=== PATIENT | male | born 1955 | race Caucasian/White ===

== ENCOUNTER 2018-04-11 09:48 | Emergency (ER) | payer MEDICAID, SELFPAY ==
[2018-04-11] VITALS (32 sets, daily range): BP systolic 102–137; BP diastolic 54–82; PULSE 55–74; RESP 10–32; TEMP 36.6; O2SAT 99–100
--- NOTE | 2018-04-11 10:14 | DI.RAD_ITS ---
SYMPTOM/DIAGNOSIS: PAIN RIGHT SHOULDER: Three views. There is an anterior dislocation of the right shoulder. There are well corticated osseous fragments seen superior to the acromioclavicular joint which appear old. There are osseous densities seen at the lateral aspect of the acromion. These are indeterminate and may represent acute fracture fragments. The soft tissues are unremarkable. IMPRESSION: Anterior dislocation of the right shoulder.
--- NOTE | 2018-04-11 10:15 | W.ED.GENAD ---
Discharge Plan Disposition Patient Disposition: HOME Condition: Improving Discharge Details Chief Complaint: Orthopedic Clinical Impression: Dislocation of right shoulder joint Primary Care Provider: Romelia Bravo ED Provider: Jayy La Home Meds and New Rx's Prescriptions: Continued clonazepam 2 mg tablet 2 mg PO TID PRNRF: 0 gabapentin 300 mg capsule 300 mg PO BID Qty: 60 RF: 1 meloxicam 15 mg tablet 15 mg PO DAILY Qty: 30 RF: 2 clomipramine 50 mg capsule 50 mg PO DAILY RF: 0 Discharge Instructions Instructions: Shoulder Dislocation (ED) Additional Instructions: Apply ice to reduce pain and swelling. May use Tylenol and/or ibuprofen if needed as well. Sling the arm until seen by orthopedics for follow-up. Return to the emergency department for any acute concern. Please call the orthopedic office at [phone] to schedule a follow-up appointment Discharge Data Discharge Date/Time-TO BE ENTERED AT DEPARTURE: 04/11/18 14:30 Medical Decision Making <Jayy La MD - Last Filed: 04/11/18 12:33> 62-year-old male who uses [place] crutches to aid in normal ambulation of long distances, was walking on ice, fell forward and had a hyperextension of his right humerus with resultant right shoulder pain. Denies any other injury. No loss of consciousness and no neck/back/chest/abdomen pain. No numbness or tingling. Arrives with unremarkable vital signs, exam reveals tenderness proximal humerus, loss of fullness of humeral head. Ice applied on patient given analgesia, referred for x-ray which reveals anterior humeral head dislocation. Patient agreed to a trial of reduction without sedation which was unsuccessful. He was consented for procedural sedation, propofol was administered by Dr. Contreras, and I reduce the shoulder with traction and external rotation. Post reduction exam unremarkable. Patient placed in sling. He is able to walk with single crutch, but will benefit from outpatient follow-up and physical therapy HPI <Jayy La MD - Last Filed: 04/11/18 12:33> General Mode of arrival: ambulatory. Date/Time Provider Initiated Documentation: 04/11/18 09:56. Limitations to Documentation: no limitations. Information obtained by: patient. History of Present Illness 62 year old M presents to the emergency department with the chief complaint of Right shoulder pain after fall, described as moderate, Quality is described as aching, and is localized to the right and upper extremity. Patient reports no radiation. Patient started experiencing this minute(s) and it has been constant. Cold therapy improves symptom(s), and Rest improves symptom(s), Movement worsens symptoms . Patient notes no other symptoms.; denies chest pain and headaches. Patient did receive the following treatments prior to arrival, none Related Data Home Medications Medication Instructions Recorded Confirmed meloxicam 15 mg tablet 15 mg PO DAILY #30 tab 02/21/18 04/11/18 clomipramine 50 mg capsule 50 mg PO DAILY tab-cap 04/01/18 04/11/18 clonazepam 2 mg tablet 2 mg PO TID PRN 04/01/18 04/11/18 gabapentin 300 mg capsule 300 mg PO BID #60 cap 04/01/18 04/11/18 Previous Rx's Medication Instructions Recorded meloxicam 15 mg tablet 15 mg PO DAILY #30 tab 02/21/18 gabapentin 300 mg capsule 300 mg PO BID #60 cap 04/01/18 Allergies Allergy/AdvReac Type Severity Reaction Status Date / Time fluoxetine HCl [From Prozac] AdvReac Severe Psychosis Unverified 04/11/18 10:11 General Stated Complaint: Orthopedic KATI: 3 Review of Systems <Jayy La MD - Last Filed: 04/11/18 12:33> Review of Systems 6 systems reviewed and otherwise negative PFSH <Jayy La MD - Last Filed: 04/11/18 12:33> Surgical History Appendectomy SPINAL SURGERY Family History Mother Personal history of malignant neoplasm Father No problems noted. Brother No problems noted. Son No problems noted. Daughter Depression Daughter No problems noted. Daughter Depression Social History Smoking/Tobacco Use Status: Never Exam <Jayy La MD - Last Filed: 04/11/18 12:33> Narrative Exam Narrative: GEN: awake, alert, oriented 3. Pleasant, well groomed, interactive. HEAD: Normocephalic, atraumatic ENT: Mucous membranes moist, oropharynx unremarkable, External ear exam unremarkable EYES: PERRL, EOMI NECK: Full ROM, no IGGY, no menigismus, no tenderness CHEST/RESP: Nontender, clear to auscultation bilateral, no wheeze/rhonchi/rales CARDIOVASCULAR: RRR, no murmur, rub sara. 2+ Rad pulse bilateral ABDOMEN: Soft, nontender, no mass. +Bowel sounds EXT: Motor intact in the rated 5 out of 5 bilaterally. Right upper extremity movement is limited by pain. There is tenderness of the humeral head, loss of fullness of humeral head proximally. 2+ radial pulse bilaterally. Sensation intact throughout including lateral deltoid Neuro: Grossly normal neurologic exam, conversant, interactive. Psych: Speech fluent, thoughts congruent, affect normal Course <Jayy La MD - Last Filed: 04/11/18 12:33> Vital Signs Temperature 36.6 C 04/11/18 10:06 Pulse 57 L 04/11/18 10:06 Respiratory Rate 18 04/11/18 10:06 Blood Pressure 137/70 04/11/18 10:06 Pulse Oximetry 99 04/11/18 10:06 Temperature 36.6 C 04/11/18 10:06 Temperature Source Temporal Artery Scan 04/11/18 10:06 Pulse 57 L 04/11/18 10:06 Respiratory Rate 18 04/11/18 10:06 Respiratory Effort Non-Labored 04/11/18 10:09 Blood Pressure 137/70 04/11/18 10:06 Blood Pressure Position Supine 04/11/18 10:06 Pulse Oximetry 99 04/11/18 10:06 Oxygen Delivery Method Room Air 04/11/18 10:06 Oxygen Flow Rate 0 04/11/18 10:06 Pain Level 10 04/11/18 10:06 Procedures <Jayy La MD - Last Filed: 04/11/18 12:33> Orthopedic Joint Reduction Joint #1: Time Out Performed: Yes Side: right Joint Reduction Location: shoulder Analgesia: procedural sedation Shoulder Technique Used (if applicable): external rotation Post-reduction neuro exam: intact Post-reduction vascular: intact Post Reduction X-Ray Obtained: Yes Post Reduction X-Ray Results: reduced Splint Applied: Yes Patient Tolerated Procedure: well <Po Contreras MD - Last Filed: 04/11/18 21:01> Procedural Sedation Indication: fracture/dislocation reduction Presedation Evaluation: ASA 2. Stable for procedural sedation. ASA Class: II Preparation: terra cotta mason applied, pulse oximeter, capnometry used, supplemental O2 applied and suction/airway equipment at bedside IV Propofol dose (mg): 100 Patient Tolerated Procedure: well and no complications Complications: none Additional Comments: Patient tolerated procedural sedation well.
[2018-04-11] MEDS: HYDROcodone 5/Acetaminophen 325 TAB PO (10:20)
--- NOTE | 2018-04-11 11:28 | DI.RAD_ITS ---
SYMPTOMS/DIAGNOSIS: S/P REDUCTION RIGHT SHOULDER POST REDUCTION: Two views. Comparison with examination from earlier in the day. There has been successful reduction of the right shoulder. On the frontal view the superior aspect of the glenohumeral joint and acromioclavicular joints were coned for view. There are again seen ossific densities adjacent to the lateral aspect of the acromion and superior to the acromioclavicular joint. These calcifications are indeterminate. The ones adjacent to the AC joint appear to represent old injury. IMPRESSION: Successful reduction of the right shoulder dislocation.
[2018-04-11] MEDS: Normal Saline 1,000 ML 30 ML IV (11:30)
[2018-04-11] MEDS: Propofol 200 MG/20 ML VIAL 80 MG IVP (11:40)
== END 2018-04-11 14:30 | disposition home or self-care (01) ==
PROVIDERS: Emergency Provider Emergency Medicine; PCP Family Medicine
DX: S43.011A Anterior subluxation of right humerus, initial encounter (principal); W00.0XXA Fall on same level due to ice and snow, initial encounter
CPT/HCPCS: 23650; 73030; 96374; L3650

== ENCOUNTER 2018-04-17 18:00 | Emergency (ER) | payer MEDICAID, SELFPAY ==
[2018-04-17] VITALS (15 sets, daily range): BP systolic 136–172; BP diastolic 74–93; PULSE 62–83; RESP 14–20; TEMP 37.1; O2SAT 96–100
--- NOTE | 2018-04-17 19:19 | W.ED.GENAD ---
Discharge Plan Disposition Patient Disposition: HOME Condition: Improving Discharge Details Chief Complaint: Orthopedic Clinical Impression: Anterior dislocation of right shoulder Primary Care Provider: Romelia Bravo ED Provider: Katya Hedrick Home Meds and New Rx's Prescriptions: Continued clonazepam 2 mg tablet 2 mg PO TID PRNRF: 0 gabapentin 300 mg capsule 300 mg PO BID Qty: 60 RF: 1 tamsulosin 0.4 mg capsule 0.8 mg PO DAILY Qty: 60 RF: 3 meloxicam 15 mg tablet 15 mg PO DAILY Qty: 30 RF: 2 clomipramine 50 mg capsule 50 mg PO DAILY RF: 0 Discharge Instructions Instructions: Shoulder Dislocation (ED) Additional Instructions: Keep arm in sling until evaluated by orthopedics. Please keep upcoming appointment with orthopedics. Rest and ice shoulder. Tylenol and/or Ibuprofen as needed for discomfort. If you develop new/worsening symptoms please seek care urgently once again. Referrals: Romelia Bravo MD [Primary Care Provider] - Medical Decision Making Patient is 62-year-old [id number] male presenting today with chief complaint of right shoulder pain. He was seen here on 04/11/2018 at which time he was diagnosed with an anterior shoulder dislocation which was reduced under sedation. He reports that he initially been feeling quite well. However, he tripped this evening while walking with his cane and fell breaking the cane. States it was not at the time of the fall that he injured himself but rather when he went to go pull himself up from the ground using the right hand. Had a sudden onset of pain. On exam, I am concerned for recurrent dislocation. Will repeat imaging and give oxycodone to help with discomfort. 2+ distal pulses. Endorses mild tingling but sensation intact. Reviewed XR, patient has recurrent dislocation. Discussed findings with the patient. He did not tolerate reduction without sedation well, will plan for sendation with reduction. Patient and I discussed risk/benefits as well as expected procedural steps. He voices understanding and wishes to proceed. Patient signed consent. Sedation was performed by Dr. Wolfe. Reduction was performed myself with external rotation. Patient tolerated procedure well. Patient placed in sling. Neurovascularly intact after reduction. Pain greatly improved. Postreduction film reviewed by radiologist: FINDINGS: There has been interval reduction of the right shoulder dislocation. The alignment of the right shoulder is normal. A Hill-Sachs deformity is present. IMPRESSION: Post reduction of the right shoulder as above. Discussed findings with the patient. Advised that he needs to remain in sling until upcoming appointment with orthopedics. Discussed risk of him dislocating again. Encouraged rest and ice. Tylenol/Ibuprofen for discomfort. He was kept in department until the affects of the medication had cleared, able to ambulate and dress himself. Advised that he should not wear sling while driving. We discussed new/worsening symptoms and when to seek care urgently once again. All of his questions and concerns were addressed, he is in agreement with this plan. HPI General Mode of arrival: ambulatory. Date/Time Provider Initiated Documentation: 04/17/18 19:18. Limitations to Documentation: no limitations. Information obtained by: patient. History of Present Illness 62 year old M presents to the emergency department with the chief complaint of right shoulder pain, described as severe, Quality is described as stabbing, and is localized to the right and upper extremity. Patient reports no radiation. Patient started experiencing this hour(s) (1) and it has been constant. Immobilization improves symptom(s), Movement worsens symptoms . Patient notes denies chest pain, cough, fever/chills, loss of appetite, nausea/vomiting, rash, shortness of breath and syncope. Patient did receive the following treatments prior to arrival, none Related Data Home Medications Medication Instructions Recorded Confirmed meloxicam 15 mg tablet 15 mg PO DAILY #30 tab 02/21/18 04/17/18 clomipramine 50 mg capsule 50 mg PO DAILY tab-cap 04/01/18 04/17/18 clonazepam 2 mg tablet 2 mg PO TID PRN 04/01/18 04/17/18 gabapentin 300 mg capsule 300 mg PO BID #60 cap 04/01/18 04/17/18 tamsulosin 0.4 mg capsule 0.8 mg PO DAILY #60 cap 04/12/18 04/17/18 Previous Rx's Medication Instructions Recorded meloxicam 15 mg tablet 15 mg PO DAILY #30 tab 02/21/18 gabapentin 300 mg capsule 300 mg PO BID #60 cap 04/01/18 tamsulosin 0.4 mg capsule 0.8 mg PO DAILY #60 cap 04/12/18 Allergies Allergy/AdvReac Type Severity Reaction Status Date / Time fluoxetine HCl [From Prozac] AdvReac Severe Psychosis Unverified 04/17/18 18:45 General Stated Complaint: Orthopedic KATI: 3 Review of Systems Constitutional Reports as per HPI, Denies chills, Denies fever(s), Denies headache(s) and Denies weakness ENT Denies headache(s) Cardiovascular Reports as per HPI Respiratory Reports as per HPI and Denies cough Musculoskeletal Reports as per HPI, Denies back pain, Reports deformity, Reports limited range of motion, Denies muscle cramps, Denies numbness, Denies radiating pain into limb and Reports tingling Integumentary/Breasts Reports as per HPI, Denies rash and Denies wounds Neurologic Denies headache(s), Denies numbness, Reports tingling and Denies weakness [facility] Surgical History Appendectomy SPINAL SURGERY Social History Smoking/Tobacco Use Status: Never Exam Const General: cooperative, healthy appearing, comfortable, no acute distress, well developed and well groomed Nutritional Appearance: average body habitus and well nourished Orientation: alert and awake Resp Effort & Inspection: normal respiratory effort, able to speak in complete sentences and no respiratory distress Auscultation: clear to auscultation bilaterally, no rales, no rhonchi and no wheezes Cardio Rate: regular rate Rhythm: regular rhythm Heart Sounds: S1 normal and S2 normal Back/Spine/Pelvis Cervical Spine: normal cervical lordosis, cervical ROM normal, No cervical muscular tenderness, No pain with cervical ROM, No cervical spinal tenderness and No step off deformity Skin General skin exam: no rashes or lesions noted Lesions: no lesions Rashes: no rashes Trauma: no lacerations or abrasions Neuro General: alert and awake Cognition: normal cognition Speech: speech normal Gait: normal gait Motor: muscle tone normal throughout Sensory Exam: no sensory deficits noted Extrem General: abnormal to inspection, abnormal ROM, normal capillary refill and no joint enlargement Right upper extremity: normal capillary refill, no joint enlargement and shoulder/upper arm Details: tenderness Location: over the biceps tendon, over the subacromial bursa and over the deltoid bursa, abnormal ROM Details: held in an abnormal fashion Details: in ADduction and deformity Location: of the shoulder joint Location: anteriorly; no swelling, ROM limited, no abrasions, no lacerations, no ecchymosis and no unusual warmth; abnormal to inspection and ROM limited Psych Appearance: grossly normal and well kempt Mental Status: mental status grossly normal Speech and Movement: speech and movement normal Procedures Orthopedic Joint Reduction right shoulder: Time Out Performed: Yes Joint Reduction Location: shoulder Analgesia: procedural sedation Shoulder Technique Used (if applicable): external rotation Post-reduction neuro exam: intact Post-reduction vascular: intact Post Reduction X-Ray Obtained: Yes Post Reduction X-Ray Results: reduced Splint Applied: Yes Patient Tolerated Procedure: well and no complications
--- NOTE | 2018-04-17 19:25 | DI.RAD_ITS ---
SYMPTOMS/DIAGNOSIS: CONCERN FOR RECURRENT DISLOCATION RIGHT SHOULDER: There is anterior dislocation of the humeral head with respect to the glenoid. The humeral head appears impacted on the anterior margin of the glenoid on the axillary view. There are underlying degenerative changes greatest of the AC joint. Calcification is seen adjacent to the tip of the acromion. Glenoid spurring is also seen. IMPRESSION: Anterior dislocation of the glenohumeral joint with impaction of the humeral head on the anterior glenoid. RIGHT SHOULDER POST REDUCTION: The previously noted anterior dislocation has been reduced. No axillary view was performed. A Hill-Sach deformity of the humeral head is seen. No glenoid fracture is visible. IMPRESSION: Satisfactory reduction of shoulder dislocation.
--- NOTE | 2018-04-17 19:29 | ED.GENADUL_ITS ---
Discharge Plan Disposition Patient Disposition: HOME Condition: Improving Discharge Details Chief Complaint: Orthopedic Clinical Impression: Anterior dislocation of right shoulder Primary Care Provider: Romelia Bravo ED Provider: Katya Hedrick Home Meds and New Rx's Prescriptions: Continued clonazepam 2 mg tablet 2 mg PO TID PRNRF: 0 gabapentin 300 mg capsule 300 mg PO BID Qty: 60 RF: 1 tamsulosin 0.4 mg capsule 0.8 mg PO DAILY Qty: 60 RF: 3 meloxicam 15 mg tablet 15 mg PO DAILY Qty: 30 RF: 2 clomipramine 50 mg capsule 50 mg PO DAILY RF: 0 Discharge Instructions Instructions: Shoulder Dislocation (ED) Additional Instructions: Keep arm in sling until evaluated by orthopedics. Please keep upcoming appointment with orthopedics. Rest and ice shoulder. Tylenol and/or Ibuprofen as needed for discomfort. If you develop new/worsening symptoms please seek care urgently once again. Referrals: Romelia Bravo MD [Primary Care Provider] - Medical Decision Making Patient is 62-year-old [id number] male presenting today with chief complaint of right shoulder pain. He was seen here on 04/11/2018 at which time he was diagnosed with an anterior shoulder dislocation which was reduced under sedation. He reports that he initially been feeling quite well. However, he tripped this evening while walking with his cane and fell breaking the cane. States it was not at the time of the fall that he injured himself but rather when he went to go pull himself up from the ground using the right hand. Had a sudden onset of pain. On exam, I am concerned for recurrent dislocation. Will repeat imaging and give oxycodone to help with discomfort. 2+ distal pulses. Endorses mild tingling but sensation intact. Reviewed XR, patient has recurrent dislocation. Discussed findings with the patient. He did not tolerate reduction without sedation well, will plan for sendation with reduction. Patient and I discussed risk/benefits as well as expe cted procedural steps. He voices understanding and wishes to proceed. Patient signed consent. Sedation was performed by Dr. Wolfe. Reduction was performed myself with external rotation. Patient tolerated procedure well. Patient placed in sling. Neurovascularly intact after reduction. Pain greatly improved. Postreduction film reviewed by radiologist: FINDINGS: There has been interval reduction of the right shoulder dislocation. The alignment of the right shoulder is normal. A Hill-Sachs deformity is present. IMPRESSION: Post reduction of the right shoulder as above. Discussed findings with the patient. Advised that he needs to remain in sling until upcoming appointment with orthopedics. Discussed risk of him dislocating again. Encouraged rest and ice. Tylenol/Ibuprofen for discomfort. He was kept in department until the affects of the medication had cleared, able to ambulate and dress himself. Advised that he should not wear sling while driving. We discussed new/worsening symptoms and when to seek care urgently once again. All of his questions and concerns were addressed, he is in agreement with this plan. HPI General Mode of arrival: ambulatory . Date/Time Provider Initiated Documentation: 04/17/18 19:18 . Limitations to Documentation: no limitations . Information obtained by: patient . History of Present Illness 62 year old M presents to the emergency department with the chief complaint of right shoulder pain, described as severe, Quality is described as stabbing, and is localized to the right and upper extremity. Patient reports no radiation. Patient started experiencing this hour(s) (1) and it has been constant. Immobilization improves symptom(s), Movement worsens symptoms . Patient notes denies chest pain, cough, fever/chills, loss of appetite, nausea/vomiting, rash, shortness of breath and syncope. Patient did receive the following treatments prior to arrival, none Related Data Home Medications Medication Instructions Recorded Confirmed meloxicam 15 mg tablet 15 mg PO DAILY #30 tab 02/21/18 04/17/18 clomipramine 50 mg capsule 50 mg PO DAILY tab-cap 04/01/18 04/17/18 clonazepam 2 mg tablet 2 mg PO TID PRN 04/01/18 04/17/18 gabapentin 300 mg capsule 300 mg PO BID #60 cap 04/01/18 04/17/18 tamsulosin 0.4 mg capsule 0.8 mg PO DAILY #60 cap 04/12/18 04/17/18 Previous Rx's Medication Instructions Recorded meloxicam 15 mg tablet 15 mg PO DAILY #30 tab 02/21/18 gabapentin 300 mg capsule 300 mg PO BID #60 cap 04/01/18 tamsulosin 0.4 mg capsule 0.8 mg PO DAILY #60 cap 04/12/18 Allergies Allergy/AdvReac Type Severity Reaction Status Date / Time fluoxetine HCl [From Prozac] AdvReac Severe Psychosis Unverified 04/17/18 18:45 General Stated Complaint: Orthopedic KATI: 3 Review of Systems Constitutional Reports as per HPI, Denies chills, Denies fever(s), Denies headache(s) and Denies weakness ENT Denies headache(s) Cardiovascular Reports as per HPI Respiratory Reports as per HPI and Denies cough Musculoskeletal Reports as per HPI, Denies back pain, Reports deformity, Reports limited range of motion, Denies muscle cramps, Denies numbness, Denies radiating pain into limb and Reports tingling Integumentary/Breasts Reports as per HPI, Denies rash and Denies wounds Neurologic Denies headache(s), Denies numbness, Reports tingling and Denies weakness [facility] Surgical History Appendectomy SPINAL SURGERY Social History Smoking/Tobacco Use Status: Never Exam Const General: cooperative, healthy appearing, comfortable, no acute distress, well developed and well groomed Nutritional Appearance: average body habitus and well nourished Orientation: alert and awake Resp Effort & Inspection: normal respiratory effort, able to speak in complete sentences and no respiratory distress Auscultation: clear to auscultation bilaterally, no rales, no rhonchi and no wheezes Cardio Rate: regular rate Rhythm: regular rhythm Heart Sounds: S1 normal and S2 normal Back/Spine/Pelvis Cervical Spine: normal cervical lordosis, cervical ROM normal, No cervical muscular tenderness, No pain with cervical ROM, No cervical spinal tenderness and No step off deformity Skin General skin exam: no rashes or lesions noted Lesions: no lesions Rashes: no rashes Trauma: no lacerations or abrasions Neuro General: alert and awake Cognition: normal cognition Speech: speech normal Gait: normal gait Motor: muscle tone normal throughout Sensory Exam: no sensory deficits noted Extrem General: abnormal to inspection, abnormal ROM, normal capillary refill and no joint enlargement Right upper extremity: normal capillary refill, no joint enlargement and shoulder/upper arm Details: tenderness Location: over the biceps tendon, over the subacromial bursa and over the deltoid bursa, abnormal ROM Details: held in an abnormal fashion Details: in ADduction and deformity Location: of the shoulder joint Location: anteriorly; no swelling, ROM limited, no abrasions, no lacerations, no ecchymosis and no unusual warmth; abnormal to inspection and ROM limited Psych Appearance: grossly normal and well kempt Mental Status: mental status grossly normal Speech and Movement: speech and movement normal Procedures Orthopedic Joint Reduction right shoulder: Time Out Performed: Yes Joint Reduction Location: shoulder Analgesia: procedural sedation Shoulder Technique Used (if applicable): external rotation Post-reduction neuro exam: intact Post-reduction vascular: intact Post Reduction X-Ray Obtained: Yes Post Reduction X-Ray Results: reduced Splint Applied: Yes Patient Tolerated Procedure: well and no complications
[2018-04-17] MEDS: fentaNYL 100 MCG/2 ML VIAL 50 MCG IVP (20:28)
--- NOTE | 2018-04-17 20:28 | DI.VRAD_ITS ---
EXAM: XR Right Shoulder Complete, 2 or More Views EXAM DATE/TIME: 04/17/2018 7:28 PM CLINICAL HISTORY: 62 years old, male; Injury or trauma; Initial encounter; Dislocation; Severity not specified; Humerus, proximal end; Right TECHNIQUE: XR Right shoulder complete 2 or more views. COMPARISON: CR XR shoulder RT comp post reduc 04/11/2018 11:56 AM FINDINGS: There is anterior subcoracoid dislocation of the right humerus. A Hill-Sachs deformity is present. The acromioclavicular joint is intact. IMPRESSION: Anterior dislocation of the right shoulder. Dictated and Authenticated by: Sunny Delacruz MD. Ordering:ANITA Aldana MD
[2018-04-17] MEDS: Normal Saline 1,000 ML 1000 ML IV (20:29)
[2018-04-17] MEDS: Propofol 200 MG/20 ML VIAL (20:40)
--- NOTE | 2018-04-17 21:24 | DI.VRAD_ITS ---
EXAM: XR Right Shoulder Complete, 2 or More Views EXAM DATE/TIME: 04/17/2018 8:48 PM CLINICAL HISTORY: 62 years old, male; Injury or trauma; Fall; Follow-up exam; Blunt trauma (contusions or hematomas; Shoulder; Right; Additional info: S/P reduction TECHNIQUE: XR Right shoulder complete 2 or more views. COMPARISON: CR XR shoulder RT complete 2+V 04/17/2018 7:40 PM FINDINGS: There has been interval reduction of the right shoulder dislocation. The alignment of the right shoulder is normal. A Hill-Sachs deformity is present. IMPRESSION: Post reduction of the right shoulder as above. Dictated and Authenticated by: Sunny Delacruz MD. Ordering:ANITA Adlana MD
== END 2018-04-17 22:09 | disposition home or self-care (01) ==
PROVIDERS: Emergency Provider Physician Assistant; PCP Family Medicine
DX: M24.411 Recurrent dislocation, right shoulder (principal); W19.XXXA Unspecified fall, initial encounter
CPT/HCPCS: 23655; 73030; 96361; 96374; 96375; 99284; 99282; J3010; L3650

== ENCOUNTER 2018-07-01 00:45 | Outpatient (CLI) | payer MEDICAID, SELFPAY ==
--- NOTE | 2018-07-01 07:44 | DI.US_ITS ---
SYMPTOMS/DIAGNOSIS: ABNL IMAGE OF RT KIDNEY ON LUMBAR MRI, R93.429 RENAL ULTRASOUND: This exam was performed to follow up abnormality seen in the right kidney. The kidneys are normal in size and show normal parenchymal thickness and echogenicity. A 1.3 x 1.6 cm cyst is demonstrated in the mid right kidney. No suspicious masses are seen. There is no evidence of hydronephrosis. The prevoid bladder volume measured 168 cc's. The patient was unable to void at the time of the exam. The prostate volume is measured at 30 cc's. IMPRESSION: Small right renal cyst is identified which may correspond to the MRI abnormality.
== END 2018-07-01 01:05 ==
PROVIDERS: PCP Family Medicine; Visit Provider Family Medicine
DX: N28.89 Other specified disorders of kidney and ureter (principal); N28.1 Cyst of kidney, acquired
CPT/HCPCS: 76770

== ENCOUNTER 2018-07-19 07:20 | Emergency (ER) | payer MEDICAID, SELFPAY ==
[2018-07-19] VITALS (37 sets, daily range): BP systolic 116–165; BP diastolic 62–88; PULSE 65–88; RESP 11–27; TEMP 36.7; O2SAT 76–100
[2018-07-19] MEDS: Lactated Ringers 1,000 ML 1000 ML IV (07:41)
[2018-07-19] MEDS: Ondansetron O.D.T. 4 MG TABEF PO (07:43)
[2018-07-19] MEDS: LORazepam 2 MG/ML VIAL 1 MG IVP (07:46)
[2018-07-19 08:06] LABS: Abs Immature Grans 0.06 k/cumm (0.0-0.09); Absolute Eosinophil Count 0.09 k/cumm (0.0-0.7); Absolute Lymphocyte Count 1.36 k/cumm (1.2-3.4); Basophils % 0.1; Eosinophils % 0.6; HCT 40.5 % (40.0-50.0); HGB 14.1 g/dL (13.5-17.5); Immature Grans % 0.4; Lymphocytes % 9.4; Mean Corp. HGB Concentration 34.8 g/dL (32.0-36.0); Mean Corpuscular Hemoglobin 31.7 pg (27.0-33.0); Mean Platelet Volume 10.3 fL (8.0-11.0); Monocytes % 9.1; Neutrophils % 80.4; Platelet Count 232 x1000/uL (130-400); RBC 4.45 m/cumm (4.50-6.00); RBC Distribution Width 13.7 % (11.8-14.1); White Blood Cell Count 14.43 k/cumm (4.4-10.8)
[2018-07-19 08:17] LABS: Absolute Basophil Count 0.01 k/cumm (0.0-0.2); Absolute Monocyte Count 1.31 k/cumm (0.11-0.7)
[2018-07-19 08:18] LABS: ALT 35 U/L (12-78); AST 34 U/L (15-37); Albumin 4.2 g/dL (3.4-5.0); Alkaline Phosphatase 120 U/L (46-116); Anion Gap 9.7 mmol/L (3-11); BUN 21 mg/dL (7-18); Bilirubin, Total 0.3 mg/dL (0.2-1.0); CO2 28.3 mmol/L (21.0-32.0); Calcium 9.2 mg/dL (8.5-10.1); Chloride 100 mmol/L (98-107); Glucose 141 mg/dL (70-100); Lipase 249 U/L (73-393); Magnesium 2.2 mg/dL (1.8-2.4); Sodium 138 mmol/L (136-145); Total Protein 7.9 g/dL (6.4-8.2)
[2018-07-19 08:22] LABS: Troponin I < 0.02 ng/mL (0.00-0.06)
[2018-07-19 08:34] LABS: ETHANOL BLOOD < 3.0 mg/dL (<3)
[2018-07-19] MEDS: Metoclopramide 10 MG/2 ML VIAL IVP (08:51)
[2018-07-19] MEDS: Mylanta Suspension 30 ML CUP PO (08:52)
[2018-07-19] MEDS: Ketorolac 15 MG/ML VIAL IVP (09:14)
--- NOTE | 2018-07-19 11:35 | ED.GENADUL_ITS ---
Discharge Plan Disposition Patient Disposition: HOME Condition: Improving Discharge Details Chief Complaint: ETOHWithdr Clinical Impression: Vomiting, Abdominal pain, acute, epigastric Primary Care Provider: Romelia Bravo ED Provider: Osman Bar Home Meds and New Rx's Prescriptions: New metoclopramide HCl [Reglan] 10 mg tablet 10 mg PO Q6H Qty: 10 RF: 0 famotidine [Heartburn Relief (famotidine)] 20 mg tablet 20 mg PO BID 28 Days Qty: 56 RF: 0 No Action gabapentin 600 mg tablet 600 mg PO BID Qty: 60 RF: 3 clonazepam 2 mg tablet 2 mg PO TID PRNRF: 0 tamsulosin 0.4 mg capsule 0.8 mg PO DAILY Qty: 60 RF: 3 meloxicam 15 mg tablet 15 mg PO DAILY Qty: 30 RF: 2 clomipramine 50 mg capsule 75 mg PO BID RF: 0 gabapentin 300 mg capsule 300 mg PO BID Qty: 60 RF: 0 Discharge Instructions Instructions: Abdominal Pain (ED) Additional Instructions: 1. Drink plenty of fluids. Add solid foods as tolerated. 2. Continue all medications as prescribed. 3. Acetaminophen 1000mg every 4 hours (up to 5 time a day) and/or ibuprofen 600mg every 6 hours as needed for fever or pain. 4. Reglan 10 mg every 6 hours as needed for nausea. 5. Pepcid 20 mg twice a day. Return to the Emergency Department (ED) if your condition worsens, does not improve as expected, or for ANY other concerns. Specifically, return if you have new or uncontrolled pain, worsening fever, difficulty breathing, vomiting, or are unable to drink fluids. Medical Decision Making 63-year-old with a history of chronic alcohol abuse and recurrent chronic upper abdominal pain. Patient endorses previous treatment in emergency department of hydromorphone for similar symptoms. Nontoxic in appearance with dry mucosa and epigastric tenderness. Patient had one episode of emesis after being witnessed to stick his hand in his oropharynx prior to emesis. Labs nondiagnostic. Clinically improved after receiving IV crystalloid, IV Reglan, and oral antacids. Also received IV ketorolac. On reevaluation, patient has improved but persistent epigastric pain. Discussed nondiagnostic laboratory findings including negative LFTs and a lipase. Discharged home with a plan for regular metoclopramide, oral antacids, and follow-up as needed. Given usual and customary return instructions prior to discharge. Medical Records Medical records reviewed: Yes I reviewed the patient's medical records. Lab Data Lab results reviewed: Yes I reviewed the patient's lab results. Lab results narrative: Lab Results 07/19/18 07/19/18 Range/Units 07:30 07:30 WBC 14.43 H (4.4-10.8) k/cumm RBC 4.45 L (4.50-6.00) m/cumm Hgb 14.1 (13.5-17.5) g/dL Hct 40.5 (40.0-50.0) % MCV 91.0 (80-95) fL MCH 31.7 (27.0-33.0) pg MCHC 34.8 (32.0-36.0) g/dL RDW 13.7 (11.8-14.1) % Plt Count 232 (130-400) x1000/uL MPV 10.3 (8.0-11.0) fL Immature Gran % 0.4 Neutrophils % 80.4 Lymphocytes % 9.4 Monocytes % 9.1 Eosinophils % 0.6 Basophils % 0.1 Absolute Neutrophils 11.60 H (1.2-6.7) k/cumm Absolute Lymphocytes 1.36 (1.2-3.4) k/cumm Absolute Monocytes 1.31 H (0.11-0.7) k/cumm Absolute Eosinophils 0.09 (0.0-0.7) k/cumm Absolute Basophils 0.01 (0.0-0.2) k/cumm Sodium 138 (136-145) mmol/L Potassium 4.0 (3.5-5.1) mmol/L Chloride 100 (98-107) mmol/L Carbon Dioxide 28.3 (21.0-32.0) mmol/L Anion Gap 9.7 (3-11) mmol/L BUN 21 H (7-18) mg/dL Creatinine 1.00 (0.70-1.30) mg/dL Estimated GFR/1.73 m2 >= 60.00 (mL/min/1.73m2) Glucose 141 H (70-100) mg/dL Calcium 9.2 (8.5-10.1) mg/dL Magnesium 2.2 (1.8-2.4) mg/dL Total Bilirubin 0.3 (0.2-1.0) mg/dL AST 34 (15-37) U/L ALT 35 (12-78) U/L Alkaline Phosphatase 120 H (46-116) U/L Troponin I < 0.02 (0.00-0.06) ng/mL Total Protein 7.9 (6.4-8.2) g/dL Albumin 4.2 (3.4-5.0) g/dL Lipase 249 (73-393) U/L Ethyl Alcohol < 3.0 (<3) mg/dL HPI 63-year-old gent with history of alcohol abuse and chronic recurrent abdominal pain who presents with recurrent nausea, emesis, abdominal pain which began yesterday evening at 2100. Casey drinks on a regular basis and has had no alcohol since 2100 because of recurrent emesis. He denies fever/chills, chest, dyspnea, palpitations, lower extremity pain or swelling. Denies bilious or bloody emesis. Had no has not no significant change in bowel habits, melena, hematochezia. Pain is in similar location and nature as previous episodes. Of note, patient notes that he has been treated with hydromorphone at other emergency departments for similar symptoms. General Date/Time Provider Initiated Documentation: 07/19/18 07:37 . Related Data Home Medications Medication Instructions Recorded Confirmed clonazepam 2 mg tablet 2 mg PO TID PRN 04/01/18 07/19/18 tamsulosin 0.4 mg capsule 0.8 mg PO DAILY #60 cap 04/12/18 07/19/18 meloxicam 15 mg tablet 15 mg PO DAILY #30 tab 06/04/18 07/19/18 clomipramine 50 mg capsule 75 mg PO BID tab-cap 06/19/18 07/19/18 gabapentin 600 mg tablet 600 mg PO BID #60 tab 06/19/18 07/19/18 gabapentin 300 mg capsule 300 mg PO BID #60 cap 07/12/18 07/19/18 famotidine [Heartburn Relief 20 mg PO BID 28 Days #56 tab 07/19/18 (famotidine)] metoclopramide HCl [Reglan] 10 mg PO Q6H #10 tab 07/19/18 Previous Rx's Medication Instructions Recorded tamsulosin 0.4 mg capsule 0.8 mg PO DAILY #60 cap 04/12/18 meloxicam 15 mg tablet 15 mg PO DAILY #30 tab 06/04/18 gabapentin 600 mg tablet 600 mg PO BID #60 tab 06/19/18 gabapentin 300 mg capsule 300 mg PO BID #60 cap 07/12/18 famotidine [Heartburn Relief 20 mg PO BID 28 Days #56 tab 07/19/18 (famotidine)] metoclopramide HCl [Reglan] 10 mg PO Q6H #10 tab 07/19/18 Allergies Allergy/AdvReac Type Severity Reaction Status Date / Time fluoxetine HCl [From Prozac] AdvReac Severe Psychosis Unverified 07/19/18 07:35 General Stated Complaint: ETOHWithdr KATI: 2 Review of Systems Review of Systems All systems are reviewed and are unremarkable except as noted in HPI and below: CONSTITUTIONAL: no fevers/chills, no weakness or change in appetite EYES: no change in vision HEENT: no throat pain or difficulty swallowing; no neck pain CARDIOVASCULAR: no chest pain, palpitations, leg swelling, or diaphoresis RESPIRATORY: no cough, dyspnea, wheezing GASTROINTESTINAL: Epigastric abdominal pain, nausea/emesis; no hematemesis, hematochezia, melena, BRBPR GENITOURINARY: no dysuria, flank pain, MUSCULOSKELETAL: no pack pain, myalgias, arthralgias INTEGUMENTARY: no rash, no wounds NEUROLOGIC: no headache, focal weakness, difficulty with speech, numbness PSYCHIATRIC: no confusion, no anxiety HEME: no easy bruising or bleeding ALLERGIC: no urticaria PFSH Surgical History Appendectomy SPINAL SURGERY Family History Mother Personal history of malignant neoplasm Father No problems noted. Brother No problems noted. Son No problems noted. Daughter Depression Daughter No problems noted. Daughter Depression Social History Smoking/Tobacco Use Status: Never Alcohol Intake: current Alcohol Intake frequency: 3 or more drinks per day Drug use: Daily Substance use type: marijuana Details: Drinks 8 twisted teas a day Exam Narrative Exam Narrative: Nursing note and vital signs have been reviewed and noted. GENERAL: alert, active, no acute distress, dry mucosa HEENT: atraumatic/normocephalic, PERRLA, EOMI, conjunctiva clear, external ears/canals normal, nasal mucosa normal NECK: supple, full range of motion, no mass, normal lymphadenopathy, no thyromegaly CARDIOVASCULAR: RRR, no murmurs, nl pulses, no edema PULMONARY: nl effort, no audible wheezing or stridor, nl breath sounds with no focal deficit. no chest wall tenderness ABDOMEN: soft, , non-distended, no mass, no organomegaly; epigastric tenderness which reproduces subjective pain. No rebound, guarding, or peritonitis. EXTREMITY: normal muscle tone, all joints with FROM, no deformity or tenderness SKIN: no exanthem appreciated NEURO: gross motor exam normal, normal stance and gait PSYCH: alert and oriented, Course Vital Signs Respiratory Rate 11 L 07/19/18 07:22 Pulse Oximetry 100 07/19/18 07:22 Temperature 98.1 F 07/19/18 07:28 Temperature Source Temporal Artery Scan 07/19/18 07:28 Pulse 78 07/19/18 10:30 Pulse 79 07/19/18 10:40 Respiratory Rate 18 07/19/18 10:40 Respiratory Effort Non-Labored 07/19/18 07:32 Blood Pressure 159/82 H 07/19/18 10:30 Blood Pressure Mean 101 07/19/18 10:30 Blood Pressure Position Supine 07/19/18 07:28 Pulse Oximetry 98 07/19/18 10:40 Oxygen Delivery Method Room Air 07/19/18 07:28 Oxygen Flow Rate 0 07/19/18 07:28 Pain Level 10 07/19/18 07:28 Lab/Test Results Lab/Test Results: Laboratory Tests Range/Units 07/19/18 07/19/18 07:30 07:30 WBC (4.4-10.8) k/cumm 14.43 H RBC (4.50-6.00) m/cumm 4.45 L Hgb (13.5-17.5) g/dL 14.1 Hct (40.0-50.0) % 40.5 MCV (80-95) fL 91.0 MCH (27.0-33.0) pg 31.7 MCHC (32.0-36.0) g/dL 34.8 RDW (11.8-14.1) % 13.7 Plt Count (130-400) x1000/uL 232 MPV (8.0-11.0) fL 10.3 Immature Gran % 0.4 Neutrophils % 80.4 Lymphocytes % 9.4 Monocytes % 9.1 Eosinophils % 0.6 Basophils % 0.1 Absolute Neutrophils (1.2-6.7) k/cumm 11.60 H Absolute Lymphocytes (1.2-3.4) k/cumm 1.36 Absolute Monocytes (0.11-0.7) k/cumm 1.31 H Absolute Eosinophils (0.0-0.7) k/cumm 0.09 Absolute Basophils (0.0-0.2) k/cumm 0.01 Sodium (136-145) mmol/L 138 Potassium (3.5-5.1) mmol/L 4.0 Chloride (98-107) mmol/L 100 Carbon Dioxide (21.0-32.0) mmol/L 28.3 Anion Gap (3-11) mmol/L 9.7 BUN (7-18) mg/dL 21 H Creatinine (0.70-1.30) mg/dL 1.00 Estimated GFR/1.73 m2 (mL/min/1.73m2) >= 60.00 Glucose (70-100) mg/dL 141 H Calcium (8.5-10.1) mg/dL 9.2 Magnesium (1.8-2.4) mg/dL 2.2 Total Bilirubin (0.2-1.0) mg/dL 0.3 AST (15-37) U/L 34 ALT (12-78) U/L 35 Alkaline Phosphatase (46-116) U/L 120 H Troponin I (0.00-0.06) ng/mL < 0.02 Total Protein (6.4-8.2) g/dL 7.9 Albumin (3.4-5.0) g/dL 4.2 Lipase (73-393) U/L 249 Ethyl Alcohol (<3) mg/dL < 3.0
--- NOTE | 2018-07-19 11:41 | PDOC.ERCMPRO ---
Care Management Progress Note 07/19-Casey needs transportation home. He normally drives. Came to the ED via ambulance. States he has no money to pay for a taxi. Called [facility] and spoke with Ladarius. Ladarius will send taxi to [facility] to transport Casey home. [facility] will bill the transport to [facility].
--- NOTE | 2018-07-19 11:43 | CMPROGNOTE_ITS ---
Care Management Progress Note 07/19-Casey needs transportation home. He normally drives. Came to the ED via ambulance. States he has no money to pay for a taxi. Called [facility] and spoke with Ladarius. Ladarius will send taxi to [facility] to transport Casey home. [facility] will bill the transport to [facility].
== END 2018-07-19 11:25 | disposition home or self-care (01) ==
PROVIDERS: Emergency Medicine; Emergency Provider Emergency Medicine; PCP Family Medicine
DX: R11.2 Nausea with vomiting, unspecified (principal); R10.13 Epigastric pain; F10.10 Alcohol abuse, uncomplicated
CPT/HCPCS: 36415; 80053; 83690; 96361; 96374; 96375; 99284; 80320; 83735; 84484; 85025; J1885; J2060; J2765

== ENCOUNTER 2018-08-22 03:45 | Emergency (ER) | payer MEDICAID, SELFPAY ==
[2018-08-22] VITALS (47 sets, daily range): BP systolic 102–169; BP diastolic 60–90; PULSE 63–84; RESP 12–26; TEMP 36.6; O2SAT 96–100
--- NOTE | 2018-08-22 03:54 | ED.GENADUL_ITS ---
Discharge Plan Disposition Patient Disposition: HOME Condition: Good Discharge Details Chief Complaint: Abd Prob Clinical Impression: Abdominal pain, epigastric, Alcohol abuse Primary Care Provider: Romelia Bravo ED Provider: Keshawn Sanders Huxley Diane and New Rx's Prescriptions: New lansoprazole 30 mg tablet,disintegrat, delay rel 30 mg PO DAILY Qty: 30 RF: 0 sucralfate [Carafate] 100 mg/mL suspension 10 ml PO QID Qty: 420 RF: 0 Continued tamsulosin 0.4 mg capsule 0.8 mg PO DAILY Qty: 60 RF: 3 gabapentin 300 mg capsule 300 mg PO TID Qty: 60 RF: 3 clonazepam 2 mg tablet 2 mg PO TID PRNRF: 0 meloxicam 15 mg tablet 15 mg PO DAILY Qty: 30 RF: 2 clomipramine 50 mg capsule 75 mg PO BID RF: 0 gabapentin 600 mg tablet 600 mg PO BID Qty: 60 RF: 3 Discharge Instructions Instructions: Abuse of Alcohol (ED), Epigastric Pain (ED) Additional Instructions: Avoid alcohol and caffeine in the future as both can aggravate stomach problems. Follow through with call or contact centre coach referral. Follow-up with primary care next week. Start new medications to try to help with the stomach pain you have. Return to ED for fever, vomiting, worsening pain, difficulty breathing, black stool, other concerns. Referrals: Romelia Bravo MD [Primary Care Provider] - Medical Decision Making Patient presents with upper abdominal pain which he has had previously. He is a chronic alcoholic. He is endorsing some vague chest discomfort with numbness in his upper arms. Currently has no chest pain. Not overly concerned that this is a cardiac presentation. It is more likely continued upper GI symptoms from his chronic alcohol use. His EKG is unchanged from previous. We will give him fluids, Phenergan, Pepcid. I will check laboratory studies. We will plan on a 3-hour troponin and repeat EKG given his vague complaint of chest pain. 5:00 - Patient states his pain is a little better. Still has some nausea. We will try some Zofran as well as Carafate at this point. Labs are looking okay. CBC is fine. Chemistries fine. Lipase normal. Troponin normal. Alcohol level less than 10. We will plan on repeat troponin and EKG and if remains normal we will plan discharge home and follow-up with PCP. 7:30 - Patient's second EKG remains unchanged from earlier. Second troponin is negative. Nausea is resolved. Still has some abdominal discomfort. Abdomen remains benign on exam. Will give GI cocktail. Will start PPI and Carafate at discharge. He has been seen by recovery coaches on his last visit to the ED. In reviewing his records from the office he is been referred to AA and offered services. I have discussed this with him as well. At this point he is requesting recovery coaches to see him. He wants to try to stop drinking. He can be discharged after being seen by recovery coaches. Medical Records Medical records reviewed: Yes I reviewed the patient's medical records. Lab Data Lab results reviewed: Yes I reviewed the patient's lab results. ECG Data Attestation: I personally reviewed and interpreted this ECG (s) as follows: Prior ECG tracings: available for review Interpretation: Sinus rhythm at a rate of 70. Normal axis and intervals. No acute ST changes. No change from previous dated July of this year. HPI General Mode of arrival: EMS . Date/Time Provider Initiated Documentation: 08/22/18 03:48 . Limitations to Documentation: no limitations . Information obtained by: patient, RN notes reviewed and old records reviewed . HPI Narrative: Patient presents to ED by EMS with complaints of upper abdominal pain which he has had previously. He has nausea but no vomiting. He is vague about whether he has had chest discomfort or not. He has had visits to the ED previously for upper abdominal pain. He is a chronic drinker and continues to drink. He took some antacids which originally made the pain better but then it came back worse. He had no more antacid so he came into the ED. Currently has no chest pain. Does state that he feels numbness in his upper arms. He has no radiation of abdominal pain. He has had no vomiting. He has had no fever. He has no shortness of breath. Related Data Home Medications Medication Instructions Recorded Confirmed clonazepam 2 mg tablet 2 mg PO TID PRN 04/01/18 08/22/18 meloxicam 15 mg tablet 15 mg PO DAILY #30 tab 06/04/18 08/22/18 clomipramine 50 mg capsule 75 mg PO BID tab-cap 06/19/18 08/22/18 tamsulosin 0.4 mg capsule 0.8 mg PO DAILY #60 cap 08/05/18 08/22/18 gabapentin 600 mg tablet 600 mg PO BID #60 tab 08/07/18 08/22/18 gabapentin 300 mg capsule 300 mg PO TID #60 cap 08/21/18 08/22/18 lansoprazole 30 mg PO DAILY #30 tab 08/22/18 sucralfate [Carafate] 10 ml PO QID #420 ml 08/22/18 Previous Rx's Medication Instructions Recorded meloxicam 15 mg tablet 15 mg PO DAILY #30 tab 06/04/18 tamsulosin 0.4 mg capsule 0.8 mg PO DAILY #60 cap 08/05/18 gabapentin 600 mg tablet 600 mg PO BID #60 tab 08/07/18 gabapentin 300 mg capsule 300 mg PO TID #60 cap 08/21/18 lansoprazole 30 mg PO DAILY #30 tab 08/22/18 sucralfate [Carafate] 10 ml PO QID #420 ml 08/22/18 Allergies Allergy/AdvReac Type Severity Reaction Status Date / Time fluoxetine HCl [From Prozac] AdvReac Severe Psychosis Verified 08/22/18 03:59 General KATI: 2 Review of Systems Review of Systems 01/20 Review of Systems completed and is negative except as stated above in HPI (Systems reviewed: Const, Eyes, ENT, Resp, CV, GI, , MSK, Skin, Neuro) PFSH Medical History Anxiety disorder (Chronic) Depression (Chronic) Gastroesophageal reflux disease (Chronic) Spinal stenosis of thoracic region (Chronic 05/07/16) OCD (obsessive compulsive disorder) (Chronic) Alcohol abuse (Chronic) Surgical History Appendectomy (Inactive) SPINAL SURGERY (Inactive) Social History Smoking/Tobacco Use Status: Never Alcohol Intake: current Alcohol Intake frequency: 3 or more drinks per day Drug use: Daily Substance use type: marijuana Details: Drinks 8 twisted teas a day Do you feel safe at home: Yes Do you feel safe in your relationship?: Yes Exam Narrative Exam Narrative: Vitals: Afebrile. Mildly hypertensive. Const: WDWN male in NAD. HEENT: NC/AT. Normal facial exam. Eyes: Normal conjunctiva and sclera. Neck: Supple. Trachea midline. Lungs: Normal respiratory effort. Lungs are clear. Cor: RRR without murmur/gallop. Good radial pulses. GI: Soft. NT/ND. No guarding or rebound. Neuro: A+O x 3. CN grossly in tact. Good strength and no focal deficit. Ext: No C/C/E. No deformity or tenderness. Skin: Warm and dry without rash.
[2018-08-22] MEDS: Lactated Ringers 1,000 ML 1000 ML IV (04:20)
[2018-08-22 04:21] LABS: Abs Immature Grans 0.03 k/cumm (0.0-0.09); Absolute Basophil Count 0.02 k/cumm (0.0-0.2); Absolute Eosinophil Count 0.03 k/cumm (0.0-0.7); Absolute Lymphocyte Count 1.36 k/cumm (1.2-3.4); Absolute Monocyte Count 0.75 k/cumm (0.11-0.7); Absolute Neutrophil Count 5.05 k/cumm (1.2-6.7); Basophils % 0.3; Eosinophils % 0.4; HCT 40.4 % (40.0-50.0); HGB 14.2 g/dL (13.5-17.5); Immature Grans % 0.4; Lymphocytes % 18.8; Mean Corp. HGB Concentration 35.1 g/dL (32.0-36.0); Mean Platelet Volume 9.8 fL (8.0-11.0); Monocytes % 10.4; Neutrophils % 69.7; Platelet Count 217 x1000/uL (130-400); RBC 4.44 m/cumm (4.50-6.00); RBC Distribution Width 13.6 % (11.8-14.1); White Blood Cell Count 7.24 k/cumm (4.4-10.8)
[2018-08-22] MEDS: FAMOTIDINE 20 MG/50 ML BAG 100 MG IVPB (04:21)
[2018-08-22 04:41] LABS: ETHANOL BLOOD 7.3 mg/dL (<3)
[2018-08-22 04:46] LABS: ALT 16 U/L (12-78); AST 20 U/L (15-37); Albumin 3.9 g/dL (3.4-5.0); Alkaline Phosphatase 144 U/L (46-116); BUN 8 mg/dL (7-18); Bilirubin, Total 0.5 mg/dL (0.2-1.0); CREATININE 1.04 mg/dL (0.70-1.30); Calcium 8.7 mg/dL (8.5-10.1); Chloride 101 mmol/L (98-107); Glucose 134 mg/dL (70-100); Lipase 169 U/L (73-393); Magnesium 1.9 mg/dL (1.8-2.4); Potassium 3.7 mmol/L (3.5-5.1); Sodium 142 mmol/L (136-145); Total Protein 7.3 g/dL (6.4-8.2); Troponin I < 0.02 ng/mL (0.00-0.06)
[2018-08-22] MEDS: Sucralfate 1 GM TAB PO (05:19)
[2018-08-22] MEDS: Ondansetron 4 MG/2 ML VIAL IVP (05:20)
[2018-08-22 07:19] LABS: Troponin I < 0.02 ng/mL (0.00-0.06)
== END 2018-08-22 09:20 | disposition home or self-care (01) ==
PROVIDERS: Emergency Provider Emergency Medicine; PCP Family Medicine
DX: R10.13 Epigastric pain (principal); R20.2 Paresthesia of skin; F10.10 Alcohol abuse, uncomplicated; R11.0 Nausea
CPT/HCPCS: 36415; 80053; 83690; 93005; 96361; 96365; 96367; 99285; 80320; 83735; 84484; 85025; 93010; J2405

== ENCOUNTER 2018-10-09 10:33 | Outpatient (CLI) | payer MEDICARE, MEDICAID, SELFPAY ==
[2018-10-09 12:42] LABS: HCT 48.6 % (40.0-50.0); HGB 16.3 g/dL (13.5-17.5); Mean Corp. HGB Concentration 33.5 g/dL (32.0-36.0); Mean Corpuscular Hemoglobin 30.6 pg (27.0-33.0); Mean Corpuscular Volume 91.4 fL (80-95); Mean Platelet Volume 9.6 fL (8.0-11.0); Platelet Count 283 x1000/uL (130-400); RBC 5.32 m/cumm (4.50-6.00); RBC Distribution Width 13.9 % (11.8-14.1); White Blood Cell Count 6.28 k/cumm (4.4-10.8)
[2018-10-09 13:09] LABS: ALT 19 U/L (12-78); AST 26 U/L (15-37); Alkaline Phosphatase 145 U/L (46-116); Anion Gap 9.2 mmol/L (3-11); BUN 4 mg/dL (7-18); Bilirubin, Total 0.6 mg/dL (0.2-1.0); CO2 27.8 mmol/L (21.0-32.0); CREATININE 1.07 mg/dL (0.70-1.30); Calcium 8.8 mg/dL (8.5-10.1); Chloride 104 mmol/L (98-107); GGT 58 U/L (15-85); Glucose 79 mg/dL (70-100); Potassium 5.3 mmol/L (3.5-5.1); Sodium 141 mmol/L (136-145); Total Protein 7.5 g/dL (6.4-8.2)
== END 2018-10-09 10:53 ==
PROVIDERS: PCP Family Medicine; Visit Provider Family Medicine
DX: F10.99 Alcohol use, unspecified with unspecified alcohol-induced disorder (principal); Z79.899 Other long term (current) drug therapy; R30.0 Dysuria
CPT/HCPCS: 36415; 80053; 85027; 87491; 87591; 82977

== ENCOUNTER 2019-06-06 13:23 | Outpatient (CLI) | payer MEDICARE, MEDICAID, SELFPAY ==
--- NOTE | 2019-06-06 12:30 | DI.US_ITS ---
EXAM: US LOWER EXTREMITY VENOUS RT CLINICAL HISTORY: edema leg rt, R60.0, ? dvt TECHNIQUE: Ultrasound performed using standard protocol. COMPARISON: No exams were available for comparison FINDINGS: Thrombus is visible in the common femoral vein extending through the superficial femoral vein throug h the popliteal vein to the mid posterior tibial veins. The saphenous vein also shows thrombus. The re is edema in the subcutaneous fat of the lower leg. No drainable collection is seen. IMPRESSION: Deep venous thrombosis extending from the common femoral vein through the mid posterior tibial veins. DATA REPOSITORY:
== END 2019-06-06 13:43 ==
PROVIDERS: PCP Family Medicine; Visit Provider Nurse Practitioner
DX: R60.0 Localized edema (principal); I82.411 Acute embolism and thrombosis of right femoral vein; I82.441 Acute embolism and thrombosis of right tibial vein
CPT/HCPCS: 93971

== ENCOUNTER 2019-08-04 21:54 | Emergency (ER) | payer MEDICARE, MEDICAID, SELFPAY ==
[2019-08-04 21:55] VITALS: BP 155/88; PULSE 68; RESP 20; TEMP 36.4; O2SAT 97
--- NOTE | 2019-08-04 22:00 | DI.RAD_ITS ---
EXAM: XR SHOULDER RT COMPLETE 2+V CLINICAL HISTORY: Fall, pain, hx of dislocation TECHNIQUE: COMPARISON: XR shoulder RT comp post reduc from 04/17/2018 FINDINGS: Four views were obtained. There is an anterior dislocation of the humeral head from the glenoid eloy a. There is an apparent Hill-Sachs deformity of the humeral head. The examination is suboptimal for positioning and there are are marked hypertrophic DJD degenerative changes of glenohumeral and acrom ioclavicular joints. IMPRESSION:
--- NOTE | 2019-08-04 22:00 | DI.RAD_ITS ---
EXAM: XR SHOULDER LT COMPLETE 2+V CLINICAL HISTORY: Comparison TECHNIQUE: COMPARISON: XR SHOULDER RT COMPLETE 2+V from 08/04/2019 FINDINGS: Two views were obtained. There are suture anchors in the humeral head consistent with prior rotator cuff repair. There are calcifications in the expected location of supraspinatus tendon. There may h ave been resection of the distal end of the clavicle. There is no evidence of an acute fracture or d islocation on this limited series. IMPRESSION:
--- NOTE | 2019-08-04 22:06 | W.ED.GENAD ---
Discharge Plan Disposition Patient Disposition: HOME Condition: Stable Discharge Details Chief Complaint: Trauma Clinical Impression: Anterior dislocation of right shoulder, Avulsion fracture Primary Care Provider: Romelia Bravo ED Provider: Shaun Wolfe Home Meds and New Rx's Prescriptions: Continued triamcinolone acetonide 0.1 % cream 1 applic TP BID Qty: 80 RF: 2 metronidazole 0.75 % cream 1 applic TP BID Qty: 45 RF: 5 apixaban 5 mg (74 tabs) tablets,dose pack See Rx Instructions PO PER PKG DIR Qty: 74 RF: 0 clonazepam 2 mg tablet 2 mg PO TID PRNRF: 0 gabapentin 800 mg tablet 800 - 1,200 mg PO TID Qty: 105 RF: 2 Discharge Instructions Instructions: Shoulder Dislocation (ED) Additional Instructions: call orthopedics tomorrow morning to arrange a follow up appointment you can take 1000mg tylenol every 6 hours for pain as needed Discharge Data Discharge Date/Time-TO BE ENTERED AT DEPARTURE: 08/05/19 01:00 Medical Decision Making <Ciarra Ortiz - Last Filed: 08/07/19 08:04> 64-year-old male positive EtOH presents status post fall via EMS. He states he was on the floor for approximately 2 hours sitting unable to get up. Denies hitting his head no LOC. He is complaining of right shoulder pain and is worried for dislocation due to a previous dislocation proximately 2 years ago. Discussed head CT with patient due to patient being on blood thinners although he is noncompliant. He is alert and oriented at this time no focal neuro deficits. He refuses head CT at this time discussed risks and benefits. At this time work-up ordered including bilateral shoulder x-rays left for comparison. Labs including CBC CMP EtOH level and PT and urine drug screen. Patient does have a right anterior humeral dislocation of the right humeral head and possibly a small avulsion fracture over the coracoid process. IMPRESSION: 1. Anterior glenohumeral dislocation. 2. Lucency along the medial base of the coracoid process raises the possibility of avulsion injury. CT of the right shoulder could be performed for further evaluation if of clinical concern. 3. Acromioclavicular arthropathy also evident. 2312: MD Wolfe at bedside for attempts to closed reduction with 100 mcg of fentanyl, patient tolerated with little bit of difficulty. Reduction was unsuccessful. We will prepare for conscious sedation to allow patient to become more relaxed. 2327: Patient consented for conscious sedation timeout performed. Dr. Wolfe was able to reduce shoulder. Postreduction x-ray ordered. Was a difficult reduction patient required 100 mg propofol. Tolerated well vital signs remained stable. 2339: X-ray at bedside for portable postreduction. Patient was placed in a sling. Care is to be handed off to Dr. Wolfe pending patient recovery from sedation. At this time he is on monitor and vital signs are stable he is hemodynamically stable at the time of this dictation. Expected disposition is to be discharged with follow-up with Ortho as needed as soon as patient is more awake able to tolerate p.o. Medical Records Medical records reviewed: Yes I reviewed the patient's medical records. Lab Data Lab results reviewed: Yes I reviewed the patient's lab results. <Shaun Wolfe MD - Last Filed: 08/05/19 00:29> patient is now able to get up and sit in a chair on his own. CAox4 with clear speech. He is stable for d/c. He does use crutches normally but states he is comfortable going home as he can use the left crutch fine and does this frequently (uses one crutch). He also states he has no concern getting from an rct car into his house and feels comfortable going home. Will d/c and have him f/u with orthopedics HPI <Ciarra Ortiz - Last Filed: 08/07/19 08:04> General Mode of arrival: EMS. Date/Time Provider Initiated Documentation: 08/04/19 22:06. Limitations to Documentation: altered mental status (Intoxicated) and physical limitation. Information obtained by: patient and EMS. HPI Narrative: 64-year-old male presents via EMS after a fall approximately 3 hours prior to arrival. Patient does admit to drinking 12 beers today usually uses forearm crutches due to some partial paraplegia and spinal stenosis. He states that he tripped landed on his right side and was unable to get up. He denies hitting his head or having loss of consciousness. He denies any neck or back pain. His only complaint is right shoulder pain. He states that he has dislocated his right shoulder 2 years ago. He rates his pain 10 out of 10 he is alert, obviously intoxicated slurring his words. But is pleasant, cooperative, and answering questions appropriately. Upon review of his medical records he is supposed to be on Eliquis for a DVT which he reports not being compliant with. He states he takes maybe 1 or 2 tablets every few days. Related Data Home Medications Medication Instructions Recorded Confirmed clonazepam 2 mg tablet 2 mg PO TID PRN 04/01/18 08/04/19 triamcinolone acetonide 0.1 % 1 applic TP BID #80 gm 04/16/19 08/04/19 topical cream apixaban 5 mg (74 tabs) tablets in See Rx Instructions PO PER PKG DIR 06/06/19 08/04/19 a dose pack #74 dose pk metronidazole 0.75 % topical cream 1 applic TP BID #45 gm 06/13/19 08/04/19 gabapentin 800 mg tablet 800 - 1,200 mg PO TID #105 tab 07/21/19 08/04/19 Previous Rx's Medication Instructions Recorded triamcinolone acetonide 0.1 % 1 applic TP BID #80 gm 04/16/19 topical cream apixaban 5 mg (74 tabs) tablets in See Rx Instructions PO PER PKG DIR 06/06/19 a dose pack #74 dose pk metronidazole 0.75 % topical cream 1 applic TP BID #45 gm 06/13/19 gabapentin 800 mg tablet 800 - 1,200 mg PO TID #105 tab 07/21/19 Allergies Allergy/AdvReac Type Severity Reaction Status Date / Time fluoxetine HCl [From Prozac] AdvReac Severe Psychosis Verified 08/04/19 22:03 General Stated Complaint: Trauma KATI: 3 Review of Systems <Ciarra Ortiz - Last Filed: 08/07/19 08:04> Narrative: Constitutional: Negative for weight loss, alert and oriented appears intoxicated, slurred speech,, disheveled normal body habitus, appears comfortable. HEENT: Denies headaches, blurry vision, nasal discharge, sore throat, trouble swallowing. Chest: Denies chest pain, palpitations, irregular rhythm, hypertension. Respiratory: Denies Shortness of breath, cough, hemoptysis. GI: Denies abdominal pain, nausea, vomiting, diarrhea, constipation. : Denies dysuria, hematuria, flank pain, rectal bleeding. Neuro: Denies dizziness, blurry vision, syncope, headache or facial numbness. Has intermittent tremors which are his baseline per EMS. He does have partial paraplegia uses forearm crutches daily due to spinal stenosis. Extremities: Complaining of right shoulder pain. Does have a history of dislocation 2 years ago. Hematologic: Denies easy bruising, intolerance to heat or cold, hair loss. PFSH <Ciarra Ortiz - Last Filed: 08/07/19 08:04> Medical History Alcohol abuse (Chronic) Alcohol related disorder (Acute) Anxiety disorder (Chronic) BPH (benign prostatic hyperplasia) (Chronic) Chronic low back pain (Acute) Depression (Chronic) DVT (deep venous thrombosis) (Chronic) Gastroesophageal reflux disease (Chronic) OCD (obsessive compulsive disorder) (Chronic) Spinal stenosis of thoracic region (Chronic 05/07/16) T9-T12 decompression sx: [facility] Surgical History Appendectomy (Inactive) SPINAL SURGERY (Inactive) THORACIC REGION Family History Mother Personal history of malignant neoplasm CERVICLE Father No problems noted. Brother No problems noted. Son No problems noted. Daughter Depression Daughter No problems noted. Daughter Depression Social History Smoking/Tobacco Use Status: Never Alcohol Intake: current Alcohol Intake frequency: 3 or more drinks per day Alcohol type: beer Drug use: Daily Substance use type: marijuana Details: pt states that he drank 12 coors light today Do you feel safe at home: Yes Do you feel safe in your relationship?: Yes Exam <Ciarra Ortiz - Last Filed: 08/07/19 08:04> Narrative Exam Narrative: Constitutional: Alert and oriented x3, intoxicated, slurring speech admits to 12 beers.. Disheveled appears stated age. Normal body habitus. Head: Normocephalic, no trauma. Eyes: Pupils PERRLA, sluggish bilaterally Red reflex noted, EOM's intact. Eyelids symmetrical without lesions, discharge, or swelling. ENT: Bilateral TM's WNL, External ear normal to inspection, no hemotympanum no mastoid TTP, swelling, or erythema, Nasal turbinates WNL, no septal hematoma, no nasal discharge. Normal dentition, Posterior pharynx WNL, no exudate. Chest: RRR, Normal S1, S2, distal pulses intact. Resp: Lungs clear to auscultation bilaterally, no wheezes, rales, or rhonchi. Musculoskeletal: No obvious deformity to his right shoulder. Distal radial pulses intact, his right hand is cool to touch. He is moving his arm up to the elbow. No tenderness noted to his elbow. Intermittent sporadic tremors which he states this is been baseline. Skin: No suspicious rashes or lesions. Capillary refill less than 2 sec. Neurologic: . Alert and oriented x 3. Slurred speech, no facial droop, alert.. Hematologic/Lymphatic: No ecchymosis, no lymphadenopathy. Neuro General: patient alert, patient awake, moves all extremities and unable to assess gait Cranial Nerves: tongue midline and hearing normal Speech: abnormal speech slurred Gait: gait assisted Method: crutches and other (History of spinal stenosis and partial paraplegia at baseline.) Motor: movement abnormality noted, tremor (Intermittent tremors to lower extremities and upper extremities) and no pronator drift noted Sensory Exam: no sensory deficits noted Course <Ciarra Angel - Last Filed: 08/07/19 08:04> Vital Signs Vital signs: Vital Signs Temperature 36.4 C L 08/04/19 21:55 Pulse 68 08/04/19 21:55 Respiratory Rate 08/04/19 21:55 Blood Pressure 155/88 H 08/04/19 21:55 Pulse Oximetry 97 08/04/19 21:55 Temperature 36.4 C L 08/04/19 21:55 Temperature Source Temporal Artery Scan 08/04/19 21:55 Pulse 68 08/04/19 21:55 Respiratory Rate 20 08/04/19 21:55 Blood Pressure 155/88 H 08/04/19 21:55 Blood Pressure Position Supine 08/04/19 21:55 Pulse Oximetry 97 08/04/19 21:55 Oxygen Delivery Method Room Air 08/04/19 21:55 Oxygen Flow Rate 0 08/04/19 21:55 <Shaun Wolfe MD - Last Filed: 08/05/19 00:29> Orthopedic Joint Reduction Joint #1: Time Out Performed: Yes Side: right Joint Reduction Location: shoulder Analgesia: procedural sedation Shoulder Technique Used (if applicable): traction/counter-traction and external rotation Post-reduction neuro exam: intact Post-reduction vascular: intact Post Reduction X-Ray Obtained: Yes Post Reduction X-Ray Results: reduced Splint Applied: Yes (sling) Patient Tolerated Procedure: well and no complications Procedural Sedation Indication: fracture/dislocation reduction Presedation Evaluation: patient clinically sober and caox4 with clear speech. He has capacity to give consent and consents to procedural sedation. HD stable. ASA Class: II Preparation: quality assurance monitor body applied, pulse oximeter, capnometry used and supplemental O2 applied IV Propofol dose (mg): 100 Patient Tolerated Procedure: well Complications: none Sign Out <Ciarra Ortiz - Last Filed: 08/07/19 08:04> Sign Out Data: Sign Out Comment: Pending patient recovery from sedation s/p closed reduction right shoulder. Last updated by Ciarra Ortiz at 08/04/19 23:41
[2019-08-04 22:15] LABS: Abs Immature Grans 0.09 k/cumm (0.0-0.09); Absolute Basophil Count 0.02 k/cumm (0.0-0.2); Absolute Lymphocyte Count 1.88 k/cumm (1.2-3.4); Basophils % 0.2; Eosinophils % 1.7; HCT 43.2 % (40.0-50.0); HGB 14.6 g/dL (13.5-17.5); Immature Grans % 0.8 %; Lymphocytes % 15.9; Mean Corp. HGB Concentration 33.8 g/dL (32.0-36.0); Mean Corpuscular Hemoglobin 31.3 pg (27.0-33.0); Mean Corpuscular Volume 92.5 fL (80-95); Mean Platelet Volume 9.2 fL (8.0-11.0); Monocytes % 6.8; Neutrophils % 74.6; Platelet Count 229 x1000/uL (130-400); RBC 4.67 m/cumm (4.50-6.00); RBC Distribution Width 14.9 % (11.8-14.1); White Blood Cell Count 11.85 k/cumm (4.4-10.8)
[2019-08-04 22:16] LABS: Absolute Monocyte Count 0.81 k/cumm (0.11-0.7); Absolute Neutrophil Count 8.84 k/cumm (1.2-6.7)
[2019-08-04 22:24] LABS: INR 1.1 (0.9-1.1); Prothrombin Time 10.8 sec (9.3-11.0)
[2019-08-04 22:29] LABS: ALT 29 U/L (16-63); AST 30 U/L (15-37); Albumin 4.1 g/dL (3.4-5.0); Alkaline Phosphatase 105 U/L (46-116); Anion Gap 11.4 mmol/L (3-11); BUN 13 mg/dL (7-18); Bilirubin, Total 0.3 mg/dL (0.2-1.0); CO2 26.6 mmol/L (21.0-32.0); CREATININE 1.05 mg/dL (0.70-1.30); Calcium 8.6 mg/dL (8.5-10.1); Chloride 97 mmol/L (98-107); ETHANOL BLOOD 154.2 mg/dL (<3); Glucose 107 mg/dL (74-106); Potassium 3.9 mmol/L (3.5-5.1); Sodium 135 mmol/L (136-145); Total Protein 8.8 g/dL (6.4-8.2)
--- NOTE | 2019-08-04 22:59 | DI.VRAD_ITS ---
PROCEDURE INFORMATION: Exam: XR Right Shoulder Exam date and time: 08/04/2019 10:32 PM Age: 64 years old Clinical indication: Pain and injury or trauma; Initial encounter; Shoulder; Right; Patient HX: Fall, pain, HX of dislocation TECHNIQUE: Imaging protocol: XR Right shoulder. Views: 2 or more views. COMPARISON: CR XR shoulder RT comp post reduc 04/17/2018 9:03 PM FINDINGS: Bones/joints: There is anterior dislocation of the right humeral head which is seen in contact with the anteromedial margin of the glenoid fossa and glenoid neck. Acromioclavicular arthropathy identified with osteophytes seen along joint space margins. Focal lucency along the medial base of the coracoid process on the 3rd and 4th images of this series raise the possibility of acute avulsion fracture. Soft tissues: Unremarkable. IMPRESSION: 1. Anterior glenohumeral dislocation. 2. Lucency along the medial base of the coracoid process raises the possibility of avulsion injury. CT of the right shoulder could be performed for further evaluation if of clinical concern. 3. Acromioclavicular arthropathy also evident. Dictated and Authenticated by: Prince Zheng MD. Ordering:JONELLE Lafleur MD
[2019-08-04] MEDS: fentaNYL 100 MCG/2 ML VIAL 50 MCG IVP ×2 (23:00)
--- NOTE | 2019-08-04 23:03 | DI.VRAD_ITS ---
PROCEDURE INFORMATION: Exam: XR Left Shoulder Exam date and time: 08/04/2019 10:40 PM Age: 64 years old Clinical indication: Screening exam; Prior surgery; Patient HX: Comparison views of L shoulder, done at time of R shoulder TECHNIQUE: Imaging protocol: XR Left shoulder. Views: 2 or more views. COMPARISON: CR LEFT SHOULDER COMPLETE 07/17/2013 12:20 PM FINDINGS: Bones/joints: Cortical irregularity along the superior margin of the greater tubercle could relate to tendinopathy. Fixation screw in place in the region of the proximal left humerus likely relates to prior rotator cuff repair. No acute fracture is identified. Soft tissues: Curvilinear calcific density projected along the superior margin of the left humeral head suggest underlying calcific tendinitis. IMPRESSION: Evidence of prior rotator cuff repair and underlying calcific tendinitis with no acute fracture seen. Dictated and Authenticated by: Prince Zheng MD. Ordering:JONELLE Lafleur MD
--- NOTE | 2019-08-04 23:15 | DI.RAD_ITS ---
EXAM: XR SHOULDER RT COMP POST REDUC CLINICAL HISTORY: post reduction COMPARISON: XR SHOULDER LT COMPLETE 2+V from 08/04/2019 FINDINGS: Two post reduction views were obtained and show reduction of previously noted glenohumeral dislocatio n. The glenoid is poorly visualized, glenoid injury could not be excluded on the basis of this exami nation. There appears to be close approximation of the humeral head to the acromion consistent with chronic or acute superior rotator cuff tear.
[2019-08-04] MEDS: Propofol 200 MG/20 ML VIAL 100 MG IVP (23:20)
[2019-08-04 23:34] VITALS: BP 116/71; PULSE 74; RESP 20; O2SAT 100
[2019-08-04 23:35] VITALS: PULSE 74; RESP 15; O2SAT 100
[2019-08-04 23:40] VITALS: PULSE 75; RESP 18; O2SAT 100
--- NOTE | 2019-08-04 23:43 | NUR.NOTE ---
pt was sedated per protocol after signed consent. he was on continuous monitoring and maintained Sa02 100% a sling was placed on the right arm after the procedure and port cxr obtained . he is eaisily arousable and reports that he feels much better Nursing Note:
[2019-08-04 23:46] VITALS: BP 126/73; PULSE 67; RESP 15; O2SAT 100
[2019-08-04 23:50] VITALS: PULSE 84; RESP 11; O2SAT 100
[2019-08-05] VITALS: PULSE 67; RESP 17; O2SAT 100
[2019-08-05 00:01] VITALS: BP 115/66; PULSE 66; RESP 16; O2SAT 100
[2019-08-05 00:10] VITALS: PULSE 67; RESP 15; O2SAT 100
--- NOTE | 2019-08-05 00:13 | NUR.NOTE ---
Nursing Note: Pt resting, reports pain 0/10. Alert and oriented. No c/o or requests at this time
[2019-08-05 00:16] VITALS: BP 114/65; PULSE 67; PULSE 68; RESP 16; O2SAT 99
[2019-08-05 00:20] VITALS: PULSE 67; RESP 16; O2SAT 100
--- NOTE | 2019-08-05 00:35 | DI.VRAD_ITS ---
PROCEDURE INFORMATION: Exam: XR Right Shoulder Exam date and time: 08/04/2019 11:34 PM Age: 64 years old Clinical indication: Injury or trauma; Fall; Follow-up exam; Dislocation; Severity not specified; Shoulder; Right; Injury date: 08/04/19; Injury details: Post reduction images TECHNIQUE: Imaging protocol: XR Right shoulder. Views: 2 or more views. COMPARISON: CR XR SHOULDER RT COMPLETE 2+V 08/04/2019 10:32 PM FINDINGS: Bones/joints: There has been closed reduction for the anterior dislocation of the right humeral head seen on comparison radiographs and the right humeral head is not concentrically located with respect to the glenoid fossa. Obliteration of the right subacromial interval could relate to underlying rotator cuff tendinopathy. Soft tissues: Unremarkable. IMPRESSION: Normal glenohumeral alignment following closed reduction for anterior humeral dislocation. Dictated and Authenticated by: Prince Zheng MD. Ordering:JONELLE Lafleur MD
[2019-08-05 00:55] VITALS: BP 114/65; PULSE 68; RESP 16; O2SAT 100
== END 2019-08-05 01:00 | disposition home or self-care (01) ==
LOC: ER 08-05 00:57
PROVIDERS: Registered Nurse Emergency; Emergency Provider Emergency Medicine; PCP Family Medicine
DX: S43.011A Anterior subluxation of right humerus, initial encounter (principal); S42.91XA Fracture of right shoulder girdle, part unspecified, initial encounter for closed fracture; W19.XXXA Unspecified fall, initial encounter
CPT/HCPCS: 23655; 73030; 80053; 80307; 96374; 96375; 80320; 85025; 85610; J2704; J3010; L3650

== ENCOUNTER → 2019-09-24 14:29 | Outpatient (BNVA) | payer MEDICARE, MEDICAID, SELFPAY | PROVIDERS: PCP Family Medicine; Referring Provider Family Medicine; Visit Provider Student in an Organized Health Care Education/Training Program | DX: R69 Illness, unspecified (principal) ==

== ENCOUNTER 2019-11-09 07:17 | Emergency (ER) | payer MEDICARE, MEDICAID, SELFPAY ==
[2019-11-09] VITALS (16 sets, daily range): BP systolic 102–140; BP diastolic 63–81; PULSE 52–73; RESP 12–20; TEMP 36.1; O2SAT 97–100
--- NOTE | 2019-11-09 07:30 | RT.EKG_ITS ---
APPROVED REPORT Exam: Resting ECG Patient Location: E HR:59 bpm ECG Measurements Heart Rate 59 AXIS MT 224 P -9 QRSd 95 QRS -4 QT 405 T 54 QTc 400 <Conclusion> Sinus bradycardia...rate< 60 Prolonged MT interval...MT >220, V-rate 50- 90 Low voltage, extremity leads...all extremity leads <0.5mV No STEMI
--- NOTE | 2019-11-09 07:36 | W.ED.GENAD ---
Discharge Plan Disposition Patient Disposition: HOME Condition: Improving Discharge Details Chief Complaint: Chest Pain Clinical Impression: Cough, Chest mass Primary Care Provider: Romelia Bravo ED Provider: Jayy La Home Meds and New Rx's Prescriptions: Continued triamcinolone acetonide 0.1 % cream 1 applic TP BID Qty: 80 RF: 2 metronidazole 0.75 % cream 1 applic TP BID Qty: 45 RF: 5 clonazepam 2 mg tablet 2 mg PO TID PRNRF: 0 gabapentin 800 mg tablet 1,600 mg PO BID Qty: 120 RF: 0 Discharge Instructions Instructions: Acute Cough (ED) Additional Instructions: Our care management team will arrange an outpatient follow-up for you in clinic to discuss further evaluation of your 2 cm right sided chest mass. Home to rest today. Small, frequent sips of fluid so that you maintain hydration. Return to the emergency department for any acute concerns. Medical Decision Making <Riley Sanchez DO - Last Filed: 11/09/19 07:41> 64-year-old male with a past medical history of anxiety, depression, OCD, BPH, presents today for evaluation of cough, fever, chills for the last 4 days. Patient states that he lives alone, and has not been out much from his house however he has had the symptoms gradually worsening over the last few days. He has been extremely fatigued, he feels short of breath, has associated chest tightness and a constant worsening nonproductive cough. He denies any headache but does admit to malaise. He denies any numbness tingling or weakness. He denies any hemoptysis or history of cardiac disease. He has no other complaints at this time. No other modifying factors. No recent travel. Physical exam is notably unremarkable, vital signs are very stable. Patient does not appear to be in any acute distress. No loss of taste or smell. Lung sounds clear. Patient does appear to be notably fatigued though. Differential includes coronavirus/COVID, versus pneumonia. With his chest tightness and shortness of breath differential also certainly does include cardiac etiology. Will perform cardiac work-up, screen for coronavirus, get a chest x-ray, monitor closely and reassess. Patient will be signed out to my colleague Dr. Jayy La for follow-up on labs, imaging and EKG. <Jayy La MD - Last Filed: 11/09/19 12:12> Received signout from Dr. Sanchez. Please see his note regarding details of initial presentation, exam, plan of care. Patient's d-dimer was elevated. CBC was unremarkable, chemistries reassuring but did note lactate 1.6. Patient was referred for CT scan of the chest was just noted a lobulated mass in the right middle lobe measuring approximately 2 x 2 x 2 cm. See formal report. 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 We will refer to PMD for urgent follow-up and probable referral for biopsy. COVID test is pending. As per above, no other noted lung findings. CT findings discussed with the patient. He is stable and wishes to return to home. He will follow-up in clinic for recheck and to discuss referral for further evaluation of his right chest mass. HPI <Riley Sanchez DO - Last Filed: 11/09/19 07:41> General Date/Time Provider Initiated Documentation: 11/09/19 07:26. HPI Narrative: 64-year-old male with a past medical history of anxiety, depression, OCD, BPH, presents today for evaluation of cough, fever, chills for the last 4 days. Patient states that he lives alone, and has not been out much from his house however he has had the symptoms gradually worsening over the last few days. He has been extremely fatigued, he feels short of breath, has associated chest tightness and a constant worsening nonproductive cough. He denies any headache but does admit to malaise. He denies any numbness tingling or weakness. He denies any hemoptysis or history of cardiac disease. He has no other complaints at this time. No other modifying factors. No recent travel. Related Data Home Medications Medication Instructions Recorded Confirmed clonazepam 2 mg tablet 2 mg PO TID PRN 04/01/18 11/09/19 triamcinolone acetonide 0.1 % 1 applic TP BID #80 gm 04/16/19 11/09/19 topical cream metronidazole 0.75 % topical cream 1 applic TP BID #45 gm 06/13/19 11/09/19 gabapentin 800 mg tablet 1,600 mg PO BID #120 tab 10/20/19 11/09/19 Previous Rx's Medication Instructions Recorded triamcinolone acetonide 0.1 % 1 applic TP BID #80 gm 04/16/19 topical cream metronidazole 0.75 % topical cream 1 applic TP BID #45 gm 06/13/19 gabapentin 800 mg tablet 1,600 mg PO BID #120 tab 10/20/19 Allergies Allergy/AdvReac Type Severity Reaction Status Date / Time fluoxetine HCl [From Prozac] AdvReac Severe Psychosis Verified 11/09/19 08:08 General Stated Complaint: Chest Pain KATI: 2 Review of Systems <Riley Sanchez DO - Last Filed: 11/09/19 07:41> All systems reviewed & are unremarkable except as noted in HPI and below PFSH <Riley Sanchez DO - Last Filed: 11/09/19 07:41> Medical History Alcohol abuse (Chronic) Alcohol related disorder (Acute) Anxiety disorder (Chronic) BPH (benign prostatic hyperplasia) (Chronic) Chronic low back pain (Acute) Depression (Chronic) DVT (deep venous thrombosis) (Chronic) Gastroesophageal reflux disease (Chronic) OCD (obsessive compulsive disorder) (Chronic) Spinal stenosis of thoracic region (Chronic 05/07/16) T9-T12 decompression sx: [facility] Surgical History Appendectomy (Inactive) SPINAL SURGERY (Inactive) THORACIC REGION Family History Mother Personal history of malignant neoplasm CERVICLE Father No problems noted. Brother No problems noted. Son No problems noted. Daughter Depression Daughter No problems noted. Daughter Depression Social History Smoking/Tobacco Use Status: Never Alcohol Intake: current Alcohol Intake frequency: 3 or more drinks per day Alcohol type: beer Drug use: Daily Substance use type: marijuana Details: pt states that he drank 12 coors light today Do you feel safe at home: Yes Do you feel safe in your relationship?: Yes Exam <Riley Sanchez DO - Last Filed: 11/09/19 07:41> Narrative Exam Narrative: 1.Const: Well-nourished, Well-developed, appearing stated age 2.Eyes: PERRL, no conjunctival injection, and symmetrical lids. 3.ENT: Atraumatic external nose and ears. Moist MM. Neck: Symmetric, trachea midline, No thyromegaly. Patient demonstrates good movement of cervical neck. There is no nuchal rigidity, no nuchal tenderness. Patient is able to flex the neck without any difficulty or significant pain. Negative Kernig's and Brudzinski sign. 4.CVS: +S1/S2, No murmurs or gallops. Peripheral pulses 2+ and equal in all extremities. Brisk capillary refill in all extremities. 5.RESP: Unlabored respiratory effort. Clear to auscultation bilaterally. No wheezes rales or rhonchi 6.GI: Soft, Nontender/Nondistended, No hepatosplenomegaly. No guarding or rebound. 7.MSK: Normocephalic/Atraumatic, Extremities w/o deformity or ttp No cyanosis or clubbing, Normal movement of all extremities 8.Skin: Warm, Dry. No rashes or lesions. 9.Neuro: netting weaver II-XII grossly intact. Sensation grossly intact, no focal neurologic deficits. 10.Psych: (AAO) x3. Appropriate mood and affect Course <Riley Sanchez, - Last Filed: 11/09/19 07:41> Vital Signs Vital signs: Vital Signs Temperature 36.1 C L 11/09/19 07:24 Pulse 67 11/09/19 07:24 Respiratory Rate 18 11/09/19 07:24 Blood Pressure 140/79 11/09/19 07:24 Pulse Oximetry 98 11/09/19 07:24 Temperature 36.1 C L 11/09/19 07:24 Temperature Source Temporal Artery Scan 11/09/19 07:24 Pulse 67 11/09/19 07:24 Respiratory Rate 18 11/09/19 07:24 Blood Pressure 140/79 11/09/19 07:24 Blood Pressure Position Sitting 11/09/19 07:24 Pulse Oximetry 98 11/09/19 07:24 Oxygen Delivery Method Room Air 11/09/19 07:24 Oxygen Flow Rate 0 11/09/19 07:24 Pain Level 0 11/09/19 07:24 Lab/Test Results Lab/Test Results: 11/09/19 07:33 Blood Blood Culture - Pending 11/09/19 07:33 Blood Blood Culture - Pending Sign Out <Riley Sanchez DO - Last Filed: 11/09/19 07:41> Sign Out Data: Sign Out Comment: Pending imaging and lab results, concern for coronavirus or cardiac etiology Last updated by Riley Sanchez DO at 11/09/19 07:49
[2019-11-09 08:10] LABS: Lactate 1.6 mmol/L (0.6-1.4)
[2019-11-09 08:16] LABS: Abs Immature Grans 0.02 10^3/uL (0.0-0.06); Absolute Basophil Count 0.02 10^3/uL (0.0-0.2); Absolute Eosinophil Count 0.28 10^3/uL (0.0-0.7); Absolute Lymphocyte Count 2.16 10^3/uL (1.2-3.4); Absolute Monocyte Count 0.66 10^3/uL (0.1-0.8); Absolute Neutrophil Count 3.17 10^3/uL (1.2-6.7); Basophils % 0.3; Eosinophils % 4.4; HCT 42.2 % (40.0-50.0); HGB 14.4 g/dL (13.5-17.5); Immature Grans % 0.3; Lymphocytes % 34.2; MCH 31.2 pg (27.0-33.0); MCHC 34.1 % (32.0-36.0); MCV 91.5 fL (80-95); MPV 10.1 fL (8.0-11.0); Monocytes % 10.5; Neutrophils % 50.3; Platelet Count 196 10^3/uL (130-400); RBC 4.61 10^6/uL (4.36-5.78); RDW 13.2 % (11.8-14.1); WBC 6.31 10^3/uL (4.4-10.8)
[2019-11-09] MEDS: Normal Saline 500 ML IV (08:19)
[2019-11-09] MEDS: Acetaminophen 500 MG TAB 1000 MG PO (08:19)
--- NOTE | 2019-11-09 08:45 | DI.RAD_ITS ---
EXAM: XR PORTABLE CHEST AP CLINICAL HISTORY: cough, concern for COVID TECHNIQUE: COMPARISON: CR XR shoulder RT comp post reduc from 04/17/[address] CHEST PE CTA from 11/09/2019 FINDINGS: Portable AP chest and CT angiography of the chest are interpreted in conjunction. CT a was performed with intravenous infusion of 85 cc of Omnipaque 350. Images obtained through the upper abdomen show unremarkable appearance of visualized portions liver, spleen, pancreas, adrenals, and kidneys. There is no gross mediastinal or hilar adenopathy. There i s a lobulated mass of the right middle lobe adjacent to the diaphragm measuring about 24 millimeters in greatest diameter, this is suspicious for malignancy. Additionally there is some vaguely nodular thickening of right major fissure, no gross mass identified elsewhere in either lung. No pleural eff usion. No focal consolidation. Tracheobronchial tree appears intact. The mass identified on CT is also visible on the AP chest radiograph, projected just above the diaphr agm on the right. No evidence of pulmonary embolic disease. Thoracic aorta is upper limits of normal in diameter at ab out 4 cm. Thorax sick aorta is not optimally opacified but no gross dissection is identified. IMPRESSION: No evidence of pulmonary embolic disease. No evidence of acute infection. Lobulated right middle lo be mass noted suspicious for malignancy. Tissue sampling recommended.
[2019-11-09 08:47] LABS: D-Dimer 1599 ng/mlFEU (<500)
[2019-11-09 08:49] LABS: ALT 25 U/L (16-63); AST 30 U/L (15-37); Albumin 3.9 g/dL (3.4-5.0); Alkaline Phosphatase 93 U/L (46-116); BUN 8 mg/dL (7-18); Bilirubin, Total 1.2 mg/dL (0.2-1.0); C-Reactive Protein 0.49 mg/dL (0.0-0.3); CREATININE 1.14 mg/dL (0.70-1.30); Calcium 8.7 mg/dL (8.5-10.1); Chloride 102 mmol/L (98-107); Glucose 106 mg/dL (74-106); LDH 182 U/L (85-227); Potassium 3.4 mmol/L (3.5-5.1); Sodium 138 mmol/L (136-145); Total Protein 7.8 g/dL (6.4-8.2); Troponin I < 0.05 ng/mL (<0.06)
--- NOTE | 2019-11-09 08:51 | DI.VRAD_ITS ---
Addendum created by Sandi Huerta MD on 11/09/2019 9:04:06 AM EDT THIS REPORT CONTAINS FINDINGS THAT MAY BE CRITICAL TO PATIENT CARE. The findings were verbally communicated via telephone conference with Dr. La at 9:03 AM EDT on 11/09/2019. The findings were acknowledged and understood. Initial report created on 11/09/2019 8:51:39 AM EDT PROCEDURE INFORMATION: Exam: XR Chest, 1 View Exam date and time: 11/09/2019 8:37 AM Age: 64 years old Clinical indication: Patient HX: Cough, concern for covid TECHNIQUE: Imaging protocol: XR of the chest Views: 1 view. COMPARISON: No relevant prior studies available. FINDINGS: Lungs: Opacity in the left base and right upper lobe may represent atelectasis or pneumonia. Lobulated 2 cm opacity in the right mid lung may represent a mass. Pleural space: Unremarkable. No pleural effusion. No pneumothorax. Heart/Mediastinum: Unremarkable. No cardiomegaly. Bones/joints: Unremarkable. Other findings: There may be air under the right hemidiaphragm. IMPRESSION: 1. Opacity in the left base and right upper lobe may represent atelectasis or pneumonia. 2. Lobulated 2 cm opacity in the right mid lung may represent a mass. 3. There may be air under the right hemidiaphragm. Dictated and Authenticated by: Sandi Huerta MD. Ordering:LEE Lin MD
[2019-11-09 09:14] LABS: Ferritin 133 ng/mL (26-388)
[2019-11-09 09:21] LABS: Procalcitonin < 0.1 ng/mL
[2019-11-09] MEDS: Normal Saline - Diluent 50 ML VIAL IV (09:39)
[2019-11-09] MEDS: Omnipaque 350 MG/ML 100 ML BTL IJ (09:40)
[2019-11-09] MEDS: Normal Saline Flush 10 ML SYR IVP (09:41)
--- NOTE | 2019-11-09 10:21 | DI.VRAD_ITS ---
Addendum created by Sandi Huerta MD on 11/09/2019 10:24:36 AM EDT THIS REPORT CONTAINS FINDINGS THAT MAY BE CRITICAL TO PATIENT CARE. The findings were verbally communicated via telephone conference with LEONARDO ALEJANDRO at 10:24 AM EDT on 11/09/2019. The findings were acknowledged and understood. Initial report created on 11/09/2019 10:21:41 AM EDT PROCEDURE INFORMATION: Exam: CT Angiography Chest With Contrast Exam date and time: 11/09/2019 9:19 AM Age: 64 years old Clinical indication: Patient HX: No HX of pe or dvt SOB and cough. No surgeries on high BP meds. TECHNIQUE: Imaging protocol: Computed tomographic angiography of the chest with intravenous contrast. 3D rendering: MIP and/or 3D reconstructed images were created by the technologist. Radiation optimization: All CT scans at this facility use at least one of these dose optimization techniques: automated exposure control; mA and/or kV adjustment per patient size (includes targeted exams where dose is matched to clinical indication); or iterative reconstruction. Contrast material: OMNIPAQUE 350; Contrast volume: 100 ml; Contrast route: INTRAVENOUS (IV); COMPARISON: XR PORTABLE CHEST AP 11/09/2019 8:30 AM FINDINGS: Pulmonary arteries: No evidence of pulmonary embolus to the segmental level. Aorta: No aneurysm of the ascending aorta. Ascending aorta measures 3.86 x 3.91 cm which is borderline in size. No dissection of the aorta. Lungs: Lobulated mass in the lobe the right middle lobe measures 2.1 by 1.7 by 1.9 cm. Rule out malignancy . Pleural space: Pleural based nodule along the right major fissure 16 mm. Series 6, image 282. Heart: Unremarkable. No cardiomegaly. No pericardial effusion. Lymph nodes: Unremarkable. No enlarged lymph nodes. Bones/joints: Unremarkable. No acute fracture. Soft tissues: Unremarkable. IMPRESSION: 1. Lobulated mass in the lobe the right middle lobe measures 2.1 by 1.7 by 1.9 cm. Rule out malignancy . 2. Pleural based nodule along the right major fissure 16 mm. Series 6, image 282. 3. No evidence of pulmonary embolus to the segmental level. 4. No aneurysm of the ascending aorta. Ascending aorta measures 3.86 x 3.91 cm which is borderline in size. 5. No dissection of the aorta. Dictated and Authenticated by: Sandi Huerta MD. Ordering:HORACE Hope MD
--- NOTE | 2019-11-09 11:45 | NUR.NOTE ---
Referral faxed to PCP [facility] Medical Dr Bravo.Nursing Note:
[2019-11-09 11:53] LABS: Troponin I < 0.05 ng/mL (<0.06)
[2019-11-10 12:02] LABS: Lyme Ab w Rflx to Lyme Confirm Negative (Negative)
[2019-11-11 09:57] LABS: SARS-CoV-2 RNA Undetected (Undetected); SARS-CoV-2 Specimen Source Nasopharynx
--- NOTE | 2019-11-11 14:53 | NUR.NOTE ---
notified that his covid test is negative.Nursing Note:
[2019-11-11 21:45] LABS: Anaplasma phagocytophilum Negative (Negative); B. miyamotoi PCR Negative (Negative); Babesia divergens/MO-1 Negative (Negative); Babesia duncani Negative (Negative); Babesia microti Negative (Negative); Ehrlichia chaffeensis Negative (Negative); Ehrlichia ewingii/canis Negative (Negative); Ehrlichia muris eauclairensis Negative (Negative)
== END 2019-11-09 12:39 | disposition home or self-care (01) ==
PROVIDERS: Student in an Organized Health Care Education/Training Program; Emergency Provider Emergency Medicine; PCP Family Medicine
DX: R91.8 Other nonspecific abnormal finding of lung field (principal); R05 Cough; R79.1 Abnormal coagulation profile; R53.83 Other fatigue; Z03.818 Encounter for observation for suspected exposure to other biological agents ruled out
CPT/HCPCS: 36415; 71275; 80053; 84145; 87040; 87798; 93005; 96360; 96361; 99285; U0003; 71045; 82728; 83605; 83615; 84484; 85025; 85379; 86140; 86618; 93010; J3490

== ENCOUNTER 2020-01-31 10:48 | Emergency (ER) | payer MEDICARE, MEDICAID, SELFPAY ==
[2020-01-31] VITALS (39 sets, daily range): BP systolic 91–114; BP diastolic 66–79; PULSE 66–105; RESP 11–20; TEMP 36.6; O2SAT 87–100
--- NOTE | 2020-01-31 10:43 | ED.GENADUL_ITS ---
Discharge Plan Disposition Patient Disposition: [facility] Condition: Critical Discharge Details Chief Complaint: Dizzy/Sync Clinical Impression: Pulmonary embolism Primary Care Provider: Romelia Bravo ED Provider: Katya Hedrick Home Meds and New Rx's Prescriptions: No Action triamcinolone acetonide 0.1 % cream 1 applic TP BID Qty: 80 RF: 2 metronidazole 0.75 % cream 1 applic TP BID Qty: 45 RF: 5 clonazepam 2 mg tablet 2 mg PO TID PRNRF: 0 gabapentin 800 mg tablet 1,600 mg PO BID Qty: 120 RF: 2 clomipramine 75 mg capsule 75 mg PO BID RF: 0 Discharge Data Discharge Date/Time-TO BE ENTERED AT DEPARTURE: 01/31/20 15:17 Medical Decision Making Patient is a 64-year-old male presents today with chief complaint of syncopal episode. Patient is brought in via EMS. He reports he was walking around [place] this morning when he became lightheaded and felt like he was going to pass out. He reports He then remembers is waking up on the ground with the right side of his head hurting and multiple people around him. This was unwitnessed and I do not have any descriptions of what occurred while patient was unconscious. He has not done this historically. Patient was seen here back in November and was diagnosed with a mass in the right lung, has not had subse quent follow-up for this. He denies any shortness of breath. No chest pain, palpitations. He states that he been feeling well until today. Patient does have a history of hemiparesis associated with previous back injury in 2016. Subsequently had back surgery with residual left hemiparesis. Patient does have a history of DVT. Stopped his apixaban in August of this year. On exam, patient has an abrasion and contusion to the right side of his head. Neuro exam, aside from notable weakness which patient reports is baseline on the left lower extremity, is otherwise normal. No other evidence of trauma. No midline neck, back pain. No chest or abdomen discomfort with palpation. Pelvis stable. Patient appears to be hemodynamically stable. Initially was 99% on 2 L. This was removed and patient is satting well on room air. EMS does report that he was at 90% when he first evaluated him. Images rhythm strip with question of atrial fibrillation. EKG was performed here showing frequent PACs. However, the baseline rhythm is difficult to interpret. Will repeat once patient is little bit more calm. Does to be a regularly irregular rhythm. Plan for CT of head and neck. We will also obtain baseline labs. Concern for potential PE, ACS or dysrhythmia. Also consider more benign sources of his syncope. Part of the vital lab. Troponin is elevated 0.08. D-dimer is elevated at 4646. Imaging reviewed by radiologist: FINDINGS: Lungs: Previous x-ray and CT showed a right middle lobe mass. This is faintly visible on today's radiograph overlying the right hemidiaphragm. The remaining lung polanco are clear. Pleural space: Unremarkable. No pleural effusion. No pneumothorax. Heart/Mediastinum: Unremarkable. No cardiomegaly. Bones/joints: Unremarkable. IMPRESSION: The previously identified 2 cm right middle lobe mass is faintly identified projecting on the right hemidiaphragm. No other acute abnormalities are seen. FINDINGS: Brain: Mild diffuse involutional changes in the brain without acute hemorrhage or acute territorial infarct. Cerebral ventricles: No ventriculomegaly. Bones/joints: Unremarkable. No acute fracture. Paranasal sinuses: Visualized sinuses are unremarkable. No fluid levels. Mastoid air cells: Visualized mastoid air cells are well aerated. Soft tissues: Unremarkable. Other findings: Partially empty sella. IMPRESSION: No acute intracranial abnormality. Chronic changes as above. FINDINGS: Vertebrae: Osteopenia and degenerative changes with a modest scoliosis. No acute fracture. No high-grade central stenosis. Foraminal encroachment at multiple levels, most pronounced on the right at C3-C4 and C6-C7 secondary to degenerative changes. Epidural space: No epidural fluid. Soft tissues: Unremarkable. Prevertebral Space: No prevertebral soft tissue swelling. Thyroid: Multiple subcentimeter low-density lesions in the thyroid are appreciated. Vasculature: Carotid vascular calcifications can be non emergently evaluated with ultrasound. Lungs: Modest apical pleural thickening in the included lungs. IMPRESSION: 1. Degenerative changes without acute fracture. 2. Thyroid lesions as above. No follow-up is recommended. CT for PE protocol ordered. We have contacted by the radiologist who advises that the patient has multiple bilateral PE this is due to right heart strain. We will begin the patient on heparin drip and give aspirin. He is currently hemodynamically stable to normal sinus rhythm. Consulted with Dr. George with the pulmonary embolism team at [facility]. He and I discussed presentation and history. He is in agreement with interventions completed thus far with ASA and heparin. He will accept the patient in transfer. The transfer center contacted his exam and advised that secondary to bed situation, they are unable to accept the patient. Contacted [facility] regarding potential transfer to their facility. Awaiting callback. Reevaluated the patient. He is now back in irregularly irregular rhythm. Repeat EKG was obtained. Patient does have a S1 every 3. No STEMI. Contintues to have pairs of narow complex, question PACs vs. block. Patient is now endorsing CP and lightheadedness when supine which is new. BP is now into the 90s systolic. Concern for more deterioration. Reached out to [facility] again, they are still unable to accept the patient. Consulted with physician at [facility], they advised I consult with MICU. Dr. Loza at [facility]. We discussed thrombolysis. He advised reduced dosing of tPA. He will accept the patient. Stop the heparin. Recommending giving 50mg tPA, 10mg bolus then 40mg over 4 hours. Advised if the patient begins to deteriorate more quickly, to give at a faster rate. Advised attaching to an epi infusion but holding off. If the patient starting having bradycardia or hypotension that we be prepared. Recommended transferring to their facility. Will consent the patient. Dr. Loza advises patient has 1-2% risk of intacranial hemorrhage. Patient I discussed risk/benefits of TPA at length. He is able to voice any questions and discussed the potential risk associated with this medication. He would like to move forward with treatment at this time. Patient is now on 2 L nasal cannula, dropped into the high 80s on room air. EMS and the red machine pecan picker patient. Will also have epi drip at bedside ready in case the patient becomes more hemodynamically unstable. Dr. Parkinson also advised that should the patient clinically deteriorate nebulize nitroglycerin would also be appropriate. HPI General Mode of arrival: EMS . Date/Time Provider Initiated Documentation: 01/31/20 10:56 . Limitations to Documentation: no limitations . Information obtained by: patient, EMS and RN notes reviewed . HPI Narrative: Patient is a pleasant 64 year old male presenting, brought in via EMS, with c/c of syncopal episode prior to arrival. He states that he was feeling lightheaded while walking around [employer]. Patient does walk with to stand since he has left-sided lower extremity hemiparesis associated with previous spinal injury 2017. This was unwitnessed event. Unclear if there is any seizure activity. No history of seizure activity. He is endorsing some head discomfort right now as he did strike the right side of his head. Abrasion was noted. Patient's not anticoagulated. He denies any visual changes. No new weakness has been noted by the patient. Denies any neck or back pain. Patient is collared per EMS protocols. They advised that he was initially hypoxic and placed on 2 L nasal cannula with good response. Patient is denying any chest pain, palpitation, shortness of breath. No recent travel. No fevers chills. Denies any cough. No GI upset. Related Data Home Medications Medication Instructions Recorded Confirmed clonazepam 2 mg tablet 2 mg PO TID PRN 04/01/18 01/31/20 triamcinolone acetonide 0.1 % 1 applic TP BID #80 gm 04/16/19 01/31/20 topical cream metronidazole 0.75 % topical cream 1 applic TP BID #45 gm 06/13/19 01/31/20 gabapentin 800 mg tablet 1,600 mg PO BID #120 tab 11/14/19 01/31/20 clomipramine 75 mg PO BID 01/31/20 01/31/20 Previous Rx's Medication Instructions Recorded triamcinolone acetonide 0.1 % 1 applic TP BID #80 gm 04/16/19 topical cream metronidazole 0.75 % topical cream 1 applic TP BID #45 gm 06/13/19 gabapentin 800 mg tablet 1,600 mg PO BID #120 tab 11/14/19 Allergies Allergy/AdvReac Type Severity Reaction Status Date / Time fluoxetine HCl [From Prozac] AdvReac Severe Psychosis Verified 01/31/20 11:57 General KATI: 2 Review of Systems Constitutional Constitutional: Reports as per HPI, Denies chills, Denies fatigue, Denies fever(s), Reports headache(s) and Reports weakness (baseline left lower extremity weakness) Eyes Eyes: Reports as per HPI, Denies blurry vision, Denies change in vision and Denies loss of vision ENT Ears, Nose, Mouth, and Throat: Denies abnormal hearing and Reports headache(s) Cardiovascular Cardiovascular: Reports as per HPI, Denies chest pain and Denies dyspnea Respiratory Respiratory: Reports as per HPI, Denies cough, Denies pain on inspiration, Denies pain with cough and Denies dyspnea Gastrointestinal Gastrointestinal: Reports as per HPI, Denies abdominal pain, Denies nausea and Denies vomiting Genitourinary Genitourinary: Reports as per HPI and Denies urinary incontinence Musculoskeletal Musculoskeletal: Reports as per HPI Integumentary/Breasts Skin/Breast: Reports as per HPI and Reports wounds (abrasion right side of head, this is the area of discomfort) Neurologic Neurologic: Reports as per HPI, Denies abnormal hearing, Denies abnormal movements, Denies abnormal speech, Reports headache(s), Denies lack of coordination, Denies localized weakness, Denies loss of vision, Denies seizure- like activity, Denies paresthesias and Reports weakness (baseline left lower extremity weakness) Endocrine Endocrine: Denies fatigue [facility] Medical History (Updated 02/02/20 @ 12:43 by SHANIQUA Holbrook) Alcohol abuse Alcohol related disorder Anxiety disorder BPH (benign prostatic hyperplasia) Chronic low back pain Depression DVT (deep venous thrombosis) Gastroesophageal reflux disease OCD (obsessive compulsive disorder) Spinal stenosis of thoracic region (05/07/16) T9-T12 decompression sx: [facility] Surgical History Appendectomy [facility] Family History Mother Personal history of malignant neoplasm CERVICLE Father No problems noted. Brother No problems noted. Son No problems noted. Daughter Depression Daughter No problems noted. Daughter Depression Social History Smoking/Tobacco Use Status: Never Alcohol Intake: current Alcohol Intake frequency: 3 or more drinks per day Alcohol type: beer Drug use: Daily Substance use type: marijuana Details: Patient states he last drank alcohol on Sun (01/28/20) and denies having any withdrawal issues when he is not drinking. Do you feel safe at home: Yes Do you feel safe in your relationship?: Yes Exam Const General: cooperative, healthy appearing, comfortable, no acute distress, well developed and well groomed Nutritional Appearance: average body habitus and well nourished Orientation: alert, awake and oriented x3 [facility] Head: no palpable skull fracture, abrasion (right sided abrasion as drawn below with swelling. No lac), no Ellis's sign, no occipital foramen tenderness, no palpable skull fracture and no raccoon eyes Head images: 1. area of abrasion. No palpable fracture, no active bleeding. Superficial. No hemotympanum Ears: hearing grossly normal bilaterally, external ears normal and TM's normal bilaterally General nose exam: external nose normal Face and sinus: normal facial exam Mouth: oral mucosae normal, lip normal and tongue normal Throat: posterior oropharynx normal Eyes General: appearance normal, both eyes and all related structures Visual Polanco: normal visual polanco by confrontation Alignment and Position: alignment normal Periorbital: periorbital findings normal Eyelids: eyelids normal Conjunctivae: conjunctivae normal Pupils: PERRL EOM: EOM intact bilaterally Neck Neck: normal visual inspection, limited ROM (collared, no assessed), no lymphadenopathy, trachea midline and supple Chest Chest: normal inspection of the chest, normal palpation of entire chest wall, no crepitus and no localized rib tenderness Resp Effort & Inspection: normal respiratory effort, able to speak in complete sentences and no respiratory distress Auscultation: clear to auscultation bilaterally, no rales, no rhonchi and no wheezes Cardio Rate: regular rate Rhythm: regular rhythm Heart Sounds: S1 normal and S2 normal GI Inspection: normal to inspection, no abdominal wall ecchymosis, no edema and non-distended Palpation: soft, no hepatosplenomegaly, not firm, no guarding, no pulsatile masses, not rigid and nontender Auscultation: normal bowel sounds Back/Spine/Pelvis Back: no CVA tenderness Cervical Spine: normal cervical lordosis and cervical ROM normal Thoracic/Lumbar Spine: thoracic and lumbar spine normal to inspection, thoraco- lumbar ROM normal, No thoraco-lumbar ROM limited, No thoraco-lumbar spasm and No thoracic spinal tenderness Pelvis: no pain with anterior-posterior compression and no pain with lateral c ompression Skin Trauma: abrasion (as above) Neuro General: patient alert, patient awake, patient oriented x3, gait normal, tone normal and moves all extremities Cranial Nerves: CN's II-XI intact bilaterally Cognition: normal cognition Speech: speech normal Gait: gait abnormal (did not assess) Motor: muscle tone normal throughout and strength not 5/5 throughout (4/5 LLE, chronic deformity noted ) Sensory Exam: no sensory deficits noted (no saddle paresthesias) Extrem General: normal to inspection (baseline for patient, curled left toes), full ROM, capillary refill normal, no pedal edema and no calf tenderness Psych Appearance: grossly normal and well kempt Mental Status: mental status grossly normal Speech and Movement: speech and movement normal
--- NOTE | 2020-01-31 10:45 | RT.EKG_ITS ---
APPROVED REPORT Exam: Resting ECG Patient Location: E HR:89 bpm ECG Measurements Heart Rate 89 AXIS TN 186 P -37 QRSd 114 QRS 24 QT 420 T 52 QTc 512 Conclusion Sinus rhythm...normal P axis, V-rate 60- 99 Supraventricular bigeminy...bigeminy string>4 w/ SV complexes Consider inferior infarct...Q >35mS in II III aVF Anterior infarct, old...Q >40mS, abnormal ST-T, V2-V5 Prolonged QT interval...QTc >500mS. Artifact. No STEMI. I have reviewed and interpreted ECG and agree with software generated interpretation.
--- NOTE | 2020-01-31 10:45 | DI.RAD_ITS ---
EXAM: XR CHEST 2V PA LATERAL CLINICAL HISTORY: syncope TECHNIQUE: COMPARISON: CR,XR XR PORTABLE CHEST AP from 11/09/2019 FINDINGS: AP and lateral views were obtained. Heart is not enlarged. Today's CT angiogram showed severe bilat eral pulmonary embolic disease. There was also a 2 cm right basilar lung mass suspicious for maligna ncy seen on CT, this is very faintly visualized on the radiograph. No pleural effusion seen. IMPRESSION: Faintly visualized right basilar pulmonary mass. Suspicious for malignancy. RADIATION DOSE DELIVERED: Total DLP
[2020-01-31 11:10] LABS: Abs Immature Grans 0.02 10^3/uL (0.0-0.06); Absolute Basophil Count 0.02 10^3/uL (0.0-0.2); Absolute Eosinophil Count 0.18 10^3/uL (0.0-0.7); Absolute Lymphocyte Count 1.52 10^3/uL (1.2-3.4); Absolute Neutrophil Count 6.47 10^3/uL (1.2-6.7); Basophils % 0.2; HGB 15.5 g/dL (13.5-17.5); Immature Grans % 0.2; Lymphocytes % 17.1; MCH 30.9 pg (27.0-33.0); MCHC 32.3 % (32.0-36.0); MCV 95.6 fL (80-95); MPV 9.1 fL (8.0-11.0); Monocytes % 7.9; Neutrophils % 72.6; Nucleated RBC 0 %; Platelet Count 188 10^3/uL (130-400); RBC 5.02 10^6/uL (4.36-5.78); RDW 14.1 % (11.8-14.1); RDW-SD 49.5 fL; WBC 8.91 10^3/uL (4.4-10.8)
[2020-01-31 11:26] LABS: INR 1.2 (0.9-1.1); PTT Activated 24.7 sec (21.0-31.4); Prothrombin Time 11.6 sec (9.3-11.0)
[2020-01-31] MEDS: Normal Saline 1,000 ML 150 ML IV (11:34)
[2020-01-31] MEDS: Normal Saline Flush 10 ML SYR IVP ×2 (11:34→12:35)
[2020-01-31 11:35] LABS: ALT 12 U/L (16-63); AST 19 U/L (15-37); Albumin 3.6 g/dL (3.4-5.0); Alkaline Phosphatase 129 U/L (46-116); Anion Gap 5.4 mmol/L (3-11); BUN 14 mg/dL (7-18); Bilirubin, Total 0.5 mg/dL (0.2-1.0); CO2 30.6 mmol/L (21.0-32.0); CREATININE 1.26 mg/dL (0.70-1.30); Calcium 8.7 mg/dL (8.5-10.1); Chloride 101 mmol/L (98-107); Estimated GFR 57.62 (mL/min/1.73m2); Glucose 128 mg/dL (74-106); Magnesium 2.3 mg/dL (1.8-2.4); Potassium 4.1 mmol/L (3.5-5.1); Sodium 137 mmol/L (136-145); TSH 1.86 uIU/mL (0.36-3.74); Total Protein 7.6 g/dL (6.4-8.2)
--- NOTE | 2020-01-31 11:45 | RT.EKG_ITS ---
APPROVED REPORT Exam: Resting ECG Patient Location: E HR:81 bpm ECG Measurements Heart Rate 81 AXIS UT 228 P 49 QRSd 104 QRS 67 QT 413 T 43 QTc 481 Conclusion Sinus rhythm...normal P axis, V-rate 60- 99 Prolonged UT interval...UT >220, V-rate 50- 90 Low voltage, extremity and precordial leads...extremity<0.5mV, precordial<1.0mV Consider inferior infarct...Q >35mS in II III aVF I have reviewed and interpreted ECG and agree with software generated interpretation.
[2020-01-31 11:46] LABS: Troponin I 0.08 ng/mL (<0.06)
[2020-01-31 11:53] LABS: D-Dimer 4646 ng/mlFEU (<500)
--- NOTE | 2020-01-31 12:20 | DI.VRAD_ITS ---
PROCEDURE INFORMATION: Exam: XR Chest, 2 Views Exam date and time: 01/31/2020 11:56 AM Age: 64 years old Clinical indication: Other: Syncope TECHNIQUE: Imaging protocol: XR of the chest Views: 2 views. COMPARISON: XR PORTABLE CHEST AP 11/09/2019 8:30 AM FINDINGS: Lungs: Previous x-ray and CT showed a right middle lobe mass. This is faintly visible on today's radiograph overlying the right hemidiaphragm. The remaining lung carvajal are clear. Pleural space: Unremarkable. No pleural effusion. No pneumothorax. Heart/Mediastinum: Unremarkable. No cardiomegaly. Bones/joints: Unremarkable. IMPRESSION: The previously identified 2 cm right middle lobe mass is faintly identified projecting on the right hemidiaphragm. No other acute abnormalities are seen. Dictated and Authenticated by: King Mendoza MD. Ordering:ANITA Aldana MD
--- NOTE | 2020-01-31 12:22 | DI.VRAD_ITS ---
PROCEDURE INFORMATION: Exam: CT Head Without Contrast Exam date and time: 01/31/2020 11:49 AM Age: 64 years old Clinical indication: Other: Unwitnessed fall TECHNIQUE: Imaging protocol: Computed tomography of the head without contrast. COMPARISON: No relevant prior studies available. FINDINGS: Brain: Mild diffuse involutional changes in the brain without acute hemorrhage or acute territorial infarct. Cerebral ventricles: No ventriculomegaly. Bones/joints: Unremarkable. No acute fracture. Paranasal sinuses: Visualized sinuses are unremarkable. No fluid levels. Mastoid air cells: Visualized mastoid air cells are well aerated. Soft tissues: Unremarkable. Other findings: Partially empty sella. IMPRESSION: No acute intracranial abnormality. Chronic changes as above. PROCEDURE INFORMATION: Exam: CT Cervical Spine Without Contrast Exam date and time: 01/31/2020 11:49 AM Age: 64 years old Clinical indication: Other: Unwitnessed fall TECHNIQUE: Imaging protocol: Computed tomography images of the cervical spine without contrast. COMPARISON: No relevant prior studies available. FINDINGS: Vertebrae: Osteopenia and degenerative changes with a modest scoliosis. No acute fracture. No high-grade central stenosis. Foraminal encroachment at multiple levels, most pronounced on the right at C3-C4 and C6-C7 secondary to degenerative changes. Epidural space: No epidural fluid. Soft tissues: Unremarkable. Prevertebral Space: No prevertebral soft tissue swelling. Thyroid: Multiple subcentimeter low-density lesions in the thyroid are appreciated. Vasculature: Carotid vascular calcifications can be non emergently evaluated with ultrasound. Lungs: Modest apical pleural thickening in the included lungs. IMPRESSION: 1. Degenerative changes without acute fracture. 2. Thyroid lesions as above. No follow-up is recommended. Dictated and Authenticated by: Trev Pang MD. Ordering:ANITA Aldana MD
[2020-01-31] MEDS: Omnipaque 350 MG/ML 100 ML BTL IJ (12:33)
[2020-01-31] MEDS: Normal Saline - Diluent 50 ML VIAL IV (12:34)
--- NOTE | 2020-01-31 12:35 | DI.CT_ITS ---
EXAM: CT CHEST PE CTA CLINICAL HISTORY: syncope, elevated d-dimer COMPARISON: CT CT CHEST PE CTA from 11/09/2019 FINDINGS: CT angiography of the chest was performed with a bolus infusion of 80 cc of Omnipaque 350. Images ob tained through the upper abdomen show unremarkable appearance of visualized portions of liver, spleen , adrenals, pancreas, and kidneys. Gallbladder and bile ducts are CT normal. There are large pulmonary emboli bilaterally which involve right and left main pulmonary arteries as well as lobar, segmental and subsegmental arteries bilaterally. There is evidence of right heart str ain with an enlarged right ventricle in comparison to the left ventricle. Tracheobronchial tree appe ars intact. Note is again made of a previously described, approximately 2 cm, in diameter ,right basilar, mildly spiculated lobulated lung mass highly suspicious for malignancy. A poorly defined nodule is also see n along the right major fissure also suspicious for malignancy. No focal consolidation identified el sewhere. No pleural effusion. No gross mediastinal adenopathy. No gross supraclavicular or axillar y adenopathy. IMPRESSION: Widespread pulmonary embolic disease as described above involving right and left main pulmonary arter ies and multiple lobar, segmental and subsegmental vessels. There is evidence of right heart strain. Right basilar intrapulmonary mass, approximately 2 cm in diameter, highly suspicious for malignancy, with associated suspected satellite nodule or fissural lymph node. RADIATION DOSE DELIVERED: 464.4mGy.cm Total DLP
--- NOTE | 2020-01-31 12:45 | DI.CT_ITS ---
EXAM: CT HEAD CERVICAL SPINE WO COMPARISON: No exams were available for comparison FINDINGS: CT examination of the cervical spine was performed without contrast administration. There are modera te degenerative changes of the cervical spine. There is no evidence of acute cervical spine fracture or dislocation. Tracheolaryngeal structures appear intact. No cervical mass or adenopathy. Intervert ebral disc spaces are well maintained. Noncontrast cranial CT was performed. Ventricular system is normal in appearance. No evidence of acut e intracranial hemorrhage, mass effect, or midline shift. No calvarial fracture. The orbital and temp oral bone structures appear intact. IMPRESSION: No evidence of acute cervical spine injury. No evidence of acute intracranial injury. RADIATION DOSE DELIVERED: 1,422.36mGy.cm Total DLP 1,422.36mGy.cm Total DLP DATA REPOSITORY: All CT scans at this facility are submitted to the National Radiology Data Registry (NRDR) Dose Index Registry (DIR) with the [employer] (ACR). RADIATION OPTIMIZATION: All CT scans at this facility use at least one of these dose optimization te chniques: automated exposure control; mA and/or kV adjustment per patient size (includes targeted exa ms where dose is matched to clinical indication); or iterative reconstruction.
--- NOTE | 2020-01-31 13:00 | DI.VRAD_ITS ---
PROCEDURE INFORMATION: Exam: CT Angiography Chest With Contrast Exam date and time: 01/31/2020 12:19 PM Age: 64 years old Clinical indication: Other: Syncope, elevated d-dimer TECHNIQUE: Imaging protocol: Computed tomographic angiography of the chest with intravenous contrast. 3D rendering (Not supervised by radiologist): MIP and/or 3D reconstructed images were created by the technologist. Radiation optimization: All CT scans at this facility use at least one of these dose optimization techniques: automated exposure control; mA and/or kV adjustment per patient size (includes targeted exams where dose is matched to clinical indication); or iterative reconstruction. Contrast material: OMNIPAQUE 350; Contrast volume: 79 ml; Contrast route: INTRAVENOUS (IV); COMPARISON: CT CHEST PE CTA 11/09/2019 9:40 AM FINDINGS: Pulmonary arteries: There are bilateral pulmonary emboli with large filling defects throughout both lungs. Aorta: Unremarkable. No aortic aneurysm. No aortic dissection. Lungs: There is dependent atelectasis in the lung bases. Again noted is the lobulated 2 cm mass in the right middle lobe that is highly suspicious for a primary malignancy. Pleural space: The pleural base nodule measuring about 16 mm in diameter is seen along the right major fissure which was also present on old study. Heart: There is right ventricular dilatation. The RV/LV ratio equals 1.7 which indicates right heart strain. Lymph nodes: Unremarkable. No enlarged lymph nodes. Bones/joints: Unremarkable. No acute fracture. Soft tissues: Unremarkable. IMPRESSION: 1. Multiple large bilateral pulmonary emboli. 2. Dilated right ventricle with RV/LV ratio equal 1.7 indicating right heart strain and decompensation. 3. Right pulmonary nodule suspicious for malignancy. 4. THIS REPORT CONTAINS FINDINGS THAT MAY BE CRITICAL TO PATIENT CARE. The findings were verbally communicated via telephone conference with Dr. Marino at 12:58 PM EDT on 01/31/2020. The findings were acknowledged and understood. Dictated and Authenticated by: iKng Mendoza MD. Ordering:ANITA Aldana MD
[2020-01-31] MEDS: Aspirin 81 MG CHEW 324 MG CH (13:10)
[2020-01-31] MEDS: Ondansetron 4 MG/2 ML VIAL IVP (13:41)
--- NOTE | 2020-01-31 14:00 | RT.EKG_ITS ---
APPROVED REPORT Exam: Resting ECG Patient Location: E HR:91 bpm ECG Measurements Heart Rate 91 AXIS MA 213 P 52 QRSd 100 QRS 76 QT 393 T 55 QTc 484 Conclusion Sinus rhythm...normal P axis, V-rate 60- 99 Atrial premature complexes...SV complexes w/ short R-R intvls Borderline prolonged MA interval...MA >207, V-rate 91-120 Low voltage, extremity and precordial leads...extremity<0.5mV, precordial<1.0mV Consider anterior infarct...Q >30mS in V2-V5. I have reviewed and interpreted ECG and agree with software generated interpretation.
[2020-01-31 14:25] LABS: Troponin I 1.01 ng/mL (<0.06)
[2020-01-31 14:38] LABS: Bilirubin Negative (Negative); Blood Negative (Negative); Clarity Clear (Clear); Glucose Negative (Negative); Ketones Negative (Negative); Leukocyte Esterase Negative (Negative); Nitrite Negative (Negative); Urobilinogen 0.2 EU/dL (Up TO 0.2)
[2020-01-31 14:48] LABS: Bacteria Negative HPF (Negative); C & S Indicated? No; Casts Negative LPF (Negative); Crystals Negative HPF (Negative); Epithelial Cells Rare HPF (Negative); Mucus Negative (Negative); RBC Negative HPF (0-2); WBC 0-2 HPF (0-5)
== END 2020-01-31 15:17 ==
LOC: ER 11:58
PROVIDERS: Emergency Provider Physician Assistant; PCP Family Medicine
DX: I26.94 Multiple subsegmental thrombotic pulmonary emboli without acute cor pulmonale (principal); S00.01XA Abrasion of scalp, initial encounter; W19.XXXA Unspecified fall, initial encounter; R07.9 Chest pain, unspecified; R09.02 Hypoxemia; Z86.718 Personal history of other venous thrombosis and embolism
CPT/HCPCS: 36415; 36416; 71275; 80053; 82962; 93005; 96361; 96365; 96366; 96375; 96376; 99285; 70450; 71046; 72125; 81003; 81015; 83735; 84443; 84484; 85025; 85379; 85610; 85730; 93010; J2405; J2997; J3490

== ENCOUNTER 2020-02-22 23:26 | Emergency (ER) | payer MEDICARE, MEDICAID, SELFPAY ==
[2020-02-22 23:26] VITALS: BP 146/90; PULSE 81; RESP 18; TEMP 36.6; O2SAT 99
[2020-02-22 23:28] VITALS: BP 146/90; PULSE 79; PULSE 82; RESP 14; O2SAT 100
[2020-02-22 23:29] VITALS: PULSE 81; RESP 12; O2SAT 100
--- NOTE | 2020-02-22 23:30 | RT.EKG_ITS ---
APPROVED REPORT Exam: Resting ECG Patient Location: E HR:73 bpm ECG Measurements Heart Rate 73 AXIS OK 204 P 131 QRSd 99 QRS 108 QT 394 T 91 QTc 435 Conclusion Right and left arm electrode reversal, interpretation assumes no reversal Sinus rhythm...normal P axis, V-rate 60- 99 Right axis deviation...QRS axis ( 91,269) Low voltage, extremity and precordial leads...extremity<0.5mV, precordial<1.0mV Nonspecific T abnormalities, lateral leads...T <-0.10mV, I aVL V5 V6
[2020-02-22 23:31] VITALS: PULSE 89; RESP 20; O2SAT 99
--- NOTE | 2020-02-22 23:35 | W.ED.GENAD ---
Discharge Plan Disposition Patient Disposition: HOME Condition: Stable Discharge Details Clinical Impression: Abdominal pain, Gastroesophageal reflux disease, Chest pain Primary Care Provider: Romelia Bravo ED Provider: Shaun Wolfe Home Meds and New Rx's Prescriptions: New omeprazole 20 mg tablet,delayed release (DR/EC) 20 mg PO DAILY Qty: 30 RF: 0 ondansetron 4 mg tablet,disintegrating 4 mg PO Q8H PRN (Reason: nausea and vomiting) Qty: 30 RF: 0 Continued metronidazole 0.75 % cream 1 applic TP BID Qty: 45 RF: 5 clonazepam 2 mg tablet 2 mg PO TID PRNRF: 0 apixaban 5 mg tablet 5 mg PO BID RF: 0 gabapentin 800 mg tablet 1,600 mg PO BID Qty: 120 RF: 2 clomipramine 75 mg capsule 75 mg PO BID RF: 0 Discharge Instructions Instructions: Gastroesophageal Reflux Disease (ED) Additional Instructions: your blood work and cat scan did not show any concerning findings. your symptoms are likely due to acid reflux follow up with your primary care provider and discuss continuing the omeprazole if you feel more ill, have severe worsening pain or difficulty breathing return to the emergency department Medical Decision Making 64 yo male with hx of PE diagnosed last month treated with tpa and heparin and transferred to [facility] and d/c'd on betty, gerd, who comes in with abdominal pain since this morning and worsening throughout the night and feels it radiates up to the neck. Denies fevers, chills, dyspnea. Localizes the pain to the epigastric region and is tender to palpation throughout the upper abdomen without guarding or rebound and no lower abdominal tenderness. Speaking in ful sentences, clear lungs, no leg swelling. Could be gerd but concered he has reproducible tenderness, concern for possible pancreatitis vs sbo vs cholecystitis and given the radiation to the chest could be dissection. Will obtain labs and CTA and monitor. pt remains hd stable, mild epigastric tenderness. Labs thus far unremarkable, awaiting CT. CT shows no acute findings, has lung mass he is going to be seeing [facility] for. He feels improved and has no abdominal tenderness on exam. Given reassuring exam and workup feel this is likely gastritis and can be d/c'd on ppi and f/u with pcp, return precautions given. pt was observed in the ED for many hours as he had no ride and we could not find him. He was still having epigastric pain and had no guarding or reboud tenderness and noted some nausea without vomit. No distention on abdominal exam. He requested pain medicine and I advised opiates would not be advised if he wasn't willing to stay in the hospital which I offered to him as he was still having some abdominal discomfort but he declined as he wants to go home and has capacity to make his own decisions. Still attempting to find him a ride, will continue to monitor. pt feels much better after zofran and has no tenderness, has a ride and is agreeable to d/c with f/u with pcp and return precautions again stressed Differential Diagnosis Differential Diagnosis: gerd, pancreatitis, dissection Medical Records Medical records reviewed: Yes I reviewed the patient's medical records. Imaging Data Radiologic Study: Attestation: I personally reviewed and interpreted this imaging study as follows: Imaging: CT Scan Radiologist's impression: IMPRESSION: 1. No pulmonary artery embolism demonstrated. 2. No aortic aneurysm or dissection. 3. 2 cm lobulated nodule right lung, stable from November 2019. Follow-up surveillance CT recommended in 6-9 months. No aortic aneurysm or dissection. 2. Enlarged prostate. Lab Data Lab results reviewed: Yes I reviewed the patient's lab results. ECG Data Attestation: I personally reviewed and interpreted this ECG (s) as follows: Prior ECG tracings: not available for review Interpretation: sinus rhythm, rate of 73, pr 204, qtc 435, no st elevation or significant depressions HPI General Mode of arrival: EMS. Date/Time Provider Initiated Documentation: 02/22/20 23:27. Limitations to Documentation: no limitations. Information obtained by: patient. History of Present Illness 64 year old M presents to the emergency department with the chief complaint of abdominal pain, described as moderate, Patient started experiencing this hour(s) (12) and it has been constant. No relieving factors improve symptom(s), No exacerbating factors reported . Patient notes chest pain. Patient did receive the following treatments prior to arrival, none Related Data Home Medications Medication Instructions Recorded Confirmed clonazepam 2 mg tablet 2 mg PO TID PRN 04/01/18 02/10/20 metronidazole 0.75 % topical cream 1 applic TP BID #45 gm 06/13/19 02/10/20 gabapentin 800 mg tablet 1,600 mg PO BID #120 tab 11/14/19 02/10/20 clomipramine 75 mg PO BID 01/31/20 02/10/20 apixaban 5 mg tablet 5 mg PO BID 02/10/20 02/10/20 omeprazole 20 mg PO DAILY #30 tab 02/23/20 ondansetron 4 mg PO Q8H PRN #30 tab 02/23/20 Previous Rx's Medication Instructions Recorded metronidazole 0.75 % topical cream 1 applic TP BID #45 gm 06/13/19 gabapentin 800 mg tablet 1,600 mg PO BID #120 tab 11/14/19 omeprazole 20 mg PO DAILY #30 tab 02/23/20 ondansetron 4 mg PO Q8H PRN #30 tab 02/23/20 Allergies Allergy/AdvReac Type Severity Reaction Status Date / Time fluoxetine HCl [From Prozac] AdvReac Severe Psychosis Verified 02/10/20 10:06 General Stated Complaint: Abd Prob KATI: 3 Review of Systems All systems reviewed & are unremarkable except as noted in HPI and below Constitutional Constitutional: Denies chills, Denies fever(s) and Denies weakness Eyes Eyes: Denies loss of vision ENT Ears, Nose, Mouth, and Throat: Denies change in voice Cardiovascular Cardiovascular: Denies dyspnea Respiratory Respiratory: Denies cough and Denies dyspnea Gastrointestinal Gastrointestinal: Denies nausea and Denies vomiting Genitourinary Genitourinary: Denies dysuria Musculoskeletal Musculoskeletal: Denies joint swelling Integumentary/Breasts Skin/Breast: Denies rash Neurologic Neurologic: Denies loss of vision and Denies weakness [facility] Medical History (Updated 02/23/20 @ 01:04 by Shaun Wolfe MD) Alcohol abuse Alcohol related disorder Anxiety disorder BPH (benign prostatic hyperplasia) Chronic low back pain Depression DVT (deep venous thrombosis) Gastroesophageal reflux disease OCD (obsessive compulsive disorder) Spinal stenosis of thoracic region (05/07/16) -2017 T9-T12 decompression sx: [facility] Surgical History Appendectomy [facility] Family History Mother Personal history of malignant neoplasm CERVICLE Father No problems noted. Brother No problems noted. Son No problems noted. Daughter Depression Daughter No problems noted. Daughter Depression Social History Smoking/Tobacco Use Status: Never Smoking risk assessment performed?: Yes Alcohol Intake: current Alcohol Intake frequency: 3 or more drinks per day Alcohol type: beer Drug use: Daily Substance use type: marijuana Details: Patient states he last drank alcohol on Wed (01/28/20) and denies having any withdrawal issues when he is not drinking. Do you feel safe at home: Yes Do you feel safe in your relationship?: Yes Exam Const General: no acute distress Orientation: alert HENMT Head: normal to inspection Ears: external ears normal General nose exam: external nose normal Mouth: moist mucous membranes Eyes General: appearance normal, both eyes and all related structures Neck Neck: normal visual inspection Resp Effort & Inspection: normal respiratory effort and able to speak in complete sentences Cardio Rate: regular rate GI Palpation: soft Skin General skin exam: no rashes or lesions noted Neuro General: patient alert and patient oriented x3 Extrem General: normal to inspection Psych Mental Status: mental status grossly normal Course Vital Signs Vital signs: Vital Signs Temperature 36.6 C 02/22/20 23:26 Pulse 81 02/22/20 23:26 Respiratory Rate 18 02/22/20 23:26 Blood Pressure 146/90 H 02/22/20 23:26 Pulse Oximetry 99 02/22/20 23:26 Temperature 36.6 C 02/22/20 23:26 Temperature Source Temporal Artery Scan 02/22/20 23:26 Pulse 79 02/22/20 23:28 Pulse 89 02/22/20 23:31 Respiratory Rate 20 02/22/20 23:31 Respiratory Effort 02/22/20 23:29 Blood Pressure 146/90 H 02/22/20 23:28 Blood Pressure Mean 103 02/22/20 23:28 Pulse Oximetry 99 02/22/20 23:31 Oxygen Delivery Method Room Air 02/22/20 23:26 Oxygen Flow Rate 0 02/22/20 23:26 Pain Level 10 02/22/20 23:26
[2020-02-22 23:40] VITALS: PULSE 81; RESP 16; O2SAT 99
[2020-02-22 23:41] LABS: Lactate 1.3 mmol/L (0.6-1.4)
[2020-02-22 23:43] LABS: Abs Immature Grans 0.03 10^3/uL (0.0-0.06); Absolute Basophil Count 0.02 10^3/uL (0.0-0.2); Absolute Eosinophil Count 0.05 10^3/uL (0.0-0.7); Absolute Lymphocyte Count 0.83 10^3/uL (1.2-3.4); Basophils % 0.2; Eosinophils % 0.4; HCT 43.9 % (40.0-50.0); HGB 14.2 g/dL (13.5-17.5); Immature Grans % 0.2; Lymphocytes % 6.8; MCH 31.8 pg (27.0-33.0); MCHC 32.3 % (32.0-36.0); MCV 98.4 fL (80-95); Monocytes % 5.1; Neutrophils % 87.3; Nucleated RBC 0 %; Platelet Count 352 10^3/uL (130-400); RBC 4.46 10^6/uL (4.36-5.78); RDW 15.6 % (11.8-14.1); RDW-SD 56.8 fL; WBC 12.27 10^3/uL (4.4-10.8)
[2020-02-22 23:46] LABS: Absolute Monocyte Count 0.63 10^3/uL (0.1-0.8); Absolute Neutrophil Count 10.71 10^3/uL (1.2-6.7)
[2020-02-22] MEDS: Ondansetron 4 MG/2 ML VIAL IVP (23:47)
--- NOTE | 2020-02-22 23:55 | DI.CT_ITS ---
EXAM: CT THORAX ABD/PEL CTA CLINICAL HISTORY: abdominal and chest pain. TECHNIQUE: Imaging Protocol: Axial CT angiography was performed with multi-slice acquisition and m ulti-planar and/or 3D reconstructions. CONTRAST MATERIAL: Intravenous: Omnipaque 350 Contrast volume:100 mL Oral: No COMPARISON: CR XR shoulder RT comp post reduc from 04/17/[address] CHEST PE CTA from 11/09/[address] CHEST PE CTA from 01/31/[address] CHEST PE CTA from 01/31/2020 FINDINGS: CHEST: Pulmonary Arteries: No evidence of filling defect to suggest pulmonary emboli. Tracheobronchial tree: Patent where visualized. Mediastinum and Jo: No dominant adenopathy or fluid collection. Pulmonary parenchyma: No focal consolidation. There has been no significant change in size of 2 cm r ight basilar mass. No architectural distortion. Unchanged pleural thickening in the right middle lob e. Basilar atelectasis. Pleura: No effusion or pneumothorax. Heart: The heart is not dilated. No coronary artery calcifications are seen. No pericardial effusion. Aorta: Thoracic aorta non-dilated. No evidence of dissection. Bones: Degenerative changes. Soft tissues: Unremarkable. ABDOMEN AND PELVIS: Abdomen: Celiac axis/mesenteric arteries: No evidence of occlusion or significant stenosis. Renal Arteries: No evidence of occlusion or significant stenosis. There is a single renal artery per fusing each kidney. Aorta: No evidence of occlusion or significant stenosis. No aneurysm or dissection. Pelvis: Iliac Arteries: No evidence of occlusion or significant stenosis. Mild atherosclerosis. Common Femoral Arteries: No evidence of occlusion or significant stenosis. Mild atherosclerosis. ABDOMEN: Liver: Normal density. No measurable mass. Portal, Superior Mesenteric, and Splenic Veins: Unremarkable. Gallbladder and Biliary Tract: No radiodense calculus or dilation. Pancreas: Normal density, no abnormal calcifications or inflammatory process. Spleen: Normal. Adrenals: No masses seen. Kidneys: Normal size, contour and axis. No radiodense stones or obstructive uropathy. Simple right re nal cysts. Note is made of a retroaortic left renal vein. Bowel: No obstruction or bowel wall thickening. No evidence of acute appendicitis. Peritoneal Cavity: No ascites, collection or mesenteric inflammatory response. Lymph Nodes: Within normal limits. Bones: Degenerative changes in the lumbar spine. Soft Tissues: Small fat containing umbilical hernia. PELVIS: Bladder: Symmetric distention, no gross wall thickening. Reproductive Organs: Mildly enlarged prostate. Lymph Nodes: Within normal limits. Bones: Degenerative changes in the spine. IMPRESSION: 1. No evidence of pulmonary embolism, thoracic aortic dissection or aneurysm. 2. Stable 2 cm pulmonary nodule. 3. No evidence of abdominal aneurysm or dissection. 4. No acute abdominal or pelvic process. RADIATION DOSE DELIVERED: 1,258.19mGy.cm Total DLP DATA REPOSITORY: All CT scans at this facility are submitted to the National Radiology Data Registry (NRDR) Dose Index Registry (DIR) with the [employer] (ACR). RADIATION OPTIMIZATION: All CT scans at this facility use at least one of these dose optimization te chniques: automated exposure control; mA and/or kV adjustment per patient size (includes targeted exa ms where dose is matched to clinical indication); or iterative reconstruction.
[2020-02-23] VITALS (35 sets, daily range): BP systolic 124–163; BP diastolic 72–91; PULSE 68–86; RESP 10–29; TEMP 36.6; O2SAT 90–100
[2020-02-23 00:03] LABS: ALT 15 U/L (16-63); AST 17 U/L (15-37); Albumin 4.1 g/dL (3.4-5.0); Alkaline Phosphatase 121 U/L (46-116); Anion Gap 11.1 mmol/L (3-11); BUN 10 mg/dL (7-18); Bilirubin, Total 0.9 mg/dL (0.2-1.0); CO2 25.9 mmol/L (21.0-32.0); CREATININE 1.19 mg/dL (0.70-1.30); Chloride 103 mmol/L (98-107); ETHANOL BLOOD 3.5 mg/dL (<3); Glucose 157 mg/dL (74-106); Magnesium 2.3 mg/dL (1.8-2.4); Potassium 4.1 mmol/L (3.5-5.1); Sodium 140 mmol/L (136-145); Total Protein 8.5 g/dL (6.4-8.2)
[2020-02-23 00:08] LABS: Troponin I < 0.05 ng/mL (<0.06)
[2020-02-23 00:16] LABS: Bilirubin, Direct 0.33 mg/dL (0.00-0.20); Lipase 124 U/L (73-393)
[2020-02-23] MEDS: Omnipaque 350 MG/ML 100 ML BTL IJ (00:16)
[2020-02-23 00:18] LABS: INR 1.1 (0.9-1.1); PTT Activated 22.3 sec (21.0-27.5); Prothrombin Time 11.3 sec (9.3-11.0)
[2020-02-23] MEDS: HYDROmorphone 2 MG/ML VIAL 1 MG IVP (00:22)
--- NOTE | 2020-02-23 00:55 | DI.VRAD_ITS ---
PROCEDURE INFORMATION: Exam: CT Angiography Chest With Contrast Exam date and time: 02/22/2020 12:05 AM Age: 64 years old Clinical indication: Chest pain; Type not specified; Abdominal pain; Generalized; Prior surgery; Surgery date: 6+ months; Surgery type: Appendectomy; Patient HX: Chest and abd pain, HX off pe TECHNIQUE: Imaging protocol: Computed tomographic angiography of the chest with intravenous contrast. 3D rendering (Not supervised by radiologist): MIP and/or 3D reconstructed images were created by the technologist. Radiation optimization: All CT scans at this facility use at least one of these dose optimization techniques: automated exposure control; mA and/or kV adjustment per patient size (includes targeted exams where dose is matched to clinical indication); or iterative reconstruction. Contrast material: OMNIPAQUE 350; Contrast volume: 100 ml; Contrast route: INTRAVENOUS (IV); COMPARISON: CT CHEST PE CTA 01/31/2020 12:34 PM, CT examination of chest from November 09 2019 FINDINGS: Pulmonary arteries: Main pulmonary artery normal in caliber. No pulmonary artery filling defects. Aorta: Thoracic aorta normal in caliber. No aortic dissection. Lungs: Dependent subsegmental atelectasis. No dense parenchymal consolidation. 2 cm lobulated nodule inferolaterally in right middle lobe and focal area of pleural thickening or less likely nodule in right middle lobe along oblique fissure are stable. Pleural space: No pleural effusion. No pneumothorax. Heart: Heart normal in size. No pericardial effusion. Lymph nodes: No adenopathy. Bones/joints: The spine demonstrates mild degenerative changes at multiple levels. Soft tissues: Unremarkable. IMPRESSION: 1. No pulmonary artery embolism demonstrated. 2. No aortic aneurysm or dissection. 3. 2 cm lobulated nodule right lung, stable from November 2019. Follow-up surveillance CT recommended in 6-9 months. PROCEDURE INFORMATION: Exam: CT Angiography Abdomen and Pelvis With Contrast Exam date and time: 02/22/2020 12:05 AM Age: 64 years old Clinical indication: Chest pain; Type not specified; Abdominal pain; Generalized; Prior surgery; Surgery date: 6+ months; Surgery type: Appendectomy; Patient HX: Chest and abd pain, HX off pe TECHNIQUE: Imaging protocol: Computed tomographic angiography of the abdomen and pelvis with intravenous contrast material. 3D rendering (Not supervised by radiologist): MIP and/or 3D reconstructed images were created by the technologist. Radiation optimization: All CT scans at this facility use at least one of these dose optimization techniques: automated exposure control; mA and/or kV adjustment per patient size (includes targeted exams where dose is matched to clinical indication); or iterative reconstruction. Contrast material: OMNIPAQUE 350; Contrast volume: 100 ml; Contrast route: INTRAVENOUS (IV); COMPARISON: CT CHEST PE CTA 01/31/2020 12:34 PM FINDINGS: Aorta: No aortic aneurysm or dissection. Celiac trunk and mesenteric arteries: No occlusion or significant stenosis. Renal arteries: No occlusion or significant stenosis. Right iliac arteries: No occlusion or significant stenosis. Left iliac arteries: No occlusion or significant stenosis. Liver: Liver normal in size. No mass. Gallbladder and bile ducts: No calcified gallstones or gallbladder wall thickening. No biliary ductal dilatation. Pancreas: Pancreas appears normal. No ductal dilatation. Spleen: No splenomegaly. Adrenals: Normal adrenal glands. Kidneys and ureters: Homogeneous enhancement of renal cortex. 2 cm simple cyst right kidney. No radiopaque renal or ureteric calculi. No hydronephrosis. Stomach and bowel: Gastric distension. No dilated loops of small bowel or colonic dilatation. Appendix: Prior appendectomy. Intraperitoneal space: No free intraperitoneal gas. No ascites. Lymph nodes: No adenopathy. Urinary bladder: Urinary bladder appears normal. Reproductive: Enlarged prostate. Bones/joints: The spine demonstrates mild degenerative changes at multiple levels. Soft tissues: There is an uncomplicated fat-containing umbilical hernia. IMPRESSION: 1. No aortic aneurysm or dissection. 2. Enlarged prostate. Dictated and Authenticated by: Finn Watkins MD. Ordering:LETA Dunn MD
[2020-02-23] MEDS: Ondansetron O.D.T. 4 MG TABEF PO (04:52)
== END 2020-02-23 06:30 | disposition home or self-care (01) ==
LOC: ER 02-23 01:20
PROVIDERS: Emergency Provider Emergency Medicine; PCP Family Medicine
DX: K21.9 Gastro-esophageal reflux disease without esophagitis (principal); R07.89 Other chest pain; R10.13 Epigastric pain
CPT/HCPCS: 36415; 71275; 74177; 80053; 83690; 93005; 96374; 96375; 99285; 80320; 82248; 83605; 83735; 84484; 85025; 85610; 85730; 93010; J2405; J3490

== ENCOUNTER 2020-09-02 13:31 | Emergency (ER) | payer MEDICARE, MEDICAID, SELFPAY ==
[2020-09-02 13:44] VITALS: BP 127/77; PULSE 65; TEMP 36.4; O2SAT 96
--- NOTE | 2020-09-02 13:45 | DI.US_ITS ---
Exam(s) US EXTREMITY VENOUS BI EXAM: US EXTREMITY VENOUS BI CLINICAL HISTORY: Bilateral leg pain, Hx of DVT TECHNIQUE: Grayscale, color, and doppler imaging of the deep venous system of both lower extremities was performed. COMPARISON: US US LOWER EXTREMITY VENOUS RT from 06/06/2019 FINDINGS: This is a positive study for concerning DVT in the right lower extremity. There is extensive DVT involving continuously the right common femoral vein, entire length of the ips ilateral femoral vein (as well as the profundus femoral vein), and also extending into the popliteal vein. Thrombus length is approximately 37 cm. In addition, there is significant thrombosis in the i psilateral greater saphenous vein, approximately 15 cm in length proximal-to mid thigh level. Visual ized ipsilateral posterior tibial vein is patent in the calf. Opposite-left lower extremity is negative for DVT. IMPRESSION: 1. Positive study for extensive DVT in the right lower extremity extending from common femoral vein down to and including the popliteal vein and there is also clot within the ipsilateral greater saphen ous vein. This patient is at significant risk for pulmonary embolus. 2. No evidence of DVT in the opposite-left leg 3. Incidentally noted is a Mukherjee cyst in the left popliteal fossa measuring approximately 4 cm in le ngth. DATA REPOSITORY:
--- NOTE | 2020-09-02 13:49 | W.ED.GENAD ---
Discharge Plan Disposition Patient Disposition: HOME Condition: Stable Discharge Details Clinical Impression: DVT (deep venous thrombosis) Primary Care Provider: Romelia Bravo ED Provider: Vito Grajeda Home Meds and New Rx's Prescriptions: Continued metronidazole 0.75 % cream 1 applic TP BID Qty: 45 RF: 5 clonazepam 2 mg tablet 2 mg PO TID PRNRF: 0 gabapentin 800 mg tablet 1,600 mg PO BID Qty: 120 RF: 6 omeprazole 20 mg tablet,delayed release (DR/EC) 20 mg PO DAILY PRN Qty: 90 RF: 2 apixaban 5 mg tablet 5 mg PO BID Qty: 60 RF: 3 citalopram [Celexa] 20 mg tablet 20 mg PO DAILY RF: 0 Discharge Instructions Instructions: Deep Vein Thrombosis (ED) Additional Instructions: Ultrasound reveals DVT. I spoke with both vascular surgery and hematology-oncology at [facility]. Their recommendation is discharged from our ER, we will place you on your apixaban 10 mg twice a day for the next 7 days and after 7 days you will go back to your 5 mg twice a day. I have placed you on our care management team list to help expedite outpatient primary care follow-up. I will also talk with your primary care provider regarding your chronic back and leg issues, referral to a spinal specialist at [facility] is likely going to be helpful. Please watch for new or worsening symptoms and return to the ER for any concerns Discharge Data Discharge Date/Time-TO BE ENTERED AT DEPARTURE: 09/02/20 20:08 Medical Decision Making <Ciarra Ortiz - Last Filed: 09/03/20 16:57> 65-year-old male presents to the ER with chief complaint of bilateral lower extremity tenderness and burning 10 out of 10 pain when standing. Does have a past medical history of thoracic spinal surgery with chronic paresthesias to his bilateral lower extremities. Patient had recently been off the Eliquis for approximately 1 week and restarted on Sunday. He states that this pain has been ongoing for the last 2 months but has recently worsened. He was seen by his PCP approximately 1 week ago for this complaint and was referred for physical therapy which she begins on the . He does take gabapentin proximately 1600 mg daily. On initial exam of note does have slight discoloration of his bilateral lower feet, dorsal pedal pulses intact with palpation, cap refill approximately 3 seconds feet are warm to touch. He does have intact sensation to his soles of his feet. Other past medical history includes OCD, GERD, PE, DVT, depression, BPH, anxiety, alcohol related disorder and alcohol abuse. At this time bilateral lower extremity venous Dopplers ordered to rule out DVT. Patient is not complaining of chest pain shortness of breath is not tachycardic to my suspicion for PE is low. FINDINGS: This is a positive study for concerning DVT in the right lower extremity. There is extensive DVT involving continuously the right common femoral vein, entire length of the ipsilateral femoral vein (as well as the profundus femoral vein), and also extending into the popliteal vein. Thrombus length is approximately 37 cm. In addition, there is significant thrombosis in the ipsilateral greater saphenous vein, approximately 15 cm in length proximal-to mid thigh level. Visualized ipsilateral posterior tibial vein is patent in the calf. Opposite-left lower extremity is negative for DVT. IMPRESSION: 1. Positive study for extensive DVT in the right lower extremity extending from common femoral vein down to and including the popliteal vein and there is also clot within the ipsilateral greater saphenous vein. This patient is at significant risk for pulmonary embolus. 2. No evidence of DVT in the opposite-left leg 3. Incidentally noted is a Mukherjee cyst in the left popliteal fossa measuring approximately 4 cm in length. Care is to be handed off to oncoming provider SHANIQUA Aguirre pending consult with vascular at [facility] versus admission. Lab orders placed for routine coagulation studies, EKG and troponin. <SHANIQUA Guzman - Last Filed: 09/02/20 20:05> I assumed care of this 65-year-old gentleman from my colleague MAVIS Ortiz, please see her initial HPI and examination. In short, patient has extensive right-sided lower extremity DVT. Laboratory values have been ordered and once resulted will consult with vascular at [facility]. Personally examined the patient. He reports that he does have baseline bilateral lower leg neuropathy and does use an baking assistant device for ambulation. He reports that he has been having worsening neuropathy but denies any acute change of numbness, tingling, weakness. No recent trauma. He denies any chest pain or shortness of breath whatsoever. He did miss 7 days of his apixaban the last week. Patient has normal capillary refill and bilateral dorsalis pedal pulses. Patient has no additional questions or concerns at this time EKG performed at 1640, please see official report by Dr. La. Sinus bradycardia, ventricular rate of 50. Prolonged IA interval. Laboratory values are unremarkable for any obvious emergent process. PT of 11.4 INR 1.1 APTT 22.8. Call placed to vascular at [facility]. I spoke with Dr. Marin at 1919 who does not feel as though the patient is a surgical candidate, does not meet criteria for IVC. Patient was off of his apixaban for a full week. Is at baseline neuro, vascular, tendon status. Recommends consultation with hematology. I discussed the case at 1925 with hematology-oncology, Dr. Mcniel. Both vascular and hematology are aware of the extensive right-sided DVT. Dr. Mcneil believes the patient can be safely discharged. Given the patient was off of his anticoagulation for 1 week we will treat this as a new DVT and initiate a 7-day loading dose of apixaban 10 mg twice daily. Patient will be given a 10 mg dose here in the ER. I will also place him on the care management list to help expedite outpatient care given his history of DVT, anticoagulation, and now acute DVT. He reports to me that he has plenty of his prescription at home and there is no concern that he will again run out. Patient agreeable to this plan, has no additional questions or concerns. He has remained hemodynamically stable under my care. He is able to ambulate steadily using his device. HPI <Ciarracontreras Sifuenteston - Last Filed: 09/03/20 16:57> General Mode of arrival: ambulatory. Date/Time Provider Initiated Documentation: 09/02/20 13:37. Limitations to Documentation: no limitations. Information obtained by: patient and RN notes reviewed. HPI Narrative: 65-year-old male presents to the ER with chief complaint of bilateral lower extremity tenderness and burning 10 out of 10 pain when standing. Does have a past medical history of thoracic spinal surgery with chronic paresthesias to his bilateral lower extremities. Patient had recently been off the Eliquis for approximately 1 week and restarted on Sunday. He states that this pain has been ongoing for the last 2 months but has recently worsened. He was seen by his PCP approximately 1 week ago for this complaint and was referred for physical therapy which she begins on the . He does take gabapentin proximately 1600 mg daily. On initial exam of note does have slight discoloration of his bilateral lower feet, dorsal pedal pulses intact with palpation, cap refill approximately 3 seconds feet are warm to touch. He does have intact sensation to his soles of his feet. Other past medical history includes OCD, GERD, PE, DVT, depression, BPH, anxiety, alcohol related disorder and alcohol abuse. Related Data Home Medications Medication Instructions Recorded Confirmed clonazepam 2 mg tablet 2 mg PO TID PRN 04/01/18 09/02/20 metronidazole 0.75 % topical cream 1 applic TP BID #45 gm 06/13/19 09/02/20 apixaban 5 mg tablet 5 mg PO BID #60 tab 03/23/20 09/02/20 gabapentin 800 mg tablet 1,600 mg PO BID #120 tab 07/26/20 09/02/20 omeprazole 20 mg tablet,delayed 20 mg PO DAILY PRN #90 tab 07/26/20 09/02/20 release citalopram [Celexa] 20 mg PO DAILY 09/02/20 09/02/20 Previous Rx's Medication Instructions Recorded metronidazole 0.75 % topical cream 1 applic TP BID #45 gm 06/13/19 apixaban 5 mg tablet 5 mg PO BID #60 tab 03/23/20 gabapentin 800 mg tablet 1,600 mg PO BID #120 tab 07/26/20 omeprazole 20 mg tablet,delayed 20 mg PO DAILY PRN #90 tab 07/26/20 release Allergies Allergy/AdvReac Type Severity Reaction Status Date / Time fluoxetine HCl [From Prozac] AdvReac Severe Psychosis Verified 09/02/20 13:49 General Stated Complaint: Orthopedic KATI: 3 Review of Systems <Ciarra Ortiz - Last Filed: 09/03/20 16:57> All systems reviewed & are unremarkable except as noted in HPI and below Cardiovascular Cardiovascular: Denies chest pain, Denies chest pain at rest, Reports claudication, Denies radiating jaw, neck or arm pain, Denies dyspnea and Denies dyspnea on exertion Respiratory Respiratory: Denies cough, Denies dyspnea, Denies dyspnea on exertion, Denies stridor and Denies wheezing Musculoskeletal Musculoskeletal: Reports as per HPI, Reports back pain, Reports numbness, Reports radiating pain into limb and Reports stiffness Comments: Bilateral lower extremity feet discoloration which seems to improve intermittently. Neurologic Neurologic: Reports numbness Allergic/Immunologic Allergic/Immunologic: Denies wheezing PFSH <Ciarra Ortiz - Last Filed: 09/03/20 16:57> Medical History (Updated 09/02/20 @ 20:03 by SHANIQUA Guzman) Alcohol abuse Alcohol related disorder Anxiety disorder BPH (benign prostatic hyperplasia) Chronic low back pain Depression DVT (deep venous thrombosis) Gastroesophageal reflux disease OCD (obsessive compulsive disorder) Spinal stenosis of thoracic region (05/07/16) T9-T12 decompression sx: [facility] Surgical History Appendectomy [facility] Family History Mother Personal history of malignant neoplasm CERVICLE Father No problems noted. Brother No problems noted. Son No problems noted. Daughter Depression Daughter No problems noted. Daughter Depression Social History Smoking/Tobacco Use Status: Never Smoking risk assessment performed?: Yes Alcohol Intake: former Drug use: Never Substance use type: does not use Details: Patient states he last drank alcohol on Sun (01/28/20) and denies having any withdrawal issues when he is not drinking. Do you feel safe at home: Yes Do you feel safe in your relationship?: Yes Exam <Ciarra Ortiz - Last Filed: 09/03/20 16:57> Const General: cooperative, no acute distress, well developed, well groomed and frail appearing Nutritional Appearance: average body habitus Orientation: alert, awake, oriented x3 and other (Slow to respond) Limitations: physical limitations Resp Effort & Inspection: normal respiratory effort, able to speak in complete sentences, no audible wheezes and not labored Auscultation: clear to auscultation bilaterally Cardio Rhythm: regular rhythm Heart Sounds: S1 normal and S2 normal Back/Spine/Pelvis Thoracic/Lumbar Spine: surgical scar(s) present (Midline thoracic, tenderness mid lumbar, no crepitus, no stepoff) and No kyphosis Extrem General: abnormal gait (Shuffling gait, Uses a cane) Right lower extremity: lower leg and foot Details: normal capillary refill (Cap refill 3 sec) and ecchymosis (Foot ppeas Eccymotic,Dosal pedal pulses intact) Left lower extremity: lower leg and foot (Left foot ecchymosis, worse on right) Course <Ciarra Ortiz - Last Filed: 09/03/20 16:57> Vital Signs Vital signs: Vital Signs Temperature 36.4 C L 09/02/20 13:44 Pulse 65 09/02/20 13:44 Blood Pressure 127/77 09/02/20 13:44 Pulse Oximetry 96 09/02/20 13:44 Temperature 36.4 C L 09/02/20 13:44 Pulse 65 09/02/20 13:44 Respiratory Effort Non-Labored 09/02/20 13:47 Blood Pressure 127/77 09/02/20 13:44 Blood Pressure Position Sitting 09/02/20 13:44 Pulse Oximetry 96 09/02/20 13:44 Oxygen Delivery Method Room Air 09/02/20 13:44 Oxygen Flow Rate 0 09/02/20 13:44 Pain Level 10 09/02/20 13:44 Sign Out <Ciarra Ortiz - Last Filed: 09/03/20 16:57> Sign Out Data: Sign Out Comment: Pending labs, and Vascular Consult with [facility], Extensive DVT RLE, Worsening pain, Discolored feet. Off Eliquis x 1 week, restarted 2 days ago. Last updated by Ciarra Ortiz at 09/02/20 16:49
[2020-09-02] MEDS: Lidocaine 5% Patch 1 PATCH TP (15:13)
--- NOTE | 2020-09-02 16:15 | RT.EKG_ITS ---
APPROVED REPORT Exam: Resting ECG Reason for Exam: HX of coagulopathy, DVT, R/O Abnormality Patient Location: E HR:50 bpm ECG Measurements Heart Rate 50 AXIS ME 245 P 13 QRSd 97 QRS 5 QT 435 T 58 QTc 395 Conclusion Sinus bradycardia...rate< 60 Prolonged ME interval...ME >220, V-rate 50- 90 Low voltage, extremity leads...all extremity leads <0.5mV. No STEMI. I have reviewed and interpreted ECG and agree with software generated interpretation.
[2020-09-02 17:02] LABS: Abs Immature Grans 0.01 10^3/uL (0.0-0.06); Absolute Basophil Count 0.03 10^3/uL (0.0-0.2); Absolute Eosinophil Count 0.13 10^3/uL (0.0-0.7); Absolute Lymphocyte Count 1.89 10^3/uL (1.2-3.4); Absolute Monocyte Count 0.62 10^3/uL (0.1-0.8); Absolute Neutrophil Count 5.43 10^3/uL (1.2-6.7); Basophils % 0.4; Eosinophils % 1.6; HCT 42.3 % (40.0-50.0); HGB 14.3 g/dL (13.5-17.5); Immature Grans % 0.1; Lymphocytes % 23.3; MCHC 33.8 % (32.0-36.0); MCV 88.7 fL (80-95); MPV 10.1 fL (8.0-11.0); Monocytes % 7.6; Nucleated RBC 0 %; Platelet Count 223 10^3/uL (130-400); RBC 4.77 10^6/uL (4.36-5.78); RDW 13.5 % (11.8-14.1); WBC 8.11 10^3/uL (4.4-10.8)
[2020-09-02 17:26] LABS: INR 1.1 (0.9-1.1); PTT Activated 22.8 sec (21.0-27.5); Prothrombin Time 11.4 sec (9.3-11.0)
[2020-09-02 17:32] LABS: ALT 26 U/L (16-63); AST 23 U/L (15-37); Albumin 4.1 g/dL (3.4-5.0); Alkaline Phosphatase 119 U/L (46-116); Anion Gap 5.3 mmol/L (3-11); BUN 14 mg/dL (7-18); Bilirubin, Total 0.7 mg/dL (0.2-1.0); CO2 31.7 mmol/L (21.0-32.0); Calcium 9.2 mg/dL (8.5-10.1); Chloride 103 mmol/L (98-107); Glucose 99 mg/dL (74-106); Potassium 4.2 mmol/L (3.5-5.1); Sodium 140 mmol/L (136-145)
[2020-09-02 17:47] LABS: Troponin I < 0.05 ng/mL (<0.06)
[2020-09-02 18:47] VITALS: BP 93/66; PULSE 52; RESP 16; TEMP 36.3; O2SAT 98
[2020-09-02] MEDS: Apixaban 5 MG TAB 10 MG PO (19:35)
--- NOTE | 2020-09-02 19:42 | NUR.NOTE ---
Referral faxed to [facility] to follow up for a large dvt 09/04/20. If he can't get into the office requested they touch base with him via phone call.Nursing Note:
[2020-09-02 19:44] VITALS: BP 114/67; PULSE 60; RESP 20; TEMP 36.2; O2SAT 98
== END 2020-09-02 20:08 | disposition home or self-care (01) ==
PROVIDERS: Registered Nurse Emergency; Emergency Provider Physician Assistant; PCP Family Medicine
DX: I82.411 Acute embolism and thrombosis of right femoral vein (principal); I82.431 Acute embolism and thrombosis of right popliteal vein; I82.4Y1 Acute embolism and thrombosis of unspecified deep veins of right proximal lower extremity; Z86.718 Personal history of other venous thrombosis and embolism
CPT/HCPCS: 36415; 80053; 93005; 99284; 84484; 85025; 85610; 85730; 93010; 93970; 99283

== ENCOUNTER 2020-09-07 13:23 | Outpatient (CLI) | payer MEDICARE, MEDICAID, SELFPAY ==
--- NOTE | 2020-09-07 08:00 | DI.US_ITS ---
Exam(s) US LOWER EXTREMITY VENOUS RT EXAM: US LOWER EXTREMITY VENOUS RT CLINICAL HISTORY: right lower extremtity DVT, LEG EDEMA RT, R60.0, I82.409 TECHNIQUE: Ultrasound performed using standard protocol. COMPARISON: US US EXTREMITY VENOUS BI from 09/02/2020 FINDINGS: Duplex venous ultrasound of the right lower extremity was performed and is compared with prior study of September 02, which showed deep venous thrombosis from the common femoral vein to the popliteal vein a nd additional thrombus occupying the greater saphenous vein from proximal to distal.. Findings are u nchanged on today's examination. IMPRESSION: No change in right DVT as described above. DATA REPOSITORY:
== END 2020-09-07 13:43 ==
PROVIDERS: PCP Family Medicine; Visit Provider Nurse Practitioner Family
DX: R22.41 Localized swelling, mass and lump, right lower limb (principal); R60.0 Localized edema; I82.411 Acute embolism and thrombosis of right femoral vein; I82.431 Acute embolism and thrombosis of right popliteal vein
CPT/HCPCS: 93971

== ENCOUNTER 2020-09-24 12:40 | Emergency (ER) | payer MEDICARE, MEDICAID, SELFPAY ==
[2020-09-24 12:42] VITALS: BP 139/95; PULSE 58; RESP 18; TEMP 36.5; O2SAT 98
--- NOTE | 2020-09-24 13:00 | DI.RAD_ITS ---
Exam(s) XR WRIST RT COMPLETE EXAM: XR WRIST RT COMPLETE CLINICAL HISTORY: fall pain to right wrist. TECHNIQUE: 2D digital imaging was performed. COMPARISON: No exams were available for comparison FINDINGS: BONES: There is an osseous fragment on the dorsum of the wrist which can be seen with a triquetral fr acture. There does appear to be associated soft tissue swelling. Please correlate with patient's si te of pain. No bony destructive lesion is seen. JOINTS: The carpal bones are normally aligned. Degenerative changes are seen at the wrist particularl y at the 1st CMC joint. SOFT TISSUE: Normal. IMPRESSION: Findings suspicious for triquetral fracture. Please correlate with patient's site of pain. DATA REPOSITORY: RADIATION DOSE DELIVERED:
--- NOTE | 2020-09-24 13:00 | DI.CT_ITS ---
Exam(s) CT HEAD WO EXAM: CT HEAD WO CLINICAL HISTORY: fall on eliquis. TECHNIQUE: Imaging Protocol: Axial computed tomography images with coronal and sagittal reformatted images were created and reviewed COMPARISON: CT CT HEAD CERVICAL SPINE WO from 01/31/2020 FINDINGS: Ventricles and Extra axial spaces: Normal in size and morphology for the patient's age. Hemorrhage: None. Cerebral parenchyma: Normal. No evidence of an acute territorial infarct. Midline shift: None. Brainstem/Cerebellum: Normal. Calvarium: Normal. Visualized Paranasal sinuses/Mastoids: Clear. Soft Tissues: Unremarkable. IMPRESSION: 1. No acute intracranial process. 2. Results of this exam have been verbally communicated with provider. RADIATION DOSE DELIVERED: 885.1mGy.cm Total DLP DATA REPOSITORY: All CT scans at this facility are submitted to the National Radiology Data Registry (NRDR) Dose Index Registry (DIR) with the [employer] (ACR). RADIATION OPTIMIZATION: All CT scans at this facility use at least one of these dose optimization te chniques: automated exposure control; mA and/or kV adjustment per patient size (includes targeted exa ms where dose is matched to clinical indication); or iterative reconstruction.
--- NOTE | 2020-09-24 15:28 | ED.GENADUL_ITS ---
Discharge Plan Disposition Patient Disposition: HOME Condition: Stable Discharge Details Clinical Impression: Fracture of triquetral bone of wrist Primary Care Provider: Romelia Bravo ED Provider: Hermelinda Whitten Home Meds and New Rx's Prescriptions: New oxycodone 5 mg tablet 2.5 mg PO BID PRNQty: 1 RF: 0 No Action metronidazole 0.75 % cream 1 applic TP BID Qty: 45 RF: 5 apixaban 5 mg tablet 5 mg PO BID Qty: 60 RF: 3 clonazepam 2 mg tablet 2 mg PO TID PRNRF: 0 gabapentin 800 mg tablet 1,600 mg PO BID Qty: 120 RF: 6 omeprazole 20 mg tablet,delayed release (DR/EC) 20 mg PO DAILY PRN Qty: 90 RF: 2 citalopram [Celexa] 20 mg tablet 35 mg PO DAILY RF: 0 Discharge Instructions Additional Instructions: Take Tylenol as needed for pain, you may take 650 mg every 4 hours, do not exceed 4 g in 24 hours I have supplied you with 1 dose of oxycodone for this evening, this medication will make you unsteady and I am concerned regarding giving you additional doses with your medical history use great caution with ambulation Please follow-up with orthopedic on Sunday Referrals: Zi Goodman MD [ [facility] STAFF PHYSICIAN] - Discharge Data Discharge Date/Time-TO BE ENTERED AT DEPARTURE: 09/24/20 16:[address] scan of head does not show acute pathology triquetral fracture noted to right wrist Patient placed in wrist splint PT was consulted and patient use of crutches to ambulate and they have assessed the patient and feels as though he will be stable for discharge with crutches, unfortunately do not have a platform walker available but PT that patient should be stable enough with the crutches that he has, patient felt comfortable with discharge home, care management is involved for follow-up regarding this patient patient was placed on orthopedic follow-up with CT brain does not show acute pathology per radiology interpretation X-ray right shows triquetral fracture Manic like manic HPI General Mode of arrival: ambulatory . Date/Time Provider Initiated Documentation: 09/24/20 13:10 . Limitations to Documentation: no limitations . Information obtained by: patient . HPI Narrative: This 65-year-old gentleman with history of DVT on Eliquis, chronic leg edema, obsessive-compulsive disorder, presents with report of right wrist pain status post fall last evening. Patient states the fall was mechanical in nature. He turned quickly and lost his balance which is not unusual for him. He landed on his right wrist and has pain to this area. He denies any head injury known to him. Patient denies any additional complaints at this time. He states he was able to ambulate after the event occurred but did go to sleep. This morning he came in secondary to persistent right wrist pain. He denies headache, neck pain, strength or sensation change, or any additional complaints at this time. Related Data Home Medications Medication Instructions Recorded Confirmed clonazepam 2 mg tablet 2 mg PO TID PRN 04/01/18 09/24/20 metronidazole 0.75 % topical cream 1 applic TP BID #45 gm 06/13/19 09/24/20 gabapentin 800 mg tablet 1,600 mg PO BID #120 tab 07/26/20 09/24/20 omeprazole 20 mg tablet,delayed 20 mg PO DAILY PRN #90 tab 07/26/20 09/24/20 release citalopram [Celexa] 35 mg PO DAILY 09/02/20 09/24/20 apixaban 5 mg tablet 5 mg PO BID #60 tab 09/04/20 09/24/20 oxycodone 2.5 mg PO BID PRN #1 tab 09/24/20 Previous Rx's Medication Instructions Recorded metronidazole 0.75 % topical cream 1 applic TP BID #45 gm 06/13/19 gabapentin 800 mg tablet 1,600 mg PO BID #120 tab 07/26/20 omeprazole 20 mg tablet,delayed 20 mg PO DAILY PRN #90 tab 07/26/20 release apixaban 5 mg tablet 5 mg PO BID #60 tab 09/04/20 oxycodone 2.5 mg PO BID PRN #1 tab 09/24/20 Allergies Allergy/AdvReac Type Severity Reaction Status Date / Time fluoxetine HCl [From Prozac] AdvReac Severe Psychosis Verified 09/04/20 10:54 General Stated Complaint: Orthopedic KATI: 3 Review of Systems Narrative: review of systems obtained x7 aside from where indicated in HPI [facility] Medical History (Updated 09/24/20 @ 15:37 by SHANIQUA Zuleta) Alcohol abuse Alcohol related disorder Anxiety disorder BPH (benign prostatic hyperplasia) Chronic low back pain Depression DVT (deep venous thrombosis) Gastroesophageal reflux disease OCD (obsessive compulsive disorder) Spinal stenosis of thoracic region (05/07/16) T9-T12 decompression sx: [facility] Surgical History Appendectomy SP[facility]ORAC[facility] Family History Mother Personal history of malignant neoplasm CERVICLE Father No problems noted. Brother No problems noted. Son No problems noted. Daughter Depression Daughter No problems noted. Daughter Depression Social History Smoking/Tobacco Use Status: Never Smoking risk assessment performed?: Yes Alcohol Intake: former Drug use: Never Substance use type: does not use Details: Patient states he last drank alcohol on Sun (01/28/20) and denies having any withdrawal issues when he is not drinking. Do you feel safe at home: Yes Do you feel safe in your relationship?: Yes Exam Const Orientation: alert and oriented x3 HENMT Head: normal to inspection Other: No hemotympanum Eyes Pupils: PERRL Neck Other: No midline tenderness Resp Effort & Inspection: normal respiratory effort Auscultation: clear to auscultation bilaterally Cardio Rate: regular rate Rhythm: regular rhythm Back/Spine/Pelvis Back: no CVA tenderness Other: No midline tenderness to cervical, thoracic, or lumbar spine Skin General skin exam: no rashes or lesions noted Neuro General: patient alert, patient oriented x3 and CN's II-XI intact bilaterally Other: GCS 15 Extrem Other: Right wrist with deformity noted, tenderness, no tenderness to right elbow, right shoulder, right hip Neurovascularly intact Course Vital Signs Vital signs: Vital Signs Temperature 36.5 C 09/24/20 12:42 Pulse 58 L 09/24/20 12:42 Respiratory Rate 09/24/20 12:42 Blood Pressure 139/95 H 09/24/20 12:42 Pulse Oximetry 98 09/24/20 12:42 Temperature 36.5 C 09/24/20 12:42 Pulse 58 L 09/24/20 12:42 Respiratory Rate 09/24/20 12:42 Blood Pressure 139/95 H 09/24/20 12:42 Pulse Oximetry 98 09/24/20 12:42 Oxygen Delivery Method Room Air 09/24/20 12:42 Oxygen Flow Rate 0 09/24/20 12:42 Pain Level 10 09/24/20 12:42
--- NOTE | 2020-09-24 15:33 | IN_ITS ---
PT Notes Visit Reasons: fall right hand injury ASSISTIVE DEVICE ASSESSMENT Requesting service: Recommendation for appropriate assistive device. Subjective: August is status post right wrist fracture from fall, today. Patient reports he generally ambulates with Loftstrand crutch in his right hand, which is his stronger side. Ambulating with L[place]strand crutch on the left is possible, but he does admit he will be unsteady, his baseline is already quite unsteady. He usually uses 2 Lofstrand crutches when walking long distance for physical exercise. Objective: Functional transfer: Sit to stand, stand to sit with supervision, Loftstrand crutch left hand. Gait: Ataxic, left hand touch left hand, requires CG x1 x 50 ft. Change of di rection unsteady, requiring contact-guard. Assessment: This is a 65-year-old male with ataxic gait secondary to thoracic lesion history. He primarily ambulates utilizing Loftstrand crutch in the right hand, which he is currently unable to do due to wrist fracture status on right. He demonstrates unsteady gait with Lofstrand crutch in the left, requiring a contact-guard. I am familiar with this patient from past treatment, and his gait does appear at baseline, as well as his fall risk and ataxia. I do think that a hemiwalker on the left would be more appropriate for safety with gait, considering unavailable right upper extremity is generally his crutch side. Platform walker would ultimately be the best option, but this device is not available to the hospital at this time. Plan: Patient should be discharged with hemiwalker for left upper extremity. If this is unavailable quad cane for left upper extremity is the next best option.
== END 2020-09-24 16:45 | disposition home or self-care (01) ==
PROVIDERS: Emergency Provider Physician Assistant; PCP Family Medicine
DX: S62.111A Displaced fracture of triquetrum [cuneiform] bone, right wrist, initial encounter for closed fracture (principal); W18.30XA Fall on same level, unspecified, initial encounter
CPT/HCPCS: 29125; 99284; 70450; 73110; 99283

== ENCOUNTER → 2020-10-07 12:40 | Outpatient (BNVA) | payer MEDICARE, MEDICAID, SELFPAY | PROVIDERS: PCP Family Medicine; Referring Provider Family Medicine; Visit Provider Physician Assistant Surgical | DX: S62.113A Displaced fracture of triquetrum [cuneiform] bone, unspecified wrist, initial encounter for closed fracture (principal); W19.XXXA Unspecified fall, initial encounter | CPT/HCPCS: 99213 ==

== ENCOUNTER 2021-01-19 13:55 | Observation (INO) | payer MEDICARE, MEDICAID, SELFPAY ==
[2021-01-19 14:05] VITALS: BP 136/87; PULSE 74; TEMP 36.5; O2SAT 97
--- NOTE | 2021-01-19 14:42 | W.ED.GENAD ---
Discharge Plan Disposition Patient Disposition: [facility] INPATIENT Condition: Stable Discharge Details Clinical Impression: Major depression, Suicidal ideation Admit Date/Time: 01/20/21 18:13 Admit Provider: Trev Angelo Attending Provider: Trev Angelo Primary Care Provider: Romelia Bravo ED Provider: Rossana Marino Discharge Data Discharge Date/Time-TO BE ENTERED AT DEPARTURE: 01/20/21 20:04 Medical Decision Making <Ciarra Ortiz - Last Filed: 01/20/21 20:12> 65-year-old male presents to the ER with chief complaint of suicidal ideation. Patient was seen by his PCP prior to arrival and was referred here. He states that he has been feeling suicidal for the last couple weeks with a plan to drink poison from [employer] (a local [employer] supply store). He has a past medical history of OCD, chronic depression, anxiety, history of overdose, DVT and was seen recently for a wrist fracture. He uses arm crutches for some chronic low back pain. He denies doing anything to harm himself for the last 24 to 48 hours. He does take apixaban and clonazepam on a daily basis. Mental health evaluation medical clearance rule out ordered, sitter at bedside, patient dressed on paper scrubs in line of sight of nurses station. Patient is calm and cooperative at this time. Care is to be handed off to oncoming provider SHANIQUA Alba pending mental health evaluation and disposition. Patient was hemodynamically stable, cooperative at the time of this dictation. <SHANIQUA Holbrook - Last Filed: 01/21/21 13:25> Care transition myself from Manuela Ortiz NP. Please see her initial note regarding history, presentation and exam. In brief, patient is a pleasant 55-year-old gentleman presents today with chief complaint of suicidal ideation. Plan to commit suicide with poison ingestion. At the time I assumed care, mental health evaluation pending. Patient was evaluated by mental health, they feel that patient does require inpatient admission. Patient is willing to stay voluntarily for this. Mental health is sending referral to local psychiatric care facilities. Patient is change his mind, would like to be discharged home. Will consult again with mental health. Mental health again evaluated the patient. Patient is willing to stay voluntarily for psychiatric care placement for his suicidality. Patient is having increased pain in his legs. He has not had his gabapentin that he typically takes for this. We will give him his typical dosing. Patient also appears quite anxious, patient agreeable to anxiolytic. We will give 1 mg of Ativan to help with his anxiety. Patient again changed his mind, reevaluated by mental health. Patient willing to stay voluntarily. Mental health advises patient continues to endorse suicidality and that if he was to be discharged home, he would likely move forward with suicide plan. At the end of my shift, care transition to Dr. Sanchez with voluntary placement pending. <Rossana Marino DO - Last Filed: 01/22/21 11:24> 0800 --no acute events overnight. 1200 --patient evaluated by mental health through Zoom. Patient remains cooperative and voluntary. Still seeking placement. Likely no beds available today. 1800 --bed available on the floor for admission while awaiting placement. Case discussed with hospitalist who accepts patient for admission. Medical Records Medical records reviewed: Yes I reviewed the patient's medical records. HPI <Ciarra Ortiz - Last Filed: 01/20/21 20:12> General Mode of arrival: ambulatory. Date/Time Provider Initiated Documentation: 01/19/21 14:03. Limitations to Documentation: no limitations. Information obtained by: patient, RN notes reviewed and old records reviewed. HPI Narrative: 65-year-old male presents to the ER with chief complaint of suicidal ideation. Patient was seen by his PCP prior to arrival and was referred here. He states that he has been feeling suicidal for the last couple weeks with a plan to drink poison from [employer] (a local [employer]). He has a past medical history of OCD, chronic depression, anxiety, history of overdose, DVT and was seen recently for a wrist fracture. He uses arm crutches for some chronic low back pain. He denies doing anything to harm himself for the last 24 to 48 hours. He does take apixaban and clonazepam on a daily basis. Related Data Home Medications Medication Instructions Recorded Confirmed clonazepam 2 mg tablet 2 mg PO TID PRN 04/01/18 01/20/21 omeprazole 20 mg tablet,delayed 20 mg PO DAILY PRN #90 tab 07/26/20 01/20/21 release gabapentin 800 mg tablet 1,600 mg PO BID #135 tab 11/22/20 01/20/21 apixaban 5 mg tablet 5 mg PO BID #60 tab 01/04/21 01/20/21 Previous Rx's Medication Instructions Recorded omeprazole 20 mg tablet,delayed 20 mg PO DAILY PRN #90 tab 07/26/20 release gabapentin 800 mg tablet 1,600 mg PO BID #135 tab 11/22/20 apixaban 5 mg tablet 5 mg PO BID #60 tab 01/04/21 Allergies Allergy/AdvReac Type Severity Reaction Status Date / Time fluoxetine HCl [From Prozac] AdvReac Severe Psychosis Verified 01/19/21 11:51 General Stated Complaint: PsychEval KATI: 2 Review of Systems <Ciarra Ortiz - Last Filed: 01/20/21 20:12> All systems reviewed & are unremarkable except as noted in HPI and below Constitutional Constitutional: Reports as per HPI and Reports headache(s) ENT Ears, Nose, Mouth, and Throat: Reports headache(s) Neurologic Neurologic: Denies confusion and Reports headache(s) Psychiatric Psychiatric: Reports change in appetite, Denies confusion, Reports depression, Denies auditory hallucinations, Reports hopelessness, Reports anhedonia, Denies visual hallucinations, Denies homicidal ideation and Reports suicidal ideation PFS <Ciarra Ortiz - Last Filed: 01/20/21 20:12> Medical History (Updated 01/22/21 @ 11:24 by Rossana Marino DO) Alcohol abuse Alcohol related disorder Anxiety disorder BPH (benign prostatic hyperplasia) Chronic low back pain Depression DVT (deep venous thrombosis) Gastroesophageal reflux disease OCD (obsessive compulsive disorder) Spinal stenosis of thoracic region (05/07/16) T9-T12 decompression sx: [facility] Surgical History Appendectomy SPINAL SURGERY THORACIC REGION Family History Mother Personal history of malignant neoplasm CERVICLE Father No problems noted. Brother No problems noted. Son No problems noted. Daughter Depression Daughter No problems noted. Daughter Depression Social History Smoking/Tobacco Use Status: Never Smoking risk assessment performed?: Yes Alcohol Intake: former Drug use: Never Substance use type: does not use Details: Patient states he last drank alcohol on Sun (01/28/20) and denies having any withdrawal issues when he is not drinking. Do you feel safe at home: Yes Do you feel safe in your relationship?: Yes Exam <Ciarra Ortiz - Last Filed: 01/20/21 20:12> Narrative Exam Narrative: Constitutional: Alert and oriented x3. Appears stated age. Normal body habitus. Head: Normocephalic, no trauma. Eyes: Pupils PERRLA, Red reflex noted, EOM's intact. Eyelids symmetrical without lesions, discharge, or swelling. ENT: Bilateral TM's WNL, External ear normal to inspection, no mastoid TTP, swelling, or erythema, Nasal turbinates WNL, no nasal discharge. Normal dentition, Posterior pharynx WNL, no exudate. Chest: RRR, Normal S1, S2, distal pulses intact. Resp: Lungs clear to auscultation bilaterally, no wheezes, rales, or rhonchi. Musculoskeletal: 5/5 strength to all four extremities. Skin: No suspicious rashes or lesions. Capillary refill less than 2 sec. Neurologic: Cranial nerves II-XII intact. Alert and oriented x 3. DTR's intact. Hematologic/Lymphatic: No ecchymosis, no lymphadenopathy. Psychiatric: See below Psych Speech and Movement: slowed movement Mood: labile mood Affect: blunted Attitude: cooperative, guarded and avoids eye contact Thought Process: normal Thought Content: suicidality Insight: limited Judgment: limited Course <Ciarra Ortiz - Last Filed: 01/20/21 20:12> Vital Signs Vital signs: Vital Signs Temperature 36.5 C 01/19/21 14:05 Pulse 74 01/19/21 14:05 Blood Pressure 136/87 01/19/21 14:05 Pulse Oximetry 97 01/19/21 14:05 Temperature 36.5 C 01/19/21 14:05 Temperature Source Temporal Artery Scan 01/19/21 14:05 Pulse 74 01/19/21 14:05 Respiratory Effort 01/19/21 14:29 Blood Pressure 136/87 01/19/21 14:05 Blood Pressure Position Sitting 01/19/21 14:05 Pulse Oximetry 97 01/19/21 14:05 Oxygen Delivery Method Room Air 01/19/21 14:05 Oxygen Flow Rate 0 01/19/21 14:05 Pain Level 10 01/19/21 14:05 Sign Out <Ciarra Ortiz - Last Filed: 01/20/21 20:12> Sign Out Data: Sign Out Comment: Pending MH evaluation Last updated by Ciarra Ortiz at 01/19/21 15:57 Sign Out Comment: Care transitioned to Dr. Sanchez with voluntary psychiatric admission pending. Last updated by Katya Hedrick PA at 01/19/21 23:30 Sign Out Comment: Voluntary psychiatric admission, depression, awaiting placement options and mental health reassessment. Last updated by Riley Sanchez DO at 01/20/21 07:24
[2021-01-19 15:05] LABS: Abs Immature Grans 0.02 10^3/uL (0.0-0.06); Absolute Basophil Count 0.03 10^3/uL (0.0-0.2); Absolute Eosinophil Count 0.22 10^3/uL (0.0-0.7); Absolute Lymphocyte Count 1.93 10^3/uL (1.2-3.4); Absolute Neutrophil Count 7.34 10^3/uL (1.2-6.7); Basophils % 0.3; Eosinophils % 2.1; HCT 41.4 % (40.0-50.0); HGB 14.1 g/dL (13.5-17.5); Immature Grans % 0.2; Lymphocytes % 18.8; MCH 31.2 pg (27.0-33.0); MCHC 34.1 % (32.0-36.0); MCV 91.6 fL (80-95); MPV 9.9 fL (8.0-11.0); Monocytes % 6.8; Neutrophils % 71.8; Nucleated RBC 0 %; Platelet Count 220 10^3/uL (130-400); RBC 4.52 10^6/uL (4.36-5.78); RDW 13.3 % (11.8-14.1); RDW-SD 45.2 fL; WBC 10.24 10^3/uL (4.4-10.8)
[2021-01-19 15:25] LABS: Salicylate < 2.8 mg/dL (<2.8)
[2021-01-19 15:33] LABS: Acetaminophen < 2 ug/mL (10-30)
[2021-01-19 15:34] LABS: ALT 31 U/L (16-63); AST 29 U/L (15-37); Alkaline Phosphatase 119 U/L (46-116); BUN 9 mg/dL (7-18); Bilirubin, Total 0.6 mg/dL (0.2-1.0); CREATININE 1.1 mg/dL (0.70-1.30); Calcium 9.5 mg/dL (8.5-10.1); Chloride 106 mmol/L (98-107); Glucose 120 mg/dL (74-106); Potassium 3.9 mmol/L (3.5-5.1); Sodium 142 mmol/L (136-145); TSH (W/Ref FT4) 0.79 uIU/mL (0.36-3.74)
[2021-01-19 15:38] LABS: INR 1.1 (0.9-1.1)
[2021-01-19 15:48] LABS: ETHANOL BLOOD < 3.0 mg/dL (<3)
--- NOTE | 2021-01-19 17:38 | PDOC.MHCN ---
Date of service: 01/19/21 Time of Service: 16:00 Mental Health Crisis Note Presenting Issue How did you arrive at the ED and why did you come: The patient was referred to [facility] emergency department by Dr. Bravo of [facility] with chief complaint of increased suicidal ideation over the past 2 weeks with plan to end his life via drinking poison obtained from local hardware store. Patient presented voluntarily via private transport. Per Dr. Bravo, the patient stopped taking his prescribed Effexor due to lack of emotional responsivity. Precipitating Factors Patient presents lying down on hospital bed with unremarkable appearance. Fully alert and oriented to time, person, place and global circumstance. No reported memory concerns. Behavior is cooperative but subdued, selectively responsive, and appears to close his eyes and dose off several times requiring verbal prompts to redirect. Speech is unpressured, clear, flat tone, delayed latency of response. Poor appetite and sleep. He reports mood as Well I'm in the hospital for a reason. with guarded and flat effect. No apparent delusions, hallucinations, or other indicators of psychotic thought process. No loose associations, thought process is logical and goal-oriented around wanting help for presenting concerns. Patient endorses current SI, states that he has been experiencing worsening mood / depression for the past 2 weeks, and reports ceasing prescribed Effexor 2 months ago due to feelings of emotional flatness. No other medication issues reported. Patient endorses plan of obtaining poising at local hardware shop and consuming it with intention to . On intent, he states I wouldn't have come here if I planned on carrying it out. He declines to comment on any precipitating factors. Patient is agreeable to in-patient referral at this time. At approximately 4:46p, [facility] paged to request additional telehealth consult as patient stated he wished to leave. This clinician completed request. Patient presentation is unchanged. On reason for wishing to discharge, Patient stated, I guess talking with someone on a television screen about why I recently wanted to commit suicide. It's ridiculous. Your standards need to change. This clinician attempted to verify intent to carry about verbalized plan - patient reported, I can't answer that. The patient requested information on the referral process and this information was provided. This clinician communicated to patient that referral to an in-patient facility is a reasonable course of action to ensure his medications can be adjusted and mood stabilized. After discussing the referral process and validating patient's concerns, the patient agreed to remain at [facility] and await placement. Patient has stipulated that he is only interested in referrals sent to [facility] and [facility] at this time. No other concerns noted. Disposition BEHAVIOR: [place] EYE CONTACT: Poor MOOD: Well I'm in the hospital for a reason. AFFECT: Guarded / flat APPETITE: Poor SLEEP(trouble falling/staying asleep: Dysregulated Plan The patient will remain at [facility] on voluntary status pending transfer to in-patient psychiatric setting for medication adjustment and mood stabilization. The patient will be assessed daily by [facility] until placement is secured. If presentation improves, including decrease in suicidal ideation, discharge back to the community on a safety plan can be considered. Due to the patient's disclosure of plan to end his life and communicating wanting to leave prior to secondary consult, an EE may be indicated [facility] and attending medical provider. Information has been forwarded to emergency clinician Cricket Isabel to conduct faxing of necessary documents. Signature Clinician's Name/Title: Titus Davidson, [facility] ES clinician / [facility]
[2021-01-19 17:50] LABS: Source Nasal/Nares
[2021-01-19 18:41] LABS: COVID-19 PCR Negative (Negative)
--- NOTE | 2021-01-19 18:45 | NUR.NOTE ---
pt seen in bed reading a book, tylenol PO given for pain, all needs met, sitter in place, will continue to monitor and maintain safety
[2021-01-19] MEDS: LORazepam 1 MG TAB PO (20:21)
[2021-01-19 21:51] LABS: Bilirubin Negative (Negative); Blood Negative (Negative); Clarity Clear (Clear); Glucose Negative (Negative); Ketones Trace mg/dL (Negative); Leukocyte Esterase Negative (Negative); Nitrite Negative (Negative); Urobilinogen 0.2 EU/dL (Up TO 0.2)
[2021-01-19] MEDS: Gabapentin 300 MG CAP 1600 MG PO (21:59)
[2021-01-19] MEDS: Apixaban 5 MG TAB PO (21:59)
[2021-01-19 22:12] LABS: *AMPHETAMINES SCREEN URINE Negative (Negative); *BARBITURATES SCREEN URINE Negative (Negative); *BENZODIAZEPINES SCREEN URINE Negative (Negative); Cannabinoids THC Negative (Negative); Cocaine Screen,Urine Negative (Negative); METHADONE URINE SCREEN Negative (Negative); OPIATES URINE SCREEN Negative (Negative)
[2021-01-19 22:13] LABS: Tricyclic Antidepressants Negative (Negative)
--- NOTE | 2021-01-19 23:44 | NUR.NOTE ---
pt observed in bed sleeping, no signs of distress, one to one sitter in place, will continue to monitor and maintain safety
--- NOTE | 2021-01-20 08:06 | NUR.NOTE ---
Nursing Note: 01/20/21 patient refusing to eat was offered
[2021-01-20] MEDS: Apixaban 5 MG TAB PO ×2 (08:52→21:29)
[2021-01-20] MEDS: clonazePAM 1 MG TAB 2 MG PO ×3 (08:52→21:29)
[2021-01-20] MEDS: Gabapentin 800 MG TAB 1600 MG PO ×2 (08:52→21:29)
--- NOTE | 2021-01-20 17:13 | PDOC.MHCN_ITS ---
Date of service: 01/20/21 Time of Service: 14:00 Mental Health Crisis Note Presenting Issue How did you arrive at the ED and why did you come: Client is currently at [facility] due to concerns of SI with intent and stated plan of ingesting poison. Precipitating Factors Client denied SI/HI during this assessment. However, client presented as not engaging and guarded and not truthful to this advertising copywriter. Disposition BEHAVIOR: Client presented as guarded and not engaging. Client also presented with poor insight in regards to above stated concerns as well as safety. Client also presented with poor thought content and poor judgment. EYE CONTACT: Client maintained minimal eye contact MOOD: Client presented with depressed and gloomy mood. AFFECT: Client presented with flat affect congruent with mood. APPETITE: Client reported poor appetite but stated his appetite has always been that way SLEEP(trouble falling/staying asleep: Client reported no sleep disturbances at this time. Plan Client is still agreeable to voluntary treatment and will remain at [facility] till he is placed. Referrals have been sent to [facility], , [facility] and [facility] and they are all pending review as well as bed availability at this time. Please contact [facility] if and when client decides to leave before placement or against medical advice. Client will be reassessed daily till he is placed or till an appropriate safety plan can be made based on his presentation. Alternatives to hospital izations were not discussed due to client's current presentation. Signature Clinician's Name/Title: Jeanie Isabel / Emergency Services Clinician, [facility].
[2021-01-20 18:46] VITALS: BP 109/64; PULSE 57; RESP 15; TEMP 36.8; O2SAT 97
[2021-01-20 20:10] VITALS: BP 115/74; PULSE 78; RESP 18; TEMP 36.3; O2SAT 98
--- NOTE | 2021-01-20 20:11 | W.PM.HP.N ---
Date of service: 01/20/21 Time of Service: 20:11 Assessment and Plan Assessment and plan (1) DVT (deep venous thrombosis): Status: Chronic Assessment and plan: Cont apixiban (2) Alcohol related disorder: Status: Acute Assessment and plan: No recent abuse. (3) Depression: Status: Chronic Assessment and plan: Cont clonazepam Mental health following with plans to transfer to inpatient psychiatric facility d/t suicidial ideations / depression and anxiety (4) Anxiety disorder: Status: Chronic Assessment and plan: See above (5) Spinal stenosis of thoracic region: Status: Chronic Assessment and plan: Long standing. Cont gabapentin. Crutches for ambulation. History of Present Illness Narrative: 65-year-old male presents to the ED on 01/19/21 with chief complaint of suicidal ideation. He had been seen by his PCP prior to arrival and was referred to the ED. He stated that he has been feeling suicidal for the last couple weeks with a plan to drink poison from [employer] (a local hardware supply store). He has a past medical history of OCD, chronic depression, anxiety, history of overdose, DVT and was seen recently for a wrist fracture. He uses arm crutches for some chronic low back pain. He denies doing anything to harm himself for the last 24 to 48 hours. During his time holding in the ED he has been cooperative. Mental health has evaluated him and recommended transfer to mental health facility for further care. The patient was agreeable to this though he did waiver at one point in time and wanted to go home. Vital signs have been stable. Lab unremarkable. Review of Systems All systems reviewed & are unremarkable except as noted in HPI and below [facility] Medical History Alcohol abuse Alcohol related disorder Anxiety disorder BPH (benign prostatic hyperplasia) Chronic low back pain Depression DVT (deep venous thrombosis) Gastroesophageal reflux disease OCD (obsessive compulsive disorder) Spinal stenosis of thoracic region (05/07/16) -2017 T9-T12 decompression sx: [facility] Surgical History Appendectomy SPINAL SURGERY THORACIC REGION Family History Mother Personal history of malignant neoplasm CERVICLE Father No problems noted. Brother No problems noted. Son No problems noted. Daughter Depression Daughter No problems noted. Daughter Depression Social History Smoking/Tobacco Use Status: Never Smoking risk assessment performed?: Yes Alcohol Intake: former Drug use: Never Substance use type: does not use Details: Patient states he last drank alcohol on Sun (01/28/20) and denies having any withdrawal issues when he is not drinking. Do you feel safe at home: Yes Do you feel safe in your relationship?: Yes Meds Allergies and Home Medications Allergies Allergy/AdvReac Type Severity Reaction Status Date / Time fluoxetine HCl [From Prozac] AdvReac Severe Psychosis Verified 01/19/21 11:51 Home Medications Medication Instructions Recorded Confirmed Type clonazepam 2 mg tablet 2 mg PO TID PRN 04/01/18 01/20/21 History omeprazole 20 mg tablet,delayed 20 mg PO DAILY PRN #90 tab 07/26/20 01/20/21 Rx release gabapentin 800 mg tablet 1,600 mg PO BID #135 tab 11/22/20 01/20/21 Rx apixaban 5 mg tablet 5 mg PO BID #60 tab 01/04/21 01/20/21 Rx Exam Const General: cooperative and no acute distress Nutritional Appearance: average body habitus Orientation: alert and oriented x3 Eyes General: appearance normal, both eyes and all related structures Sclera: sclerae normal Resp Effort & Inspection: normal respiratory effort Auscultation: clear to auscultation bilaterally Cardio Rate: regular rate Rhythm: regular rhythm Heart Sounds: S1 normal and S2 normal GI Palpation: soft and nontender Auscultation: normal bowel sounds Skin General skin exam: no rashes or lesions noted Neuro General: moves all extremities Cranial Nerves: facial strength normal Speech: speech normal Extrem General: no pedal edema and no calf tenderness Psych Appearance: grossly normal Mental Status: mental status grossly normal Speech and Movement: speech and movement normal Affect: blunted Results Labs Result diagrams: 01/19/21 14:56 01/19/21 14:56 Labs: Laboratory Results - last 24 hr 01/19/21 01/19/21 21:35 21:35 Urine Color Yellow Urine Clarity Clear Urine pH 7.0 Ur Specific [place] 1.020 Urine Protein Negative Urine Ketones Trace H Urine Blood Negative Urine Nitrite Negative Urine Bilirubin Negative Urine Urobilinogen 0.2 Ur Leukocyte Esterase Negative Urine Glucose Negative Urine Opiates Screen Negative Urine Methadone Screen Negative Ur Barbiturates Screen Negative Ur Tricyclics Screen Negative Ur Amphetamines Screen Negative U Benzodiazepines Scrn Negative Urine Cocaine Screen Negative Ur THC Screen Negative Last Vital Signs Temp 36.8 C 01/20/21 18:46 Pulse 57 L 01/20/21 18:46 Resp 15 01/20/21 18:46 BP 109/64 01/20/21 18:46 Pulse Ox 97 01/20/21 18:46
[2021-01-20 20:15] VITALS: BP 115/74; PULSE 78; RESP 18; TEMP 36.7; O2SAT 98
[2021-01-21] MEDS: Gabapentin 800 MG TAB 1600 MG PO (08:49)
[2021-01-21] MEDS: Apixaban 5 MG TAB PO (08:49)
[2021-01-21] MEDS: clonazePAM 1 MG TAB 2 MG PO ×2 (08:50→14:23)
[2021-01-21 09:09] VITALS: BP 131/84; PULSE 60; RESP 16; TEMP 35.9; O2SAT 98
--- NOTE | 2021-01-21 10:24 | CMSP_ITS ---
- If Service Date Differs Date of service: 01/21/21 Time of Service: 10:24 Care Management Safety Plan Status: Voluntary - Reason for Wait Reason for Wait: Inpatient Admission VOLUNTARY FOR INPATIENT PSYCHIATRIC STABILIZATION. Patient is appropriate in all interactions since arriving at [facility]; Pt has demonstrated appropriate coping and communication skills, has articulated his or her needs and concerns and is fully engaged during staff interactions. Safety plan has been established with patient, and care team, to adhere to patient goals, identify restrictions based on behavioral status, address nutr ition, and determine allowed personal belongings, tools for hygiene and personal care. Determine level of activity including ambulation, level of supervision, visitors, and determine privileges based on behaviors and level of engagement by pt. SAFETY PLAN: 1. Will remain on suicide precautions. In Paper Clothes 2. Will remain in room under direct supervision of one-on-one staff at all times provided by CPSO; ALEXIS, CLERICAL DENTIST ASSISTANT framing mill supervisor. 3. May have paper cups, plates, finger foods as well as a cardboard spoon with which to eat meals. 4. Follow [facility] Management of the Admitted Behavioral Health Patient policy. 5. Comfort bath system or Shower available, at RN discretion. 6. Personal belongings at RN discretion. 7. Visitors-No visitors at this time 8. Activities: soft cart items, coloring book, crayons, TV with remote, other items at RN discretion. 9. Bathroom privileges without limitation. 10. Phone: May speak to legal [place], [facility] staff 11. Due to VOLUNTARY status, if patient wishes to leave [facility], staff will contact [facility] Crisis Screener ([phone]) and On-Call Concert Promoter ([phone]) as soon as possible. In the event of elopement, notify [facility] Police ([phone]). Patient is currently voluntarily at [facility] and seeking inpatient admission when a bed becomes available. [facility] Frontline Auto Battery Builder will continue seeking placement. Please contact the Bicycle Service Technician Concert Promoter ([phone]) and [facility] Auto Battery Builder ([phone]) for any needed changes in the Safety Plan. Safety plan has been provided to interdepartmental care team.
--- NOTE | 2021-01-21 10:24 | PDOC.CMSAFE ---
- If Service Date Differs Date of service: 01/21/21 Time of Service: 10:24 Care Management Safety Plan Status: Voluntary - Reason for Wait Reason for Wait: Inpatient Admission VOLUNTARY FOR INPATIENT PSYCHIATRIC STABILIZATION. Patient is appropriate in all interactions since arriving at [facility]; Pt has demonstrated appropriate coping and communication skills, has articulated his or her needs and concerns and is fully engaged during staff interactions. Safety plan has been established with patient, and care team, to adhere to patient goals, identify restrictions based on behavioral status, address nutrition, and determine allowed personal belongings, tools for hygiene and personal care. Determine level of activity including ambulation, level of supervision, visitors, and determine privileges based on behaviors and level of engagement by pt. SAFETY PLAN: 1. Will remain on suicide precautions. In Paper Clothes 2. Will remain in room under direct supervision of one-on-one staff at all times provided by CPSO; ALEXIS, CUSTOMER SERVICE MANAGER header setup operator. 3. May have paper cups, plates, finger foods as well as a cardboard spoon with which to eat meals. 4. Follow [facility] Management of the Admitted Behavioral Health Patient policy. 5. Comfort bath system or Shower available, at RN discretion. 6. Personal belongings at RN discretion. 7. Visitors-No visitors at this time 8. Activities: soft cart items, coloring book, crayons, TV with remote, other items at RN discretion. 9. Bathroom privileges without limitation. 10. Phone: May speak to legal [place], [facility] staff 11. Due to VOLUNTARY status, if patient wishes to leave [facility], staff will contact [facility] Crisis Screener ([phone]) and On-Call Manager Intel ([phone]) as soon as possible. In the event of elopement, notify [facility] Police ([phone]). Patient is currently voluntarily at [facility] and seeking inpatient admission when a bed becomes available. [facility] Frontline Powder And Primer Canning Leader will continue seeking placement. Please contact the Travel Sales Consultant Manager [employer] ([phone]) and [facility] Powder And Primer Canning Leader ([phone]) for any needed changes in the Safety Plan. Safety plan has been provided to interdepartmental care team.
--- NOTE | 2021-01-21 10:28 | PDOC.CMPRO ---
- If Service Date Differs Date of service: 01/21/21 Time of Service: 10:28 Care Management Progress Note S/O: Casey presented to the ED after seeing his PCP, who recommended that he be assessed for his suicidal ideation. He reported a plan to go to the local hardware store and purchase poison, which he would ingest. August was sitting up in his bed when CM met with him. MACHELLE coordinated a zoom meeting with VERNON Padron. August reported that he is not feeling any SI/HI today, and is feeling much better. He reported that he went to his PCP office and saw a woman who looked like his ex , but she was put together. He stated that he now recognizes that the woman he saw was not her, only a manifestation of what he hoped she would be. 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 He reported that he has two AA meetings near his home to go to this weekend, as well as confucianism, where he finds a lot of support. After discussing the options with VERNON Padron, he agreed to remain at [facility] until the afternoon, to determine if a bed in a psychiatric facility will be available, but that he does feel safe to return home today, and is happy to have VERNON check in on him. Later, MACHELLE coordinated another call with VERNON, at which point he was able to make a contract for safety in the community. He was discharged home, and drove himself home in his own car. He did express a grievance with MACHELLE regarding the conversations that the CPSO's (there were two in the [address] at that time) were having, as he felt that they were inappropriate. MACHELLE called Risk Management to report the grievance. A: Casey is a 65 year old male admitted to [facility] on 01/20/21 with major depression, SI. P: Csaey will return home today with a contract for safety that he agreed upon with VERNON Padron. He reported no SI/HI, and stated that he feels safe at home. He will go to his scheduled AA meetings and confucianism, both places in the community where he feels supported. He will drive himself home in his own private vehicle. He will follow up with his PCP and discharge plan of care.
--- NOTE | 2021-01-21 14:39 | DSE_ITS ---
Date of service: 01/21/21 Time of Service: 14:40 DS: Diagnosis Discharge Diagnosis (1) Alcohol related disorder: Status: Acute (2) Depression: Status: Chronic (3) Anxiety disorder: Status: Chronic (4) Spinal stenosis of thoracic region: Status: Chronic Discharge Plan Disposition Patient Disposition: HOME Condition: Stable Discharge Details Reason For Visit: Major Depression, Suicidal Admit Date/Time: 01/20/21 18:13 Admit Provider: Trev Angelo Attending Provider: Trev Angelo Primary Care Provider: Romelia Bravo Hospital Course Hospital Course: this is a 65 year old male who presented to the ED with c/o suicidal ideation, plan to drink poison. he is cleared medically in the ED and screened by mental health with plan to stay here on a voluntary psychiatric hold. He has remained medically stable and now is denying suicidal ideation. mental health evaluated and feel he is safe for discharge to home. plan is for discharge to home with no services. he will f/u with mental health outpatient as planned. discharge discussed with Dr Dahl [place] Meds and New Rx's Prescriptions: Continued gabapentin 800 mg tablet 1,600 mg PO BID Qty: 135 RF: 3 apixaban 5 mg tablet 5 mg PO BID Qty: 60 RF: 3 clonazepam 2 mg tablet 2 mg PO TID PRNRF: 0 omeprazole 20 mg tablet,delayed release (DR/EC) 20 mg PO DAILY PRN Qty: 90 RF: 2 Discharge Instructions Instructions: Depression (DC) Stand Alone Forms: Nursing Discharge Form Referrals: Romelia Bravo MD [Primary Care Provider] - 01/28/21 9:20 am Activity:: Activity as Tolerated Equipment/Supplies:: No Equipment Needed Diet:: As Tolerated Discharge Orders Discharge Orders: Discharge Order (Routine); Ordered 01/21/21 Ordered By: Monica Andres Discharge Data Discharge Date/Time-TO BE ENTERED AT DEPARTURE: 01/21/21 15:57 DS: Summary Time Spent with Patient providing and/or coordinating discharge services: Less than 30 minutes Status at Discharge Functional status at discharge: independent ambulation Overall status at discharge: patient is progressing back to baseline Mental Status: mental status grossly normal Speech and Movement: speech and movement normal Mood: congruent mood Affect: blunted Exam Const General: cooperative and no acute distress Nutritional Appearance: average body habitus Orientation: alert, awake and oriented x3 HENMT Head: normal to inspection, normocephalic and atraumatic Mouth: oral mucosae normal Resp Effort & Inspection: normal respiratory effort Cardio Rate: regular rate Rhythm: regular rhythm Psych Appearance: grossly normal Mental Status: mental status grossly normal Speech and Movement: speech and movement normal Mood: congruent mood and other (depressed) Affect: blunted Attitude: cooperative Thought Content: suicidality Insight: fair Judgment: fair DS: Data Vitals/I&O Vitals and I&O: Vital Signs Temperature 35.9 C L 01/21/21 09:09 Temperature Source Tympanic 01/21/21 09:09 Pulse 60 01/21/21 09:09 Pulse Rhythm Regular 01/21/21 02:00 Respiratory Rate 16 01/21/21 09:09 Respiratory Effort Non-Labored 01/21/21 02:00 Respiratory Depth Normal 01/21/21 02:00 Respiratory Pattern Normal 01/21/21 02:00 Blood Pressure 131/84 01/21/21 09:09 Blood Pressure Position Sitting 01/19/21 14:05 Pulse Oximetry 98 01/21/21 09:09 Oxygen Delivery Method Room Air 01/21/21 09:09 Oxygen Flow Rate 0 01/21/21 09:09 Pain Level 0 01/21/21 09:09 Intake & Output 01/20/21 01/21/21 01/21/21 23:59 11:59 23:59 Intake Total 450 / 730 Balance 450 / 730 Weight 86.6 kg Intake: Oral 450 / 730 Other: Urine Appearance Clear Clear Voiding Methods Toilet Toilet Data Completed and Pending Labs on day of discharge: Labs from last 24 hours 01/21/21 05:35 Sodium Pending Potassium Pending Chloride Pending Carbon Dioxide Pending Anion Gap Pending BUN Pending Creatinine Pending Estimated GFR/1.73 m2 Pending Glucose Pending Calcium Pending [facility] Medical History Alcohol abuse Alcohol related disorder Anxiety disorder BPH (benign prostatic hyperplasia) Chronic low back pain Depression DVT (deep venous thrombosis) Gastroesophageal reflux disease OCD (obsessive compulsive disorder) Spinal stenosis of thoracic region (05/07/16) T9-T12 decompression sx: [facility] Surgical History Appendectomy SPINAL SURGERY THORACIC REGION Family History Mother Personal history of malignant neoplasm CERVICLE Father No problems noted. Brother No problems noted. Son No problems noted. Daughter Depression Daughter No problems noted. Daughter Depression Social History Smoking/Tobacco Use Status: Never Smoking risk assessment performed?: Yes Alcohol Intake: former Drug use: Never Substance use type: does not use Details: Patient states he last drank alcohol on Sun (01/28/20) and denies having any withdrawal issues when he is not drinking. Do you feel safe at home: Yes Do you feel safe in your relationship?: Yes
--- NOTE | 2021-01-21 15:09 | W.INMHPGNOTE ---
Date of service: 01/21/21 Time of Service: 10:35 Mental Health Crisis Note Presenting Issue How did you arrive at the ED and why did you come: Patient status is currently voluntary and he is seen today for a planned follow-up assessment via telehealth. Per CM report, the patient has showered, taken are of oral needs, and has been pleasant to staff without any reported incidents. Precipitating Factors The patient is seen via telehealth on [facility] medical surge unit. He is fully alert and oriented to time, person, place and situation with no reported memory deficits. He is behaviorally appropriate, pleasant, and engages freely with good eye contact throughout assessment process. Speech is unpressured, clearly articulated, no latency of response and normal/flat tone. He reports, I feel fine. I do feel confined, though. with euthymic affect. No delusional or psychotic thought content apparent. Patient is more elaborative today and willingly discusses encounter at PCP office that prompted admission to [facility]. He reports encountering a woman in the lobby of his doctor's appointment on Sunday that looked remarkably like his ex- which triggered a response based on report of unresolved emotional issues culminating from the divorce. He states, The woman in the waiting room looked just like her. But it wasn't her. That interaction overwhelmed me. I've spent a lot of time trying to get over my divorce and seeing this woman just triggered me. Patient also reports struggling with the absence of his counselor Jacob Gallagher, who he reports as being on vacation for the remainder of January. He denies current SI/HI/SIB, intent or plan and states, I was just felt triggered. 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 The patient has politely requested to discharge and reports feeling safe to do so, however remains amenable to voluntary placement based on referral updates. Disposition BEHAVIOR: Appropriate EYE CONTACT: Good MOOD: I feel fine. I am feeling confined, though. AFFECT: Euthymic APPETITE: Poor SLEEP(trouble falling/staying asleep: Poor Plan Contact list - updated patient and [facility] CM. [facility] - Under review; no anticipated openings until next week. [facility] - Under review; currently at capacity. [facility] - Unable to accept referrals at this time due to positive COVID cases. [facility], [facility], [facility], [facility] - At capacity; not accepting referrals at this time. In agreement with [facility] attending medical provider, the patient will discharge home on a safety plan. Patient presentation today is improved in terms of engagement and SI and he is able to identify and explain trigger for presenting concerns. He appears forward-thinking and plans to attend upcoming AA meetings over the weekend and is agreeable to safety check-in contact throughout the weekend on the following schedule: (Fri) 10.15- 6:00p (Sat) 10.16 - 9:00a (Sun) 10.17 - 9:00a The patient has been offered the opportunity to stay at [facility] over the weekend to potentially await placement at [facility], however he has declined and continues to report feeling safe to discharge home at this time. The patient will utilize coping skills and supports and contact the crisis line for additional support as needed. If thoughts of self-harm return and/or symptoms rise to the level of emergent, the patient has agreed dial 911. Signature Clinician's Name/Title: VERNON Ram clinician / HP
--- NOTE | 2021-01-21 15:24 | NUR.NOTE ---
Nursing note: verbal handoff given to SENDY Gutierrez.
== END 2021-01-21 15:57 | disposition home or self-care (01) ==
LOC: ER 01-20 08:06 → MS 01-20 20:00
PROVIDERS: Physician Assistant; Registered Nurse Emergency; Admitting Provider Family Medicine; Emergency Provider Physician Assistant; PCP Family Medicine; Visit Provider Family Medicine
DX: F32.A Depression, unspecified (principal); R45.851 Suicidal ideations; F41.9 Anxiety disorder, unspecified; Z86.718 Personal history of other venous thrombosis and embolism; F42.9 Obsessive-compulsive disorder, unspecified; N40.0 Benign prostatic hyperplasia without lower urinary tract symptoms; G89.29 Other chronic pain; M54.50 Low back pain, unspecified; K21.9 Gastro-esophageal reflux disease without esophagitis; M48.04 Spinal stenosis, thoracic region; F10.19 Alcohol abuse with unspecified alcohol-induced disorder
CPT/HCPCS: 36415; 80048; 80053; 80307; 87635; 99285; 80320; 80329; 81003; 84443; 85025; 85610; 99217; 99219; 99284; G0378

== ENCOUNTER 2021-08-03 11:06 | Outpatient (CLI) | payer MEDICARE, MEDICAID, SELFPAY ==
[2021-08-03 13:34] LABS: Cholesterol 133 mg/dL (<200); HDL Cholesterol 92 mg/dL (40-60); Vitamin B12 476 pg/mL (193-986)
[2021-08-03 13:39] LABS: Folate > 20.0 ng/mL (8.6-20.0); Triglyceride < 25 mg/dL (<150)
[2021-08-03 13:50] LABS: LDL CHOLESTEROL 28 mg/dL (<100)
[2021-08-03 22:51] LABS: PSA, Screening 2.1 ng/mL (<=4.5)
[2021-08-04 05:56] LABS: Vitamin D 25 Total 29.1 ng/mL (30-100)
[2021-08-04 09:45] LABS: Hepatitis C Ab w Rflx HCV PCR Negative (Negative)
== END 2021-08-03 11:07 | disposition home or self-care (01) ==
LOC: LOS 11:06
PROVIDERS: Family Medicine; PCP Nurse Practitioner Family; Visit Provider Nurse Practitioner Family
DX: N52.9 Male erectile dysfunction, unspecified (principal); R79.89 Other specified abnormal findings of blood chemistry; N40.0 Benign prostatic hyperplasia without lower urinary tract symptoms; Z11.59 Encounter for screening for other viral diseases; F10.20 Alcohol dependence, uncomplicated; E55.0 Rickets, active; Z12.5 Encounter for screening for malignant neoplasm of prostate
CPT/HCPCS: 36415; 80061; 82306; 83721; 84153; 86803; 82607; 82746

== ENCOUNTER 2021-09-02 19:22 | Outpatient (CLI) | payer MEDICARE, MEDICAID, SELFPAY ==
[2021-09-02 17:56] LABS: D-Dimer 789 ng/mlFEU (<500)
== END 2021-09-02 19:23 | disposition home or self-care (01) ==
LOC: LBO 19:23
PROVIDERS: PCP Nurse Practitioner Family; Visit Provider Nurse Practitioner Family
DX: M79.604 Pain in right leg (principal); M79.605 Pain in left leg; Z79.899 Other long term (current) drug therapy; Z86.718 Personal history of other venous thrombosis and embolism
CPT/HCPCS: 36415; 85379

== ENCOUNTER → 2021-09-08 01:13 | Outpatient (CLI) | payer MEDICARE, MEDICAID, SELFPAY ==
--- NOTE | 2021-09-08 07:16 | DI.US_ITS ---
Exam(s) US EXTREMITY VENOUS BI EXAM: US EXTREMITY VENOUS BI CLINICAL HISTORY: right leg pain,swelling,M79.604,DVT,I82.409,LT LEG PAIN,SWELLING,M79.662 TECHNIQUE: Grayscale, color, and doppler imaging of the deep venous system of both lower extremities was performed. COMPARISON: US US LOWER EXTREMITY VENOUS RT from 09/07/2020 FINDINGS: There is no evidence of DVT in the left leg. However, there are again noted significant intraluminal findings on the opposite-right side. There i s intraluminal thrombus extending for a length of 42 cm from the proximal right femoral vein in the u pper thigh to the level of the popliteal vein. The ipsilateral profunda femoris vein is also thrombo sed. There is also thrombophlebitis of the ipsilateral right greater saphenous vein proximal and mid level for distance of approximately 20 cm. These findings were previously present and exhibit minimal change from 09/07/2020, 1 year ago. There does not appear to be prominent extension into the calf veins. IMPRESSION: 1. Persistent extensive DVT in the right lower extremity at and above the level of the knee/poplitea l vein, as described above. Also again noted is long length involvement of the ipsilateral greater s aphenous vein in the thigh. There is an element of chronicity here. 2. No evidence of DVT nor superficial phlebitis in the opposite-left lower extremity. DATA REPOSITORY:
== END ==
PROVIDERS: PCP Nurse Practitioner Family; Visit Provider Nurse Practitioner Family
DX: I82.401 Acute embolism and thrombosis of unspecified deep veins of right lower extremity (principal); M79.605 Pain in left leg; R22.42 Localized swelling, mass and lump, left lower limb
CPT/HCPCS: 93970

== ENCOUNTER → 2021-09-26 12:10 | Outpatient (CLI) | payer MEDICARE, MEDICAID, SELFPAY ==
--- NOTE | 2021-09-26 18:15 | DI.RAD_ITS ---
Exam(s) XR FOOT RT COMPLETE EXAM: XR FOOT RT COMPLETE CLINICAL HISTORY: foot pain, 5th toe base. r/o osteo. TECHNIQUE: 2D digital imaging was performed. Three views. COMPARISON: No exams were available for comparison FINDINGS: BONES: Small enthesophyte Achilles insertion on calcaneus. No acute fracture is present. No bony julien tructive lesion is seen. JOINTS: No dislocation present. Mild degenerative changes. SOFT TISSUE: Swelling adjacent to 5th MTP joint. Small linear density in the area of swelling which may represent a foreign body. No abnormal gas collection. IMPRESSION: Soft tissue swelling lateral to the 5th MTP joint and small foreign body. No evidence of bony erosio n. DATA REPOSITORY: RADIATION DOSE DELIVERED:
--- NOTE | 2021-09-26 19:58 | DI.VRAD_ITS ---
PROCEDURE INFORMATION: Exam: XR Right Foot Exam date and time: 09/26/2021 7:18 PM Age: 66 years old Clinical indication: Right; Patient HX: Foot pain, base of 5th toe, R/O osteo TECHNIQUE: Imaging protocol: Radiologic exam of the Right foot. Views: 3 or more views. COMPARISON: US EXTREMITY VENOUS BI 09/08/2021 10:33 AM FINDINGS: Bones/joints: Negative for fracture. Negative for bony erosion or destructive change. Normal tarsometatarsal alignment. Mild hallux valgus. Mild narrowing at the 1st metatarsophalangeal joint. Soft tissues: Moderate soft tissue swelling noted at the lateral forefoot, adjacent to the 5th metatarsophalangeal joint. A small linear calcification or foreign body is observed, 3.5 mm in length and 4 mm deep to the skin surface in the oblique projection. There is no soft tissue air. IMPRESSION: 1. No radiographic evidence of osteomyelitis. 2. Soft tissue swelling and possible foreign body adjacent to the 5th metatarsophalangeal joint. Dictated and Authenticated by: Shaun Samuel MD. Ordering:BRENDA Odom MD
== END ==
PROVIDERS: PCP Nurse Practitioner Family; Visit Provider Physician Assistant
DX: M79.671 Pain in right foot (principal); M79.89 Other specified soft tissue disorders; M79.5 Residual foreign body in soft tissue
CPT/HCPCS: 73630

== ENCOUNTER → 2021-10-05 08:15 | Outpatient (BNVA) | payer MEDICARE, MEDICAID, SELFPAY | PROVIDERS: PCP Nurse Practitioner Family; Referring Provider Nurse Practitioner Family; Visit Provider Physical Therapy Assistant | DX: M79.5 Residual foreign body in soft tissue (principal); M79.89 Other specified soft tissue disorders | CPT/HCPCS: 10120; 99214 ==

== ENCOUNTER → 2021-10-13 01:19 | Outpatient (CLI) | payer MEDICARE, MEDICAID, SELFPAY ==
--- NOTE | 2021-10-13 11:30 | DI.RAD_ITS ---
Exam(s) XR FOOT LT COMPLETE EXAM: XR FOOT LT COMPLETE CLINICAL HISTORY: Left foot swelling, fb removed. R/o another fb,m79.89. TECHNIQUE: 2D digital imaging was performed. COMPARISON: CR,XR XR FOOT RT COMPLETE from 09/26/2021 FINDINGS: 3 views No evidence of fracture nor diastasis of the Lisfranc joint. No degenerative changes evident in the great toe metatarsophalangeal joint. Some soft tissue swelling is noted lateral to the head of the 5 th metatarsal. There is also some calcification in the soft tissues at this level. However, there d oes not appear to be an avulsion fracture off of the head of the 5th metatarsal and no osteomyelitis at this level. IMPRESSION: No fractures. DATA REPOSITORY: RADIATION DOSE DELIVERED:
== END ==
PROVIDERS: PCP Nurse Practitioner Family; Visit Provider Physical Therapy Assistant
DX: M79.672 Pain in left foot (principal); M79.89 Other specified soft tissue disorders
CPT/HCPCS: 73630

== ENCOUNTER 2021-11-28 11:57 | Emergency (ER) | payer MEDICARE, MEDICAID, SELFPAY ==
[2021-11-28 12:10] VITALS: BP 100/79; PULSE 77; RESP 16; TEMP 37.2; O2SAT 98
[2021-11-28 13:45] VITALS: BP 109/67; PULSE 62; O2SAT 98
[2021-11-28 13:57] VITALS: RESP 16
--- NOTE | 2021-11-28 13:57 | ED.GENADUL_ITS ---
Discharge Plan Disposition Patient Disposition: HOME Condition: Stable Discharge Details Clinical Impression: Neurologic gait dysfunction, Chronic pain of both lower extremities Primary Care Provider: Rui Perez ED Provider: Katya Hedrick Home Meds and New Rx's Prescriptions: Continued apixaban 5 mg tablet 5 mg PO BID Qty: 60 3RF bupropion HCl 300 mg tablet extended release 24 hr 300 mg PO QAM Label Comments: states he takes 450mg due to being in severe depression Rx Instructions: RX by psychiatrist clonazepam 2 mg tablet 2 mg PO DAILY PRN (Reason: anxiety) gabapentin 800 mg tablet 1,600 mg PO BID Qty: 120 3RF Discharge Instructions Additional Instructions: As we discussed, I do not see an emergent cause of your recurrent leg pain and weakness. However, I would like for you to have prompt evaluation as we discussed, particular MRI to look for potential source within your central nervous system. I have also asked that your primary care to evaluate you within the next week regarding your acute on chronic lower extremity symptoms. If you have fever/chills, incontinence, increased pain or other new/worsening symptoms please seek care urgently once again Referrals: Rui Peerz, [facility] [employer] [Primary Care Provider] - Discharge Data Discharge Date/Time-TO BE ENTERED AT DEPARTURE: 11/28/21 16:32 Medical Decision Making Patient is a 66 year old male presenting today for acute on chronic BLE weakness. He states that this episode started last . Describes burning pain in his feet and weakness below his knees bilaterally, L>R. He denies any systemic symptoms. Denies fevers, chills, malaise. No recent trauma. Denies back pain. States that he has had this intermittently with episodes lasting for hours to days with spontaneous resolution. He denies any inciting events. States this has been intermittent for years but has been becoming progressively worse. States that in 2017 he had thoracic surgery for nerve impingement associated with osteophytes. Does not directly correlate with his surgery. States that in 2018, he began having weaknes that lead to him use cane to help with ambulation. Over the years, he has had need to use crutches or even wheelchair. However, these will resolve and he is able to ambulate with more ease spontaneously. He notes that when he is having these issues, he has erythema in his bilateral feet. Describes numbness and burning pain. On exam, patient appears nontoxic. He has a well-healed midline surgical incision consistent with history of spinal surgery. No midline tenderness or paraspinal tenderness. He has no saddle paresthesias. However, sharp sensation is diminished in the left lower extremity from just below the knee to the ankle with sensation seeming intact in the foot. Sensation intact in the right side. Babinski normal, able to flex and extend against resistance at both the hip, knee and ankle. 2+ distal pulses and intact capillary refill. No edema or swelling. No palpable cords or edema. Intact rectal sensation and rectal tone. I reviewed the patient's medical records. He has been tested for tick and Lyme disorders. I do not see that he has had evaluation for potential autoimmune. I did consider potential and masses being the cause, particularly as the patient reports that his symptoms seem to subside, in the cooler months. He has no evidence of cauda equina, acute traumatic source. With the waxing and waning of his symptoms as well as abnormal dermatologic distribution, I feel there is something more unusual such as autoimmune or rheumatologic causes associated symptoms. Is able to Dr. Victor about the patient. We did discuss getting an MRI, particularly as MS is on the differential. However, we are unable to get this at this time. With his abnormal distribution, the radiologist and I felt that he would likely need a full APPLICATIONS PROCESSOR evaluation rather than just more localized imaging such as the thoracic spine. Patient also reports that he is unable to tolerate a closed MRI and will need open MRI imaging. As assessment waxing waning for several years, this would likely be an exacerbation of a chronic lesion rather than an acute new lesion that would warrant emergent treatment. Having completed an outpatient would be appropriate at this time. I did discuss this with the patient at length And he is very comfortable going home in his current condition if he has been dealing with this for such a long period of time. He is agreeable to undergoing MRI as an outpatient and can neutering other autoimmune or rheumatologic sources in addition to his upcoming neurologic appointment. I have asked her care management to reach out to primary care tomorrow to ensure that the MRI is ordered, the primary care office is currently having computer issues and is unable to do this today. Patient was given strict return precautions. All his questions and concerns were addressed and he is in agreement with this plan. HPI General Mode of arrival: ambulatory . Date/Time Provider Initiated Documentation: 11/28/21 13:56 . Limitations to Documentation: no limitations . Information obtained by: patient, RN notes reviewed and old records reviewed . History of Present Illness 66 year old M presents to the emergency department with the chief complaint of recurrent BLE weakness, described as moderate and similar to prior episodes, with intensity rated at 7. Quality is described as other (weakness and discomfort), and is localized to the left, right and lower extremity. Patient extremity. Patient started experiencing this year(s) and it has been intermittent. No relieving factors improve symptom(s), No exacerbating factors reported . Patient notes weakness (BLE); denies chest pain, cough, diaphoresis, fever/chills, headaches, loss of appetite, nausea/vomiting, rash, shortness of breath and syncope. Patient did receive the following treatments prior to arrival, none Related Data Home Medications Medication Instructions Recorded Confirmed apixaban 5 mg tablet 5 mg PO BID #60 tabs 01/04/21 11/28/21 bupropion HCl 300 mg 24 hr tablet, 300 mg PO QAM 04/29/21 11/28/21 extended release clonazepam 2 mg tablet 2 mg PO DAILY PRN anxiety 04/29/21 11/28/21 gabapentin 800 mg tablet 1,600 mg PO BID #120 tabs 10/03/21 11/28/21 Previous Rx's Medication Instructions Recorded apixaban 5 mg tablet 5 mg PO BID #60 tabs 01/04/21 gabapentin 800 mg tablet 1,600 mg PO BID #120 tabs 10/03/21 Allergies Allergy/AdvReac Type Severity Reaction Status Date / Time fluoxetine HCl [From Prozac] AdvReac Severe Psychosis Verified 11/28/21 13:55 General Stated Complaint: GenMedical KATI: 3 Review of Systems Constitutional Constitutional: Reports as per HPI, Denies chills, Denies fever(s), Denies frequent falls and Denies headache(s) ENT Ears, Nose, Mouth, and Throat: Denies headache(s) Cardiovascular Cardiovascular: Denies chest pain, Denies dyspnea and Denies dyspnea on exertion Respiratory Respiratory: Denies cough, Denies dyspnea and Denies dyspnea on exertion Gastrointestinal Gastrointestinal: Denies abdominal pain, Denies change in bowel habits and Denies fecal incontinence Genitourinary Genitourinary: Reports as per HPI, Denies urinary hesitancy and Denies urinary incontinence Musculoskeletal Musculoskeletal: Reports as per HPI, Reports back pain and Reports stiffness Integumentary/Breasts Skin/Breast: Reports as per HPI and Denies rash Neurologic Neurologic: Reports as per HPI, Denies frequent falls and Denies headache(s) PFSH All Active Problems (Updated 11/28/21 @ 16:19 by SHANIQUA Holbrook) Swelling of left foot (Acute) Foreign body (FB) in soft tissue (Acute) Neurologic gait dysfunction (Acute) Chronic pain of both lower extremities (Acute) Thoracic myelopathy (Acute) DVT (deep venous thrombosis) (Chronic) Lesion of right external auditory canal (Acute) Alcohol related disorder (Acute) Depression (Chronic) Obsessive-compulsive disorder, unspecified (Acute 05/07/16) followed by psychiatry [facility] Anxiety disorder (Chronic) Spinal stenosis of thoracic region (Chronic 05/07/16) T9-T12 decompression sx: [facility] Medical History Acetaminophen overdose Alcohol abuse BPH (benign prostatic hyperplasia) Fracture of triquetral bone of wrist Male erectile dysfunction, unspecified (04/15/15) Urology eval. [facility]/ borderline PSA value: f/up April 2016 Salicylate overdose (05/13/13) In attempt to kill oneself. Surgical History Appendectomy History of appendectomy [facility] Family History Mother Personal history of malignant neoplasm CERVICLE Father No problems noted. Brother No problems noted. Son No problems noted. Daughter Depression Daughter No problems noted. Daughter Depression Social History Smoking/Tobacco Use Status: Former Tobacco Use Smoking risk assessment performed?: Yes Alcohol Intake: former Drug use: Occasionally Substance use type: marijuana Details: Pt reports has been sober from ETOH for 2 weeks now, states he binges and then stops. 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 Do you feel safe at home: Yes Do you feel safe in your relationship?: Yes Exam Const General: cooperative, comfortable, no acute distress, well developed, well groomed and ill appearing chronically Nutritional Appearance: average body habitus and well nourished Orientation: alert and awake Eyes General: appearance normal, both eyes and all related structures Neck Neck: normal visual inspection, full ROM, no lymphadenopathy and no meningeal signs Resp Effort & Inspection: normal respiratory effort and able to speak in complete sentences Auscultation: clear to auscultation bilaterally, no rales, no rhonchi and no wheezes Cardio Rate: regular rate Rhythm: regular rhythm Heart Sounds: S1 normal and S2 normal Back/Spine/Pelvis Back: no CVA tenderness Thoracic/Lumbar Spine: thoracic and lumbar spine normal to inspection (well healed surgical incision), No paraspinal tenderness, No thoraco-lumbar spasm, No thoracic spinal tenderness and No lumbar spinal tenderness Pelvis: no pain with anterior-posterior compression and no pain with lateral compression Sacroiliac joints: bilaterally nontender Skin General skin exam: no rashes or lesions noted Neuro General: patient alert and patient awake Cognition: normal cognition Speech: speech normal Gait: gait assisted Motor: muscle tone normal throughout, strength 5/5 throughout, no movement abnormalities noted and no fasciculations Sensory Exam: lower extremity (RLE intact, sharp sensation is diminished on the LLE from knee to ankle ) and other (no saddle paresthesia, sensation in LLE otherwise intact (sparing above)) DTR's: Rt Patellar: 2+, Lt Patellar: 2+, Rt Ankle: 2+ and Lt Ankle: 2+ Extrem General: normal to inspection, full ROM, capillary refill normal, no joint enlargement, no pedal edema, no calf tenderness and other (2+ distal pulses) Psych Appearance: grossly normal and well kempt Mental Status: mental status grossly normal Speech and Movement: speech and movement normal Course Vital Signs Vital signs: Vital Signs Temperature 37.2 C 11/28/21 12:10 Pulse 77 11/28/21 12:10 Respiratory Rate 16 11/28/21 12:10 Blood Pressure 100/79 11/28/21 12:10 Pulse Oximetry 98 11/28/21 12:10 Temperature 37.2 C 11/28/21 12:10 Temperature Source Skin 11/28/21 12:10 Pulse 77 11/28/21 12:10 Respiratory Rate 16 11/28/21 12:10 Blood Pressure 100/79 11/28/21 12:10 Blood Pressure Position Sitting 11/28/21 12:10 Pulse Oximetry 98 11/28/21 12:10 Oxygen Delivery Method Room Air 11/28/21 12:10 Oxygen Flow Rate 0 11/28/21 12:10 Pain Level 7 11/28/21 12:10
[2021-11-28 14:00] VITALS: BP 116/66; PULSE 60; O2SAT 97
[2021-11-28 15:32] VITALS: BP 107/63; PULSE 53; TEMP 36.5; O2SAT 100
== END 2021-11-28 16:32 | disposition home or self-care (01) ==
PROVIDERS: Emergency Provider Physician Assistant; PCP Nurse Practitioner Family
DX: M79.661 Pain in right lower leg (principal); M79.662 Pain in left lower leg; G89.29 Other chronic pain; R26.89 Other abnormalities of gait and mobility; Z87.891 Personal history of nicotine dependence
CPT/HCPCS: 99281; 99282

== ENCOUNTER → 2022-07-06 13:26 | Outpatient (BNVA) | payer MEDICARE, MEDICAID, SELFPAY | PROVIDERS: PCP Nurse Practitioner Family; Referring Provider Nurse Practitioner Family; Visit Provider Physical Therapy Assistant | DX: M79.5 Residual foreign body in soft tissue (principal); M79.89 Other specified soft tissue disorders | CPT/HCPCS: 99214 ==

== ENCOUNTER 2022-07-11 01:21 | Outpatient (CLI) | payer MEDICARE, MEDICAID, SELFPAY ==
--- NOTE | 2022-07-11 07:15 | DI.RAD_ITS ---
Exam(s) XR FOOT RT COMPLETE EXAM: XR FOOT RT COMPLETE CLINICAL HISTORY: Concern for retained Foreign body, m79.5. TECHNIQUE: 2D digital imaging was performed. Three views. COMPARISON: CR,XR XR FOOT RT COMPLETE from 09/26/2021 CR XR FOOT LT COMPLETE from 10/13/2021 FINDINGS: BONES: No acute fracture is present. No bony destructive lesion is seen. JOINTS: No dislocation present. SOFT TISSUE: Swelling around 5th metatarsal head. Small skin ulcer. Previously noted small linear f oreign body in the same region is not seen currently seen.. IMPRESSION: Soft tissue swelling adjacent to 5th metatarsal. Foreign body no longer visible. DATA REPOSITORY: RADIATION DOSE DELIVERED:
== END 2022-07-11 01:41 ==
LOC: DI 01:21
PROVIDERS: PCP Nurse Practitioner Family; Visit Provider Physical Therapy Assistant
DX: M79.5 Residual foreign body in soft tissue (principal); M79.89 Other specified soft tissue disorders
CPT/HCPCS: 73630

== ENCOUNTER 2022-07-27 02:28 | Outpatient (CLI) | payer MEDICARE, MEDICAID, SELFPAY ==
--- NOTE | 2022-07-27 | DI.CT_ITS ---
Exam(s) CT THORACIC SPINE WO EXAM: CT THORACIC SPINE WO CLINICAL HISTORY: PREOP SURGICAL PLANNING,? CALCIFICATION OR DISC HERNIATION,IMAGE PAST L1 TO. TECHNIQUE: Imaging Protocol: Axial computed tomography images with coronal and sagittal reformatted images were created and reviewed. CONTRAST MATERIAL: Noncontrast COMPARISON: CT CT THORAX ABD/PEL CTA from 02/23/2020 FINDINGS: Bones: No compression fractures. Prior surgery at the T10 and T11 levels with laminectomies and patricia riki of the spinous processes. Degenerative disc changes at these levels with endplate osteophytes pr ojecting posteriorly into the canal. Associated calcifications seen posterior to the T11 vertebral b torrey. Narrowing of the central canal is present at these levels. Calcifications also seen posterior to the T12 vertebral body. Degenerative disc changes with osteophytes project posteriorly at T12-L1. Degenerative disc changes with endplate osteophytes projecting posterior also seen at L1-2 and L2-3 . Bilateral neural foraminal narrowing is noted from T 10 11 through L2-3. Incidental anomalies of the right 1st and 2nd ribs. Mild upper thoracic scoliosis. Soft tissues: The soft tissues of the chest are unremarkable. Heart size is normal. The minimal sandra nary artery calcifications. The lungs are clear. Large quantity of stool noted. IMPRESSION: Postsurgical changes at T10 and T11. Degenerative disc changes with endplate osteophytes projecting posteriorly into the central canal from T10-11 through L2-3, causing central canal stenosis and neura l foraminal narrowing. Calcification noted posterior to the vertebral bodies at T 11 and T12. RADIATION DOSE DELIVERED: 883.85mGy.cm Total DLP DATA REPOSITORY: All CT scans at this facility are submitted to the National Radiology Data Registry (NRDR) Dose Index Registry (DIR) with the [employer] (A[employer]). RADIATION OPTIMIZATION: All CT scans at this facility use at least one of these dose optimization te chniques: automated exposure control; mA and/or kV adjustment per patient size (includes targeted exa ms where dose is matched to clinical indication); or iterative reconstruction.
== END 2022-07-27 02:48 ==
PROVIDERS: PCP Nurse Practitioner Family; Visit Provider Neurological Surgery
DX: M51.84 Other intervertebral disc disorders, thoracic region (principal)
CPT/HCPCS: 72128

== ENCOUNTER 2022-09-10 12:52 | Observation (INO) | payer MEDICARE, MEDICAID, SELFPAY ==
[2022-09-10 12:53] VITALS: BP 108/60; PULSE 90; RESP 14; TEMP 36.9; O2SAT 98
--- NOTE | 2022-09-10 13:00 | DI.CT_ITS ---
Exam(s) CT THORACIC LUMBAR SPINE WO EXAM: CT THORACIC LUMBAR SPINE WO CLINICAL HISTORY: trauma. TECHNIQUE: Imaging Protocol: Axial computed tomography images with coronal and sagittal reformatted images were created and reviewed. COMPARISON: CT CT THORAX ABD/PEL CTA from 02/23/[address] THORACIC SPINE WO from 07/27/2022 FINDINGS: The patient has undergone posterior spinal surgery from T9 through L1. Postsurgical changes are seen in the soft tissues with edema and air present. Skin tatiana are seen in the midline of the back. Bones: No fractures or dislocations are seen. The alignment of the spine is normal including the cerv icothoracic junction and the thoracolumbar junction. Degenerative changes are present throughout the thoracic and lumbar spine. Findings include disc space narrowing and endplate osteophytes. Facet a rthropathy is seen in the lower lumbar spine. Soft tissues: There is a calcified granuloma in the left upper lobe. Multifocal opacities are seen i n the right upper lobe and right lower lobe suspicious for pneumonia. The visualized left lung is cl ear. No large disk herniations are identified. IMPRESSION: 1. No acute fracture or subluxation in the thoracic or lumbar spine. 2. Interval recent postoperative changes seen in the thoracic and lumbar spine with interval posterio r fusion from T9 through L1. Skin tatiana are still present. 3. Multilevel degenerative changes in the thoracic and lumbar spine. 4. Airspace opacities in the right upper and right lower lobe suspicious for pneumonia. RADIATION DOSE DELIVERED: 1,255.32mGy.cm Total DLP DATA REPOSITORY: All CT scans at this facility are submitted to the National Radiology Data Registry (NRDR) Dose Index Registry (DIR) with the [employer] (ACR). RADIATION OPTIMIZATION: All CT scans at this facility use at least one of these dose optimization te chniques: automated exposure control; mA and/or kV adjustment per patient size (includes targeted exa ms where dose is matched to clinical indication); or iterative reconstruction.
--- NOTE | 2022-09-10 13:00 | DI.CT_ITS ---
Exam(s) CT HEAD CERVICAL SPINE WO EXAM: CT HEAD CERVICAL SPINE WO CLINICAL HISTORY: trauma. TECHNIQUE: Imaging Protocol: Axial computed tomography images with coronal and sagittal reformatted images were created and reviewed COMPARISON: CT CT HEAD WO from 09/24/2020 FINDINGS: CT Head: Ventricles and Extra axial spaces: Normal in size and morphology for the patient's age. Hemorrhage: None. Cerebral parenchyma: No acute territorial infarct. There is a normal strong-white matter differentiati on. Midline shift: None. Brainstem/Cerebellum: Normal. Calvarium: Normal. Visualized Paranasal sinuses/Mastoids: Clear. Soft Tissues: There is soft tissue swelling overlying the left frontal bone. CT Cervical Spine: Bones: No acute fracture or subluxation. There are degenerative changes throughout the cervical spine . The findings do result in multilevel central spinal canal and neural foraminal stenosis. Soft Tissues: Unremarkable. Lung Apices: There is a calcified granuloma in the left upper lobe. IMPRESSION: 1. No acute intracranial process. 2. No acute fracture or subluxation in the cervical spine. 3. There is mild soft tissue swelling overlying the left frontal bone. RADIATION DOSE DELIVERED: 1,671.85mGy.cm Total DLP DATA REPOSITORY: All CT scans at this facility are submitted to the National Radiology Data Registry (NRDR) Dose Index Registry (DIR) with the [employer] (ACR). RADIATION OPTIMIZATION: All CT scans at this facility use at least one of these dose optimization te chniques: automated exposure control; mA and/or kV adjustment per patient size (includes targeted exa ms where dose is matched to clinical indication); or iterative reconstruction.
--- NOTE | 2022-09-10 13:10 | DI.RAD_ITS ---
Exam(s) XR CHEST 1V IN DI DEPT EXAM: XR CHEST 1V IN DI DEPT CLINICAL HISTORY: trauma TECHNIQUE: 2D digital imaging was performed of the chest. One image was obtained. An AP view was ob tained. COMPARISON: CR,XR XR CHEST 2V PA LATERAL from 01/31/2020 FINDINGS: MEDIASTINUM: Normal. HEART: Normal. PULMONARY VASCULATURE: Normal. LUNGS: Question of a nodular density just above the diaphragm in the mid right lung base. The left l terrell appears clear. PLEURAL SPACE: No pleural effusion or pneumothorax. BONE:Within normal limits for the patient's age. Since the prior examination the patient has undergon e small spinal so surgery with rods in the lower thoracic spine. Midline skin tatiana are present. OTHER FINDINGS:Normal. IMPRESSION: 1. Nodule or infiltrate in the right lung base. Please refer to the CT scan of the spine performed t he same day. 2. Interval thoracic spine surgery. DATA REPOSITORY: RADIATION DOSE DELIVERED:
--- NOTE | 2022-09-10 13:10 | DI.RAD_ITS ---
Exam(s) XR SHOULDER LT COMPLETE 2+V EXAM: XR SHOULDER LT COMPLETE 2+V CLINICAL HISTORY: trauma. TECHNIQUE: 2D digital imaging was performed of the left shoulder. Four images were obtained. AP, G rashey, Y-view and axillary views were obtained. COMPARISON: CR,XR XR SHOULDER LT COMPLETE 2+V from 08/04/2019 FINDINGS: BONES: No acute fracture is present. No bony destructive lesion is seen. There is an orthopedic ancho r in the humeral head. JOINTS: No dislocation present. Degenerative changes are seen at the glenohumeral joint. SOFT TISSUE: Soft tissue calcifications are again seen adjacent to the humeral head suggesting calcif ic tendinitis. IMPRESSION: No acute fracture or dislocation. DATA REPOSITORY: RADIATION DOSE DELIVERED:
--- NOTE | 2022-09-10 13:10 | DI.RAD_ITS ---
Exam(s) XR SHOULDER RT COMPLETE 2+V EXAM: XR SHOULDER RT COMPLETE 2+V CLINICAL HISTORY: trauma. TECHNIQUE: 2D digital imaging was performed of the right shoulder. Four images were obtained. AP, Grashey, Y-view and axillary views were obtained. COMPARISON: CR,XR XR SHOULDER RT COMPLETE 2+V from 08/04/2019 FINDINGS: BONES: No acute fracture is present. No bony destructive lesion is seen. The humeral head appears sup eriorly located relative to the glenoid which can be seen with chronic rotator cuff tear. JOINTS: No dislocation present. There are degenerative changes seen at both the glenohumeral and acro mioclavicular joint characterized by joint space narrowing and bony hypertrophy. SOFT TISSUE: Thoracic spinal rods are incompletely imaged. Skin tatiana are seen in the midline of t he chest. IMPRESSION: No acute fracture or dislocation. DATA REPOSITORY: RADIATION DOSE DELIVERED:
--- NOTE | 2022-09-10 13:14 | ED.GENADUL_ITS ---
Discharge Plan Disposition Patient Disposition: Admit to [facility] Condition: Good Discharge Details Chief Complaint: Fall/Non TraumaCriteria Clinical Impression: Back pain, Fall, Weakness, Physical deconditioning, Recent major surgery Primary Care Provider: Rui Perez ED Provider: Blane Wolfe Home Meds and New Rx's Prescriptions: No Action clonazepam 2 mg tablet 2 mg PO DAILY PRN (Reason: anxiety) bupropion HCl 300 mg tablet extended release 24 hr 450 mg PO QAM Patient Comments: states he takes 450mg due to being in severe depression Rx Instructions: RX by psychiatrist aripiprazole [Abilify] 5 mg tablet 5 mg PO DAILY Qty: 1 0RF Rx Instructions: RX'd at [facility] apixaban 5 mg tablet 5 mg PO BID Qty: 60 3RF gabapentin 800 mg tablet 1,600 mg PO BID Qty: 120 3RF methylphenidate HCl 20 mg tablet 30 mg PO DAILY MDD 20 Qty: 1 0RF Rx Instructions: [facility] This is a 67-year-old gentleman history of DVT previous DVT on Eliquis, alcohol use disorder in remission, depression/OCD on Abilify, recent back surgery at [facility] on 09/01/2022 with?T10-T11 transpedicular discectomy, T12-L1 laminectomy, T9-L1 posterior instrumentation and discharged yesterday from [facility] is now presenting after fall. Gives a good story for mechanical fall. Likely secondary to the weakness he has been experiencing for some time. Doubt medical cause of the patient's fall but will check a CBC to look for anemia and will check broad labs look for electrolyte or metabolic derangements given his recent long hospitalization. Doubt other causes of the patient's fall. He has multiple complaints from the fall. Recent back surgery and has worsening thoracic and lumbar spine pain. Could have just exacerbated the chronic pain there from the surgery but cannot rule out fracture so we will get CT thoracic and lumbar spine to evaluate for fracture. Fell and is on blood thinners and, although he does not think he hit his head, we will get CT head and cervical spine. Pain with range of motion of the shoulders and suspect rotator cuff sprains but will get plain films to evaluate for fracture. No chest pain or shortness of breath or signs of thoracic trauma but will get plain film chest to screen for thoracic trauma. Will provide some analgesia while awaiting initial testing and reevaluate. Medical Records Medical records reviewed: Yes I reviewed the patient's medical records. Imaging Data Radiologic Study: Attestation: I personally reviewed and interpreted this imaging study as follows: Imaging: CT Scan (head and cervical spine) Radiologist's impression: Unremarkable Radiologic Study #2: Attestation: I personally reviewed and interpreted this imaging study as follows: Imaging: CT Scan (ct thoracic and lumbar spine) Radiologist's impression: IMPRESSION: 1. No acute fracture or subluxation in the thoracic or lumbar spine.? 2. Interval recent postoperative changes seen in the thoracic and lumbar spine with interval posterior fusion from T9 through L1.? Skin tatiana are still present. 3. Multilevel degenerative changes in the thoracic and lumbar spine. 4. Airspace opacities in the right upper and right lower lobe suspicious for pneumonia. Radiologic Study #3: Imaging: X-Ray (chest) Radiologist's impression: IMPRESSION: 1. Nodule or infiltrate in the right lung base.? Please refer to the CT scan of the spine performed the same day. 2. Interval thoracic spine surgery.? Radiologic Study #4: Attestation: I personally reviewed and interpreted this imaging study as follows: Imaging: X-Ray (bilateral shoulders) Radiologist's impression: IMPRESSION: No acute fracture or dislocation.? Lab Data Lab results reviewed: Yes I reviewed the patient's lab results. Labs: Labs grossly unremarkable HPI General Date/Time Provider Initiated Documentation: 09/10/22 12:57 . Limitations to Documentation: no limitations . Information obtained by: patient . HPI Narrative: This is a 67-year-old gentleman history of DVT previous DVT on Eliquis, alcohol use disorder in remission, depression/OCD on Abilify, recent back surgery at [facility] on 09/01/2022 with?T10-T11 transpedicular discectomy, T12-L1 laminectomy, T9-L1 posterior instrumentation and discharged yesterday from [facility] is now presenting after fall. Says he has been feeling very weak since his surgery. He has lower extremity weakness consistent since before his surgery and even after his surgery just a week or so ago. He was discharged yesterday to his home and uses a walker to get around. Says he was using his walker in the kitchen and reaching for some coffee when he fell and landed on his right side. Now complaining of bilateral shoulder pain and back pain. Denies any hit head or loss of consciousness. Denies any symptoms before the fall. No bowel or bladder incontinence or retention. No saddle anesthesia. He is reporting bilateral lower extremity numbness and tingling which he says has been there since before his surgery and has been persistent even since the surgery. He has left greater than right bilateral lower extremity weakness that he says has been there since before the surgery and has been persistent. He says this is why uses a walker. No fevers or chills. Says he was unable to get anyone to milk pickup driver any of his pain medications that were sent for him so he has not taken anything for pain. He denies any other complaints. No other preceding symptoms and said he did not have dizziness/lightheadedness, chest pain, shortness of breath, or syncope. Related Data Home Medications Medication Instructions Recorded Confirmed clonazepam 2 mg tablet 2 mg PO DAILY PRN anxiety 04/29/21 09/10/22 apixaban 5 mg tablet 5 mg PO BID #60 tabs 05/26/22 09/10/22 aripiprazole 5 mg tablet (Abilify) 5 mg PO DAILY #1 tab 05/26/22 09/10/22 bupropion HCl 300 mg 24 hr tablet, 450 mg PO QAM 05/26/22 09/10/22 extended release gabapentin 800 mg tablet 1,600 mg PO BID #120 tabs 05/26/22 09/10/22 methylphenidate HCl 20 mg tablet 30 mg PO DAILY #1 tab 08/24/22 09/10/22 Previous Rx's Medication Instructions Recorded apixaban 5 mg tablet 5 mg PO BID #60 tabs 05/26/22 aripiprazole 5 mg tablet (Abilify) 5 mg PO DAILY #1 tab 05/26/22 gabapentin 800 mg tablet 1,600 mg PO BID #120 tabs 05/26/22 methylphenidate HCl 20 mg tablet 30 mg PO DAILY #1 tab 08/24/22 Allergies Allergy/AdvReac Type Severity Reaction Status Date / Time fluoxetine HCl [From Prozac] AdvReac Severe Psychosis Verified 09/10/22 12:57 General Stated Complaint: Fall/Non TraumaCriteria KATI: 3 Review of Systems Constitutional Constitutional: Denies chills, Denies fever(s), Denies headache(s) and Reports weakness Eyes Eyes: Denies change in vision ENT Ears, Nose, Mouth, and Throat: Denies headache(s) and Denies odynophagia Cardiovascular Cardiovascular: Denies chest pain and Denies dyspnea Respiratory Respiratory: Denies dyspnea Gastrointestinal Gastrointestinal: Denies abdominal pain, Denies diarrhea, Denies nausea, Denies odynophagia and Denies vomiting Genitourinary Genitourinary: Denies dysuria Musculoskeletal Musculoskeletal: Reports back pain, Denies myalgias, Reports numbness, Reports tingling and Reports other (bilateral shoulder pain. ) Comments: lower extremity numbness tingling and weakness that he says has not worsened since before surgery and after leaving the hospital. Integumentary/Breasts Skin/Breast: Denies changing lesions Neurologic Neurologic: Denies behavioral changes, Denies headache(s), Reports numbness, Reports tingling and Reports weakness Psychiatric Psychiatric: Denies behavioral changes Endocrine Endocrine: Denies heat intolerance Hematologic/Lymphatic Hematologic/Lymphatic: Denies lymphadenopathy PFSH All Active Problems (Updated 09/10/22 @ 17:20 by Blane Wolfe MD) Back pain (Acute) Fall (Acute) Weakness (Acute) Physical deconditioning (Acute) Recent major surgery (Acute) BPH (benign prostatic hyperplasia) (Chronic) Chronic anticoagulation (Acute) Swelling of left foot (Acute) Foreign body (FB) in soft tissue (Acute) In plantar area of right foot. Neurologic gait dysfunction (Chronic) Chronic pain of both lower extremities (Acute) Thoracic myelopathy (Acute) DVT (deep venous thrombosis) (Chronic) Lesion of right external auditory canal (Acute) Alcohol related disorder (Acute) Does not drink. Quit about 2020 Depression (Chronic) Obsessive-compulsive disorder, unspecified (Acute 05/07/16) followed by psychiatry [facility] Anxiety disorder (Chronic) Spinal stenosis of thoracic region (Chronic 05/07/16) -2017 T9-T12 decompression sx: [facility] Medical History Acetaminophen overdose Alcohol abuse Fracture of triquetral bone of wrist Male erectile dysfunction, unspecified (04/15/15) Urology eval. [employer] [facility] [place]/ borderline PSA value: f/up April 2016 Salicylate overdose (05/13/13) In attempt to kill oneself. Surgical History Appendectomy History of appendectomy [facility]AC[facility] Family History Mother Personal history of malignant neoplasm CERVICLE Father No problems noted. Brother No problems noted. Son No problems noted. Daughter Depression Daughter No problems noted. Daughter Depression Social History Smoking/Tobacco Use Status: Never Second Hand Exposure: Yes Smoking risk assessment performed?: Yes Alcohol Intake: former Drug use: Rarely Substance use type: painkillers Details: Pt reports has been sober from ETOH for 2 weeks now, states he binges and then stops. 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 Pets and animals: No Sexually active: No Do you think of yourself as: straight/heterosexual Current gender identity: male What is your relationship status?: How often do you talk on the phone with friends or family?: decline to answer How often do you get together with friends or relatives?: never How often do you attend rastafari or bahai services?: decline to answer Do you belong to any clubs or organized social groups?: no Panel score (0-1 are the most socially isolated patients): 0 What type of physical activity do you participate in: walking Special cruzito needs: No Seatbelt use: never Helmet use: No Drive intox or ride w/intox tow driver: No Do you feel safe at home: No (feels should be in rehab) Do you feel safe in your relationship?: Yes Exam Const General: cooperative Nutritional Appearance: average body habitus Orientation: alert, awake and oriented x3 HENMT Head: normal to inspection, normocephalic and atraumatic Ears: external ears normal Mouth: moist mucous membranes Eyes Pupils: PERRL EOM: EOM intact bilaterally and No nystagmus Neck Neck: full ROM, trachea midline, supple, nontender and no tracheal deviation Chest Chest: normal inspection of the chest, normal palpation of entire chest wall and no localized rib tenderness Resp Auscultation: clear to auscultation bilaterally Cardio Rate: regular rate Rhythm: regular rhythm GI Inspection: normal to inspection Palpation: soft, no guarding, not rigid and nontender Back/Spine/Pelvis Back: No no CVA tenderness Other: Well-healing surgical scars on the back. Tender throughout the thoracic and lumbar spine but no deformities or step-offs noted. Otherwise unremarkable spinal exam. Skin General skin exam: no rashes or lesions noted Neuro General: patient alert, patient awake and patient oriented x3 Cranial Nerves: CN's II-XI intact bilaterally, PERRL and no nystagmus Cognition: normal cognition Motor: muscle tone normal throughout and strength 5/5 throughout Sensory Exam: no sensory deficits noted Extrem General: normal to inspection Other: Tenderness to bilateral shoulders with pain with range of motion but no obvious deformities. No other signs of trauma to the bilateral upper extremities. Full range of motion of all other joints of the upper extremities and sensation and motor intact in the bilateral upper extremities with palpable radial and ulnar pulses bilaterally. 4-5 strength in bilateral lower extremities with hip flexion and knee extension. He says this is baseline for him. Sensation is intact but he is reporting numbness and tingling in the legs but he can still feel me touching his foot and legs. No other signs of trauma to the lower extremities and no tenderness. 2+ DP and PT pulses. Sensation and motor otherw ise intact in bilateral lower extremities. Course Reevaluation(s) Time: 17:16 Reevaluation: CT imaging and x-rays were all unremarkable. He had significant weakness and felt he could not walk. I reached out to [facility] neurosurgery and spoke to Dr. Jeane Mabry. She spoke to the patient directly over the phone. She thinks he is deconditioned from the surgery. He had elected to go home despite them recommending he go to subacute rehab. Patient now does want subacute rehab. I spoke to our child caregiver private home who recommended dialysis neurosurgery to admit at [facility]. [facility] refused the transfer and admission at this time. They recommended I admit here. Spoke to Kathy Dahl who agreed to admit the patient for [facility] level care. Will need physical therapy evaluation in the morning and disposition to likely rehab or [facility]. Patient is agreeab le to staying for this. Incidentally on the imaging there was concern for possible infiltrate or pneumonia. He has no cough or fever or hypoxemia so I do not think this represents pneumonia at this time. We will not administer antibiotics at this time. Consultations Consultation #1: Jeane Justice [facility] recommending no additional testing or transfer and is recommending admission here. Consultation #2: Spoke to Dr. Kathy Dahl who agreed to accept the patient here for [facility] level/rehab level care pending physical therapy and care management further evaluation and disposition. Vital Signs Vital signs: Vital Signs Temperature 36.9 C 09/10/22 12:53 Pulse 90 09/10/22 12:53 Respiratory Rate 14 09/10/22 12:53 Blood Pressure 108/60 09/10/22 12:53 Pulse Oximetry 98 09/10/22 12:53 Temperature 36.9 C 09/10/22 12:53 Temperature Source Oral 09/10/22 12:53 Pulse 90 09/10/22 12:53 Respiratory Rate 14 09/10/22 12:53 Respiratory Effort Normal, Non-Labored 09/10/22 12:59 Blood Pressure 108/60 09/10/22 12:53 Blood Pressure Position Supine 09/10/22 12:53 Pulse Oximetry 98 09/10/22 12:53 Oxygen Delivery Method Room Air 09/10/22 12:53 Oxygen Flow Rate 0 09/10/22 12:53 Pain Level 10 09/10/22 12:53
[2022-09-10 13:20] LABS: Abs Immature Grans 0.06 10^3/uL (0.0-0.06); Absolute Basophil Count 0.03 10^3/uL (0.0-0.2); Absolute Monocyte Count 1.07 10^3/uL (0.1-0.8); Basophils % 0.2; Eosinophils % 0.6; HCT 31.3 % (40.0-50.0); HGB 10.4 g/dL (13.5-17.5); Immature Grans % 0.4; Lymphocytes % 6.4; MCH 31.3 pg (27.0-33.0); MCHC 33.2 % (32.0-36.0); MCV 94 fL (80-95); MPV 9.1 fL (8.0-11.0); Monocytes % 7.6; Neutrophils % 84.8; Platelet Count 281 10^3/uL (130-400); RBC 3.32 10^6/uL (4.36-5.78); RDW 13.7 % (11.8-14.1); RDW-SD 47.1 fL; WBC 14.12 10^3/uL (4.4-10.8)
[2022-09-10] MEDS: oxyCODONE 5 MG TAB PO ×2 (13:23→21:11)
[2022-09-10 13:24] LABS: Absolute Eosinophil Count 0.08 10^3/uL (0.0-0.7); Absolute Neutrophil Count 11.97 10^3/uL (1.2-6.7)
[2022-09-10 13:35] LABS: ALT 55 U/L (16-63); AST 47 U/L (15-37); Albumin 3.3 g/dL (3.4-5.0); Alkaline Phosphatase 82 U/L (46-116); Anion Gap 8.8 mmol/L (3-11); BUN 18 mg/dL (7-18); Bilirubin, Total 0.7 mg/dL (0.2-1.0); CO2 29.2 mmol/L (21.0-32.0); Chloride 103 mmol/L (98-107); Estimated GFR 82.49 (mL/min/1.73m2); Glucose 85 mg/dL (74-106); Potassium 3.8 mmol/L (3.5-5.1); Sodium 141 mmol/L (136-145); Total Protein 7.3 g/dL (6.4-8.2)
--- NOTE | 2022-09-10 14:30 | DI.VRAD_ITS ---
PROCEDURE INFORMATION: Exam: CT Head Without Contrast Exam date and time: 09/10/2022 1:39 PM Age: 67 years old Clinical indication: Other: Falltrauma; Other: Fall, trauma TECHNIQUE: Imaging protocol: Computed tomography of the head without contrast. Radiation optimization: All CT scans at this facility use at least one of these dose optimization techniques: automated exposure control; mA and/or kV adjustment per patient size (includes targeted exams where dose is matched to clinical indication); or iterative reconstruction. COMPARISON: CT HEAD WO 09/24/2020 1:38 PM FINDINGS: Brain: Normal. No hemorrhage. Unremarkable white matter. No mass effect. Cerebral ventricles: No ventriculomegaly. Paranasal sinuses: Visualized sinuses are unremarkable. No fluid levels. Mastoid air cells: Visualized mastoid air cells are well aerated. Auditory system: Bilateral external auditory canal exostosis consisting of cortical bone and periosteum, located deeply within the external auditory canal and causing stenosis. Dental: There is odontogenic disease with periapical lucency in the right anterior maxillary alveolar ridge surrounding the right lateral incisor and right canine maxillary teeth. Bones/joints: No acute fracture. Soft tissues: There is small scalp hematoma overlying left anterior frontal bone. IMPRESSION: No acute intracranial abnormalities. PROCEDURE INFORMATION: Exam: CT Cervical Spine Without Contrast Exam date and time: 09/10/2022 1:39 PM Age: 67 years old Clinical indication: Other: Falltrauma; Other: Fall, trauma TECHNIQUE: Imaging protocol: Computed tomography of the cervical spine without contrast. Radiation optimization: All CT scans at this facility use at least one of these dose optimization techniques: automated exposure control; mA and/or kV adjustment per patient size (includes targeted exams where dose is matched to clinical indication); or iterative reconstruction. COMPARISON: CT HEAD CERVICAL SPINE WO 01/31/2020 11:46 AM FINDINGS: Bones/joints: There is no acute fracture or subluxation. Craniocervical junction is normal. There is normal alignment. Vertebral body heights are maintained. C2-C3: Mild osteophyte disc complex asymmetric to the left to severe. No spinal canal stenosis Mild to moderate left neural foraminal stenosis due to uncovertebral osteophyte. C3-C4: Osteophyte disc complex with moderate spinal canal stenosis. Moderate bilateral neural foraminal stenosis due to uncovertebral osteophyte and facet arthropathy. C4-C5: Osteophyte disc complex with moderate spinal canal stenosis. Uncovertebral osteophytes and facet hypertrophic changes cause moderate to severe bilateral neural foraminal stenosis. C5-C6: Osteophyte disc complex with mild to moderate spinal canal stenosis. Severe right neural foraminal stenosis due to uncovertebral osteophyte and facet hypertrophy. There is moderate to severe left neural foraminal stenosis due to uncovertebral osteophyte and mild left facet hypertrophic changes. C6-C7: Osteophyte disc complex with moderate spinal canal stenosis. Uncovertebral osteophytes cause severe left neural foraminal stenosis. There is mild right neural foraminal stenosis. Disc degenerative change with mild to moderate loss of disc height at C6-C7. C7-T1: No significant disc bulge or herniation. No severe spinal canal stenosis. No significant neural foraminal narrowing. Thyroid: There is focus calcification in the right lobe of the thyroid gland. Lungs: There is a 5 mm nodular density in the right apical upper lobe (458 series 10). There is pleuroparenchymal thickening in the bilateral apical lungs. There is calcified granuloma in the left apical lung. Soft tissues: Unremarkable. IMPRESSION: 1. No acute fracture or subluxation. 2. Disc degenerative changes and spondylosis. Dictated and Authenticated by: Karri Bocanegra MD. Ordering:ROBINSON Arguelles MD
--- NOTE | 2022-09-10 14:35 | DI.VRAD_ITS ---
PROCEDURE INFORMATION: Exam: CT Thoracic Spine Without Contrast Exam date and time: 09/10/2022 1:52 PM Age: 67 years old Clinical indication: Other: Fall, trauma, back pain TECHNIQUE: Imaging protocol: Computed tomography of the thoracic spine without contrast. COMPARISON: CT THORACIC SPINE WO 07/27/2022 10:08 AM FINDINGS: Bones/joints: Alignment is not significantly changed when compared with the patient's prior exam. As seen on the patient's prior examination, the patient has had prior laminectomy at T10-T11. New when compared with the patient's prior examination is posterior fusion and bilateral pedicle screw placement at T9,T10, T12, L1. Vertical connecting rods are noted. There is no evidence of hardware fracture or failure. The hardware appears intact. Also new when compared with the patient's prior examination is lucency involving the pedicles at T11 which may be related to recent, attempted pedicle screw placement and removal. Postoperative air is noted. There is also new air, likely extradural in location inferior to the left pedicle of T10. There is postsurgical change/bony defect involving the posterior endplates at T10-T11 . Evaluation is limited on CT examination but there is apparent residual narrowing of the canal at the T10-T11 disc space. There has been apparent interval foramina on a me and enlargement of the left neural foramen. There is persistent right foraminal stenosis at T10-T11. There is no evidence of an acute fracture in the thoracic spine. There is no decrease of vertebral body height. There is no new bony abnormality aside from the postoperative changes described above. Soft tissues: The exam was not specifically tailored to evaluate the lungs. There are however new patchy nodular airspace opacities in the right lower lobe. Findings likely represent pneumonia. No other new airspace consolidation identified. Subcutaneous edema, surgical tatiana are noted from recent surgery. No other significant soft tissue abnormality identified. IMPRESSION: 1. Postoperative changes in the thoracic spine, interval posterior fusion T9 through L1, apparent discectomy, left foraminotomy T10-T11. Lucency within the pedicles at T11 may be related to screw placement and removal. 2. Aside from postoperative changes as described , no new or acute bony findings 3. New patchy airspace opacities in the right lower lobe likely representing pneumonia 4. Evaluation is limited on CT but there is apparent residual narrowing of the canal at the T10-T11 disc space. If further evaluation is indicated, MR correlation might be useful PROCEDURE INFORMATION: Exam: CT Lumbar Spine Without Contrast Exam date and time: 09/10/2022 1:52 PM Age: 67 years old Clinical indication: Other: Fall, trauma, back pain TECHNIQUE: Imaging protocol: Computed tomography of the lumbar spine without contrast. COMPARISON: CT THORACIC SPINE WO 07/27/2022 10:08 AM comparison is made to abdomen and pelvic CT which is from 2019. FINDINGS: Bones/joints: Alignment is unchanged. Bony mineralization is within normal limits. As described above there are new pedicle screws noted in the lower thoracic spine also at L1. There is no evidence of an acute fracture in the lumbar spine. There is no decrease of vertebral body height. There is no acute or destructive bony abnormality. There is disc space narrowing in the lumbar spine most prominent at L4-L5, L5-S1. There are bulges spondylitic changes of the endplates, facet arthropathy. Inter spinous degenerative changes are noted. There is residual narrowing of the canal/stenosis at the level of the disc spaces. Degenerative changes also lead to foraminal stenosis which appears most prominent at L5-S1 right greater than left and likely affects the exiting 5th nerve roots. Soft tissues: The exam was not tailored to evaluate the retroperitoneal or paravertebral soft tissues. There is some subcutaneous edema noted dependently. No other new or acute findings identified. IMPRESSION: 1. Interval thoracolumbar fusion as described. No acute findings identified. 2. Lumbar spondylosis, degenerative disc disease with residual multilevel the spinal and foraminal stenosis. Dictated and Authenticated by: Samantha Tai MD. Ordering:ROBINSON Arguelles MD
--- NOTE | 2022-09-10 14:37 | DI.VRAD_ITS ---
PROCEDURE INFORMATION: Exam: XR Right Shoulder Exam date and time: 09/10/2022 2:02 PM Age: 67 years old Clinical indication: Other: Trauma, fall, pain TECHNIQUE: Imaging protocol: Radiologic exam of the right shoulder. Views: 2 or more views. COMPARISON: CR XR SHOULDER RT COMP POST REDUC 08/04/2019 11:30 PM FINDINGS: Bones/joints: Right humeral head is high-riding suggestive of chronic rotator cuff tear. Degenerative changes are seen at the glenohumeral articulation and at the right AC joint. There is no acute fracture or dislocation. Scapula, right upper ribs appear intact. Patient has had recent posterior thoracic fusion. Lungs: There are some nonspecific patchy airspace opacities in the right lung, also seen on CT and suspicious for pneumonia. Soft tissues: Soft tissues are unremarkable IMPRESSION: DJD. No acute fracture identified. Dictated and Authenticated by: Samantha Tai MD. Ordering:ROBINSON Arguelles MD
--- NOTE | 2022-09-10 14:39 | DI.VRAD_ITS ---
PROCEDURE INFORMATION: Exam: XR Chest Exam date and time: 09/10/2022 2:22 PM Age: 67 years old Clinical indication: Other: Trauma, fall, pain TECHNIQUE: Imaging protocol: Radiologic exam of the chest. Views: 1 view. COMPARISON: CR XR CHEST 2V PA LATERAL 01/31/2020 11:[address] dictated separately FINDINGS: Lungs: Ill-defined patchy airspace opacities right lower lobe better seen on CT suspicious for pneumonia Pleural spaces: Pleural effusion, pneumothorax is not seen Heart/Mediastinum: Heart, mediastinum are unchanged Bones/joints: Interval thoracolumbar fusion as described on CT examination. No acute bony abnormality identified. Degenerative changes in the shoulders. Prior left rotator cuff repair. IMPRESSION: Ill-defined patchy airspace opacities right lower lobe better seen on CT suspicious for pneumonia. Dictated and Authenticated by: Samantha Tai MD. Ordering:ROBINSON Arguelles MD
--- NOTE | 2022-09-10 14:41 | DI.VRAD_ITS ---
PROCEDURE INFORMATION: Exam: XR Left Shoulder Exam date and time: 09/10/2022 2:05 PM Age: 67 years old Clinical indication: Other: Trauma, fall, pain TECHNIQUE: Imaging protocol: Radiologic exam of the left shoulder. Views: 2 or more views. COMPARISON: CR XR SHOULDER LT COMPLETE 2+V 08/04/2019 10:40 PM FINDINGS: Bones/joints: Degenerative changes are seen at the glenohumeral articulation. The humeral head is high-riding suggestive of chronic rotator cuff tear. Patient has had prior left rotator cuff repair. Calcifications superior to the humeral head may be related to calcific tendinitis. There is degenerative change in the AC joint with mild widening. Scapula, upper ribs are intact. Soft tissues: Soft tissues are unremarkable IMPRESSION: Degenerative changes. No acute findings by plain film exam. Dictated and Authenticated by: Samantha Tai MD. Ordering:ROBINSON Arguelles MD
--- NOTE | 2022-09-10 16:38 | HPE_ITS ---
Date of service: 09/10/22 Time of Service: 16:38 Assessment and Plan Assessment and plan (1) Neurologic gait dysfunction: Status: Chronic Assessment and plan: with fall today, no serious injury. chronic, exacerbated by recent back surgery and hospitalization. physical therapy consult/discharge planning yesterday with recommendations for inpatient skilled rehab was declined by patient. patient will be observed here until safe discharge plan made as he can not be safely discharged to home. will place PT consult, maintain fall precautions, continue recommended pain management. walker at all times for gait safety and stability. care management consultation discussed with DR Dahl History of Present Illness History of Present Illness Chief Complaint: weakness Narrative: patient presented to ED for evaluation after mechanical fall at home today. He was discharged from [facility] [place] after back surgery. physical therapy made recommendations for ongoing inpatient skilled rehabilitation which patient declined. His work up in the ED shows no acute injury from his fall. He was given oxycodone 5 mg oral for pain management. of note, he hadn't picked up his oxycodone prescription from the pharmacy yet. his case, exam and imaging was discussed with neurosurgery at [facility] and exam consistent with hospitalization and discharge exam yesterday. There are no further imaging or workup recommendations at this time, he should keep routine outpatient follow up as previously arranged. patient now acknowledging and verbalizing he doesn't feel safe to discharge to home, hospitalist services contacted for lack of a safe discharge plan. He has been accepted and is being observed here for discharge planning. Review of Systems All systems reviewed & are unremarkable except as noted in HPI and below PFSH All Active Problems (Updated 09/11/22 @ 11:31 by Monica Andres NP) Discharge planning issues (Acute) Back pain (Acute) Fall (Acute) Weakness (Acute) Physical deconditioning (Acute) Recent major surgery (Acute) BPH (benign prostatic hyperplasia) (Chronic) Chronic anticoagulation (Acute) Swelling of left foot (Acute) Foreign body (FB) in soft tissue (Acute) In plantar area of right foot. Neurologic gait dysfunction (Chronic) Chronic pain of both lower extremities (Acute) Thoracic myelopathy (Acute) DVT (deep venous thrombosis) (Chronic) Lesion of right external auditory canal (Acute) Alcohol related disorder (Acute) Does not drink. Quit about 2020 Depression (Chronic) Obsessive-compulsive disorder, unspecified (Chronic 05/07/16) followed by psychiatry [facility] Anxiety disorder (Chronic) Spinal stenosis of thoracic region (Chronic 05/07/16) T9-T12 decompression sx: [facility] Medical History Acetaminophen overdose Alcohol abuse Fracture of triquetral bone of wrist Male erectile dysfunction, unspecified (04/15/15) Urology eval. [facility] [place]/ borderline PSA value: f/up April 2016 Salicylate overdose (05/13/13) In attempt to kill oneself. Surgical History Appendectomy History of appendectomy [facility] Family History Mother Personal history of malignant neoplasm CERVICLE Father No problems noted. Brother No problems noted. Son No problems noted. Daughter Depression Daughter No problems noted. Daughter Depression Social History Smoking/Tobacco Use Status: Never Second Hand Exposure: Yes Smoking risk assessment performed?: Yes Alcohol Intake: former Drug use: Rarely Substance use type: painkillers Details: Pt reports has been sober from ETOH for 2 weeks now, states he binges and then stops. 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 Pets and animals: No Sexually active: No Do you think of yourself as: straight/heterosexual Current gender identity: male What is your relationship status?: How often do you talk on the phone with friends or family?: decline to answer How often do you get together with friends or relatives?: never How often do you attend faith or faith services?: decline to answer Do you belong to any clubs or organized social groups?: no Panel score (0-1 are the most socially isolated patients): 0 What type of physical activity do you participate in: walking Special cruzito needs: No Seatbelt use: never Helmet use: No Drive intox or ride w/intox 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: No Do you feel safe at home: No (feels should be in rehab) Do you feel safe in your relationship?: Yes Meds Allergies and Home Medications Allergies Allergy/AdvReac Type Severity Reaction Status Date / Time fluoxetine HCl [From Prozac] AdvReac Severe Psychosis Verified 09/10/22 12:57 Home Medications Medication Instructions Recorded Confirmed Type clonazepam 2 mg tablet 2 mg PO DIRECTED 04/29/21 09/11/22 History apixaban 5 mg tablet 5 mg PO BID #60 tabs 05/26/22 09/10/22 Rx bupropion HCl 300 mg 24 hr tablet, 450 mg PO QAM 05/26/22 09/10/22 History extended release gabapentin 800 mg tablet 1,600 mg PO BID #120 tabs 05/26/22 09/10/22 Rx methylphenidate HCl 20 mg tablet 30 mg PO DAILY #1 tab 08/24/22 09/10/22 Rx aripiprazole 2 mg tablet 2 mg PO DAILY 09/11/22 09/11/22 History aripiprazole 5 mg tablet 5 mg PO DAILY 09/11/22 09/11/22 History acetaminophen 325 mg tablet 650 mg PO QID #0 tabs 09/12/22 Rx lidocaine 5 % topical patch 2 patch topical Q24H #15 ea 09/12/22 Rx oxycodone 5 mg tablet 5 - 10 mg PO Q6H PRN PRN #12 tabs 09/12/22 Rx polyethylene glycol 3350 17 gram 17 g PO BID #0 ea 09/12/22 Rx oral powder packet tramadol 50 mg tablet 50 mg PO Q6H PRN PRN #10 tabs 09/12/22 Rx Exam Const General: cooperative Nutritional Appearance: average body habitus Orientation: alert, awake and oriented x3 HENOK Head: normal to inspection, normocephalic and atraumatic Mouth: moist mucous membranes Eyes EOM: EOM intact bilaterally Neck Neck: full ROM and nontender Chest Chest: normal inspection of the chest Resp Auscultation: clear to auscultation bilaterally Cardio Rate: regular rate Rhythm: regular rhythm GI Inspection: normal to inspection Palpation: soft, no guarding and nontender Back/Spine/Pelvis Back: No no CVA tenderness Other: Well-healing surgical scars on the back. Tender throughout the thoracic and lumbar spine but no deformities or step-offs noted. Otherwise unremarkable spinal exam. Skin General skin exam: no rashes or lesions noted Neuro General: patient alert, patient awake and patient oriented x3 Cranial Nerves: PERRL Cognition: normal cognition Psych Mental Status: mental status grossly normal Speech and Movement: speech and movement normal Mood: congruent mood Affect: normal affect Results Labs 09/11/22 08:35 09/12/22 06:38 Labs: Laboratory Results - last 24 hr 09/10/22 09/10/22 12:55 12:55 WBC 14.12 H RBC 3.32 L Hgb 10.4 L Hct 31.3 L MCV 94 MCH 31.3 MCHC 33.2 RDW 13.7 Plt Count 281 MPV 9.1 Immature Gran % 0.4 Neutrophils % 84.8 Lymphocytes % 6.4 Monocytes % 7.6 Eosinophils % 0.6 Basophils % 0.2 Nucleated RBC % 0.0 Absolute Neutrophils 11.97 H Absolute Lymphocytes 0.90 L Absolute Monocytes 1.07 H Absolute Eosinophils 0.08 Absolute Basophils 0.03 Sodium 141 Potassium 3.8 Chloride 103 Carbon Dioxide 29.2 Anion Gap 8.8 BUN 18 Creatinine 1.0 Est GFR (CKD-EPI 2020) 82.49 Glucose 85 Calcium 9.0 Total Bilirubin 0.7 AST 47 H ALT 55 Alkaline Phosphatase 82 Total Protein 7.3 Albumin 3.3 L Last Vital Signs Temp 36.9 C 09/10/22 12:53 Pulse 90 09/10/22 12:53 Resp 14 09/10/22 12:53 BP 108/60 09/10/22 12:53 Pulse Ox 98 09/10/22 12:53 Time Spent Time spent with Patient: 40-54 minutes Time was spent: preparing to see the patient(eg.review tests), obtaining and/or reviewing separately otained hiistory, referring, communicating with other health field care advocate and care coordination
[2022-09-10 17:29] VITALS: BP 102/61; PULSE 81; RESP 18; TEMP 37; O2SAT 98
[2022-09-10 17:40] VITALS: BP 102/61; PULSE 81; RESP 18; TEMP 37; O2SAT 98
[2022-09-11] MEDS: Normal Saline Flush 10 ML SYR IVP (00:48)
[2022-09-11] MEDS: oxyCODONE 5 MG TAB PO ×3 (00:54→18:36)
[2022-09-11 08:00] VITALS: O2SAT 96
[2022-09-11 08:11] VITALS: BP 108/65; PULSE 71; RESP 16; TEMP 36.7; O2SAT 98
[2022-09-11] MEDS: Methylphenidate 10 MG TAB 30 MG PO (08:35)
[2022-09-11] MEDS: buPROPion-XL 150 MG TABCR 450 MG PO (08:35)
[2022-09-11] MEDS: clonazePAM 1 MG TAB 2 MG PO (08:35)
[2022-09-11] MEDS: Apixaban 5 MG TAB PO ×2 (08:35→20:12)
[2022-09-11] MEDS: Polyethylene Glycol 3350 17 GM PACKET PO ×2 (08:36→20:13)
[2022-09-11 08:46] LABS: Abs Immature Grans 0.04 10^3/uL (0.0-0.06); Absolute Basophil Count 0.03 10^3/uL (0.0-0.2); Absolute Eosinophil Count 0.23 10^3/uL (0.0-0.7); Absolute Lymphocyte Count 1.89 10^3/uL (1.2-3.4); Absolute Monocyte Count 1.03 10^3/uL (0.1-0.8); Absolute Neutrophil Count 6.28 10^3/uL (1.2-6.7); Basophils % 0.3; Eosinophils % 2.4; HCT 28.9 % (40.0-50.0); HGB 9.6 g/dL (13.5-17.5); Immature Grans % 0.4; Lymphocytes % 19.9; MCH 31.4 pg (27.0-33.0); MCHC 33.2 % (32.0-36.0); MCV 94 fL (80-95); MPV 9.1 fL (8.0-11.0); Monocytes % 10.8; Neutrophils % 66.2; Platelet Count 290 10^3/uL (130-400); RBC 3.06 10^6/uL (4.36-5.78); RDW 13.5 % (11.8-14.1); RDW-SD 47.2 fL
[2022-09-11] MEDS: Gabapentin 800 MG TAB 1600 MG PO ×2 (08:54→20:13)
[2022-09-11 09:04] LABS: Anion Gap 6.4 mmol/L (3-11); BUN 21 mg/dL (7-18); C-Reactive Protein 13.07 mg/dL (0.0-0.3); CO2 29.6 mmol/L (21.0-32.0); Calcium 8.7 mg/dL (8.5-10.1); Chloride 102 mmol/L (98-107); Creatine Kinase 728 U/L (39-308); Estimated GFR 82.49 (mL/min/1.73m2); Glucose 81 mg/dL (74-106); Magnesium 2.2 mg/dL (1.8-2.4); Sodium 138 mmol/L (136-145)
[2022-09-11 09:21] LABS: Procalcitonin < 0.1 ng/mL
--- NOTE | 2022-09-11 11:20 | PGE_ITS ---
Date of Service Date of service: 09/11/22 Time of Service: 11:20 Assessment and Plan Assessment and plan (1) Neurologic gait dysfunction: Status: Chronic Assessment and plan: with fall today, no serious injury. chronic, exacerbated by recent back surgery and hospitalization. physical therapy consult/discharge planning yesterday with recommendations for inpatient skilled rehab was declined by patient. patient will be observed here until safe discharge plan made as he can not be safely discharged to home. will place PT consult, maintain fall precautions, continue recommended pain management. walker at all times for gait safety and stability. care management consultation (2) BPH (benign prostatic hyperplasia): Status: Chronic (3) Obsessive-compulsive disorder, unspecified: Status: Chronic Assessment and plan: stable, will continue home medications (4) Discharge planning issues: Status: Acute Assessment and plan: discussed with DR Dahl Subjective Subjective Patient reports: no new complaints, tolerating liquids well, tolerating a regular diet and afebrile Exam Const General: cooperative Nutritional Appearance: average body habitus Orientation: alert, awake and oriented x3 HENMT Head: normal to inspection, normocephalic and atraumatic Ears: external ears normal Mouth: moist mucous membranes Eyes EOM: EOM intact bilaterally Neck Neck: full ROM and nontender Chest Chest: normal inspection of the chest Resp Auscultation: clear to auscultation bilaterally Cardio Rate: regular rate Rhythm: regular rhythm GI Inspection: normal to inspection Palpation: soft, no guarding and nontender Back/Spine/Pelvis Back: No no CVA tenderness Other: Well-healing surgical scars on the back. Tender throughout the thoracic and lumbar spine but no deformities or step-offs noted. Otherwise unremarkable spinal exam. Skin General skin exam: no rashes or lesions noted Neuro General: patient alert, patient awake and patient oriented x3 Cranial Nerves: CN's II-XI intact bilaterally and PERRL Cognition: normal cognition Psych Mental Status: mental status grossly normal Speech and Movement: speech and movement normal Mood: congruent mood Affect: normal affect Objective Last Vital Signs Temp 36.7 C 09/11/22 08:11 Pulse 71 09/11/22 08:11 Resp 16 09/11/22 08:11 BP 108/65 09/11/22 08:11 Pulse Ox 98 09/11/22 08:11 Laboratory Results - last 24 hr 09/10/22 09/10/22 09/11/22 12:55 12:55 08:35 WBC 14.12 H RBC 3.32 L Hgb 10.4 L Hct 31.3 L MCV 94 MCH 31.3 MCHC 33.2 RDW 13.7 Plt Count 281 MPV 9.1 Immature Gran % 0.4 Neutrophils % 84.8 Lymphocytes % 6.4 Monocytes % 7.6 Eosinophils % 0.6 Basophils % 0.2 Nucleated RBC % 0.0 Absolute Neutrophils 11.97 H Absolute Lymphocytes 0.90 L Absolute Monocytes 1.07 H Absolute Eosinophils 0.08 Absolute Basophils 0.03 Sodium 141 138 Potassium 3.8 4.0 Chloride 103 102 Carbon Dioxide 29.2 29.6 Anion Gap 8.8 6.4 BUN 18 21 H Creatinine 1.0 1.0 Est GFR (CKD-EPI 2020) 82.49 82.49 Glucose 85 81 Calcium 9.0 8.7 Magnesium 2.2 Total Bilirubin 0.7 AST 47 H ALT 55 Alkaline Phosphatase 82 Creatine Kinase 728 H C-Reactive Protein 13.07 H Total Protein 7.3 Albumin 3.3 L Procalcitonin 09/11/22 09/11/22 08:35 08:35 WBC 9.50 RBC 3.06 L Hgb 9.6 L Hct 28.9 L MCV 94 MCH 31.4 MCHC 33.2 RDW 13.5 Plt Count 290 MPV 9.1 Immature Gran % 0.4 Neutrophils % 66.2 Lymphocytes % 19.9 Monocytes % 10.8 Eosinophils % 2.4 Basophils % 0.3 Nucleated RBC % 0.0 Absolute Neutrophils 6.28 Absolute Lymphocytes 1.89 Absolute Monocytes 1.03 H Absolute Eosinophils 0.23 Absolute Basophils 0.03 Sodium Potassium Chloride Carbon Dioxide Anion Gap BUN Creatinine Est GFR (CKD-EPI 2020) Glucose Calcium Magnesium Total Bilirubin AST ALT Alkaline Phosphatase Creatine Kinase C-Reactive Protein Total Protein Albumin Procalcitonin < 0.1 Time Spent with Patient Time Spent with Patient: 35-49 minutes Time was spent: preparing to see the patient(eg.review tests), ordering medicati ons,tests, procedures, referring, communicating with other health insurance healthcare consultant and care coordination
--- NOTE | 2022-09-11 13:01 | IN_ITS ---
Date of service: 09/11/22 Time of Service: 10:02 PT Notes Visit Reasons: Bilateral Lower Extremity Weakness Physical Therapy Inpatient Initial Evaluation Date: 09/11/2022 Referring Doctor: Monica Andres NP PT Orders: PT CONSULT: Eval/Treat Precautions: Fall. Standard. Activity as tolerated. Patient Profile/Admitting Diagnosis: Casey is a 67-year-old male S/P T10-T11 transpedicular discectomy, T12-L1 laminectomy, and T9-L1 posterior instrumentation on 09/01/[address] [facility] He also recently had T9-T12 decompression on 05/2017 at [facility] admitted to the ED on 09/10/2022 due to a fall, worsening upper and low back pain, and increasing difficulty with walking. PMHX: All Active Problems?(Updated 09/10/22 @ 16:50 by Monica Andres NP) BPH (benign prostatic hyperplasia) (Chronic) Chronic anticoagulation (Acute) Swelling of left foot (Acute) Foreign body (FB) in soft tissue (Acute) In plantar area of right foot. Neurologic gait dysfunction (Chronic) Chronic pain of both lower extremities (Acute) Thoracic myelopathy (Acute) DVT (deep venous thrombosis) (Chronic) Lesion of right external auditory canal (Acute) Alcohol related disorder (Acute) Does not drink.? Quit about 2020 Depression (Chronic) Obsessive-compulsive disorder, unspecified (Acute 05/07/16) followed by psychiatry [facility] Anxiety disorder (Chronic) Spinal stenosis of thoracic region (Chronic 05/07/16) -2017 T9-T12 decompression sx: [facility] Medical History? Acetaminophen overdose Alcohol abuse Fracture of triquetral bone of wrist Male erectile dysfunction, unspecified (04/15/15) Urology eval. [employer] [facility] [place]/ borderline PSA value: f/up April 2016 Salicylate overdose (05/13/13) In attempt to kill oneself. Surgical History? Appendectomy History of appendectomy [facility] Social History/Home Situation: Lives alone in an apartment. uses a front-wheeled walker to mobilize inside his apartment. States that he will be getting meals on wheels when he goes home. Equipment Owned/DME: FWW Subjective: Casey stresses that he he did not refuse to go to an acute rehab while at [facility]. While there, he was told that nobody would take him and so instead of waiting at the hospital, he just decided to go home with HH PT/OT. He has had good experience in a SNF before when he had his first back surgery so he is okay with going to one for short-term rehab. Report 7/10 pain in the back with mobilization. He verbalizes that the walker he was using at home tipped on one side and that made him lose his balance. He was going to have HH PT come in to work with him before the fall. Objective: General Observation: Seated on bedside chair. 37 tatiana noted on back. Incision intact. Mental Status: Alert and oriented as to person, place, time, and purpose. Able to pay attention, focus, and respond appropriately. Pain: 7/10 in back with ambulation Vital Signs: Closely monitored by nursing staff ROM: Right Upper Extremity: Shoulder Flexion limited to about 90 degrees due to pain. Shoulder abduction limited to about 90 degrees due to pain. Elbow flexion WFL. Wrist flexion WFL. Functional opening and closing of hand WFL. Left Upper Extremity: Shoulder Flexion limited to about 90 degrees due to pain. Shoulder abduction limited to about 90 degrees due to pain. Elbow flexion WFL. Wrist flexion WFL. Functional opening and closing of hand WFL. Right Lower Extremity: Hip flexion lacks the last 25% of AROM due to weakness. Hip abduction lacks the last 25% of AROM due to weakness. Knee flexion WFL -30 to 90 degrees. Knee extension -30 degrees. Ankle dorsiflexion to neutral only. Ankle plantarflexion WFL. Left Lower Extremity: Hip flexion lacks the last 25% of AROM due to weakness. Hip abduction lacks the last 25% of AROM due to weakness. Knee flexion WFL -45 to 90 degrees. Knee extension -45 degrees. Ankle dorsiflexion to neutral only. Ankle plantarflexion WFL. Strength: Right Upper Extremity: Shoulder flexors 3-/5. Shoulder abductors 3-/5. Elbow flexors 4-/5. Elbow extensors 4-/5. Armor Reconnaissance Specialist strong. Left Upper Extremity: Shoulder flexors 3-/5. Shoulder abductors 3-/5. Elbow flexors 4-/5. Elbow extensors 4-/5. Armor Reconnaissance Specialist strong. Right Lower Extremity: Hip flexors 3-/5. Hip abductors 3-/5. Knee flexors 3-/5. Knee extensors 3-/5. Ankle dorsiflexors 3-/5. Ankle plantarflexors 4-/5. Left Lower Extremity: Hip flexors 3-/5. Hip abductors 3-/5. Knee flexors 3-/5. Knee extensors 3-/5. Ankle dorsiflexors 3-/5. Ankle plantarflexors 4-/5. Sensation: Reports numbness in the medial arches of his feet Bed Mobility/Transfers: Sit to stand with minimal assist Stand to sit with contact guard assist Bed to reclining chair contact guard assist Gait: Instructed patient with level surface ambulation of 30 feet + 30 feet requiring minimal assist. L foot drag more apparent than R. Steps discontinuous, step length/height asymmetric. Decreased hip and knee flexion in B sides with the L more affected than the R. Trunk flexion excessive but is able to straighten minimally when requested to stand up straight. Fatigues easy and trunk bedns forward as position of comfort and due to trunk extensor weakness. Moderate cues given to stay close to FWW-- step with the weaker L LE first, push down on the walker, and advance the R foot before moving the FWW forward so he does not lag behind and so his trunk flexion does not get excessive. Balance: Static Sitting: Good Dynamic Sitting: Fair Static Standing: Fair Dynamic Standing: Fair Special Tests: Mobility Limitations Standardized Measure [facility] AM-PAC 6 clicks Basic Mobility Inpatient Short Form: Raw Score: 18 CMS Score: 47% deficit Informed Consent/Education: Patient was instructed in purpose of PT consult and plan of care. Agreeable to proceed with established PT POC to achieve personal goals. Assessment: Previous back surgeries contributed to B LE weakness, balance issue, and falls. Patient demonstrates functional mobility decline, range of motion deficits, balance impairment, and generalized weakness and will require SNF palcement in order to facilitate achievement of highest functional mobility level in anticipation of discharge to home alone. Patient presents with clinical signs and symptoms consistent with current/admitting diagnoses that have resulted to mobility limitations, gait instability, generalized weakness, and overall ADL decline as demonstrated by the following impairment level findings: 1. Decreased strength to B UE/LE major muscle groups 2. Impaired sitting/standing balance 3. Impaired activity tolerance 4. Limitation of joint range of motion in B UE/LE joints as above 5. Pain in back Impairments are contributing to the following functional limitations: 1. Decline in bed mobility skills 2. Decline in transfer skills 3. Difficulty with ambulation without assistive device and physical assistance 4. Increased completion time for mobility ADL performance 5. Increased risk for falls 6. Difficulty with managing steps alone safely Patient is assessed as a [id number] moderate complexity based on the following: History: 67-year-old male with past medical history as indicated above Examination: Demonstrable impairment in strength, balance, and mobility level with underlying impairments and functional limitations as exhibited above as well as deficit score of 47% utilizing the [facility] Mobility Inpatient Short Form Presentation: Evolving Decision Makin moderate complexity Goals: Goals X1 week 1. Supine-Sit independent 2. Sit-Supine independent 3. Sit-Stand independent 4. Stand-Sit independent with FWW 5. Bed-Chair independent with FWW 6. Chair-Bed independent with FWW 7. Independent gait on level surface with use of FWW for at least 500 feet without report of pain nor dyspnea 8. Good static and dynamic standing balance/tolerance Plan of Care/Treatment Plan: 1-2x/day, 7 days/week x 1 week. Plan of care has been reviewed with the GRIEVANCE COORDINATOR providing the service under Physical Therapy direction. Pre-medicate for pain. Initiate Physical Therapy intervention for pain management as needed, strengthening, bed mobility, transfers, gait, stairs, balance training, and use of assistive device. DISCHARGE RECOMMENDATIONS: [] Home with no services [] [] Home with services [specify] [] Home with outpatient PT [] [X] SNF for continued rehabilitation. Patient will benefit from home health PT services in order to progress mobility level using least restrictive assistive ambulatory device, assess home safety, identify additional equipment needs, and establish a functional maintenance program that will increase ability of patient to remain at home. [] Half-Way Care [] [] SNF versus LTC based on ability to participate and progress [] TREATMENT CODE/TIME: 29717 x 20 minutes, 26691 x 16 minutes beginning at 10:02 AM. Thank you for the opportunity to participate in the care of this patient. Shantelle Nieves PT, DPT, CLT [facility] [place], [place]
--- NOTE | 2022-09-11 14:12 | NUR.NOTE ---
Patients face presents with red & flaky skin. Has C/O burning & itching post shaving. treasurer notified. No further orders given ATT. Will continue to monitor. Nursing Note:
[2022-09-11 14:57] VITALS: BP 104/63; PULSE 69; RESP 16; TEMP 36.6; O2SAT 98
--- NOTE | 2022-09-11 17:06 | PT.INTREAT ---
Date of service: 09/11/22 Time of Service: 16:25 PT Notes Visit Reasons: Bilateral Lower Extremity Weakness Inpatient Physical Therapy Treatment Note [facility] Date: 09/11/22 PRECAUTIONS: Fall, standard, activity as tolerated. SUBJECTIVE: Patient supine in bed, sleeping but rouses easily, very agreeable to therapy. OBJECTIVE: PAIN: None reported, however patient does report arm strain from walker, as well as states he can feel the tatiana pulling with every step and that turning makes [his] ribs hurt. BED MOBILITY/TRANSFERS Rolling L/R: independent, requires additional time Supine-sit: independent, requires additional time Sit-supine: independent, requires additional time Sit-stand: contact guard Stand-sit: contact guard Bed-Chair: contact guard Chair-bed: contact guard GAIT Assistive Device: front wheeled walker Weight bearing: full Assist: contact guard Distance: 220 feet Deviation: extremely slow shabbir, decreased step length L>R, decreased step height, kyphotic posture, loss of balance x1 ASSESSMENT: Patient tolerates therapy well, chooses to sit up in chair at end of therapy, call shaw and dinner within reach PLAN: Continue strengthening per plan of care until patient obtains placement at an acute rehab or long term facility. TREATMENT CODE/TIME: 27895 Gait 35 minutes beginning at 4:25
--- NOTE | 2022-09-11 17:32 | PDOC.CMIN ---
Date of service: 09/11/22 Time of Service: 17:32 Care Management Initial Assmt Initial Assessment REASON FOR HOSPITALIZATION:: Neurological Gait Dysfunction PREVIOUS FUNCTIONAL STATUS/SOCIAL/FAMILY SUPPORTS:: Casey lives in [place], [facility]. He has four children who all live out of the area, as well as a brother, who is also out of the area. 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 Per chart review, he has struggled with mobility concerns for years, although he has lived alone and has been independent with his ADL's. CURRENT FUNCTIONAL STATUS:: August was lying in bed when CM met with him. He discussed his stay at [facility] [place] [place], and stated that he was not offered to go to rehab, and that he felt that he was walking better when he was discharged (he stated that he did not leave AMA). He reported that he is agreeable to going to rehab, and has been to an acute rehab in the past, which he found was very beneficial. CM faxed referrals to [facility], [facility], [facility], [facility], [facility], [facility], [place], [facility], [facility], and [facility]. August expressed understanding of the possibility that he may not be able to remain in the geographic area in order to go to a SNF. CM will continue to follow. ADVANCE DIRECTIVES:: On file, French Baker (brother) listed as agent. Has patient been provided with info about the portal/API?: Yes Did the patient sign up for the portal?: Yes CODE STATUS:: Full Code INSURANCE COVERAGE / FINANCIAL ISSUES:: HELENE/ VIC CURRENT HOME/COMMUNITY SERVICES/EQUIPMENT:: [facility] PRIMARY CARE PHYSICIAN:: Rui Perez POTENTIAL DISCHARGE NEEDS:: SNF placement, follow up appointments. PATIENT/FAMILY EDUCATION NEEDS:: Review discharge instructions and limitations, discussion of self care needs including ask me three. ANTICIPATED BARRIERS TO DISCHARGE:: SNF availability; mobility limitations that prevent August from being independent at home. TRANSPORTATION:: Private vehicle vs w/c van, depending on mobility at time of discharge. PLAN:: Anticipate August will transfer to a SNF vs return home with new services once medically cleared. He will likely transport via [facility] private vehicle vs w/c van. He will follow up with his PCP and discharge plan of care. CM will continue to follow. PFSH All Active Problems (Updated 09/11/22 @ 11:31 by Monica Andres NP) Discharge planning issues (Acute) Back pain (Acute) Fall (Acute) Weakness (Acute) Physical deconditioning (Acute) Recent major surgery (Acute) BPH (benign prostatic hyperplasia) (Chronic) Chronic anticoagulation (Acute) Swelling of left foot (Acute) Foreign body (FB) in soft tissue (Acute) In plantar area of right foot. Neurologic gait dysfunction (Chronic) Chronic pain of both lower extremities (Acute) Thoracic myelopathy (Acute) DVT (deep venous thrombosis) (Chronic) Lesion of right external auditory canal (Acute) Alcohol related disorder (Acute) Does not drink. Quit about 2020 Depression (Chronic) Obsessive-compulsive disorder, unspecified (Chronic 05/07/16) followed by psychiatry [facility] Anxiety disorder (Chronic) Spinal stenosis of thoracic region (Chronic 05/07/16) T9-T12 decompression sx: [facility] Medical History Acetaminophen overdose Alcohol abuse Fracture of triquetral bone of wrist Male erectile dysfunction, unspecified (04/15/15) Urology eval. [facility] [place]/ borderline PSA value: f/up April 2016 Salicylate overdose (05/13/13) In attempt to kill oneself. Surgical History Appendectomy History of appendectomy SPINAL SURGERY THORACIC REGION Family History Mother Personal history of malignant neoplasm CERVICLE Father No problems noted. Brother No problems noted. Son No problems noted. Daughter Depression Daughter No problems noted. Daughter Depression Social History Smoking/Tobacco Use Status: Never Second Hand Exposure: Yes Smoking risk assessment performed?: Yes Alcohol Intake: former Drug use: Rarely Substance use type: painkillers Details: Pt reports has been sober from ETOH for 2 weeks now, states he binges and then stops. 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 Pets and animals: No Sexually active: No Do you think of yourself as: straight/heterosexual Current gender identity: male What is your relationship status?: How often do you talk on the phone with friends or family?: decline to answer How often do you get together with friends or relatives?: never How often do you attend confucianist or baptism services?: decline to answer Do you belong to any clubs or organized social groups?: no Panel score (0-1 are the most socially isolated patients): 0 What type of physical activity do you participate in: walking Special cruzito needs: No Seatbelt use: never Helmet use: No Drive intox or ride w/intox roll off driver: No Do you feel safe at home: No (feels should be in rehab) Do you feel safe in your relationship?: Yes
[2022-09-11] MEDS: Lidocaine 5% Patch 2 PATCH TP (18:37)
[2022-09-11] MEDS: clonazePAM 0.5 MG TAB PO (20:12)
[2022-09-11] MEDS: Acetaminophen 325 MG TAB 650 MG PO (20:12)
[2022-09-11] MEDS: traMADol 50 MG TAB PO (23:59)
[2022-09-12] MEDS: Normal Saline Flush 10 ML SYR IVP (05:43)
[2022-09-12 06:01] VITALS: BP 97/60; PULSE 61; RESP 16; TEMP 35.6; O2SAT 97
[2022-09-12 07:15] LABS: Anion Gap 4.6 mmol/L (3-11); BUN 17 mg/dL (7-18); CO2 31.4 mmol/L (21.0-32.0); CREATININE 0.9 mg/dL (0.70-1.30); Calcium 8.8 mg/dL (8.5-10.1); Chloride 101 mmol/L (98-107); Estimated GFR 93.61 (mL/min/1.73m2); Glucose 97 mg/dL (74-106); Sodium 137 mmol/L (136-145)
[2022-09-12 07:31] VITALS: BP 100/61; PULSE 68; RESP 17; TEMP 36.4; O2SAT 100
[2022-09-12] MEDS: Acetaminophen 325 MG TAB 650 MG PO ×2 (07:49→11:30)
[2022-09-12] MEDS: Methylphenidate 10 MG TAB 30 MG PO (07:49)
[2022-09-12] MEDS: traMADol 50 MG TAB PO (07:50)
[2022-09-12] MEDS: clonazePAM 1 MG TAB 2 MG PO (07:50)
[2022-09-12] MEDS: buPROPion-XL 150 MG TABCR 450 MG PO (07:50)
[2022-09-12] MEDS: Apixaban 5 MG TAB PO (07:50)
[2022-09-12] MEDS: Gabapentin 800 MG TAB 1600 MG PO (07:50)
[2022-09-12 08:53] LABS: Lab Add On Test DONE
--- NOTE | 2022-09-12 08:57 | CMPROGNOTE_ITS ---
Date of service: 09/12/22 Time of Service: 08:57 Care Management Progress Note Progress Note Text Progress Note Text: S/O: Casey accepted a bed a [facility] for acute rehab. Pt will update his family. CM will coordinate transport through EMS. A: 67 year old male admitted to [facility] on 09/10/22 for Neurological Gait Dysfunction P: PT recommends SNF for STR. ?CM faxed referral's to [facility], [facility], [facility], [facility], [facility], [facility], [place], [facility], [facility], and [facility]. August expressed understanding of the possibility that he may not be able to remain in the geographic area in order to go to a SNF. He w ill likely transport via [facility] private vehicle vs w/c van. He will follow up with his PCP and discharge plan of care. CM will continue to follow.
[2022-09-12] MEDS: Lidocaine Patch Removal 2 EACH TP (09:02)
[2022-09-12 09:15] LABS: C-Reactive Protein 8.51 mg/dL (0.0-0.3)
--- NOTE | 2022-09-12 11:01 | DSE_ITS ---
Date of service: 09/12/22 Time of Service: 11:01 DS: Diagnosis Discharge Diagnosis (1) Neurologic gait dysfunction: Status: Chronic (2) BPH (benign prostatic hyperplasia): Status: Chronic (3) Obsessive-compulsive disorder, unspecified: Status: Chronic Discharge Plan Disposition Patient Disposition: Other Disposition Not Listed Other Facility: [facility] Condition: Stable Discharge Details Reason For Visit: Bilateral Lower Extremity Weakness Admit Date/Time: 09/10/22 16:36 Admit Provider: Kathy Dahl Attending Provider: Kathy Dahl Primary Care Provider: Rui Perez Hospital Course Hospital Course: This is a patient who presented to ED for evaluation after mechanical fall at home.? He was discharged from [facility] to day prior after at stay there following a back surgery (with?T10-T11 transpedicular discectomy, T12-L1 laminectomy, T9-L1 posterior instrumentation).? Reportedly physical therapy made recommendations for ongoing inpatient skilled rehabilitation which patient declined.? His work up in the ED shows no acute injury from his fall.? He was given oxycodone 5 mg oral for pain management.? of note, he hadn't picked up his oxycodone prescription from the pharmacy yet.? his case, exam and imaging was discussed with neurosurgery at [facility] and exam (significant bilateral extremity weakness) was consistent with hospitalization and discharge exam.? There are no further imaging or workup recommendations at this time, he should keep routine outpatient follow up as previously arranged. Because his was unsafe to discharge to home, hospitalist services contacted to observe and work on a safe discharge plan.? He remained medically stable, was evaluated by physical therapy with recommendations for acute rehabilitation prior to being able to be safely discharged. Referrals placed and he was accepted at [facility] in [facility] and is being discharged and transported by EMS. He has been eating and drinking, voiding without difficulty. Bowel regimen added. Discharge discussed with DR Dahl. Home Meds and New Rx's Prescriptions: New acetaminophen 325 mg Tablet 650 mg PO QID Qty: 0 0RF polyethylene glycol 3350 17 gram Powder In Packet 17 g PO BID Qty: 0 0RF lidocaine 5 % Adhesive Patch,Medicated 2 patch topical Q24H Qty: 15 0RF oxycodone 5 mg Tablet 5 - 10 mg PO Q6H PRN PRNQty: 12 0RF tramadol 50 mg Tablet 50 mg PO Q6H PRN PRNQty: 10 0RF Continued clonazepam 2 mg tablet 2 mg PO DIRECTED Rx Instructions: TAKE 1 TABLET IN THE AM AND 1/2 TABLET IN THE PM bupropion HCl 300 mg tablet extended release 24 hr 450 mg PO QAM Patient Comments: states he takes 450mg due to being in severe depression Rx Instructions: RX by psychiatrist apixaban 5 mg tablet 5 mg PO BID Qty: 60 3RF gabapentin 800 mg tablet 1,600 mg PO BID Qty: 120 3RF methylphenidate HCl 20 mg tablet 30 mg PO DAILY MDD 20 Qty: 1 0RF Rx Instructions: RX'd by JOEY aripiprazole 5 mg tablet 5 mg PO DAILY Rx Instructions: TAKE IN ADDITION TO 2MG TAB aripiprazole 2 mg tablet 2 mg PO DAILY Rx Instructions: TAKE IN ADDITION TO 5 MG TAB Discharge Instructions Instructions: Weakness (DC) Additional Instructions: Continue routine postoperative care following your back surgery at [facility]. 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 TENDER [Primary Care Provider] - (upon discharge from rehab) Activity:: walker at all times Equipment/Supplies:: No Equipment Needed Diet:: As Tolerated Discharge Orders Discharge Orders: Discharge Order (Routine); Ordered 09/12/22 Ordered By: Monica Andres DS: Summary Time Spent with Patient providing and/or coordinating discharge services: Greater than 30 minutes Status at Discharge Functional status at discharge: uses cane/walker Overall status at discharge: patient is not back to baseline Mental Status: mental status grossly normal Speech and Movement: speech and movement normal Mood: congruent mood Affect: normal affect Exam Const General: cooperative Nutritional Appearance: average body habitus Orientation: alert, awake and oriented x3 HENMT Head: normal to inspection, normocephalic and atraumatic Ears: external ears normal Mouth: moist mucous membranes Eyes EOM: EOM intact bilaterally Neck Neck: full ROM and nontender Chest Chest: normal inspection of the chest Resp Auscultation: clear to auscultation bilaterally Cardio Rate: regular rate Rhythm: regular rhythm GI Inspection: normal to inspection Palpation: soft, no guarding and nontender Back/Spine/Pelvis Back: No no CVA tenderness Other: Well-healing surgical scars on the back. Tender throughout the thoracic and lumbar spine but no deformities or step-offs noted. Otherwise unremarkable spinal exam. Skin General skin exam: no rashes or lesions noted Neuro General: patient alert, patient awake and patient oriented x3 Cranial Nerves: CN's II-XI intact bilaterally and PERRL Cognition: normal cognition Extrem Other: Tenderness to bilateral shoulders with pain with range of motion but no obvious deformities. No other signs of trauma to the bilateral upper extremities. Full range of motion of all other joints of the upper extremities and sensation and motor intact in the bilateral upper extremities with palpable radial and ulnar pulses bilaterally. 4-5 strength in bilateral lower extremities with hip flexion and knee extension. He says this is baseline for him. Sensation is intact but he is reporting numbness and tingling in the legs but he can still feel me touching his foot and legs. No other signs of trauma to the lower extremities and no tenderness. 2+ DP and PT pulses. Sensation and motor otherwise intact in bilateral lower extremities. Psych Mental Status: mental status grossly normal Speech and Movement: speech and movement normal Mood: congruent mood Affect: normal affect DS: Data Vitals/I&O Vitals and I&O: Vital Signs Temperature 36.4 C L 09/12/22 07:31 Temperature Source Tympanic 09/12/22 07:31 Pulse 68 09/12/22 07:31 Pulse Rhythm Regular 09/12/22 08:00 Respiratory Rate 17 09/12/22 07:31 Respiratory Effort Normal, Non-Labored 09/12/22 08:00 Respiratory Depth Normal 09/12/22 08:00 Respiratory Pattern Normal 09/12/22 08:00 Blood Pressure 100/61 09/12/22 07:31 Blood Pressure Position Supine 09/10/22 12:53 Pulse Oximetry 100 09/12/22 07:31 Oxygen Delivery Method Room Air 09/12/22 07:31 Oxygen Flow Rate 0 09/12/22 07:31 Pain Level 7 09/12/22 07:31 Intake & Output 09/11/22 09/11/22 09/12/22 11:59 23:59 11:59 Intake Total 250 / 730 480 / 730 1010 / 1010 Output Total 300 / 700 400 / 700 1025 / 1025 Balance -50 / 30 80 / 30 -15 / -15 Intake: IV 10 20 / 20 Oral 240 / 720 480 / 720 990 / 990 Output: Urine 300 / 700 400 / 700 1025 / 1025 Other: Urine Color Light Shanika Light Shanika Yellow Urine Appearance Clear Clear Clear Sediment Voiding Methods Urinal Urinal Urinal Data Completed and Pending Labs on day of discharge: Labs from last 24 hours 09/12/22 09/12/22 09/12/22 06:38 06:38 06:38 Sodium 137 Potassium 4.0 Chloride 101 Carbon Dioxide 31.4 Anion Gap 4.6 BUN 17 Creatinine 0.9 Est GFR (CKD-EPI 2020) 93.61 Glucose 97 Calcium 8.8 C-Reactive Protein 8.51 H Add-On Test Request DONE PFS All Active Problems (Updated 09/11/22 @ 11:31 by Monica Andres NP) Discharge planning issues (Acute) Back pain (Acute) Fall (Acute) Weakness (Acute) Physical deconditioning (Acute) Recent major surgery (Acute) BPH (benign prostatic hyperplasia) (Chronic) Chronic anticoagulation (Acute) Swelling of left foot (Acute) Foreign body (FB) in soft tissue (Acute) In plantar area of right foot. Neurologic gait dysfunction (Chronic) Chronic pain of both lower extremities (Acute) Thoracic myelopathy (Acute) DVT (deep venous thrombosis) (Chronic) Lesion of right external auditory canal (Acute) Alcohol related disorder (Acute) Does not drink. Quit about 2020 Depression (Chronic) Obsessive-compulsive disorder, unspecified (Chronic 05/07/16) followed by psychiatry [facility] Anxiety disorder (Chronic) Spinal stenosis of thoracic region (Chronic 05/07/16) T9-T12 decompression sx: [facility] Medical History Acetaminophen overdose Alcohol abuse Fracture of triquetral bone of wrist Male erectile dysfunction, unspecified (04/15/15) Urology eval. [facility]/ borderline PSA value: f/up April 2016 Salicylate overdose (05/13/13) In attempt to kill oneself. Surgical History Appendectomy History of appendectomy SPINAL SURGERY THORACIC REGION Family History Mother Personal history of malignant neoplasm CERVICLE Father No problems noted. Brother No problems noted. Son No problems noted. Daughter Depression Daughter No problems noted. Daughter Depression Social History Smoking/Tobacco Use Status: Never Second Hand Exposure: Yes Smoking risk assessment performed?: Yes Alcohol Intake: former Drug use: Rarely Substance use type: painkillers Details: Pt reports has been sober from ETOH for 2 weeks now, states he binges and then stops. 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 Pets and animals: No Sexually active: No Do you think of yourself as: straight/heterosexual Current gender identity: male What is your relationship status?: How often do you talk on the phone with friends or family?: decline to answer How often do you get together with friends or relatives?: never How often do you attend temple or episcopalian services?: decline to answer Do you belong to any clubs or organized social groups?: no Panel score (0-1 are the most socially isolated patients): 0 What type of physical activity do you participate in: walking Special cruzito needs: No Seatbelt use: never Helmet use: No Drive intox or ride w/intox screw driver operator: No Do you feel safe at home: No (feels should be in rehab) Do you feel safe in your relationship?: Yes Time Spent with Patient Time Spent with Patient: 45-69 minutes Time was spent: preparing to see the patient(eg.review tests), obtaining and/or reviewing separately otained hiistory, ordering medications,tests, procedures, referring, communicating with other health nursing care attendant, indepentently interpreting results and care coordination
--- NOTE | 2022-09-12 12:14 | CMDISCH_ITS ---
Date of service: 09/12/22 Time of Service: 12:14 LACE Index Scoring Tool Questions: Length of Stay (in days): 2 E.D. Visits: 1 Care Management Discharge Plan Reason for Hospitalization: Neurological Gait Dysfunction Discharge Plan: Casey is discharged to [facility] for Acute Rehab. He is transported via EMS and will follow up with facility and community providers and his discharge plan of care. Patient/Family Education Needs: Review discharge instructions, limitations, medications and plan to follow up with facility/community providers. Discuss ask me three and goals of self care. Services Needed at Discharge: [facility] ([facility]) and [facility] by CM)
--- NOTE | 2022-09-12 12:36 | PT.INTREAT ---
Date of service: 09/12/22 Time of Service: 09:52 PT Notes Visit Reasons: Bilateral Lower Extremity Weakness Inpatient Physical Therapy Treatment Note [facility] Date: 09/12/22 PRECAUTIONS: Fall, standard, activity as tolerated SUBJECTIVE: patient sitting up in bed, agreeable to therapy. Reports no pain now, however reports that he had severe spasms in the right leg last night and that he has chronic foot pain but that last night was worse than normal; like they were on fire! Expresses concern that the spasms and foot pain may have been related to the walking we did yesterday afternoon. OBJECTIVE: PAIN: none reported BED MOBILITY/TRANSFERS Rolling L/R: independent Supine-sit: modified independent with head of bed elevated Sit-supine: not tested Sit-stand: standby, requires extra time Stand-sit: standby Bed-Chair: contact guard Chair-bed: contact guard GAIT Assistive Device: front wheeled walker Weight bearing: full Assist: contact guard Distance: 220 feet Deviation: Left knee hyperextends. Left foot drags; step height improves with verbal cue. Swing phase reduced left, step length reduced L>R. Kyphotic posture. THEREX: Hamstring tantrums against small yoga ball, sit to stands, toe raises. ASSESSMENT: Patient tolerates therapy well, states I just need to do it, just get up and walk, it gets easier every time. PLAN: Continue strengthening per plan of care TREATMENT CODE/TIME: 94354 Gait 30 minutes, 28904 Ther Ex 18 minutes beginning at 9:52
--- NOTE | 2022-09-13 10:26 | INDS_ITS ---
Date of service: 09/12/22 PT Notes Visit Reasons: Bilateral Lower Extremity Weakness Physical Therapy Inpatient Discharge Summary Date: 09/12/2022 Dates of Service: 09/11/2022 through 09/12/2022 This is a clinical summary of care provided for the duration of dates listed above. No charge was made in the completion of this documentation. Referring Doctor: Monica Andres NP PT Orders: PT CONSULT: Eval/Treat Precautions: Fall. Standard. Activity as tolerated. Patient Profile/Admitting Diagnosis:? Casey is a 67-year-old male S/P T10-T11 transpedicular discectomy, T12-L1 laminectomy, and T9-L1 posterior instrumentation on 09/01/2032 [place] [facility] also recently had T9-T12 decompression on 05/2017 at [facility] admitted to the ED on 09/10/2022 due to a fall,? worsening upper and low back pain, and increasing difficulty with walking.? ? PMHX: All Active Problems?(Updated 09/10/22 @ 16:50 by Monica Andres NP) BPH (benign prostatic hyperplasia) (Chronic) Chronic anticoagulation (Acute) Swelling of left foot (Acute) Foreign body (FB) in soft tissue (Acute) In plantar area of right foot. Neurologic gait dysfunction (Chronic) Chronic pain of both lower extremities (Acute) Thoracic myelopathy (Acute) DVT (deep venous thrombosis) (Chronic) Lesion of right external auditory canal (Acute) Alcohol related disorder (Acute) Does not drink.? Quit about 2020 Depression (Chronic) Obsessive-compulsive disorder, unspecified (Acute 05/07/16) followed by psychiatry [facility] Anxiety disorder (Chronic) Spinal stenosis of thoracic region (Chronic 05/07/16) -2017 T9-T12 decompression sx: [facility] Medical History? Acetaminophen overdose Alcohol abuse Fracture of triquetral bone of wrist Male erectile dysfunction, unspecified (04/15/15) [facility] eval. [facility]/ borderline PSA value: f/up April 2016 Salicylate overdose (05/13/13) In attempt to kill oneself. Surgical History? Appendectomy History of appendectomy [facility] Social History/Home Situation: Lives alone in an apartment.? uses a front-wheeled walker to mobilize inside his apartment.? States that he will be getting meals on wheels when he goes home.? Equipment Owned/DME: FWW Subjective: Casey stresses that he he did not refuse to go to an acute rehab while at [facility] While there, he was told that nobody would take him and so instead of waiting at the hospital,? he just decided to go home with HH PT/OT.? He has had good experience in a SNF before when he had his first back surgery so he is okay with going to one for short-term rehab.? Report 7/10 pain in the back with mobilization.? He verbalizes that the walker he was using at home tipped on one side and that made him lose his balance.? He was going to have HH PT come in to work with him before the fall.? Objective: General Observation: Seated on bedside chair.? 37 tatiana noted on back.? Incision intact. Mental Status: Alert and oriented as to person, place, time, and purpose. Able to pay attention, focus, and respond appropriately. Pain: 7/10 in back with ambulation Vital Signs: Closely monitored by nursing staff ROM: Right Upper Extremity:? Shoulder Flexion limited to about 90 degrees due to pain. Shoulder abduction limited to about 90 degrees due to pain. Elbow flexion WFL. Wrist flexion WFL. Functional opening and closing of hand WFL. Left Upper Extremity:? Shoulder Flexion limited to about 90 degrees due to pain. Shoulder abduction limited to about 90 degrees due to pain. Elbow flexion WFL. Wrist flexion WFL. Functional opening and closing of hand WFL. Right Lower Extremity: Hip flexion lacks the last 25% of AROM due to weakness. Hip abduction lacks the last 25% of AROM due to weakness. Knee flexion WFL -30 to 90 degrees. Knee extension -30 degrees.? Ankle dorsiflexion to neutral only. Ankle plantarflexion WFL. Left Lower Extremity: Hip flexion lacks the last 25% of AROM due to weakness. Hip abduction lacks the last 25% of AROM due to weakness. Knee flexion WFL -45 to 90 degrees. Knee extension -45 degrees.? Ankle dorsiflexion to neutral only. Ankle plantarflexion WFL. Strength: Right Upper Extremity: Shoulder flexors 3-/5. Shoulder abductors 3-/5. Elbow flexors 4-/5. Elbow extensors 4-/5. Chip Machine Operator strong. Left Upper Extremity: Shoulder flexors 3-/5. Shoulder abductors 3-/5. Elbow flexors 4-/5. Elbow extensors 4-/5. Chip Machine Operator strong. Right Lower Extremity: Hip flexors 3-/5. Hip abductors 3-/5. Knee flexors 3-/5. Knee extensors 3-/5. Ankle dorsiflexors 3-/5. Ankle plantarflexors 4-/5. Left Lower Extremity: Hip flexors 3-/5. Hip abductors 3-/5. Knee flexors 3-/5. Knee extensors 3-/5. Ankle dorsiflexors 3-/5. Ankle plantarflexors 4-/5. Sensation: Reports numbness in the medial arches of his feet BED MOBILITY/TRANSFERS? Stand-sit: stand by assist ? Bed-Chair: stand by assist ? Chair-bed: stand by assist ? GAIT? Assistive Device: front-wheeled walker ? Weight bearing: full Assist: contact guard? Distance:? 220 feet ? Deviation: Left knee hyperextends. Left foot drags; step height improves with verbal cue. Swing phase reduced left, step length reduced L>R. Kyphotic posture.? Balance: Static Sitting: Good Dynamic Sitting: Fair Static Standing: Fair Dynamic Standing: Fair Special Tests: Mobility Limitations Standardized Measure [facility] 6 clicks Basic Mobility Inpatient Short Form: Raw Score: 18? CMS Score: 47% deficit? ? ? Assessment: Previous back surgeries contributed to B LE weakness,? balance issue,? and falls.? Patient demonstrates functional mobility decline,? range of motion deficits,? balance impairment,? and generalized weakness and will require SNF placement in order to facilitate achievement of highest functional mobility level in anticipation of discharge to home alone. Patient presents with clinical signs and symptoms consistent with current/admitting diagnoses that have resulted to mobility limitations, gait instability, generalized weakness, and overall ADL decline as demonstrated by the following impairment level findings: 1.? Decreased strength to B UE/LE major muscle groups 2.? Impaired sitting/standing balance 3.? Impaired activity tolerance 4.? Limitation of joint range of motion in B UE/LE joints as above 5.? Pain in back Impairments are contributing to the following functional limitations: 1.? Decline in bed mobility skills 2.? Decline in transfer skills 3.? Difficulty with ambulation without assistive device and physical assistance 4.? Increased completion time for mobility ADL performance 5.? Increased risk for falls 6.? Difficulty with managing steps alone safely Goals: Goals X1 week 1. Supine-Sit independent NOT MET 2. Sit-Supine independent NOT MET 3. Sit-Stand independent NOT MET 4. Stand-Sit independent with FWW NOT MET 5. Bed-Chair independent with FWW NOT MET 6. Chair-Bed independent with FWW NOT MET 7. Independent gait on level surface with use of FWW for at least 500 feet without report of pain nor dyspnea NOT MET 8. Good static and dynamic standing balance/tolerance NOT MET DISCHARGE RECOMMENDATIONS: [] ? Home with no services [] [] ? Home with services [specify] [] ? Home with outpatient PT [] [X] ? SNF for continued rehabilitation.? Patient will benefit from home health PT services in order to progress mobility level using least restrictive assistive ambulatory device, assess home safety, identify additional equipment needs, and establish a functional maintenance program that will increase ability of patient to remain at home. [] ? [facility] [] [] ? SNF versus LTC based on ability to participate and progress [] TREATMENT CODE/TIME: [place] Thank you for the opportunity to participate in the care of this patient. Shantelle Nieves PT, DPT, CLT [facility] [place], [place]
== END 2022-09-12 12:28 | disposition other institution (70) ==
LOC: ER 17:20 → MS 17:24
PROVIDERS: Admitting Provider Internal Medicine; Emergency Provider Student in an Organized Health Care Education/Training Program; PCP Nurse Practitioner Family; Visit Provider Internal Medicine
DX: R26.89 Other abnormalities of gait and mobility (principal); W18.39XA Other fall on same level, initial encounter; Z98.890 Other specified postprocedural states; R53.1 Weakness; R20.2 Paresthesia of skin; G89.29 Other chronic pain; F32.A Depression, unspecified; F42.9 Obsessive-compulsive disorder, unspecified; Z79.899 Other long term (current) drug therapy; Z79.01 Long term (current) use of anticoagulants; N40.0 Benign prostatic hyperplasia without lower urinary tract symptoms; F41.9 Anxiety disorder, unspecified; Z86.718 Personal history of other venous thrombosis and embolism; M79.605 Pain in left leg; M79.604 Pain in right leg; F10.11 Alcohol abuse, in remission; S00.03XA Contusion of scalp, initial encounter; M48.02 Spinal stenosis, cervical region; M47.816 Spondylosis without myelopathy or radiculopathy, lumbar region; Z98.1 Arthrodesis status; M19.011 Primary osteoarthritis, right shoulder; M19.012 Primary osteoarthritis, left shoulder
CPT/HCPCS: 36415; 80048; 80053; 82550; 84145; 97110; 97116; 97162; 97530; 99285; 70450; 71045; 72125; 72128; 72131; 73030; 83735; 85025; 86140; 99222; 99232; 99239; G0378; J3490

== ENCOUNTER 2022-10-06 00:31 | Outpatient (CLI) | payer MEDICARE, MEDICAID, SELFPAY ==
--- NOTE | 2022-10-06 09:30 | DI.RAD_ITS ---
Exam(s) XR THORACOLUMB JUNCT 2V EXAM: XR THORACOLUMB JUNCT 2V INDICATION: MYELOPATHY CONCURRENT WITH AND DUE TO SPINAL STENOSIS, M48.04, G99.2. COMPARISON: CT CT THORACIC SPINE WO from 07/27/[address] THORACIC LUMBAR SPINE WO from 09/10/2022 CR,XR XR CHEST 1V IN DI DEPT from 09/10/2022 TECHNIQUE: 2D digital imaging was performed. Three views. FINDINGS: Posterior spinal rods are noted from T9 through L1 which appear unchanged in position. The the hard denson appears intact. Laminectomy defects again noted. No compression fractures are seen. Degenerat declan disc changes are present. The visualized portions of the lungs appear clear. The bowel gas kathy pan is unremarkable. IMPRESSION: Grossly stable appearance spinal hardware and degenerative changes. DATA REPOSITORY: RADIATION DOSE DELIVERED:
== END 2022-10-06 00:51 ==
LOC: DI 00:31
PROVIDERS: PCP Nurse Practitioner Family; Visit Provider Neurological Surgery
DX: Z96.9 Presence of functional implant, unspecified (principal); M47.15 Other spondylosis with myelopathy, thoracolumbar region
CPT/HCPCS: 72080

== ENCOUNTER → 2023-02-26 14:11 | Outpatient (CLI) | payer MEDICARE, MEDICAID, SELFPAY ==
--- NOTE | 2023-02-26 | DI.RAD_ITS ---
Exam(s) XR SCOLIOSIS T-L SPINE EXAM: XR SCOLIOSIS T-L SPINE CLINICAL HISTORY: Scoliosis evaluation. TECHNIQUE: 2D digital imaging was performed. COMPARISON: CR XR THORACOLUMB JUNCT 2V from 10/06/2022 FINDINGS: Scoliosis: Rods are noted from T9 through L1. There is a mild scoliosis convex toward the right on a t the upper thoracic, lower cervical level. No significant lumbar scoliosis. Vertebrae: No anomalies seen. No hypertrophy is identified. Compression fractures. Degenerative dis c changes noted greatest at L5-S1. Degenerative changes the upper to mid thoracic spine create accen tuation of the kyphosis. Remainder of the visualized osseous and soft tissue structures: No acute findings. IMPRESSION: Mild dextro scoliosis lower cervical upper thoracic spine. Hardware from T9 through L1. DATA REPOSITORY: RADIATION DOSE DELIVERED:
== END ==
PROVIDERS: PCP Nurse Practitioner Family; Visit Provider Neurological Surgery
DX: M41.34 Thoracogenic scoliosis, thoracic region (principal)
CPT/HCPCS: 72081

== ENCOUNTER 2023-07-18 11:31 | Outpatient (CLI) | payer MEDICARE, MEDICAID, SELFPAY ==
--- NOTE | 2023-07-18 11:30 | RT.EKG_ITS ---
APPROVED REPORT Exam: Resting ECG Reason for Exam: Medication review Patient Location: O HR:52 bpm ECG Measurements Heart Rate 52 AXIS OR [id number] P [id number] QRSd 92 QRS 38 QT 454 T 64 QTc 423 Conclusion Junctional rhythm...absent P waves, slow V-rate Low voltage, extremity leads...all extremity leads <0.5mV Otherwise normal ECG
== END 2023-07-18 11:32 | disposition home or self-care (01) ==
LOC: DI.CM 11:32
PROVIDERS: PCP Nurse Practitioner Family; Visit Provider Family Medicine
DX: Z00.00 Encounter for general adult medical examination without abnormal findings (principal); Z76.89 Persons encountering health services in other specified circumstances
CPT/HCPCS: 93010

== ENCOUNTER 2023-08-18 08:46 | Emergency (ER) | payer MEDICARE, MEDICAID, SELFPAY ==
[2023-08-18] VITALS (20 sets, daily range): BP systolic 127–148; BP diastolic 47–71; PULSE 56–72; RESP 18; TEMP 36.4; O2SAT 96–99
--- NOTE | 2023-08-18 08:30 | RT.EKG_ITS ---
APPROVED REPORT Exam: Resting ECG Reason for Exam: dizziness Patient Location: E HR:111 bpm ECG Measurements Heart Rate 111 AXIS GA [id number] P [id number] QRSd 107 QRS 15 QT 410 T 76 QTc 558 Conclusion Atrial fibrillation...V-rate 27-102, irreg A-activity Paired ventricular premature complexes...sequence of 2 V complexes Probable lateral infarct, age indeterminate...Q >35mS, T neg, V5-V6 [address] elevation, consider inferior injury...ST >0.08mV, II III aVF Prolonged QT interval...QTc >500mS Normal sinus rhythm At a rate of 54 with interventricular conduction delay. QTc reported as abnormal ly long but less than half the RR interval. No acute injury pattern. Low voltage. Compared to prio r dated earlier this year low voltage is similar.
--- NOTE | 2023-08-18 09:04 | W.ED.GENAD ---
Discharge Plan Disposition Patient Disposition: Home Discharge Details Clinical Impression: Immunization, tetanus-diphtheria, Laceration of forearm, right, complicated, Pulmonary nodule Primary Care Provider: Rui Perez ED Provider: Kedar Damon Howell Meds and New Rx's Prescriptions: New cephalexin 500 mg capsule 500 mg PO QID 5 Days Qty: 20 0RF Continued clonazepam 2 mg tablet 1 mg PO BID Rx Instructions: TAKE 1 TABLET IN THE AM AND 1/2 TABLET IN THE PM methylphenidate HCl 20 mg tablet 30 mg PO DAILY MDD 20 Qty: 1 0RF Rx Instructions: RX'd by JOEY tetanus-diphtheria toxoids-Td 2-2 Lf unit/0.5 mL suspension 0.5 ml IM ONCE Qty: 0.5 0RF sildenafil [Viagra] 50 mg tablet 50 mg PO DAILY PRN (Reason: sexual activity) Qty: 6 3RF Rx Instructions: administer 30 minutes to 4 hours before activity escitalopram oxalate [Lexapro] 10 mg tablet 10 mg PO DAILY apixaban 5 mg tablet 5 mg PO BID Qty: 180 3RF gabapentin 800 mg tablet 1,600 mg PO BID Qty: 120 5RF docusate sodium 100 mg capsule 200 mg PO DAILY triamcinolone acetonide 0.1 % cream 1 applic TP BID Qty: 80 2RF Rx Instructions: local application in thin layer twice a day on rash of legs and arms aripiprazole 5 mg tablet 5 mg PO DAILY Rx Instructions: TAKE IN ADDITION TO 2MG TAB aripiprazole 2 mg tablet 2 mg PO DAILY Rx Instructions: TAKE IN ADDITION TO 5 MG TAB polyethylene glycol 3350 17 gram Powder In Packet 17 g PO BID Qty: 0 0RF Discharge Instructions Instructions: Laceration (ED) Additional Instructions: You were seen in the emergency department for your forearm laceration which was closed with sutures that will need to be removed in 7 to 10 days. Please take the antibiotics that have been sent to your pharmacy. As we discussed, please keep your wound clean, dry and covered. Please do not soak in a tub, swim or engage in any activities which could introduce dirt into your wound. You may return to the emergency department, go to urgent care or go to your primary care provider in 7 to 10 days to have your stitches removed. As we discussed if you develop any foul-smelling drainage fevers streaking signs of infection or have any other concerns please return to the emergency department. For your pain please take medications as follows: 1. Take acetaminophen (Tylenol), 1,000 mg (two 500 mg tabs) every 6 hours You are found to have a pulmonary nodule on your CAT scan which is slightly smaller than 4 years ago. Please follow-up with your primary care provider concerning this incidental finding. Discharge Data Discharge Date/Time-TO BE ENTERED AT DEPARTURE: 08/18/23 11:44 HPI General Date/Time Provider Initiated Documentation: 08/18/23 09:00. HPI Narrative: MDM This is a normothermic and not tachycardic [id number] 68-year-old male with right proximal forearm laceration approximately 12 hours ago for which he will receive tetanus immunization 2 g of cefazolin and evaluation for dizziness. No persistent dizziness no headache to suggest posterior circulation CVA. Similarly no truncal ataxia. No nystagmus so I did not apply hints exam. Dizziness cannot be triggered. Based on no focal neurological deficits am not concerned for TIA so do not feel that the patient requires an MRI. Patient is not short of breath however syncope is certainly in the differential so we will obtain a D-dimer to assess for PE. No chest pain to suggest ACS however given syncope will obtain a troponin to assess for myocardial injury. No pain out of proportion to suggest necrotizing soft tissue infection. No dysuria nor frequency to suggest UTI. No cough nor shortness of breath so my suspicion is low for pneumonia. Patient reportedly did not hit his head however he is anticoagulated based on his age and his delayed presentation will obtain dry CT head. Will obtain labs to assess for any acute electrolyte abnormalities. Denies black or bloody stools so my suspicion for GI bleed is low. No murmur to suggest aortic stenosis. No exertional component to syncope. Patient does have a markedly prolonged QT C will obtain magnesium level. His QTc appears less than half the RR interval. Will obtain a repeat ECG given significant artifact. He is on escitalopram which can cause prolonged QTc. He has no tacky dysrhythmias nor any bradycardia dysrhythmias. No blocks. No signs of Brugada. No arrhythmogenic right ventricular dysplasia. 10:09 AM TSH within normal limits. Positive D-dimer for which patient will undergo CTA PE. Negative troponin. Basic metabolic panel with no ROSA. Mild hyperglycemia but no anion gap and normal bicarbonate??not consistent with DKA. Normal magnesium. CBC with mild leukocytosis. No anemia. No thrombocytopenia. I spoke with Dr. Lanza who evaluated the patient's wound at bedside. He felt comfortable with primary closure. Will discharge on antibiotics. Repeat ECG showing improved. 11:[address] head negative. Preliminary read of x-ray with no acute foreign body nor fracture. CTA chest negative for PE. Patient did have a pulmonary nodule which was notably decreased. I informed patient know about this. He reported that he was not aware of this incidental finding. Patient and I discussed return indications clinic fever streaking signs of infection. Please see procedure note concerning laceration repair. Patient reported feeling safe at home. Will ensure he can pass an ambulatory trial. I spoke with health clinical unit coordinator Serenity and asked her to help arrange nonurgent PCP follow-up in the setting of his pulmonary nodule. Patient was able to pass ambulatory trial. He felt safe going home. Chronic conditions affecting the care of the patient: Weakness dizziness History obtained from an outside historian: Paramedics [place] [facility] [place] Diagnostic interpretations performed by me: Per my independent interpretation chest x-ray shows: Per my independent interpretation EKG shows: Normal sinus rhythm At a rate of 54 with interventricular conduction delay. QTc reported as abnormally long but less than half the RR interval. No acute injury pattern. Low voltage. Compared to prior dated earlier this year low voltage is similar. ECG #2 Sinus bradycardia at a rate of 59. Normal axis. Intervals within normal limits. Interventricular conduction delay with a QRS of 108 ms. QTc within normal limits. No acute injury pattern. QTc improved compared to prior. Prior dated earlier today. ]Medications: Normal saline Social determinants of health affecting disposition: Lives alone Management discussed with: Orthopedics Treatment/interventions considered: N/A Response to therapies provided: Improved symptoms in the ED HPI This is a [id number] 68-year-old male on apixaban arriving to the emergency department via paramedics following dizziness and a fall and a right forearm laceration that he sustained greater than 12 hours ago. Patient reports that he has chronically been dizzy for decades. He reports that last night he was dizzy when he stood up and his kitchen. He struck his arm on a linoleum counter on the way down. He reports that he is dizzy when he stands up. He denies chest pain cough and shortness of breath. He did not hit his head. He reports he did not lose consciousness. He has had no abdominal pain. He denies routine tobacco, ethanol, and illicits. He reports that he is due for a tetanus shot. He is currently taking college courses towards a major in [place] history. Exam General: Chronically ill-appearing in no acute distress speaking in complete sentences. Head: Normocephalic, atraumatic. Eye:[Pupils equal, round reactive to light.] Extraocular eye movements intact. No conjunctival injection. No scleral icterus. Ear, nose, mouth, throat: Grossly normal inspection. Normal voice, handling secretions normally. Neck: Trachea midline. Cardiovascular: Well-perfused distal extremities. Regular rate and rhythm Respiratory: Nonlabored respiration. Clear lungs bilaterally Gastrointestinal: Nondistended abdomen. Soft nontender Musculoskeletal: On the right proximal forearm, volar and medial aspect there is a hemostatic approximately 7 cm laceration. There is exposed muscle belly. No obvious tendons. Patient is able to fully flex and extend at the right elbow. He can fully pronate and supinate. Right hand warm well-perfused with less than 2 seconds cap refill. 2+ right radial pulse. Sensation motor function intact in the right hand across the radial, median, and ulnar nerve distributions. Skin: Normal for age and race, grossly normal temperature and turgor. No acute rash. Neurologic: Alert and appropriate, no apparent acute deficits. GCS 15. Cranial nerves II through XII intact grossly. No dysmetria. No dysdiadochokinesia. No pronator drift. 5 out of 5 bilateral upper and lower motor strength. No pronator drift. Psychiatric: Mood and manner are appropriate. Grooming and personal hygiene are appropriate. Related Data Home Medications Medication Instructions Recorded Confirmed methylphenidate HCl 20 mg tablet 30 mg (1.5 x 20 mg) PO DAILY #1 tab 08/24/22 08/18/23 aripiprazole 2 mg tablet 2 mg PO DAILY 09/11/22 08/18/23 aripiprazole 5 mg tablet 5 mg PO DAILY 09/11/22 08/18/23 polyethylene glycol 3350 17 gram 17 g PO BID #0 ea 09/12/22 08/18/23 oral powder packet docusate sodium 100 mg capsule 200 mg PO DAILY 09/25/22 08/18/23 clonazepam 2 mg tablet 1 mg PO BID 09/29/22 08/18/23 apixaban 5 mg tablet 5 mg PO BID #180 tabs 03/09/23 08/18/23 escitalopram oxalate 10 mg tablet 10 mg PO DAILY 03/09/23 08/18/23 (Lexapro) triamcinolone acetonide 0.1 % 1 applic topical BID #80 grams 04/20/23 08/18/23 topical cream sildenafil 50 mg tablet (Viagra) 50 mg PO DAILY PRN sexual activity 05/25/23 08/18/23 #6 tabs tetanus-diphtheria toxoids-Td 2 Lf 0.5 ml IM ONCE #0.5 mL 05/25/23 08/18/23 unit-2 Lf unit/0.5 mL IM suspension gabapentin 800 mg tablet 1,600 mg (2 x 800 mg) PO BID #120 07/18/23 08/18/23 tabs cephalexin 500 mg capsule 500 mg PO QID 5 days #20 caps 08/18/23 Previous Rx's Medication Instructions Recorded methylphenidate HCl 20 mg tablet 30 mg (1.5 x 20 mg) PO DAILY #1 tab 08/24/22 polyethylene glycol 3350 17 gram 17 g PO BID #0 ea 09/12/22 oral powder packet apixaban 5 mg tablet 5 mg PO BID #180 tabs 03/09/23 triamcinolone acetonide 0.1 % 1 applic topical BID #80 grams 04/20/23 topical cream sildenafil 50 mg tablet (Viagra) 50 mg PO DAILY PRN sexual activity 05/25/23 #6 tabs tetanus-diphtheria toxoids-Td 2 Lf 0.5 ml IM ONCE #0.5 mL 05/25/23 unit-2 Lf unit/0.5 mL IM suspension gabapentin 800 mg tablet 1,600 mg (2 x 800 mg) PO BID #120 07/18/23 tabs cephalexin 500 mg capsule 500 mg PO QID 5 days #20 caps 08/18/23 Allergies Allergy/AdvReac Type Severity Reaction Status Date / Time fluoxetine HCl [From Prozac] AdvReac Severe Psychosis Verified 08/18/23 09:38 General Stated Complaint: Laceration KATI: 3 Course Vital Signs Vital signs: Vital Signs Temperature 36.4 C 08/18/23 08:44 Pulse 72 08/18/23 08:44 Respiratory Rate 18 08/18/23 08:44 Blood Pressure 132/71 08/18/23 08:44 Pulse Oximetry 98 08/18/23 08:44 Temperature 36.4 C 08/18/23 08:44 Pulse 72 08/18/23 08:44 Respiratory Rate 18 08/18/23 08:44 Blood Pressure 132/71 08/18/23 08:44 Blood Pressure Position Sitting 08/18/23 08:44 Pulse Oximetry 98 08/18/23 08:44 Oxygen Delivery Method Room Air 08/18/23 08:44 Oxygen Flow Rate 0 08/18/23 08:44 Pain Level 8 08/18/23 08:44 Procedures Laceration Laceration 1: Site: upper extremity Side (If applicable): right Size (cm): 7 Description: flap Depth: simple, single layer Local Anesthetic: Lidocaine 2%, with Epi and other anesthetic (LET) Amount of anesthesia used (mL): 10 Pre-repair: wound explored, irrigated extensively and deep structures intact Skin layer closed with: nylon Size (cm): 4-0 (Prolene) Number of sutures: 6 Technique: simple, interrupted Medical Decision Making Quality:SDOH Health Related Social Needs: No Data to Display PFSH All Active Problems (Updated 08/18/23 @ 11:23 by Kedar Damon MD) Pulmonary nodule (Acute) Laceration of forearm, right, complicated (Acute) Immunization, tetanus-diphtheria (Acute) Physical exam (Acute) Back pain (Acute) Fall (Acute) Weakness (Acute) Physical deconditioning (Acute) Recent major surgery (Acute) BPH (benign prostatic hyperplasia) (Chronic) Chronic anticoagulation (Acute) Swelling of left foot (Acute) Foreign body (FB) in soft tissue (Acute) In plantar area of right foot. Neurologic gait dysfunction (Chronic) Chronic pain of both lower extremities (Acute) Thoracic myelopathy (Acute) DVT (deep venous thrombosis) (Chronic) Lesion of right external auditory canal (Acute) Alcohol related disorder (Acute) Does not drink. Quit about 2020 Depression (Chronic) Obsessive-compulsive disorder, unspecified (Chronic 05/07/16) followed by psychiatry [facility] Anxiety disorder (Chronic) Spinal stenosis of thoracic region (Chronic 05/07/16) T9-T12 decompression sx: [facility] Medical History Fracture of triquetral bone of wrist Alcohol abuse Male erectile dysfunction, unspecified (04/15/15) Urology eval. [employer] [place]/ borderline PSA value: f/up April 2016 Acetaminophen overdose Salicylate overdose (05/13/13) In attempt to kill oneself. Surgical History History of appendectomy [facility] Appendectomy Family History Mother Personal history of malignant neoplasm CERVICLE Father No problems noted. Brother No problems noted. Son No problems noted. Daughter Depression Daughter No problems noted. Daughter Depression Social History Smoking/Tobacco Use Status: Never Second Hand Exposure: Yes Smoking risk assessment performed?: Yes Alcohol Intake: former Drug use: Rarely Substance use type: painkillers Details: Pt reports has been sober from ETOH for 2 weeks now, states he binges and then stops. 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 Pets and animals: No Sexually active: No Do you think of yourself as: straight/heterosexual Current gender identity: male What is your relationship status?: How often do you talk on the phone with friends or family?: decline to answer How often do you get together with friends or relatives?: never How often do you attend jehovah's witness or samaritan services?: decline to answer Do you belong to any clubs or organized social groups?: no Panel score (0-1 are the most socially isolated patients): 0 What type of physical activity do you participate in: walking Special cruzito needs: No Seatbelt use: never Helmet use: No Drive intox or ride w/intox 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
[2023-08-18 09:07] LABS: Abs Immature Grans 0.04 10^3/uL (0.0-0.06); Absolute Basophil Count 0.02 10^3/uL (0.0-0.2); Absolute Lymphocyte Count 1.07 10^3/uL (1.2-3.4); Absolute Monocyte Count 0.53 10^3/uL (0.1-0.8); Basophils % 0.2 %; Eosinophils % 0.5 %; HCT 43.7 % (40.0-50.0); HGB 14.7 g/dL (13.5-17.5); Immature Grans % 0.4 %; Lymphocytes % 9.6 %; MCH 31.1 pg (27.0-33.0); MCHC 33.6 % (32.0-36.0); MCV 93 fL (80-95); Monocytes % 4.8 %; Neutrophils % 84.5 %; Platelet Count 210 10^3/uL (130-400); RBC 4.72 10^6/uL (4.36-5.78); RDW 13.6 % (11.8-14.1); RDW-SD 46.5 fL; WBC 11.11 10^3/uL (4.4-10.8)
--- NOTE | 2023-08-18 09:15 | RT.EKG_ITS ---
APPROVED REPORT Exam: Resting ECG Reason for Exam: Prolonged QT Patient Location: E HR:59 bpm ECG Measurements Heart Rate 59 AXIS OH 92 P 0 QRSd 100 QRS 12 QT 412 T 51 QTc 409 Conclusion Sinus bradycardia...rate< 60 Low voltage, extremity leads...all extremity leads <0.5mV Sinus bradycardia at a rate of 59. Normal axis. Intervals within normal limits. Interventricular c onduction delay with a QRS of 108 ms. QTc within normal limits. No acute injury pattern. QTc impro francia compared to prior. Prior dated earlier today.
--- NOTE | 2023-08-18 09:15 | DI.CT_ITS ---
Exam(s) CT HEAD WO EXAM: CT HEAD WO CLINICAL HISTORY: Syncope fall. TECHNIQUE: Imaging Protocol: Axial computed tomography images with coronal and sagittal reformatted images were created and reviewed COMPARISON: CT CT HEAD CERVICAL SPINE WO from 09/10/2022 FINDINGS: Ventricles and Extra axial spaces: Normal in size and morphology for the patient's age. Hemorrhage: None. Cerebral parenchyma: No acute mass effect. No evidence of an acute territorial infarct. Midline shift: None. Brainstem/Cerebellum: Normal. Calvarium: Normal. Visualized Paranasal sinuses/Mastoids: Clear. Soft Tissues: There is mild soft tissue swelling over the left forehead. IMPRESSION: No acute intracranial process. RADIATION DOSE DELIVERED: 756.3mGy.cm Total DLP DATA REPOSITORY: All CT scans at this facility are submitted to the National Radiology Data Registry (NRDR) Dose Index Registry (DIR) with the [employer] (ACR). RADIATION OPTIMIZATION: All CT scans at this facility use at least one of these dose optimization te chniques: automated exposure control; mA and/or kV adjustment per patient size (includes targeted exa ms where dose is matched to clinical indication); or iterative reconstruction.
--- NOTE | 2023-08-18 09:15 | DI.RAD_ITS ---
Exam(s) XR CHEST 1V IN DI DEPT EXAM: XR CHEST 1V IN DI DEPT CLINICAL HISTORY: Syncope TECHNIQUE: 2D digital imaging was performed of the chest. One image was obtained. An AP view was ob tained. COMPARISON: CR,XR XR CHEST 1V IN DI DEPT from 09/10/[address] CHEST PE CTA from 08/18/2023 FINDINGS: MEDIASTINUM: Normal. HEART: Normal. PULMONARY VASCULATURE: Normal. LUNGS: The nodule seen in the right lung base is again seen and is best characterized on the CT scan of the chest from today. On the current CT scan compared to the prior CT scan, the nodule has shown interval decrease in size. No focal consolidating infiltrates are seen. PLEURAL SPACE: No pleural effusion or pneumothorax. BONE:Within normal limits for the patient's age. Posterior spinal rods are seen in the lower thoracic spine. Orthopedic screws seen in the left humeral head. OTHER FINDINGS:Normal. IMPRESSION: No acute pulmonary findings. DATA REPOSITORY: RADIATION DOSE DELIVERED:
--- NOTE | 2023-08-18 09:15 | DI.RAD_ITS ---
Exam(s) XR FOREARM RT EXAM: XR FOREARM RT CLINICAL HISTORY: Right forearm laceration. TECHNIQUE: 2D digital imaging was performed of the left forearm. Two views were obtained. AP and l ateral views were obtained. COMPARISON: No exams were available for comparison FINDINGS: BONES: No acute fracture is present. No bony destructive lesion is seen. Visualized portion of elbow and wrist joints are unremarkable. SOFT TISSUE: Soft tissue swelling seen in the proximal forearm medially and anteriorly. No radiopaqu e foreign body is seen. IMPRESSION: 1. Soft tissue swelling of the proximal forearm medially and anteriorly with no radiopaque foreign kostas dy. 2. No acute fracture or dislocation. DATA REPOSITORY: RADIATION DOSE DELIVERED:
[2023-08-18 09:17] LABS: Absolute Eosinophil Count 0.06 10^3/uL (0.0-0.7); Absolute Neutrophil Count 9.39 10^3/uL (1.2-6.7)
[2023-08-18] MEDS: Normal Saline 500 ML IV (09:28)
[2023-08-18] MEDS: MORPHine 4 MG/ML SYR IVP (09:29)
[2023-08-18] MEDS: ceFAZolin 2 GM/50 ML BAG IVPB (09:30)
[2023-08-18] MEDS: Lidocaine/Epinephri/Tetracaine Topical Gel 3 ML TP (09:30)
[2023-08-18 09:31] LABS: BUN 15 mg/dL (7-18); CREATININE 0.9 mg/dL (0.70-1.30); Calcium 9.4 mg/dL (8.5-10.1); Chloride 104 mmol/L (98-107); Estimated GFR 93.03 (mL/min/1.73m2); Glucose 136 mg/dL (74-106); Magnesium 1.9 mg/dL (1.8-2.4); Sodium 142 mmol/L (136-145); TSH (W/Ref FT4) 1.63 uIU/mL (0.36-3.74); Troponin I < 50 ng/L (< or =60)
[2023-08-18 09:42] LABS: D-Dimer 1533 ng/mlFEU (<500)
--- NOTE | 2023-08-18 10:00 | DI.CT_ITS ---
Exam(s) CT CHEST PE CTA EXAM: CT CHEST PE CTA CLINICAL HISTORY: Dizziness positive dimer. TECHNIQUE: Imaging Protocol: Axial CT angiography was performed with multi-slice acquisition and mu lti-planar and/or 3D reconstructions. CONTRAST MATERIAL: Intravenous: Omnipaque 350 contrast volume:100 mL COMPARISON: CT CT THORAX ABD/PEL CTA from 02/23/[address] THORACIC LUMBAR SPINE WO from 09/10/2022 CR,XR XR CHEST 1V IN DI DEPT from 08/18/2023 FINDINGS: Tracheobronchial tree: Patent where visualized. Pulmonary parenchyma: There is a 5 mm nodule in the right upper lobe (series 7, image 142). This was not present on the prior examination. There is a 3 mm nodule in the right upper lobe more inferiorl y (series 7, image 255). The mass in the right lung base measures 1.3 cm compared to 2 cm on the beckie or examination. (Series 7, image 449). No focal consolidating infiltrates. Pulmonary Arteries: Calcified granuloma are present. Mediastinum and Jo: No dominant adenopathy or fluid collection. The esophagus is unremarkable. Visualized thyroid gland: Unremarkable. Pleura: No effusion or pneumothorax. Heart: The heart is not dilated. Mild coronary artery calcification. No pericardial effusion. Aorta: Thoracic aorta non-dilated. No evidence of dissection. Upper abdomen: Unremarkable. Soft tissues: Unremarkable. Bones: Within normal limits for the patient's age.Posterior spinal surgery seen in the lower thoracic spine. IMPRESSION: 1. No evidence of pulmonary embolism, thoracic aortic dissection or aneurysm. 2. Interval decrease in size of the right basilar lung nodule. 3. There are 2 right upper lobe pulmonary nodules. The largest measures 5 mm. For multiple solid noncalcified nodules smaller than 6 mm in diameter, no routine follow-up is recomm ended (grade 2B; weak recommendation, moderate-quality evidence). (Monisha et al., 2017) 4. For multiple solid noncalcified nodules with at least one nodule 6 mm or larger in diameter, follo w-up is recommended at approximately 3???6 months, followed by an optional second scan at 18???24 mon ths that will depend on estimated risk. (grade 1B; strong recommendation, moderate-quality evidence). (Monisha et al., 2017) RADIATION DOSE DELIVERED: 412.06mGy.cm Total DLP DATA REPOSITORY: All CT scans at this facility are submitted to the National Radiology Data Registry (NRDR) Dose Index Registry (DIR) with the [employer] (ACR). RADIATION OPTIMIZATION: All CT scans at this facility use at least one of these dose optimization te chniques: automated exposure control; mA and/or kV adjustment per patient size (includes targeted exa ms where dose is matched to clinical indication); or iterative reconstruction.
--- NOTE | 2023-08-18 10:01 | OCONE_ITS ---
Date of service: 08/18/23 Time of Service: 10:01 History of Present Illness History of Present Illness Chief Complaint: Right forearm laceration Narrative: Casey is a 68-year-old male who reports that yesterday evening he became lightheaded and fell. He was using the walker at the time. He reports this lightheadedness is quite common for him. He had some initial bleeding which she was able to control and eventually this morning present to the emergency department, roughly 12 hours since he initial injury. He denies ongoing bleeding. He denies difficulty with any wrist or finger range of motion. He denies numbness or tingling. Consults Consult date: 08/18/23 Requesting physician: Kedar Damon Consult Reason Right forearm laceration Assessment and Plan Assessment and plan (1) Laceration of forearm, right, complicated: Status: Acute Assessment and plan: August is a 68-year-old male who suffered a fall last night from dizziness. The fall he suffered a laceration of the right proximal forearm. This looks to be more of a traction type injury given the morphology of the laceration and that no deep structures are involved. There are 2 crossing surgeries which likely are superficial nerves, potentially the medial antebrachial cutaneous nerve. However, they are not disrupted and given no other deep structures involved this may be closed primarily. Has been 12 hours but I still would recommend getting the skin edges back together. There is a risk of infection and I recommend antibiotics now. He may also continue antibiotics for 48 hours afterwards as prophylaxis. Given there are no deep structures involved there is no need for any splinting or restriction in range of motion although it would be prudent to avoid hyperextension of the elbow with extension of the wrist which would provide traction to the skin in that region. Qualifiers: Encounter type: initial encounter Qualified Code(s): S51.811A - Laceration without foreign body of right forearm, initial encounter Review of Systems All systems reviewed & are unremarkable except as noted in HPI and below PFSH All Active Problems (Updated 08/18/23 @ 10:07 by Charly Lanza MD) Laceration of forearm, right, complicated (Acute) Immunization, tetanus-diphtheria (Acute) Physical exam (Acute) Back pain (Acute) Fall (Acute) Weakness (Acute) Physical deconditioning (Acute) Recent major surgery (Acute) BPH (benign prostatic hyperplasia) (Chronic) Chronic anticoagulation (Acute) Swelling of left foot (Acute) Foreign body (FB) in soft tissue (Acute) In plantar area of right foot. Neurologic gait dysfunction (Chronic) Chronic pain of both lower extremities (Acute) Thoracic myelopathy (Acute) DVT (deep venous thrombosis) (Chronic) Lesion of right external auditory canal (Acute) Alcohol related disorder (Acute) Does not drink. Quit about 2020 Depression (Chronic) Obsessive-compulsive disorder, unspecified (Chronic 05/07/16) followed by psychiatry [facility] Anxiety disorder (Chronic) Spinal stenosis of thoracic region (Chronic 05/07/16) T9-T12 decompression sx: [facility] Medical History Fracture of triquetral bone of wrist Alcohol abuse Male erectile dysfunction, unspecified (04/15/15) Urology eval. [employer] [place]/ borderline PSA value: f/up April 2016 Acetaminophen overdose Salicylate overdose (05/13/13) In attempt to kill oneself. Surgical History History of appendectomy SPINAL SURGERY THORACIC REGION Appendectomy Family History Mother Personal history of malignant neoplasm CERVICLE Father No problems noted. Brother No problems noted. Son No problems noted. Daughter Depression Daughter No problems noted. Daughter Depression Social History Smoking/Tobacco Use Status: Never Second Hand Exposure: Yes Smoking risk assessment performed?: Yes Alcohol Intake: former Drug use: Rarely Substance use type: painkillers Details: Pt reports has been sober from ETOH for 2 weeks now, states he binges and then stops. 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 Pets and animals: No Sexually active: No Do you think of yourself as: straight/heterosexual Current gender identity: male What is your relationship status?: How often do you talk on the phone with friends or family?: decline to answer How often do you get together with friends or relatives?: never How often do you attend nondenominational or congregational services?: decline to answer Do you belong to any clubs or organized social groups?: no Panel score (0-1 are the most socially isolated patients): 0 What type of physical activity do you participate in: walking Special cruzito needs: No Seatbelt use: never Helmet use: No Drive intox or ride w/intox transporter driver: No Do you feel safe at home: No (feels should be in rehab) Do you feel safe in your relationship?: Yes Exam Narrative Exam Narrative: Resting in the hospital stretcher. Sitting upright with no acute distress. Alert and oriented x 3. Evaluation of the right upper extremity shows a laceration approximately 8 cm or so in length which is elliptical in nature the apex proximal resting over the anterior medial aspect of the proximal forearm. There is some adjacent abrasions. No active bleeding. No significant ecchymosis. There is fascia which is visible at the depth of the wound which looks to be intact without violation. There does appear to be 2 superficial nerves within the wound themselves which do not appear to be disrupted. He is able demonstrate active wrist extension and flexion as well as active finger extension and flexion. Sensation intact to light touch over the median, radial, ulnar nerve. Results Last Vital Signs Temp 36.4 C 08/18/23 08:44 Pulse 72 08/18/23 08:44 Resp 18 08/18/23 08:44 BP 132/71 08/18/23 08:44 Pulse Ox 98 08/18/23 08:44 Labs 08/18/23 09:00 08/18/23 09:00 Labs: Laboratory Results - last 24 hr 08/18/23 09:00 WBC 11.11 H RBC 4.72 Hgb 14.7 Hct 43.7 MCV 93 MCH 31.1 MCHC 33.6 RDW 13.6 Plt Count 210 MPV 10.0 Immature Gran % 0.4 Neutrophils % 84.5 Lymphocytes % 9.6 Monocytes % 4.8 Eosinophils % 0.5 Basophils % 0.2 Nucleated RBC % 0.0 Absolute Neutrophils 9.39 H Absolute Lymphocytes 1.07 L Absolute Monocytes 0.53 Absolute Eosinophils 0.06 Absolute Basophils 0.02 D-Dimer 1533 H Sodium 142 Potassium 4.0 Chloride 104 Carbon Dioxide 31.0 Anion Gap 7.0 BUN 15 Creatinine 0.9 Est GFR (CKD-EPI 2020) 93.03 Glucose 136 H Calcium 9.4 Magnesium 1.9 Troponin I < 50 TSH 1.63
[2023-08-18] MEDS: Omnipaque 350 MG/ML 100 ML BTL IJ (10:24)
[2023-08-18] MEDS: fentaNYL 100 MCG/2 ML VIAL 75 MCG IVP (10:48)
--- NOTE | 2023-08-18 10:55 | DI.VRAD_ITS ---
PROCEDURE INFORMATION: Exam: CT Head Without Contrast Exam date and time: 08/18/2023 9:57 AM Age: 68 years old Clinical indication: Dizziness and syncope and collapse TECHNIQUE: Imaging protocol: Computed tomography of the head without contrast. COMPARISON: CT HEAD CERVICAL SPINE WO 09/10/2022 1:39 PM FINDINGS: Brain: No acute intracranial hemorrhage. No mass effect or midline shift. Machado-white matter differentiation is preserved. Mild chronic white matter ischemic changes. Cerebral ventricles: No ventriculomegaly. Paranasal sinuses: Visualized sinuses are unremarkable. No fluid levels. Mastoid air cells: Visualized mastoid air cells are well aerated. Auditory system: Redemonstrated bilateral external auditory canal exostosis with resultant stenosis. Bones: No acute fracture. Soft tissues: Unremarkable. IMPRESSION: No acute intracranial abnormality. Dictated and Authenticated by: Iker Ewing MD. Ordering:KANDY Thacker MD
--- NOTE | 2023-08-18 10:58 | DI.VRAD_ITS ---
PROCEDURE INFORMATION: Exam: XR Chest Exam date and time: 08/18/2023 10:08 AM Age: 68 years old Clinical indication: Other: Syncope TECHNIQUE: Imaging protocol: Radiologic exam of the chest. Views: 1 view. COMPARISON: CR XR CHEST 1V IN DI DEPT 09/10/2022 2:22 PM FINDINGS: Lungs: There is minor atelectasis/scarring towards the bases. The lungs are otherwise clear. Pleural spaces: Unremarkable. No pleural effusion. No pneumothorax. Heart/Mediastinum: Unremarkable. No cardiomegaly. Bones/joints: Thoracolumbar hardware is present, and degenerative changes involve the spine and shoulders. There are also rotator cuff anchors in the left humeral head. Gastrointestinal tract: There is colonic interposition under the right hemidiaphragm. IMPRESSION: No evidence for acute pulmonary disease. Dictated and Authenticated by: Shaun Marvin MD. Ordering:KANDY Thacker MD
--- NOTE | 2023-08-18 11:01 | DI.VRAD_ITS ---
PROCEDURE INFORMATION: Exam: XR Right Forearm Exam date and time: 08/18/2023 10:11 AM Age: 68 years old Clinical indication: Injury or trauma; Fall; Blunt trauma (contusions or hematomas); Arm, lower; Injury details: Right forearm laceration TECHNIQUE: Imaging protocol: Radiologic exam of the right forearm. Views: 2 views. COMPARISON: CR XR WRIST RT COMPLETE 09/24/2020 1:17 PM FINDINGS: Bones/joints: No acute fracture is identified. The partially evaluated elbow and wrist joints are normally aligned and with mild degenerative changes. This includes mild osteophyte formation along the radial head/neck junction anteriorly. Soft tissues: There is irregular soft tissue swelling proximally with lucency suggesting laceration along the medial aspect of the proximal forearm. No radiopaque foreign body is identified. IMPRESSION: Irregular soft tissue swelling about the proximal forearm with laceration medially, without radiopaque foreign body or acute fracture identified. Dictated and Authenticated by: Shaun Marvin MD. Ordering:KANDY Thacker MD
--- NOTE | 2023-08-18 11:06 | DI.VRAD_ITS ---
PROCEDURE INFORMATION: Exam: CTA Chest With Contrast Exam date and time: 08/18/2023 10:20 AM Age: 68 years old Clinical indication: Abnormal findings; Abnormal diagnostic tests; Elevated d-dimer; Prior surgery; Surgery date: 6+ months; Surgery type: Spine TECHNIQUE: Imaging protocol: Computed tomographic angiography of the chest with contrast. Exam focused on the arteries. 3D rendering (Not supervised by radiologist): MIP and/or 3D reconstructed images were created by the technologist. COMPARISON: CT THORAX ABD/PEL CTA 02/23/2020 12:06 AM FINDINGS: Pulmonary arteries: No pulmonary embolus is identified. Aorta: The thoracic aorta is nonaneurysmal. Lungs: A right basilar lung nodule has decreased in size from 19 mm to 13 mm (image 4/42). Minor dependent atelectasis and scattered scarring is present bilaterally. The lungs are otherwise clear. Pleural spaces: Unremarkable. No pneumothorax. No pleural effusion. Heart: Unremarkable. No cardiomegaly. No pericardial effusion. Lymph nodes: Unremarkable. No enlarged lymph nodes. Bones/joints: Degenerative changes again involve the spine and shoulders. Surgical anchor is again present in the left humeral head. There is new operative change with hardware in the lower thoracic spine. Soft tissues: Unremarkable. IMPRESSION: 1. No pulmonary embolus or other acute thoracic disease identified. 2. Decreased size of a right basilar lung nodule since 02/23/2020, now 13 mm, previously 19 mm. Dictated and Authenticated by: Shaun Marvin MD. Ordering:KANDY Thacker MD
--- NOTE | 2023-08-18 12:15 | NUR.NOTE ---
Referral faxed to PCP for pulmonary nodule in 1 week. Nursing Note:
== END 2023-08-18 11:44 | disposition home or self-care (01) ==
PROVIDERS: Emergency Provider Emergency Medicine; PCP Nurse Practitioner Family
DX: S51.811A Laceration without foreign body of right forearm, initial encounter (principal); R00.1 Bradycardia, unspecified; R91.8 Other nonspecific abnormal finding of lung field; Z86.718 Personal history of other venous thrombosis and embolism; Z79.01 Long term (current) use of anticoagulants; W01.198A Fall on same level from slipping, tripping and stumbling with subsequent striking against other object, initial encounter; Y93.01 Activity, walking, marching and hiking; Y92.010 Kitchen of single-family (private) house as the place of occurrence of the external cause; Z23 Encounter for immunization
CPT/HCPCS: 12032; 36415; 71275; 80048; 90471; 90715; 93005; 96361; 96365; 96375; 99285; 70450; 71045; 73090; 83735; 84443; 84484; 85025; 85379; 93010; 99284; J0690; J2270; J3010; J3490

== ENCOUNTER → 2023-08-31 02:10 | Outpatient (CLI) | payer MEDICARE, MEDICAID, SELFPAY ==
--- NOTE | 2023-08-31 14:06 | DI.RAD_ITS ---
Exam(s) XR THORACIC SPINE COMPLETE EXAM: XR THORACIC SPINE COMPLETE CLINICAL HISTORY: back pain,m54.9. TECHNIQUE: 2D digital imaging was performed. Three views. COMPARISON: CR XR SCOLIOSIS T-L SPINE from 02/26/2023 FINDINGS: BONES: There is no fracture or destructive lesion. The vertebral bodies and posterior elements are un remarkable. There are rods in the lower thoracic spine, unchanged from prior exam. ALIGNMENT: There is a slight dextroscoliosis. DISKS: There are mild flowing endplate osteophytes SOFT TISSUE: Visualized lungs are clear. IMPRESSION: No acute abnormality. Degenerative changes. Rods in lower thoracic spine appear unchanged. DATA REPOSITORY: RADIATION DOSE DELIVERED:
== END ==
PROVIDERS: PCP Family Medicine; Visit Provider Family Medicine
DX: M54.9 Dorsalgia, unspecified (principal)
CPT/HCPCS: 72072

== ENCOUNTER 2024-01-16 10:30 | Outpatient (CLI) | payer MEDICARE, MEDICAID, SELFPAY ==
[2024-01-16 12:26] LABS: Abs Immature Grans 0.03 10^3/uL (0.0-0.06); Absolute Basophil Count 0.05 10^3/uL (0.0-0.2); Absolute Eosinophil Count 0.21 10^3/uL (0.0-0.7); Absolute Lymphocyte Count 2.06 10^3/uL (1.2-3.4); Absolute Monocyte Count 0.62 10^3/uL (0.1-0.8); Absolute Neutrophil Count 5.51 10^3/uL (1.2-6.7); Basophils % 0.6 %; Eosinophils % 2.5 %; HCT 44.8 % (40.0-50.0); HGB 14.9 g/dL (13.5-17.5); Immature Grans % 0.4 %; Lymphocytes % 24.3 %; MCH 30.7 pg (27.0-33.0); MCHC 33.3 % (32.0-36.0); MCV 92 fL (80-95); MPV 10.5 fL (8.0-11.0); Monocytes % 7.3 %; Neutrophils % 64.9 %; Platelet Count 234 10^3/uL (130-400); RBC 4.86 10^6/uL (4.36-5.78); RDW 13.5 % (11.8-14.1); RDW-SD 46.3 fL; WBC 8.48 10^3/uL (4.4-10.8)
[2024-01-16 13:54] LABS: ALT 28 U/L (16-63); AST 34 U/L (15-37); Albumin 4.6 g/dL (3.4-5.0); Alkaline Phosphatase 128 U/L (46-116); Anion Gap 8.4 mmol/L (3-11); BUN 17 mg/dL (7-18); Bilirubin, Total 0.89 mg/dL (0.2-1.0); CO2 29.6 mmol/L (21.0-32.0); Calcium 9.5 mg/dL (8.5-10.1); Chloride 105 mmol/L (98-107); Estimated GFR 81.98 (mL/min/1.73m2); Glucose 93 mg/dL (74-106); Potassium 4.3 mmol/L (3.5-5.1); Sodium 143 mmol/L (136-145); TSH (W/Ref FT4) 1.39 uIU/mL (0.36-3.74); Total Protein 8.7 g/dL (6.4-8.2); Vitamin B12 912 pg/mL (193-986)
== END 2024-01-16 10:31 | disposition home or self-care (01) ==
LOC: LOS 10:30
PROVIDERS: PCP Family Medicine; Visit Provider Nurse Practitioner Family
DX: R41.3 Other amnesia (principal)
CPT/HCPCS: 36415; 80053; 82607; 84165; 84443; 85025

== ENCOUNTER 2024-09-03 10:30 | Outpatient (CLI) | payer MEDICARE, MEDICAID, SELFPAY ==
--- NOTE | 2024-09-03 13:45 | DI.US_ITS ---
Exam(s) US LOWER EXTREMITY VENOUS LT EXAM: US LOWER EXTREMITY VENOUS LT CLINICAL HISTORY: recurrent swelling/pain,m79.89. TECHNIQUE: Lower extremity venous ultrasound performed using grayscale, color-flow, and spectral Do ppler analysis. COMPARISON: No exams were available for comparison FINDINGS: There is thrombus visible from the common femoral vein through the calf veins. The thrombus terminat es in the common femoral vein. The saphenous vein also shows thrombus. No hematoma or Mukherjee's cyst is seen. IMPRESSION: Extensive deep venous thrombosis scanning from the common femoral vein through the veins of the calf. Saphenous vein also shows thrombus. DATA REPOSITORY:
== END 2024-09-03 10:50 ==
LOC: DI 10:30
PROVIDERS: PCP Nurse Practitioner Family; Visit Provider Nurse Practitioner Family
DX: M79.89 Other specified soft tissue disorders (principal)
CPT/HCPCS: 93971

== ENCOUNTER 2024-09-18 01:05 | Outpatient (CLI) | payer MEDICARE, MEDICAID, SELFPAY ==
--- NOTE | 2024-09-18 11:16 | DI.CT_ITS ---
Exam(s) CT CHEST WO EXAM: CT CHEST WO CLINICAL HISTORY: re-peat scan for lung nodules, multiple lung nodules on prior CT 08/18/23,. TECHNIQUE: Multi planar reconstructions were performed. CONTRAST MATERIAL: None COMPARISON: CT CT THORACIC LUMBAR SPINE WO from 09/10/[address] CHEST PE CTA from 08/18/2023 FINDINGS: CHEST: LUNGS: 2 small right upper lobe lung nodules are again noted and appear unchanged. Small fissure related right lung nodule also appears unchanged. Some scarring in the right middle lobe appears unchanged. A prominent spiculated nodules again noted in the anterior right lung base and is again noted to contain 2 small calcifications. This nodule presently measures 1.4 by 1.3 cm by 1.9 cm craniocaudal.. It exhibits minimal if any significant change in size and configuration when compared to 1 year ago. And is also not significantly increased in size when compared to 09/10/2022. Tiny calcified granuloma in the right lower lobe again noted. In the opposite-left lung there is an unchanged tiny calcified granuloma in the sub apical left upper lobe. However, lower down in the left upper lobe there are multiple areas of ground-glass nodular infiltrate now evident which were not evident 1 year ago. Largest of these measures approximately 2 x 1 cm. There are no new additional findings in the left lower lobe. There are no pleural effusions. There are no significant focal findings in the trachea and mainstem bronchi. MEDIASTINUM: There is no obvious hilar nor mediastinal adenopathy. Visualized thyroid appears to contain some small partially calcified nodules in both lobes.There is no supraclavicular nor axillary adenopathy. CARDIAC: Heart size is normal. There is no pericardial effusion.Mild dilatation of the ascending thoracic aorta which measures 3.9 cm. VISUALIZED UPPER ABDOMEN:No adrenal masses. Fusion hardware in the lower thoracic/upper lumbar spine . OSSEOUS: Fusion hardware as above. No fractures. No listhesis. No significant osseous lesions.. IMPRESSION: 1. There is continued stable appearance of the multiple right lung nodules, including in the largest which is in the anterior right lung base just above the hemidiaphragm. This presently measures approximately 14 x 13 x 19 mm. It is also not significantly increased in size when compared to a CT scan of September 2022. 2. However, there is now new significant non cavitated infiltrate in the left upper lobe with some partially confluent infiltrate as well as some ground-glass infiltrate, these findings not previously evident on the CT scan of August 2023. This requires follow-up to resolution on CT scan. Recommend repeat CT scan in 3 months, earlier if clinically indicated. 3. There is no new intrathoracic adenopathy. Other findings as above. RADIATION DOSE DELIVERED: 193.38mGy.cm Total DLP DATA REPOSITORY: All CT scans at this facility are submitted to the National Radiology Data Registry (NRDR) Dose Index Registry (DIR) with the [employer] ([employer]). RADIATION OPTIMIZATION: All CT scans at this facility use at least one of these dose optimization techniques: automated exposure control; mA and/or kV adjustment per patient size (includes targeted exams where dose is matched to clinical indication); or iterative reconstruction.
== END 2024-09-18 01:25 ==
LOC: DI 01:06
PROVIDERS: PCP Nurse Practitioner Family; Visit Provider Nurse Practitioner Family
DX: R91.8 Other nonspecific abnormal finding of lung field (principal)
CPT/HCPCS: 71250

== ENCOUNTER 2024-10-14 01:34 | Outpatient (CLI) | payer MEDICARE, MEDICAID, SELFPAY ==
--- NOTE | 2024-10-14 07:15 | DI.US_ITS ---
Exam(s) US LOWER EXTREMITY VENOUS LT EXAM: US LOWER EXTREMITY VENOUS LT CLINICAL HISTORY: continued pain,swelling lle, dvt,no improvement,chronic anticoagulation TECHNIQUE: Grayscale, color, and doppler imaging of the deep venous system of the lower extremity was performed. COMPARISON: US US LOWER EXTREMITY VENOUS LT from 09/03/2024 FINDINGS: Compared to the prior ultrasound examination of 08/26/2024 there is again noted extensive DVT involving most of the femoral vein through the length of the entire thigh as well as continuous through the popliteal vein and again noted to involve the posterior and peroneal veins of the calf. Although this thrombus has not resolved, there does appear to be some degree of improvement when compared to the prior study in that there are now regions where the thrombus is nonocclusive. There is no thrombus evident with in the greater saphenous vein. IMPRESSION: 1. Although the extensive thrombus throughout the left lower extremity has not resolved completely, there does appear to be some degree of improvement when compared to the ultrasound of 09/03/2024 in that and multiple areas the thrombus is presently nonocclusive. Recommend follow-up ultrasound in a few weeks time, earlier if clinically indicated. DATA REPOSITORY:
== END 2024-10-14 01:54 ==
LOC: DI 01:34
PROVIDERS: PCP Nurse Practitioner Family; Visit Provider Nurse Practitioner Family
DX: M79.89 Other specified soft tissue disorders (principal); I82.403 Acute embolism and thrombosis of unspecified deep veins of lower extremity, bilateral; Z79.01 Long term (current) use of anticoagulants
CPT/HCPCS: 93971

== ENCOUNTER → 2024-10-15 12:34 | Outpatient (BNVA) | payer MEDICARE, MEDICAID, SELFPAY | PROVIDERS: PCP Nurse Practitioner Family; Referring Provider Nurse Practitioner Family; Visit Provider Internal Medicine Pulmonary Disease | DX: R91.8 Other nonspecific abnormal finding of lung field (principal); R13.10 Dysphagia, unspecified; Z86.718 Personal history of other venous thrombosis and embolism; R91.1 Solitary pulmonary nodule; Z79.01 Long term (current) use of anticoagulants; Z23 Encounter for immunization | CPT/HCPCS: 99215; 90471; 90684 ==

== ENCOUNTER 2025-01-01 14:49 | Outpatient (CLI) | payer MEDICARE, MEDICAID, SELFPAY ==
--- NOTE | 2025-01-01 13:30 | DI.RAD_ITS ---
Exam(s) XR ANKLE LT COMPLETE EXAM: XR ANKLE LT COMPLETE CLINICAL HISTORY: LEFT KNEE PAIN TECHNIQUE: 2D digital imaging was performed of the left ankle. Three images were obtained. AP, lateral and oblique views were obtained. COMPARISON: CR XR FOOT LT COMPLETE from 10/13/2021 FINDINGS: BONES: No acute fracture is present. No bony destructive lesion is seen. There is an enthesophyte at the posterior calcaneus. JOINTS:The ankle mortise is normally aligned. SOFT TISSUE: Atherosclerotic calcification is present. IMPRESSION: Calcaneal spur. DATA REPOSITORY: RADIATION DOSE DELIVERED:
--- NOTE | 2025-01-01 13:30 | DI.RAD_ITS ---
Exam(s) XR KNEE LT 4V AP,LAT,LUBNA,PAT EXAM: XR KNEE LT 4V AP,LAT,LUBNA,PAT CLINICAL HISTORY: LEFT KNEE PAIN. TECHNIQUE: 2D digital imaging was performed of the left knee. Four images were obtained. Merchant,AP, lateral and PA tunnel views were obtained. COMPARISON: No exams were available for comparison FINDINGS: BONES: No acute fracture is present. No bony destructive lesion is seen. There is an enthesophyte at the superior patella. JOINTS: There is mild joint space narrowing in the lateral femoral tibial joint. There is mild spurring of the posterior patella. There is a small joint effusion. No loose body. SOFT TISSUE: Normal. IMPRESSION: Mild degenerative changes of the left knee. DATA REPOSITORY: RADIATION DOSE DELIVERED:
== END 2025-01-01 14:50 | disposition home or self-care (01) ==
LOC: DIORS 14:52
PROVIDERS: PCP Nurse Practitioner Family; Referring Provider Nurse Practitioner Family; Visit Provider Student in an Organized Health Care Education/Training Program
DX: M25.562 Pain in left knee (principal); M21.862 Other specified acquired deformities of left lower leg; M47.14 Other spondylosis with myelopathy, thoracic region; R26.9 Unspecified abnormalities of gait and mobility
CPT/HCPCS: 99215; 73564; 73610

== ENCOUNTER 2025-04-03 04:04 | Emergency (ER) | payer MEDICARE, MEDICAID, SELFPAY ==
--- NOTE | 2025-04-03 03:45 | RT.EKG_ITS ---
APPROVED REPORT Exam: Resting ECG Reason for Exam: vomiting Patient Location: E HR:58 bpm ECG Measurements Heart Rate 58 AXIS TX 223 P 13 QRSd 103 QRS 26 QT 467 T 62 QTc 459 Conclusion Sinus bradycardia...rate< 60 Prolonged TX interval...TX >220, V-rate 50- 90 Low voltage, extremity leads...all extremity leads <0.5mV Physician: No STEMI
[2025-04-03 03:49] VITALS: BP 143/49; PULSE 58; RESP 16; TEMP 36.4; O2SAT 99
--- NOTE | 2025-04-03 04:01 | W.ED.GENAD ---
Discharge Plan Disposition Patient Disposition: Home Condition: Good Discharge Details Clinical Impression: Esophagitis, Nausea vomiting and diarrhea Primary Care Provider: Melany Read ED Provider: Riley Sanchez Home Meds and New Rx's Prescriptions: New pantoprazole [Protonix] 20 mg tablet,delayed release (DR/EC) 20 mg PO DAILY Qty: 30 0RF famotidine 20 mg tablet 20 mg PO DAILY Qty: 30 0RF sucralfate [Carafate] 1 gram tablet 1 g PO BID Qty: 60 0RF No Action clonazepam 2 mg tablet 1 mg PO BID PRN Rx Instructions: TAKE 1 TABLET IN THE AM AND 1/2 TABLET IN THE PM sertraline 100 mg tablet 100 mg PO DAILY methylphenidate HCl 20 mg tablet 60 mg PO DAILY Rx Instructions: RX'd by JOEY sildenafil [Viagra] 50 mg tablet 50 mg PO DAILY PRN (Reason: sexual activity) Qty: 6 3RF Rx Instructions: administer 30 minutes to 4 hours before activity triamcinolone acetonide 0.1 % cream 1 applic TP BID Qty: 80 2RF Rx Instructions: local application in thin layer twice a day on rash of legs and arms gabapentin 800 mg tablet 1,600 mg PO BID Qty: 120 5RF Eliquis 5 mg tablet 5 mg PO BID Qty: 180 2RF penicillin V potassium 250 mg tablet 250 mg PO Q6H Qty: 28 0RF aripiprazole 5 mg tablet 5 mg PO DAILY Rx Instructions: TAKE IN ADDITION TO 2MG TAB aripiprazole 2 mg tablet 2 mg PO DAILY Rx Instructions: TAKE IN ADDITION TO 5 MG TAB Discharge Instructions Instructions: Esophagitis Additional Instructions: At this time your workup is returned reassuring. You do have inflammation of your esophagus which may be secondary to reflux or chronic acid production. Please follow-up closely with your primary care provider for reassessment and potential outpatient nonemergent EGD with a surgeon. We have given you prescription for Protonix and famotidine and Carafate to help with the acid buildup in your stomach. Please take these as prescribed. Please avoid spicy foods, tomato-based products and citrus based products. If you notice any worsening of your symptoms, or any new symptoms such as vomiting, diarrhea, fever, chills, shortness of breath, chest pain, numbness, weakness, or fainting , please return immediately to the emergency department for reevaluation. Please follow up with your primary care provider as soon as possible for reassessment and reevaluation. As always, it was a pleasure participating in your medical care today. Stand Alone Forms: Portal Information Referrals: Melany Read NP [Primary Care Provider, Medicine] [facility] General Date/Time Provider Initiated Documentation: 04/03/25 04:54. HPI Narrative: 69-year-old male with a past medical history of chronic pulmonary nodules, previous DVTs on Eliquis, anxiety, spinal stenosis, previous alcohol abuse, anxiety, depression, OCD, BPH, who presents today for nausea vomiting and diarrhea. Symptoms began this evening with multiple episodes of all of the above. He states that he feels that he ate some pink turkey yesterday for the , and his symptoms began afterwards. He admits to generalized abdominal achiness. He admits to a pink tinge in his sputum and vomitus, but no blood clots or other abnormalities. No other complaints. He lives alone, no other sick contacts. Related Data Home Medications ?Medication ?Instructions ?Recorded ?Confirmed aripiprazole 2 mg tablet 2 mg PO DAILY 09/11/22 01/04/25 aripiprazole 5 mg tablet 5 mg PO DAILY 09/11/22 01/04/25 triamcinolone acetonide 0.1 % 1 applic topical BID #80 grams 04/20/23 01/04/25 topical cream sildenafil 50 mg tablet (Viagra) 50 mg PO DAILY PRN sexual activity 05/25/23 01/04/25 #6 tabs methylphenidate HCl 20 mg tablet 60 mg PO DAILY 08/05/24 01/04/25 sertraline 100 mg tablet 100 mg PO DAILY Depression, OCD, 08/05/24 01/04/25 Anxiety, ADHD clonazepam 2 mg tablet 1 mg PO BID PRN 09/15/24 01/04/25 apixaban 5 mg tablet (Eliquis) 5 mg PO BID #180 tabs 02/17/25 gabapentin 800 mg tablet 1,600 mg (2 x 800 mg) PO BID #120 02/17/25 tabs penicillin V potassium 250 mg 250 mg PO Q6H #28 tabs 02/24/25 tablet famotidine 20 mg tablet 20 mg PO DAILY #30 tabs 04/03/25 pantoprazole 20 mg tablet,delayed 20 mg PO DAILY #30 tabs 04/03/25 release (Protonix) sucralfate 1 gram tablet (Carafate) 1 g PO BID #60 tabs 04/03/25 Previous Rx's ?Medication ?Instructions ?Recorded triamcinolone acetonide 0.1 % 1 applic topical BID #80 grams 04/20/23 topical cream sildenafil 50 mg tablet (Viagra) 50 mg PO DAILY PRN sexual activity 05/25/23 #6 tabs apixaban 5 mg tablet (Eliquis) 5 mg PO BID #180 tabs 02/17/25 gabapentin 800 mg tablet 1,600 mg (2 x 800 mg) PO BID #120 02/17/25 tabs penicillin V potassium 250 mg 250 mg PO Q6H #28 tabs 02/24/25 tablet famotidine 20 mg tablet 20 mg PO DAILY #30 tabs 04/03/25 pantoprazole 20 mg tablet,delayed 20 mg PO DAILY #30 tabs 04/03/25 release (Protonix) sucralfate 1 gram tablet (Carafate) 1 g PO BID #60 tabs 04/03/25 Allergies Allergy/AdvReac Type Severity Reaction Status Date / Time fluoxetine HCl (From Prozac) AdvReac Severe Psychosis Verified 01/01/25 13:13 General Stated Complaint: Nausea/Vomit/Diar KATI: 3 Exam Narrative Exam Narrative: 1.Const: Well-nourished, Well-developed, appearing stated age 2.Eyes: PERRL, no conjunctival injection, and symmetrical lids. 3.ENT: Atraumatic external nose and ears. Dry MM. Neck: Symmetric, trachea midline, No thyromegaly. 4.CVS: +S1/S2, Peripheral pulses 2+ and equal in all extremities. Brisk capillary refill in all extremities. 5.RESP: Unlabored respiratory effort. Clear to auscultation bilaterally. No wheezes rales or rhonchi 6.GI: Soft, nondistended. No guarding or rebound. Mild achiness throughout the abdomen in particular the right upper quadrant. 7.MSK: Normocephalic/Atraumatic, Extremities w/o deformity or ttp No cyanosis or clubbing, Normal movement of all extremities 8.Skin: Warm, Dry. No rashes or lesions. 9.Neuro: resource analyst II-XII grossly intact. Sensation grossly intact, no focal neurologic deficits. 10.Psych: (AAO) x3. Appropriate mood and affect Course Vital Signs Vital signs: Vital Signs Temperature 36.4 C L 04/03/25 03:49 Pulse 58 L 04/03/25 03:49 Respiratory Rate 16 04/03/25 03:49 Blood Pressure 143/49 H 04/03/25 03:49 Pulse Oximetry 99 04/03/25 03:49 Temperature 36.4 C L 04/03/25 03:49 Temperature Source Temporal Artery Scan 04/03/25 03:49 Pulse 58 L 04/03/25 03:49 Respiratory Rate 16 04/03/25 03:49 Blood Pressure 143/49 H 04/03/25 03:49 Blood Pressure Position Supine 04/03/25 03:49 Pulse Oximetry 99 04/03/25 03:49 Oxygen Delivery Method Room Air 04/03/25 03:49 Oxygen Flow Rate 0 04/03/25 03:49 Pain Level 10 04/03/25 03:49 Medical Decision Making 69-year-old male with a past medical history of chronic pulmonary nodules, previous DVTs on Eliquis, anxiety, spinal stenosis, previous alcohol abuse, anxiety, depression, OCD, BPH, who presents today for nausea vomiting and diarrhea. Symptoms began this evening with multiple episodes of all of the above. He states that he feels that he ate some pink turkey yesterday for the , and his symptoms began afterwards. He admits to generalized abdominal achiness. He admits to a pink tinge in his sputum and vomitus, but no blood clots or other abnormalities. No other complaints. He lives alone, no other sick contacts. Exam demonstrates dry mucous membranes, achiness throughout the abdomen including the right upper quadrant. Differential includes gastroenteritis, cholecystitis, pancreatitis. Will evaluate for these etiologies rehydrate give antiemetics, get CT imaging, monitor closely and reassess. 6:44 AM Laboratory workup has returned, initial lactate notably elevated at 2.7, Electrolytes normal, mildly elevated white count, but no bandemia. No fever to suggest infectious etiology. Serial troponins are normal. Lipase is mildly elevated at 62, however the patient has been able to tolerate p.o. here, and shows no evidence of clinical pancreatitis. In fact previous levels were higher in the past for the patient. Patient feels significantly improved. Symptoms inconsistent with cardiac etiology. CT scan shows thickening of the distal esophagus, and he was given a Carafate and GI cocktail. No other acute process. No evidence of cholecystitis, or other abnormality per virtual radiology. Patient is stable for discharge. Will give prescription for Protonix and famotidine at home to help with his esophagitis. Will give Carafate as well. No hematemesis here, no tachycardia to suggest significant blood loss. Pending repeat lactate. 7:50 AM Laboratory workup is returned, and repeat lactate shows an increase which is notably unexpected and is in contrast with his clinical disposition. He has no tachycardia or fever, he is able to tolerate the GI cocktail. He does not show evidence to suggest acute mesenteric ischemia at this time. Additionally he is on Eliquis already. Due to the increased lactate though we will continue gentle continued hydration, will give food, give p.o. trial with breakfast, ambulate the patient and reassess. Will pend repeat read from our radiology team. Patient will be signed out to my colleague Dr. Damon for follow-up on clinical reassessment for discharge. FINDINGS: Limitations: Artifact from metallic hardware limits evaluation of the surrounding tissues. Mild motion artifact. Lungs: Dependent changes are present in the lungs. 1.2 cm right middle lobe nodule again identified. Esophagus: Thickening of the visualized distal esophagus. Diaphragm: Small hiatal hernia. Liver: Mild hepatomegaly. Gallbladder and biliary ducts: No radiodense gallbladder calculi seen. Pancreas: No CT evidence for acute pancreatitis. Spleen: No splenomegaly. Adrenal glands: No mass Kidneys and ureters: Right renal cysts. Stomach and bowel: No intestinal obstruction is evident. Apparent mild rectal thickening commensurate with underdistention. Colonic diverticula. Areas of apparent mural thickening in the colon commensurate with underdistention. Appendix: Appendectomy. Intraperitoneal space: No free air. Vasculature: Arterial calcifications. Lymph nodes: No acute findings. Urinary bladder: The urinary bladder appears mildly thickened but is incompletely distended. Reproductive: Suspect testicular tissue in the left inguinal canal. Correlate clinically. Enlarged prostate. Bones/joints: Bilateral spinal stabilization rods. Artifact limits evaluation of the surrounding tissues. Soft tissues: No pertinent acute abnormality seen. IMPRESSION: 1. Thickening of the visualized distal esophagus. Cannot exclude esophagitis, neoplasm. 2. Nonacute findings as outlined above. Thank you for allowing us to participate in the care of your patient. Dictated and Authenticated by: Jenna Burns MD 04/03/2025 5:14 AM Eastern Time ([place] & [place]) [facility] All Active Problems (Updated 04/03/25 @ 05:51 by Riley Sanchez DO) Nausea vomiting and diarrhea (Acute) Esophagitis (Acute) Hyperextension deformity of left knee (Acute) Pulmonary infiltrate (Acute) Pulmonary nodules (Acute) Dysphagia (Acute) Dental infection (Acute) Hyperproteinemia (Acute) Memory change (Acute) Laceration of upper extremity (Acute) Physical exam (Acute) Back pain (Acute) Fall (Acute) Weakness (Acute) Physical deconditioning (Acute) Recent major surgery (Acute) BPH (benign prostatic hyperplasia) (Chronic) Chronic anticoagulation (Acute) Swelling of left foot (Acute) Foreign body (FB) in soft tissue (Acute) In plantar area of right foot. Neurologic gait dysfunction (Chronic) Chronic pain of both lower extremities (Acute) Thoracic myelopathy (Acute) DVT (deep venous thrombosis) (Chronic) Lesion of right external auditory canal (Acute) Alcohol related disorder (Acute) Does not drink. Quit about 2020 Depression (Chronic) Obsessive-compulsive disorder, unspecified (Chronic 05/07/16) followed by psychiatry [facility] Anxiety disorder (Chronic) Spinal stenosis of thoracic region (Chronic 05/07/16) T9-T12 decompression sx: [facility] Medical History Fracture of triquetral bone of wrist Alcohol abuse Male erectile dysfunction, unspecified (04/15/15) Urology eval. [facility]/ borderline PSA value: f/up April 2016 Acetaminophen overdose Salicylate overdose (05/13/13) In attempt to kill oneself. Surgical History History of appendectomy [facility] Appendectomy Family History Mother Personal history of malignant neoplasm CERVICLE Father No problems noted. Brother No problems noted. Son No problems noted. Daughter Depression Daughter No problems noted. 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 Pets and animals: No Sexually active: No Do you think of yourself as: straight/heterosexual Current gender identity: male What is your relationship status?: How often do you talk on the phone with friends or family?: decline to answer How often do you get together with friends or relatives?: never How often do you attend adventist or quaker services?: decline to answer Do you belong to any clubs or organized social groups?: no Panel score (0-1 are the most socially isolated patients): 0 What type of physical activity do you participate in: walking Special cruzito needs: No Seatbelt use: never Helmet use: No Drive intox or ride w/intox trencher driver: No Do you feel safe at home: No (feels should be in rehab) Do you feel safe in your relationship?: Yes
[2025-04-03 04:04] LABS: Abs Immature Grans 0.06 10^3/uL (0.0-0.06); HCT 38.1 % (40.0-50.0); HGB 12.9 g/dL (13.5-17.5); Immature Grans % 0.4 %; MCH 30.2 pg (27.0-33.0); MCHC 33.9 % (32.0-36.0); MCV 89 fL (80-95); MPV 10.4 fL (8.0-11.0); Platelet Count 178 10^3/uL (130-400); RBC 4.27 10^6/uL (4.36-5.78); RDW 13.9 % (11.8-14.1); RDW-SD 45.2 fL; WBC 14.59 10^3/uL (4.4-10.8)
[2025-04-03] MEDS: ACETAMINOPHEN 1,000 MG/100 ML BAG 400 MG IVPB (04:05)
[2025-04-03] MEDS: Normal Saline 1,000 ML 1000 ML IV ×2 (04:05→05:50)
[2025-04-03] MEDS: Ondansetron 4 MG/2 ML VIAL IVP ×2 (04:05→08:07)
[2025-04-03 04:18] VITALS: BP 143/49; PULSE 58; RESP 16; TEMP 36.4; O2SAT 99
[2025-04-03 04:22] LABS: Lipase 62 U/L (<53); Troponin I 4 ng/L (<54)
[2025-04-03 04:24] LABS: ALT 15 U/L (10-49); AST 25 U/L (<34); Albumin 4.6 g/dL (3.2-5.0); Alkaline Phosphatase 124 U/L (46-116); Anion Gap 10.2 mmol/L (3-11); BUN 22 mg/dL (9-23); Bilirubin, Total 0.6 mg/dL (0.2-1.2); CO2 29.8 mmol/L (20.0-31.0); Calcium 9.2 mg/dL (8.3-10.6); Chloride 103 mmol/L (98-107); Glucose 193 mg/dL (74-106); Potassium 3.8 mmol/L (3.5-5.1); Sodium 143 mmol/L (136-145); Total Protein 7.7 g/dL (5.7-8.2)
[2025-04-03] MEDS: Omnipaque 350 MG/ML 100 ML BTL IJ (05:06)
[2025-04-03] MEDS: Normal Saline - Diluent 50 ML VIAL IJ (05:06)
[2025-04-03] MEDS: Normal Saline Flush 10 ML SYR IVP (05:06)
--- NOTE | 2025-04-03 05:07 | DI.CT_ITS ---
Exam(s) CT ABDOMEN PELVIS W EXAM: CT ABDOMEN PELVIS W CLINICAL HISTORY: vomiting, RUQ pain, eval GB. TECHNIQUE: Imaging Protocol: Axial computed tomography images with coronal and sagittal reformatted images were created and reviewed CONTRAST MATERIAL: Intravenous: Omnipaque-350 100cc Oral: None COMPARISON: CT CT CHEST PE CTA from 01/31/[address] CHEST PE CTA from 08/18/2023 FINDINGS: VISUALIZED LUNG BASES: Is a noncalcified 1.4 cm nodule just above the right hemidiaphragm in the right middle lobe, unchanged from CT scan of January 2020. ABDOMEN: There is no ascites.. LIVER: There are no focal hepatic lesions evident. No dilated intrahepatic ducts. GALLBLADDER/BILIARY: No obvious gallbladder pathology. CBD is not dilated. PANCREAS: No evidence of pancreatic mass nor dilatation of the pancreatic duct. SPLEEN: Spleen is not enlarged. No obvious intrasplenic lesions. Splenic and portal veins are patent. ADRENALS: There are no significant adrenal masses. KIDNEYS:Left kidney unremarkable. There 2 benign cortical cysts in the right kidney measuring 2.2 and 2.0 cm. These do not require further imaging workup. No solid renal masses. No calculi. No hydronephrosis. No hydroureter.. ABDOMINAL AORTA: Abdominal aorta is not enlarged. A nonthrombosed retroaortic left renal vein is noted, this seen approximately 5 percent of the general population. LYMPH NODES:There is no retroperitoneal nor paraaortic adenopathy. ABDOMINAL WALL: There appears to be a testicle in the left inguinal canal. GI: There is no evidence of bowel obstruction, free air, nor abscess. There appears to be circumferential thickening of the partially included lower esophagus, possibly significant. PELVIS: GI: Appendix is surgically absent.No evidence of sigmoid diverticulitis. LYMPH NODES: There is no intrapelvic nor inguinal adenopathy. REPRODUCTIVE: Prostate size upper normal. URINARY BLADDER: No calculi nor obvious masses evident OSSEOUS: No fractures and no significant osseous lesions. Fusion hardware evident in the lower thoracic and upper lumbosacral spine. IMPRESSION: 1. There is circumferential thickening of the partially visualized distal esophagus. Recommend appropriate follow-up to rule out esophagitis or neoplasm at this level. 2. Other nonacute findings as described above. Preliminary V rad report was reviewed. RADIATION DOSE DELIVERED: 519.23mGy.cm Total DLP DATA REPOSITORY: All CT scans at this facility are submitted to the National Radiology Data Registry (NRDR) Dose Index Registry (DIR) with the [employer] (ACR). RADIATION OPTIMIZATION: All CT scans at this facility use at least one of these dose optimization techniques: automated exposure control; mA and/or kV adjustment per patient size (includes targeted exams where dose is matched to clinical indication); or iterative reconstruction.
[2025-04-03] MEDS: MORPHine 10 MG/ML VIAL 4 MG IVP ×2 (05:09→08:06)
--- NOTE | 2025-04-03 05:15 | DI.VRAD_ITS ---
PROCEDURE INFORMATION: Exam: CT Abdomen And Pelvis With Contrast Exam date and time: 04/03/2025 4:40 AM Age: 69 years old Clinical indication: Abdominal pain; Localized; Right upper quadrant (ruq); Prior surgery; Surgery date: 6+ months; Surgery type: Spine implants; Vomiting, ruq pain, eval gb TECHNIQUE: Imaging protocol: Computed tomography of the abdomen and pelvis with contrast. Radiation optimization: All CT scans at this facility use at least one of these dose optimization techniques: automated exposure control; mA and/or kV adjustment per patient size (includes targeted exams where dose is matched to clinical indication); or iterative reconstruction. Contrast material: [id number]; Contrast volume: 100 ml; Contrast route: INTRAVENOUS (IV); COMPARISON: CT THORAX ABD/PEL CTA 02/23/2020 12:06 AM FINDINGS: Limitations: Artifact from metallic hardware limits evaluation of the surrounding tissues. Mild motion artifact. Lungs: Dependent changes are present in the lungs. 1.2 cm right middle lobe nodule again identified. Esophagus: Thickening of the visualized distal esophagus. Diaphragm: Small hiatal hernia. Liver: Mild hepatomegaly. Gallbladder and biliary ducts: No radiodense gallbladder calculi seen. Pancreas: No CT evidence for acute pancreatitis. Spleen: No splenomegaly. Adrenal glands: No mass. Kidneys and ureters: Right renal cysts. Stomach and bowel: No intestinal obstruction is evident. Apparent mild rectal thickening commensurate with underdistention. Colonic diverticula. Areas of apparent mural thickening in the colon commensurate with underdistention. Appendix: Appendectomy. Intraperitoneal space: No free air. Vasculature: Arterial calcifications. Lymph nodes: No acute findings. Urinary bladder: The urinary bladder appears mildly thickened but is incompletely distended. Reproductive: Suspect testicular tissue in the left inguinal canal. Correlate clinically. Enlarged prostate. Bones/joints: Bilateral spinal stabilization rods. Artifact limits evaluation of the surrounding tissues. Soft tissues: No pertinent acute abnormality seen. IMPRESSION: 1. Thickening of the visualized distal esophagus. Cannot exclude esophagitis, neoplasm. 2. Nonacute findings as outlined above. Dictated and Authenticated by: Jenna Burns MD. Orderin Daniel Lin MD
[2025-04-03 05:25] VITALS: BP 140/61; PULSE 56; TEMP 36.7; O2SAT 97
[2025-04-03 05:37] LABS: Troponin I 4 ng/L (<54)
[2025-04-03] MEDS: Sucralfate 1 GM TAB PO (05:37)
[2025-04-03] MEDS: MYLANTA 30 ML, LIDOCAINE 2% VISCOUS UD 15 ML PO (05:38)
[2025-04-03 07:40] LABS: Troponin I 6 ng/L (<54)
[2025-04-03] MEDS: Normal Saline 1,000 ML 200 ML IV (08:05)
--- NOTE | 2025-04-03 08:07 | ED.PROG_ITS ---
Date of service: 04/03/25 Time of Service: 08:07 Medical Decision Making Pending repeat clinical assessment after food, mobilization, and further p.o. trial. 10:12 AM Patient passed a p.o. and ambulatory trial in the ED. I met with the patient and notified him of his CT scan of her head as thickening in the area of his distal esophagus. I was in touch with general surgeon Dr. Roa. She requested patient be discharged on pantoprazole. This thickening could be related to his nausea and vomiting versus esophagitis or neoplasm as radiology advised. COVID influenza RSV all negative. Patient was able to ambulate at baseline using a walker which he uses at home reportedly. Concerning his lactic acidosis he was having no ongoing nausea vomiting. He is soft abdomen on reassessment. He tolerated p.o. Given his reassuring clinical picture I did not feel that he required assessment of a repeat lactate. His CT scan showed no signs of any mesenteric ischemia. He had not had any seizures. He denies routine alcohol. No signs of hepatic failure on CT scan. Discharge Plan Disposition Patient Disposition: Home Condition: Good Discharge Details Clinical Impression: Esophagitis, Nausea vomiting and diarrhea Primary Care Provider: Melany Read ED Provider: Kedar Damon [place] Meds and New Rx's Prescriptions: New pantoprazole [Protonix] 20 mg tablet,delayed release (DR/EC) 20 mg PO DAILY Qty: 30 0RF famotidine 20 mg tablet 20 mg PO DAILY Qty: 30 0RF sucralfate [Carafate] 1 gram tablet 1 g PO BID Qty: 60 0RF ondansetron 4 mg tablet,disintegrating 4 mg PO BID 5 Days Qty: 10 0RF No Action clonazepam 2 mg tablet 1 mg PO BID PRN Rx Instructions: TAKE 1 TABLET IN THE AM AND 1/2 TABLET IN THE PM sertraline 100 mg tablet 100 mg PO DAILY methylphenidate HCl 20 mg tablet 60 mg PO DAILY Rx Instructions: RX'd by JOEY sildenafil [Viagra] 50 mg tablet 50 mg PO DAILY PRN (Reason: sexual activity) Qty: 6 3RF Rx Instructions: administer 30 minutes to 4 hours before activity triamcinolone acetonide 0.1 % cream 1 applic TP BID Qty: 80 2RF Rx Instructions: local application in thin layer twice a day on rash of legs and arms gabapentin 800 mg tablet 1,600 mg PO BID Qty: 120 5RF Eliquis 5 mg tablet 5 mg PO BID Qty: 180 2RF penicillin V potassium 250 mg tablet 250 mg PO Q6H Qty: 28 0RF aripiprazole 5 mg tablet 5 mg PO DAILY Rx Instructions: TAKE IN ADDITION TO 2MG TAB aripiprazole 2 mg tablet 2 mg PO DAILY Rx Instructions: TAKE IN ADDITION TO 5 MG TAB Discharge Instructions Instructions: Esophagitis Additional Instructions: At this time your workup is returned reassuring. You do have inflammation of your esophagus which may be secondary to reflux or chronic acid production. Please follow-up closely with your primary care provider for reassessment and potential outpatient nonemergent EGD with a surgeon. We have given you prescription for Protonix and famotidine and Carafate to help with the acid b uildup in your stomach. Please take these as prescribed. Please avoid spicy foods, tomato-based products and citrus based products. If you notice any worsening of your symptoms, or any new symptoms such as vomiting, diarrhea, fever, chills, shortness of breath, chest pain, numbness, weakness, or fainting , please return immediately to the emergency department for reevaluation. Please follow up with your primary care provider as soon as possible for reassessment and reevaluation. As always, it was a pleasure participating in your medical care today. Stand Alone Forms: Portal Information Referrals: Melany Read NP [Primary Care Provider, Medicine]
--- NOTE | 2025-04-03 09:42 | NUR.NOTE ---
Nursing Note: pt walked with this RN using walker he says he is at his baseline for mobility but feels a little weak sitting on the edge of the stretcher at this time drinking jordy robert.
[2025-04-03 10:36] VITALS: BP 100/44; PULSE 63; RESP 18; O2SAT 97
[2025-04-03 10:39] LABS: COVID-19 PCR Negative (Negative); RSV PCR Negative (Negative)
== END 2025-04-03 10:36 | disposition home or self-care (01) ==
PROVIDERS: Student in an Organized Health Care Education/Training Program; Emergency Provider Emergency Medicine; PCP Nurse Practitioner Family
DX: K20.90 Esophagitis, unspecified without bleeding (principal); R11.2 Nausea with vomiting, unspecified; R19.7 Diarrhea, unspecified; R10.12 Left upper quadrant pain; Z79.01 Long term (current) use of anticoagulants
CPT/HCPCS: 00123; 36415; 80053; 83690; 87637; 93005; 96361; 96365; 96375; 96376; 99285; 74177; 83605; 84484; 85025; 93010; 99284; J0131; J2270; J2405; J3490